=== PATIENT | female | born 1950 | race Caucasian/White ===

== ENCOUNTER 2020-07-08 07:09 | Day surgery (SDC) | payer MEDICARE, MEDICAID, SELFPAY ==
--- NOTE | ~2020-07-08 | IR_ITS ---
EXAMINATION: ATTEMPT OF GASTROSTOMY TUBE CHANGE. CLINICAL INFORMATION: Clogged G-tube. COMPARISON: CT scan of March 07, 2019 TECHNIQUE: Fluoroscopic guided gastrostomy tube evaluation FINDINGS: Informed consent was obtained from the patient's son prior to the procedure. During this process, the procedure and potential alternatives were explained, along with the intended outcome and benefits. The risks of the procedure, as well as the risk of not doing the procedure, were discussed. The patient's son was given the opportunity to ask questions regarding the procedure and appeared competent to make medical decisions. A signed consent form which documents this discussion was placed in the medical record. The gastrostomy tube was injected and is seen to be widely patent with no obstruction to flow upon injection of a 60 mL syringe. A guidewire was placed through the catheter and coiled within the stomach. Attempts at removing the gastrostomy tube with moderate tension were not successful with the appearance of the catheter having a mushroom retention device. Evaluation of the feeding tube did not demonstrate any markings of what kind of tube or size of tube. The tube appears to be larger than the largest gastrostomy tube that we carry which is a 20 Turkmen catheter. The indwelling catheter has the appearance of a 24 Turkmen catheter. Because of the above factors the gastrostomy tube was not replaced until further information about it is obtained.. The gastrostomy tube is widely patent at this time. IR/IR fluoroscopy <1hr IMPRESSION: Widely patent gastrostomy tube which was not replaced at this time due to the above findings. Fluoroscopy time: 0.5 minutes
[2020-07-08 07:10] VITALS: BMI 17.3
[2020-07-08 07:32] LABS: Glucose, Whole Blood 100 mg/dL (60-115)
[2020-07-08 07:39] LABS: MANUAL DIFF FLAG NO
[2020-07-08 07:43] LABS: Basophils Percent Auto 0.5 % (0-2); Eosinophils Absolute Auto 0.2 X10*3/uL (0.0-0.4); Eosinophils Percent Auto 2.9 % (0-4); Hematocrit 35.8 % (37-47); Imm Gran Abs Auto 0.01 X10*3/uL (0.00-0.03); Imm Gran Pct Auto 0.1 % (0.0-0.4); Lymphocytes Absolute Auto 3.3 X10*3/uL (1.2-4.9); Lymphocytes Percent Auto 43.8 % (20-40); Mean Corpuscular HGB Conc 30.7 g/dl (31.0-35.0); Mean Corpuscular Hemoglobin 27.3 pg (27.0-33.0); Mean Corpuscular Volume 88.8 fL (80-98); Mean Platelet Volume 10.6 fL (9.4-12.3); Monocytes Absolute Auto 0.4 X10*3/uL (0.1-1.2); Neutrophils Absolute Auto 3.6 X10*3/uL (2.0-8.3); Neutrophils Percent Auto 47.7 % (45-73); Platelet Count 256 X10*3/uL (160-400); Red Blood Count 4.03 X10*6/uL (4.20-5.50); Red Cell Distribution Width 14.9 % (11.0-16.0); White Blood Count 7.6 X10*3/uL (4.8-10.8)
--- NOTE | 2020-07-08 08:08 | PC.NURSE ---
Patient came to [facility] wearing one pair of silver earrings and one silver necklace.
[2020-07-08 08:36] LABS: Prothrombin Time 11.2 SEC (10.8-13.0)
[2020-07-08 08:39] LABS: INTERNATIONAL NORM RATIO 0.9 (0.9-1.1); Partial Thromboplastin Time 24.7 SEC (24.1-38.0)
[2020-07-08 11:05] VITALS: BP 155/76; PULSE 75; RESP 18; TEMP 36.6; O2SAT 98
[2020-07-08 11:23] VITALS: BP 151/71; PULSE 76; RESP 18; O2SAT 99
== END 2020-07-08 11:41 | disposition home or self-care (01) ==
PROVIDERS: Radiology Diagnostic Radiology; PCP Family Medicine; Visit Provider Radiology Diagnostic Radiology
PROC: (CPT 43762; principal; 2020-07-08 08:30)
DX: K94.23 Gastrostomy malfunction (principal); I69.920 Aphasia following unspecified cerebrovascular disease; I69.951 Hemiplegia and hemiparesis following unspecified cerebrovascular disease affecting right dominant side; I10 Essential (primary) hypertension; E11.9 Type 2 diabetes mellitus without complications; Z79.84 Long term (current) use of oral hypoglycemic drugs; Z79.899 Other long term (current) drug therapy; F22 Delusional disorders; F32.9 Major depressive disorder, single episode, unspecified
CPT/HCPCS: 36415; 49450; 76000; 82947; 85025; 85610; 85730; J2250; J3010; Q9967

== ENCOUNTER 2021-11-29 16:43 | Inpatient (IN) | payer MEDICARE, MEDICAID, SELFPAY ==
--- NOTE | ~2021-11-29 | XR_ITS ---
EXAMINATION: XR ABDOMEN KUB CLINICAL INDICATION: Constipation. COMPARISON: CT abdomen pelvis 11/29/2021 TECHNIQUE: AP view of the abdomen. FINDINGS: There is a distended entire colon with gas and stool likely severe constipation. Comparing to recent CT abdomen exam there is mild fullness in sigmoid and rectal area. Underlying lesion cannot be excluded. There is mild fullness in this region on the preceding CT 11/29/2021. An enteric tube is noted in distal stomach. XR/XR KUB IMPRESSION: Gaseous distention of colon likely severe constipation. Mild fullness is seen in the rectal and sigmoid region on preceding CT abdomen exam. Cannot exclude underlying lesion.
--- NOTE | ~2021-11-29 | XR_ITS ---
EXAMINATION: XR ABDOMEN KUB CLINICAL INDICATION: Follow-up intestinal obstruction. COMPARISON: Abdomen CT from 11/29/2021 and KUB from 11/30/2021. TECHNIQUE: AP view of the abdomen. FINDINGS: Interval removal of the nasogastric tube. The gaseous distention of the sigmoid colon has improved compared to 11/29/2021. The sigmoid colon has returned to normal size. Moderate amount of fecal material is present within the colon. There are no dilated loops of small bowel. No evidence of pneumoperitoneum on this radiograph obtained with the patient in supine position. Gastrostomy tube projects over the epigastric area. Cholecystectomy clips are present in the right upper quadrant. Bones are diffusely osteopenic. XR/XR KUB IMPRESSION: This follow-up radiograph shows no evidence of bowel obstruction.
--- NOTE | ~2021-11-29 | CT_ITS ---
EXAMINATION: CT ABDOMEN AND PELVIS WITHOUT CONTRAST CLINICAL INFORMATION: Abdominal distention questionably of small bowel obstruction COMPARISON: 03/07/2019 TECHNIQUE: Multidetector volumetric imaging was performed from the superior aspect of the liver through the pubic symphysis. Sagittal and coronal reformatted images were obtained on the technologist's workstation. This CT examination was performed using dose optimization techniques as appropriate, variously including the following: *Automated exposure control *Adjustment of mA and/or kV according to patient size (this includes techniques or standardized protocols for targeted exams where dose is matched to indication/reason for exam; i.e. extremities or head) *Use of iterative reconstruction technique DLP: 655 mGy-cm FINDINGS: LUNG BASES: The visualized lung bases are unremarkable. LIVER, GALLBLADDER, AND BILIARY TREE: The liver is normal in size, shape, and attenuation. No focal hepatic lesion or biliary ductal dilatation is present. Gallbladder is surgically absent. PANCREAS: Unremarkable. SPLEEN: Unremarkable. ADRENAL GLANDS: Unremarkable. KIDNEYS AND URETERS: The kidneys are normal in size, shape, and attenuation. No hydronephrosis, hydroureter, or calculi seen. No perinephric stranding. BLADDER: Unremarkable. GASTROINTESTINAL TRACT: There is severe constipation and dilated sigmoid colon consistent with the appearance of volvulus, demonstrating ahaustral wall, the lower end pointing to the pelvis and large bowel obstruction. There is G-tube seen. ABDOMINAL WALL: There is a G-tube placed through the anterior abdominal wall in the stomach LYMPH NODES: Normal. VASCULAR: Abdominal aorta is heavily calcified but not dilated PELVIC VISCERA: Unremarkable. OSSEOUS STRUCTURES: There is patchy osteopenia through the all visualized skeletal CT/CT abdomen pelvis wo IV con IMPRESSION: Small bowel obstruction due to constipation and sigmoid volvulus. Communication: Nurse practitioner Herbie Mann at 1850 7:00 PM Fleischner guidelines were followed.
--- NOTE | ~2021-11-29 | XR_ITS ---
EXAMINATION: XR CHEST CLINICAL INFORMATION: Evaluate NG tube placement COMPARISON: Chest x-ray 10/09/2013 TECHNIQUE: Frontal portable view of the chest was obtained. 7:46 PM FINDINGS: Nasogastric tube in stomach. Both the end hole and side hole within the distal stomach. No acute abnormality the chest. Lungs are normally aerated. No pulmonary vascular congestion. There is no pleural effusion or pneumothorax. The cardiac and mediastinal contours are normal. The heart size is normal. XR/XR chest 1V IMPRESSION: Nasogastric tube in stomach.
[2021-11-29 16:50] VITALS: BP 112/82; PULSE 76; O2SAT 98
--- NOTE | 2021-11-29 16:51 | ED_ITS ---
HPI - Abdominal Pain General Chief Complaint: General Medical Stated Complaint: abdominal pain Time Seen by Provider: 11/29/21 16:45 Source: patient Mode of arrival: ambulatory Limitations: other (dementia) History of Present Illness HPI narrative: 71 y/o female with a PMHx of dementia, presenting to the ED from a SNF with abdominal pain x3-4 days. The patient reportedly had a KUB done at the SNF which showed signs of an ileus. They then switched her diet to clear liquids through her G tube and gave her lactulose. Since then, she has had 4 bowel movements but has reported persistent abdominal pain. No reports of nausea/vomiting. Patient is non-communicative at baseline. History obtained via EMS and limited due to the patient being unable to participate. Related Data Allergies Allergy/AdvReac Type Severity Reaction Status Date / Time diphenhydramine Allergy Mild HIVES Verified 07/08/20 07:29 meperidine Allergy Mild UNKNOWN Verified 07/08/20 07:29 From Benadryl Allergy Unknown UNKNOWN Uncoded 11/13/19 16:16 From Demerol Allergy Unknown UNKNOWN Uncoded 11/13/19 16:16 Review of Systems Review of Systems Yes Unobtainable due to mental status (dementia) [facility] Past Medical History Attestation statement: The following information was validated with the patient. Source: old records reviewed and nursing notes reviewed Social History Social History Patient Tobacco Use Status: Never used Tobacco Use of substances other than those prescribed or required for medical reasons: No Advance Directives: No Advance Directives Information Provided: Yes Physical Exam ED Vital Signs: Vital Signs - 24 hr 11/29/21 17:01 11/29/21 17:19 11/29/21 18:00 Temperature 98.0 F 98.0 F 97.6 F Pulse Rate 90 88 85 Respiratory Rate 16 17 16 Blood Pressure 128/68 128/68 123/53 L Pulse Oximetry 94 94 96 Oxygen Delivery Method Room Air Room Air Room Air 11/29/21 19:41 Temperature Pulse Rate 84 Respiratory Rate 17 Blood Pressure 120/63 Pulse Oximetry 98 Oxygen Delivery Method Room Air BMI result Body Mass Index 20.5 VSS Appearance: Awake, alert. Moving all extremities..? No acute distress.? Head: Normocephalic, atraumatic, no step-offs or deformities Eyes: Pupils equal, round and reactive to light.? Neck: Normal inspection.? Neck supple.? CVS: Normal heart rate and rhythm.? Pulses normal.? Respiratory: No respiratory distress.? Breath sounds normal.? Abdomen: Soft. Mild distension. Mild diffuse tenderness. No gaurding. Hypoactive BS Skin: Skin warm and dry.? Normal skin color.? Normal skin turgor.? Extremities: No lower extremity edema.? No calf ttp. 5/5 strength to bilateral upper and lower extremities Neuro: Awake, alert, moving all extremities.? No motor deficit.? Course Reevaluation(s) Reevaluation #1: Wet read of CT of abd and pelvis- LBO/ volvulus . Time: 17:56 Reevaluation #2: Reached out to Dr. Mercado who recommends reaching out to GI first. TT to Dr. Boyer. Time: 19:05 Reevaluation #3: Spoke to , tells me patient will likely need colonic decompression however more information should be obtained from a correction facility, I did try to reach out to the correction facility x2 without answer. Will try again. Patient's family at the bedside, poor historians. Time: 19:43 Additional Reevaluation(s): 2047 Dr. Boeyr- recommends draining G tube to gravity, and fecal disimpaction. Reports monitoring vitals and abd exam. Recommend admission to hospitalist team. Depending on her stay overnight will determine if decompression is needed. is to be notified if vitals change, if abd exam changes or if lactic is +. 2123 Patient will be admitted to the hospitalist team for further intervention and treatment. MDM - Abdominal Pain MDM Narrative Medical decision making narrative: 14:45 71 y/o female with a PMHx of dementia presenting with abdominal pain. +KUB at SNF showing ileus. No nausea/vomiting. 4 x bowel movements over the past few days. PE remarkable for mild distension and tenderness. Suspect ileus vs. severe constipation vs [place]. Low suspicion for peritonitis, diverticulitis, gastroenteritis. Plan to obtain CT abd/pelvis, basic labs, ua Medical Records Attestation: I reviewed the patient's medical records. Lab Data Attestation: I reviewed the patient's lab results. Result diagrams: 11/29/21 18:06 11/29/21 18:06 Labs: Lab Results 11/29/21 11/29/2122 Range/Units 18:06 18:06 18:06 WBC 7.0 (4.8-10.8) X10*3/uL RBC 4.61 (4.20-5.50) X10*6/uL Hgb 12.6 (12.0-16.0) g/dl Hct 38.1 (37.0-47.0) % MCV 82.6 (80.0-98.0) fL MCH 27.3 (27.0-33.0) pg MCHC 33.1 (31.0-35.0) g/dl RDW 14.6 (11.0-16.0) % Plt Count 284 (160-400) X10*3/uL MPV 11.1 (9.4-12.3) fL Immature Gran % (Auto) 0.3 (0.0-0.4) % Neut % (Auto) 59.9 (45-73) % Lymph % (Auto) 34.3 (20-40) % [place] % (Auto) 4.3 (2-11) % Eos % (Auto) 0.6 (0-4) % Baso % (Auto) 0.6 (0-2) % Lymph # (Auto) 2.4 (1.2-4.9) X10*3/uL [place] # (Auto) 0.3 (0.1-1.2) X10*3/uL Eos # (Auto) 0.0 (0.0-0.4) X10*3/uL Baso # (Auto) 0.0 (0.0-0.2) X10*3/uL Abs Immat Gran (auto) 0.02 (0.00-0.03) X10*3/uL Absolute Neuts (auto) 4.2 (2.0-8.3) x10*3/uL Absolute Nucleated RBC 0.000 (0.0-0.012) X10*3/uL Nucleated RBC % (auto) 0.0 (0.0-0.2) /100WBC Sodium 140 (135-145) mmol/L Potassium 3.5 (3.3-5.1) mmol/L Chloride 104 (96-108) mmol/L Carbon Dioxide 18 L (22-29) mmol/L Anion Gap 22 H (12-20) BUN 30 H (9-16) mg/dL Creatinine 0.98 (0.5-1.4) mg/dL Estim Creat Clear Calc 43.6 Estimated GFR 56 Random Glucose 193 H (60-115) mg/dL Lactic Acid (0.5-2.0) mmol/L Calcium 9.0 (8.4-10.2) mg/dL Magnesium 1.3 L* (1.6-2.6) mg/dL Total Bilirubin 0.5 (0.0-1.0) mg/dL AST 17 (5-31) U/L ALT 9 (0-31) U/L Alkaline Phosphatase 113 (39-117) U/L Total Protein 7.6 (6.5-8.0) g/dL Albumin 4.1 (3.5-5.0) g/dL Lipase 6 L (8-78) U/L COVID-19 (ADITI) Negative (Negative) COVID-19 Clin Com See Note 11/29/21 Range/Units 21:07 WBC (4.8-10.8) X10*3/uL RBC (4.20-5.50) X10*6/uL Hgb (12.0-16.0) g/dl Hct (37.0-47.0) % MCV (80.0-98.0) fL MCH (27.0-33.0) pg MCHC (31.0-35.0) g/dl RDW (11.0-16.0) % Plt Count (160-400) X10*3/uL MPV (9.4-12.3) fL Immature Gran % (Auto) (0.0-0.4) % Neut % (Auto) (45-73) % Lymph % (Auto) (20-40) % [place] % (Auto) (2-11) % Eos % (Auto) (0-4) % Baso % (Auto) (0-2) % Lymph # (Auto) (1.2-4.9) X10*3/uL [place] # (Auto) (0.1-1.2) X10*3/uL Eos # (Auto) (0.0-0.4) X10*3/uL Baso # (Auto) (0.0-0.2) X10*3/uL Abs Immat Gran (auto) (0.00-0.03) X10*3/uL Absolute Neuts (auto) (2.0-8.3) x10*3/uL Absolute Nucleated RBC (0.0-0.012) X10*3/uL Nucleated RBC % (auto) (0.0-0.2) /100WBC Sodium (135-145) mmol/L Potassium (3.3-5.1) mmol/L Chloride (96-108) mmol/L Carbon Dioxide (22-29) mmol/L Anion Gap (12-20) BUN (9-16) mg/dL Creatinine (0.5-1.4) mg/dL Estim Creat Clear Calc Estimated GFR Random Glucose (60-115) mg/dL Lactic Acid 1.1 (0.5-2.0) mmol/L Calcium (8.4-10.2) mg/dL Magnesium (1.6-2.6) mg/dL Total Bilirubin (0.0-1.0) mg/dL AST (5-31) U/L ALT (0-31) U/L Alkaline Phosphatase (39-117) U/L Total Protein (6.5-8.0) g/dL Albumin (3.5-5.0) g/dL Lipase (8-78) U/L COVID-19 (ADITI) (Negative) COVID-19 Clin Com Critical Care Time Critical Care Time Critical Care Time: Yes Total Critical Care Time: 50 Attestation: I attest to this time spent taking care of the patient, obtaining history, physical, reviewing labs, imaging, speaking to my attending, speaking to specialist. Discharge Plan Discharge Clinical Impression: Hypomagnesemia, Small bowel obstruction, Sigmoid volvulus, Abdominal pain Patient Disposition: Admitted As Inpatient
[2021-11-29 17:01] VITALS: BP 112/76; BP 128/68; PULSE 82; PULSE 90; RESP 16; TEMP 36.7; O2SAT 94; O2SAT 98; BMI 20.5
[2021-11-29 17:19] VITALS: BP 128/68; PULSE 88; RESP 17; TEMP 36.7; O2SAT 94
[2021-11-29 18:00] VITALS: BP 123/53; PULSE 85; RESP 16; TEMP 36.4; O2SAT 96
[2021-11-29 18:11] LABS: MANUAL DIFF FLAG NO
[2021-11-29] MEDS: Ketorolac Tromethamine 15 MG/ML VIAL 30 MG IVPUSH (18:12)
--- NOTE | 2021-11-29 18:15 | PC.NURSE ---
pt awake, nonverbal, will shake head to y/n questions, cardiac rehabilitation program director intact, nsr 80s, vss, iv inserted, labs drawn, covid swab obtained, pt medicated per order, abd firm/distended-pt winced when abd touched, gtube intact, family at bedside, will continue to monitor
[2021-11-29 18:25] LABS: Basophils Percent Auto 0.6 % (0-2); Eosinophils Percent Auto 0.6 % (0-4); Hematocrit 38.1 % (37.0-47.0); Hemoglobin 12.6 g/dl (12.0-16.0); Imm Gran Abs Auto 0.02 X10*3/uL (0.00-0.03); Imm Gran Pct Auto 0.3 % (0.0-0.4); Lymphocytes Absolute Auto 2.4 X10*3/uL (1.2-4.9); Lymphocytes Percent Auto 34.3 % (20-40); Mean Corpuscular HGB Conc 33.1 g/dl (31.0-35.0); Mean Corpuscular Hemoglobin 27.3 pg (27.0-33.0); Mean Corpuscular Volume 82.6 fL (80.0-98.0); Mean Platelet Volume 11.1 fL (9.4-12.3); Monocytes Absolute Auto 0.3 X10*3/uL (0.1-1.2); Monocytes Percent Auto 4.3 % (2-11); Neutrophils Absolute Auto 4.2 x10*3/uL (2.0-8.3); Neutrophils Percent Auto 59.9 % (45-73); Platelet Count 284 X10*3/uL (160-400); Red Blood Count 4.61 X10*6/uL (4.20-5.50); Red Cell Distribution Width 14.6 % (11.0-16.0)
[2021-11-29 18:28] LABS: COVID-19 Test Negative (Negative)
[2021-11-29 18:38] LABS: Alanine Aminotransferase 9 U/L (0-31); Albumin Level 4.1 g/dL (3.5-5.0); Alkaline Phosphatase 113 U/L (39-117); Anion Gap 22 (12-20); Aspartate Amino Transferase 17 U/L (5-31); Bilirubin Total 0.5 mg/dL (0.0-1.0); Blood Urea Nitrogen 30 mg/dL (9-16); Carbon Dioxide 18 mmol/L (22-29); Chloride 104 mmol/L (96-108); Creatinine Clr Calc Pharmacy 43.6; Estimated Glomerular Filt Rate 56; Glucose Random 193 mg/dL (60-115); Lipase 6 U/L (8-78); Magnesium 1.3 mg/dL (1.6-2.6); Potassium 3.5 mmol/L (3.3-5.1); Sodium 140 mmol/L (135-145); Total Protein 7.6 g/dL (6.5-8.0)
--- NOTE | 2021-11-29 18:41 | PC.NURSE ---
Addendum entered by Rica Tena 11/29/21 19:03: Pt was assess and pt has distended abd, sound on the RLQ, but difficulties hearing LLQ. Pt did not have any pain or garding during the percussion or palpitation. Pt abd is rigid. Original Note: Pt V/S are stable, pt has no apparent distress. will continue to monitor.
[2021-11-29] MEDS: Magnesium Sulfate/H2O 2 GM/50 ML PIGGYBACK IV (18:56)
--- NOTE | 2021-11-29 18:59 | PC.NURSE ---
Pt v/s are stable, Pt was administered Mg IV. will continue to monitor. Pt is NPO. Pt is continuing to be monitor on the telemetry and it shows NSR.
--- NOTE | 2021-11-29 19:16 | PM.CNGS ---
History of Present Illness Consult details Consult date: 11/30/21 Reason for consult: other (ABdomonal distention; sigmoid volvulus) Requesting physician: Herbie Mann Narrative: The pt is an 71yo woman with h/o CVA & G tube who is a SNF resident presenting with abdominal bloating. The pt underwent CT concerning for sigmoid volvulus & I was contacted to help direct care. Due to the patient's mental status, history is obtained from the EMR. In reviewing notes, the patient had decreased p.o. intake and was sent from an SNF for evaluation for abdominal bloating. Concern was raised for a possible sigmoid volvulus, however in my interpretation, there is no bird beak pinched off appearance but rather a dilated colon at about 8 cm. Review of Systems Review of Systems: Yes Unobtainable due to mental status Constitutional: Constitutional: Reports as per [facility] Past Medical History Medical History (Updated 11/30/21 @ 14:32 by Jairo Mercado MD) Above knee amputation of right lower extremity CVA (cerebral vascular accident) Dementia Diabetes Gastrointestinal tube present Right hemiparesis Social History Social History Patient Tobacco Use Status: Never used Tobacco service: No Current occupational status: disabled Meds Allergies Allergy/AdvReac Type Severity Reaction Status Date / Time diphenhydramine Allergy Mild HIVES Verified 07/08/20 07:29 meperidine Allergy Mild UNKNOWN Verified 07/08/20 07:29 From Benadryl Allergy Unknown UNKNOWN Uncoded 11/13/19 16:16 From Demerol Allergy Unknown UNKNOWN Uncoded 11/13/19 16:16 Active Medications: Current Medications Magnesium Sulfate (Magnesium Sulfate/H2o) 2 gm in 50 mls @ 25 mls/hr IV ONCE ONE Stop: 11/29/21 20:38 Last Admin: 11/29/21 18:56 Dose: 25 mls/hr Home Medications Medication Instructions Recorded Confirmed Last Taken Type acetaminophen 325 mg tablet 650 mg PO Q4H PRN Pain 11/29/21 11/29/21 Unknown History atorvastatin 20 mg tablet 20 mg PO DAILY 11/29/21 11/29/21 Unknown History cholecalciferol (vitamin D3) 1,250 1,250 mcg PO QMONTH 11/29/21 11/29/21 11/02/21 History mcg (50,000 unit) capsule cholestyramine (with sugar) 4 gram 4 g PO DAILY 11/29/21 11/29/21 Unknown History powder for susp in a packet glycopyrrolate 1 mg tablet 1 mg PO BID 11/29/21 11/29/21 Unknown History menthol 0.44 %-zinc oxide 20.6 % 1 appl topical QID 11/29/21 11/29/21 Unknown History topical ointment metformin 500 mg tablet 500 mg PO BID 11/29/21 11/29/21 Unknown History mirtazapine 30 mg tablet 30 mg PO DAILY 11/29/21 11/29/21 Unknown History multivitamin 1 tab PO DAILY 11/29/21 11/29/21 Unknown History pantoprazole 40 mg granules 40 mg PO DAILY 11/29/21 11/29/21 Unknown History delayed-release for susp in packet (Protonix) sennosides 8.6 mg tablet (senna) 17.2 mg PO DAILY PRN Constipation 11/29/21 11/29/21 Unknown History sertraline 100 mg tablet 100 mg PO DAILY 11/29/21 11/29/21 Unknown History simethicone 80 mg chewable tablet 160 mg PO BID 11/29/21 11/29/21 Unknown History valproic acid (as sodium salt) 250 500 mg PO BEDTIME 11/29/21 11/29/21 Unknown History mg/5 mL (5 mL) oral solution valproic acid (as sodium salt) 250 375 mg PO DAILY 11/29/21 11/29/21 Unknown History mg/5 mL oral solution Physical Exam Vital Signs: Vital Signs: Last Vital Signs Temp 97.6 F 11/29/21 18:00 Pulse 85 11/29/21 18:00 Resp 16 11/29/21 18:00 BP 123/53 L 11/29/21 18:00 Pulse Ox 96 11/29/21 18:00 O2 Del Method 11/29/21 18:00 BMI result Body Mass Index 20.5 The patient is non-toxic NC/AT, PERRLA, EOMI The patient has minimal response to questions Sclera anicteric conjunctiva pink and moist Neck is supple with no masses, adenopathy or bruits Heart is regular, normal S1-S2 no rubs or murmurs Lungs are clear and equal anteriorly with no audible wheezing, rubs or dullness to percussion Abdomen is overweight with no demonstrable hernias, but the patient's abdomen is tympanitic with no peritoneal sign. No HSM, rebound, rigidity, guarding, masses or bruits are present. Rectal exam is deferred Skin has good turgor and is free of rashes Right lower extremity is surgically absent Results Labs Result diagrams: 11/30/21 06:10 11/30/21 06:10 Labs: Abnormal lab results 11/29/21 Range/Units 18:06 Carbon Dioxide 18 L (22-29) mmol/L Anion Gap 22 H (12-20) BUN 30 H (9-16) mg/dL Random Glucose 193 H (60-115) mg/dL Magnesium 1.3 L* (1.6-2.6) mg/dL Lipase 6 L (8-78) U/L Short CBC 11/29/21 Range/Units 18:06 WBC 7.0 (4.8-10.8) X10*3/uL Hgb 12.6 (12.0-16.0) g/dl Hct 38.1 (37.0-47.0) % Plt Count 284 (160-400) X10*3/uL BMP 11/29/21 18:06 Sodium 140 Potassium 3.5 Chloride 104 Carbon Dioxide 18 L BUN 30 H Creatinine 0.98 Calcium 9.0 Liver Function 11/29/21 Range/Units 18:06 Total Bilirubin 0.5 (0.0-1.0) mg/dL AST 17 (5-31) U/L ALT 9 (0-31) U/L Alkaline Phosphatase 113 (39-117) U/L Albumin 4.1 (3.5-5.0) g/dL All other labs normal. Imaging Abdomen CT scan report/results: report reviewed and image reviewed CT scan - pelvis: report reviewed and image reviewed Additional studies: Colon is dilated, measuring about 8cm. Sigmoid is concerning for volvulus per radiologist, but small bowel doesn't appear obstructed. there's no typical beak seen in a volvulus, so this may represent chronic colorectal distention. Assessment and Plan (1) Sigmoid volvulus: Status: Acute (2) Hypomagnesemia: Status: Acute (3) Nonverbal: Status: Acute (4) Dilatation of colon: Status: Acute (5) Dementia: Status: Acute (6) Above knee amputation of right lower extremity: Status: Acute Plan Per ER, there's no vomiting, so I would recommend G-tube be placed to gravity & hold on NG unless vomiting occurs. Consult hospitalist re: medical admission, IVF, electrolyte correction & GI re: decompressive sigmoidoscopy or colonoscopy, per their judgment +/- rectal tube. Will follow 11/30/2021 Patient remains surgically stable. Input from GI reviewed and any endoscopy is deferred to GI. Will continue to follow. Call me with any questions. Procedures Date of Service Date of Service: 11/30/21
[2021-11-29 19:41] VITALS: BP 120/63; PULSE 84; RESP 17; O2SAT 98
--- NOTE | 2021-11-29 19:47 | PC.NURSE ---
Pt NG tube was placed on R nare, Pt was not able to follow commands but RN Nina was able to insert the tube. This RN was able to hear the tube placement, but an X-ray is order to confirm, and once is confirmed it can be secure firmly. Pt son is at bedside. Pt Mg is running.
--- NOTE | 2021-11-29 20:58 | PC.NURSE ---
per provider request gtube was attached to mckee bag
--- NOTE | 2021-11-29 21:09 | PC.NURSE ---
gtube was flushed with 30cc water per request of provider, pt tolerated well, gtube drained into mckee bag
[2021-11-29 21:29] LABS: Lactic Acid 1.1 mmol/L (0.5-2.0)
[2021-11-29 21:38] LABS: Alanine Aminotransferase 8 U/L (0-31); Alkaline Phosphatase 109 U/L (39-117); Anion Gap 21 (12-20); Aspartate Amino Transferase 12 U/L (5-31); Bilirubin Total 0.5 mg/dL (0.0-1.0); Blood Urea Nitrogen 30 mg/dL (9-16); Calcium 8.8 mg/dL (8.4-10.2); Carbon Dioxide 18 mmol/L (22-29); Chloride 104 mmol/L (96-108); Creatinine Clr Calc Pharmacy 38.8; Estimated Glomerular Filt Rate 49; Glucose Random 220 mg/dL (60-115); Potassium 3.3 mmol/L (3.3-5.1); Sodium 140 mmol/L (135-145); Total Protein 7.2 g/dL (6.5-8.0)
--- NOTE | 2021-11-29 21:41 | P.HPHOSP_ITS ---
History of Present Illness Date of Service: 11/29/21 Chief Complaint: abd distension 81-year-old female with past medical history of CVA with right-sided hemiparesis, as well as above knee amputation,, dementia, mostly bed-bound, diabetes, history of chronic volvulus with recent worsening, sent to the hospital from longterm with complaints of abdominal distension. Patient is nonverbal at baseline, and unable to give much history. History is obtained from her son at bedside who is also unaware was happening when she was sent to the hospital but he does report that she has had trouble with her stomache for many years, with things getting stuck when she eats . He speaks Icelandic and an regional rehabilitation director was used. I am unable to conduct review of system as patient is nonverbal On arrival to the ED patient was found to be hemodynamically stable with no significant abnormal vitals Labs are significant for WBC count of 7.0, CBC otherwise unremarkable, CMP shows bicarb of 18, anion gap 22, BUN of 30, creatinine of 0.98, magnesium of 1.3 that was repleted, UA that is positive for nitrites, leukocyte Estrace and WBC, Abdominal pelvic CT showed small-bowel obstruction due to constipation and sigmoid volvulus. This case was discussed extensively with both services feeling the patient does not have small-bowel obstruction. surgery who felt the patient needed decompression, surgery felt that at this time patient did not need decompression and weak can attempt to fecal disimpact and monitor for resolution. A fecal disimpaction was attempted in the ED but patient did not have any stool in the rectal vault, but according to the ED PA had significant amount of gas with some improvement in her abdominal distension. Patient will be admitted to our service for further management by GI and surgery Review of Systems Review of Systems: Yes Unobtainable due to mental condition and Unobtainable due to mental status [facility] Medical History (Updated 11/30/21 @ 06:36 by Lou Card MD) Above knee amputation of right lower extremity CVA (cerebral vascular accident) Dementia Diabetes Right hemiparesis Social History Patient Tobacco Use Status: Never used Tobacco Use of substances other than those prescribed or required for medical reasons: No Advance Directives: No Advance Directives Information Provided: Yes Meds Allergies Allergy/AdvReac Type Severity Reaction Status Date / Time diphenhydramine Allergy Mild HIVES Verified 07/08/20 07:29 meperidine Allergy Mild UNKNOWN Verified 07/08/20 07:29 From Benadryl Allergy Unknown UNKNOWN Uncoded 11/13/19 16:16 From Demerol Allergy Unknown UNKNOWN Uncoded 11/13/19 16:16 Active Medications: Current Medications Acetaminophen (Acetaminophen 325 Mg Tablet) 650 mg PO Q6H PRN PRN Reason: Pain, Mild (Pain Scale 1-3) Heparin Sodium (Porcine) (Heparin Sodium,Porcine 5,000 Unit/Ml Vial) 5,000 unit SUBCUT Q12H INGE Lactated Ringer's (Lr) 1,000 mls @ 100 mls/hr IVCONT .Q10H INGE Ondansetron HCl (Ondansetron Hcl 4 Mg/2 Ml Vial) 4 mg IVPUSH Q8H PRN PRN Reason: Nausea and Vomiting Sodium Chloride (0.9 % Sodium Chloride Flush 3 Ml Syringe) 3 ml IVFLUSH QSHIFT [facility] Home Medications Medication Instructions Recorded Confirmed Last Taken Type acetaminophen 325 mg tablet 650 mg PO Q4H PRN Pain 11/29/21 11/29/21 Unknown History atorvastatin 20 mg tablet 20 mg PO DAILY 11/29/21 11/29/21 Unknown History cholecalciferol (vitamin D3) 1,250 1,250 mcg PO QMONTH 11/29/21 11/29/21 11/02/21 History mcg (50,000 unit) capsule cholestyramine (with sugar) 4 gram 4 g PO DAILY 11/29/21 11/29/21 Unknown History powder for susp in a packet glycopyrrolate 1 mg tablet 1 mg PO BID 11/29/21 11/29/21 Unknown History menthol 0.44 %-zinc oxide 20.6 % 1 appl topical QID 11/29/21 11/29/21 Unknown History topical ointment metformin 500 mg tablet 500 mg PO BID 11/29/21 11/29/21 Unknown History mirtazapine 30 mg tablet 30 mg PO DAILY 11/29/21 11/29/21 Unknown History multivitamin 1 tab PO DAILY 11/29/21 11/29/21 Unknown History pantoprazole 40 mg granules 40 mg PO DAILY 11/29/21 11/29/21 Unknown History delayed-release for susp in packet (Protonix) sennosides 8.6 mg tablet (senna) 17.2 mg PO DAILY PRN Constipation 11/29/21 11/29/21 Unknown History sertraline 100 mg tablet 100 mg PO DAILY 11/29/21 11/29/21 Unknown History simethicone 80 mg chewable tablet 160 mg PO BID 11/29/21 11/29/21 Unknown History valproic acid (as sodium salt) 250 500 mg PO BEDTIME 11/29/21 11/29/21 Unknown History mg/5 mL (5 mL) oral solution valproic acid (as sodium salt) 250 375 mg PO DAILY 11/29/21 11/29/21 Unknown History mg/5 mL oral solution Physical Exam Vital Signs and Narrative: Vital Signs: Last Vital Signs Temp 97.6 F 11/29/21 18:00 Pulse 84 11/29/21 19:41 Resp 17 11/29/21 19:41 BP 120/63 11/29/21 19:41 Pulse Ox 98 11/29/21 19:41 O2 Del Method 11/29/21 19:41 BMI result Body Mass Index 20.5 Const: General: cooperative and no acute distress Eyes: General: appearance normal, both eyes and all related structures Pupils: Equal, round and reactive pupils present Resp: Effort & Inspection: normal respiratory effort Auscultation: clear to auscultation bilaterally Cardio: Rate: regular rate Rhythm: regular rhythm GI: Other: Abdomen is distended, has grimacing on deep palpation, some guarding Hypoactive bowel sounds Palpation (GI): Soft to palpation Skin: General skin exam: no rashes or lesions noted Neuro: Cranial nerves: Yes Equal, round and reactive pupils present Extrem: General: Yes normal to inspection and Yes no pedal edema Results Labs CBC and Chem 7: 11/29/21 18:06 11/29/21 21:07 Labs: Laboratory Results - last 24 hr 11/29/21 11/29/21 11/29/21 18:06 18:06 18:06 MCV 82.6 MCH 27.3 MCHC 33.1 RDW 14.6 Plt Count 284 MPV 11.1 Immature Gran % (Auto) 0.3 Neut % (Auto) 59.9 Lymph % (Auto) 34.3 Alfalfa % (Auto) 4.3 Eos % (Auto) 0.6 Baso % (Auto) 0.6 Lymph # (Auto) 2.4 Alfalfa # (Auto) 0.3 Eos # (Auto) 0.0 Baso # (Auto) 0.0 Abs Immat Gran (auto) 0.02 Absolute Neuts (auto) 4.2 Absolute Nucleated RBC 0.000 Nucleated RBC % (auto) 0.0 Anion Gap 22 H Estim Creat Clear Calc 43.6 Estimated GFR 56 Random Glucose 193 H Lactic Acid Calcium 9.0 Magnesium 1.3 L* Total Bilirubin 0.5 AST 17 ALT 9 Alkaline Phosphatase 113 Total Protein 7.6 Albumin 4.1 Lipase 6 L COVID-19 (ADITI) Negative COVID-19 Clin Com See Note 11/29/21 11/29/21 21:07 21:07 MCV MCH MCHC RDW Plt Count MPV Immature Gran % (Auto) Neut % (Auto) Lymph % (Auto) Alfalfa % (Auto) Eos % (Auto) Baso % (Auto) Lymph # (Auto) Alfalfa # (Auto) Eos # (Auto) Baso # (Auto) Abs Immat Gran (auto) Absolute Neuts (auto) Absolute Nucleated RBC Nucleated RBC % (auto) Anion Gap 21 H Estim Creat Clear Calc 38.8 Estimated GFR 49 Random Glucose 220 H Lactic Acid 1.1 Calcium 8.8 Magnesium Total Bilirubin 0.5 AST 12 ALT 8 Alkaline Phosphatase 109 Total Protein 7.2 Albumin 4.0 Lipase COVID-19 (ADITI) COVID-19 Clin Com Imaging Radiologist's Impressions: Impressions Abdomen/Pelvis CT 11/29/21 17:41 IMPRESSION: Small bowel obstruction due to constipation and sigmoid volvulus. Communication: Nurse practitioner Herbie Mann at 1850 7:00 PM Fleischner guidelines were followed. Chest X-Ray 11/29/21 19:57 IMPRESSION: Nasogastric tube in stomach. Assessment and Plan (1) Abdominal pain: Status: Acute (2) Small bowel obstruction: Status: Acute (3) Sigmoid volvulus: Status: Acute (4) Hypomagnesemia: Status: Acute Plan This is a 71-year-old female presents to the hospital from longterm with abdominal distension and abdominal pain found to have small-bowel obstruction wi th sigmoid volvulus # small-bowel obstruction - GI and surgery do not feel that the patient has active or complete small bowel obstruction - at this time patient has a Jeep to in place from prior, they recommend placing this to gravity suction - NG tube was also placed - GI, as well as surgery consulted - patient NPO # sigmoid volvulus - likely the cause of the above and reported to be chronic - GI recommends G-tube to suction, and NG tube placement, awaiting spontaneous decompression - a fecal disimpaction was attempted in the ED which was unsuccessful as there was no stool in the rectal vault - consultants as above # hypomagnesemia - repleted - magnesium improved # diabetes - will add low-dose sliding scale insulin - diabetic diet - hold metformin All her other medications will be held given her small-bowel obstruction- can be resumed once that resolves DVT prophylaxis: Heparin subQ Pt will require a minimum 2 night hospital stay for management of small-bowel obstruction and sigmoid volvulus Quality Stroke Does the patient have a stroke diagnosis?: No VTE Prior VTE?: No VTE Risk Level:: Medical - moderate - high VTE Device Contraindication: Treatment Not Indicated VTE Drug Contraindication: N/A - Med Ordered
[2021-11-29] MEDS: Lactated Ringers 1,000 ML 100 ML IVCONT (21:58)
--- NOTE | 2021-11-29 22:02 | PC.NURSE ---
Pt LR running by provider order. PT V/S are stable and on telemetry it shows NSR. Pt does not have any apparent distress. Will continue to monmitor.
--- NOTE | 2021-11-29 22:04 | PC.NURSE ---
Addendum entered by Rica Tena 11/29/21 22:11: Pt has meds administered as order. Original Note: Pt LR running by provider order. Pt has not been connected to the nasalgastric tube, waiting on the provider order. PT V/S are stable and on telemetry it shows NSR. Pt does not have any apparent distress. Will continue to monitor.
[2021-11-29] MEDS: Heparin Sodium,Porcine 5,000 UNIT/ML VIAL 5000 UNIT SUBCUT (22:09)
--- NOTE | 2021-11-29 22:16 | PC.NURSE ---
dr long was tiger texted about results of cxr ng tube placement, placement was ok, dr. long was asked if she would like the ng connection to suction and she deferred to the ed provider who had spoken with gastro to have the insertion. ed provider stated pt does not need to be connected to wall suction at this time.
--- NOTE | 2021-11-29 22:22 | PHA.MEDREC ---
Pharmacy Consult ? Medication Reconciliation Pharmacy has completed the medication reconciliation.
[2021-11-30] VITALS (11 sets, daily range): BP systolic 98–147; BP diastolic 40–65; PULSE 68–84; RESP 13–19; TEMP 36.1–36.7; O2SAT 95–98
[2021-11-30 01:13] LABS: Magnesium 1.7 mg/dL (1.6-2.6)
[2021-11-30 02:35] LABS: Appearance Urine Clear; Color Urine Dark Yellow; Glucose Urine UA Negative (Negative); Leukocyte Esterase Urine Small (1+) (Negative); Nitrite Urine Positive (Negative); PH 5.5 (5.0-9.0); Specific Gravity - Urine 1.025 (1.005-1.025); UMIC TRIGGER UACC YES; Urine Blood Negative (Negative); Urine Ketones 15 mg/dL (Negative); Urine Protein 30 (1+) mg/dL (Neg-Trace)
--- NOTE | 2021-11-30 02:47 | PC.NURSE ---
Pt V/S are stable, Pt was straight cath and urine was sent to the lab. Pt was clean and changed. This RN did not observed any output from the G-tube, in which is connected to the cath to observed any fluids coming out with the help of gravity. Pt was grimacing and RN asked her if she was in pain and she nodded with her head yes . Pt was confabulated during the assessment. PT nasolgastric tube is still in placed and confirmed by the X-ray tech. The tube is not on since provider hold it. LR is still running as order by the provider. Will continue to monitor.
[2021-11-30 02:58] LABS: Granular Casts Urine Present; Squamous Epithelial Cell Urine 0-2 /HPF (0-2); UACC Culture Trigger YES; WBC Urine 0-5 /HPF (0-5)
[2021-11-30 02:59] LABS: Bacteria Urine 4+ (None Seen)
[2021-11-30 06:31] LABS: MANUAL DIFF FLAG NO
[2021-11-30 06:37] LABS: Basophils Percent Auto 0.4 % (0-2); Eosinophils Absolute Auto 0.1 X10*3/uL (0.0-0.4); Eosinophils Percent Auto 0.9 % (0-4); Hematocrit 32.5 % (37.0-47.0); Hemoglobin 10.8 g/dl (12.0-16.0); Imm Gran Abs Auto 0.02 X10*3/uL (0.00-0.03); Imm Gran Pct Auto 0.4 % (0.0-0.4); Lymphocytes Absolute Auto 2.1 X10*3/uL (1.2-4.9); Lymphocytes Percent Auto 37.8 % (20-40); Mean Corpuscular HGB Conc 33.2 g/dl (31.0-35.0); Mean Corpuscular Hemoglobin 27.8 pg (27.0-33.0); Mean Corpuscular Volume 83.5 fL (80.0-98.0); Mean Platelet Volume 11.1 fL (9.4-12.3); Monocytes Absolute Auto 0.3 X10*3/uL (0.1-1.2); Monocytes Percent Auto 4.6 % (2-11); Neutrophils Absolute Auto 3.2 x10*3/uL (2.0-8.3); Neutrophils Percent Auto 55.9 % (45-73); Platelet Count 252 X10*3/uL (160-400); Red Blood Count 3.89 X10*6/uL (4.20-5.50); Red Cell Distribution Width 14.6 % (11.0-16.0); White Blood Count 5.6 X10*3/uL (4.8-10.8)
[2021-11-30 06:53] LABS: Anion Gap 20 (12-20); Blood Urea Nitrogen 32 mg/dL (9-16); Calcium 8.7 mg/dL (8.4-10.2); Carbon Dioxide 19 mmol/L (22-29); Chloride 106 mmol/L (96-108); Creatinine Clr Calc Pharmacy 41.5; Estimated Glomerular Filt Rate 53; Glucose Random 136 mg/dL (60-115); Potassium 3.5 mmol/L (3.3-5.1); Sodium 141 mmol/L (135-145)
[2021-11-30] MEDS: cefTRIAXone sodium 1 GM in 0.9 % Sodium Chloride 50 ML IV (07:27)
[2021-11-30] MEDS: 0.9 % Sodium Chloride Flush 3 ML SYRINGE IVFLUSH (07:30)
[2021-11-30] MEDS: Lactated Ringers 1,000 ML 100 ML IVCONT ×2 (08:06→18:15)
--- NOTE | 2021-11-30 08:09 | PM.GICN ---
History of Present Illness Data of Consult Service Date: 11/30/21 Requesting physician: Herbei Mann Primary Care Provider: Dionicio Serna MD HPI Reason for consult: Dilated bowel loops This is a 71y.o F with PMH of CVA with resultant hemiplegia, aphasia and dysphagia s/p G tube placement, T2DM, HTN, depression who was brought to the hospital from her SNF yesterday for abnormal KUB. History was obtained from the chart and SNF as patient is not able to provide a history. Collateral hx was obtained from Jose Kumar. Reportedly, patient was noted to appear uncomfortable and refusing G tube flushes yesterday. No fevers reported. Part of work up included a KUB which showed dilated large bowel loops suspicious for obstrucion vs ileus for which she was sent to the ER. In the emergency room, her vitals were noted to be normal. Labs were significant for normal white count and lactate. Low Mg 1.3. CT abd was read as possible sigmoid volvulus. Gastroenterology has been consulted for ? decompression. At the time of evaluation, patient appears awake and comfortable. When asked about pain, she points to her NG tube. Review of Systems Review of Systems: Yes Unobtainable due to mental condition PMFSH Past Medical History Medical History (Updated 11/30/21 @ 09:14 by Salome Boyer MD) Above knee amputation of right lower extremity CVA (cerebral vascular accident) Dementia Diabetes Right hemiparesis Social History Social History Patient Tobacco Use Status: Never used Tobacco Use of substances other than those prescribed or required for medical reasons: No Advance Directives: No Advance Directives Information Provided: Yes Meds Allergies Allergy/AdvReac Type Severity Reaction Status Date / Time diphenhydramine Allergy Mild HIVES Verified 07/08/20 07:29 meperidine Allergy Mild UNKNOWN Verified 07/08/20 07:29 From Benadryl Allergy Unknown UNKNOWN Uncoded 11/13/19 16:16 From Demerol Allergy Unknown UNKNOWN Uncoded 11/13/19 16:16 Active Medications: Current Medications Acetaminophen (Acetaminophen 325 Mg Tablet) 650 mg PO Q6H PRN PRN Reason: Pain, Mild (Pain Scale 1-3) Heparin Sodium (Porcine) (Heparin Sodium,Porcine 5,000 Unit/Ml Vial) 5,000 unit SUBCUT Q12H [facility] Last Admin: 11/29/21 22:09 Dose: 5,000 unit Lactated Ringer's (Lr) 1,000 mls @ 100 mls/hr IVCONT .Q10H [facility] Last Admin: 11/30/21 08:06 Dose: 100 mls/hr Ceftriaxone Sodium 1 gm/ (Sodium Chloride) 50 mls @ 100 mls/hr IV Q24H [facility] Last Infusion: 11/30/21 08:05 Dose: Infused Ondansetron HCl (Ondansetron Hcl 4 Mg/2 Ml Vial) 4 mg IVPUSH Q8H PRN PRN Reason: Nausea and Vomiting Sodium Chloride (0.9 % Sodium Chloride Flush 3 Ml Syringe) 3 ml IVFLUSH QSHIFT [facility] Last Admin: 11/30/21 07:30 Dose: 3 ml Home Medications Medication Instructions Recorded Confirmed Last Taken Type acetaminophen 325 mg tablet 650 mg PO Q4H PRN Pain 11/29/21 11/29/21 Unknown History atorvastatin 20 mg tablet 20 mg PO DAILY 11/29/21 11/29/21 Unknown History cholecalciferol (vitamin D3) 1,250 1,250 mcg PO QMONTH 11/29/21 11/29/21 11/02/21 History mcg (50,000 unit) capsule cholestyramine (with sugar) 4 gram 4 g PO DAILY 11/29/21 11/29/21 Unknown History powder for susp in a packet glycopyrrolate 1 mg tablet 1 mg PO BID 11/29/21 11/29/21 Unknown History menthol 0.44 %-zinc oxide 20.6 % 1 appl topical QID 11/29/21 11/29/21 Unknown History topical ointment metformin 500 mg tablet 500 mg PO BID 11/29/21 11/29/21 Unknown History mirtazapine 30 mg tablet 30 mg PO DAILY 11/29/21 11/29/21 Unknown History multivitamin 1 tab PO DAILY 11/29/21 11/29/21 Unknown History pantoprazole 40 mg granules 40 mg PO DAILY 11/29/21 11/29/21 Unknown History delayed-release for susp in packet (Protonix) sennosides 8.6 mg tablet (senna) 17.2 mg PO DAILY PRN Constipation 11/29/21 11/29/21 Unknown History sertraline 100 mg tablet 100 mg PO DAILY 11/29/21 11/29/21 Unknown History simethicone 80 mg chewable tablet 160 mg PO BID 11/29/21 11/29/21 Unknown History valproic acid (as sodium salt) 250 500 mg PO BEDTIME 11/29/21 11/29/21 Unknown History mg/5 mL (5 mL) oral solution valproic acid (as sodium salt) 250 375 mg PO DAILY 11/29/21 11/29/21 Unknown History mg/5 mL oral solution Physical Exam Vital Signs: Vital Signs: Last Vital Signs Temp 96.9 F 11/30/21 07:16 Pulse 71 11/30/21 07:16 Resp 15 11/30/21 07:16 BP 98/40 L 11/30/21 07:16 Pulse Ox 95 11/30/21 07:16 O2 Del Method 11/30/21 07:16 BMI result Body Mass Index 20.5 Gen appear: NAD, frail appearing HEENT: nonicteric, no cervical lymphadenopathy Chest: CTA CVS: Regular S1/S2 Abd: soft, no grimacing to palpation, mildly distended, bowel sounds present Ext: R AKA, some nonpitting edema in LLE Neuro: Awake, tracks movements, noted to move R arm spontaneously Results Labs CBC & Chem 7: 11/30/21 06:10 11/30/21 06:10 Labs: Short CBC 11/29/21 11/30/21 Range/Units 18:06 06:10 WBC 7.0 5.6 (4.8-10.8) X10*3/uL Hgb 12.6 10.8 L (12.0-16.0) g/dl Hct 38.1 32.5 L (37.0-47.0) % Plt Count 284 252 (160-400) X10*3/uL BMP 11/29/21 11/29/21 11/30/21 18:06 21:07 06:10 Sodium 140 140 141 Potassium 3.5 3.3 3.5 Chloride 104 104 106 Carbon Dioxide 18 L 18 L 19 L BUN 30 H 30 H 32 H Creatinine 0.98 1.10 1.03 Calcium 9.0 8.8 8.7 Liver Function 11/29/21 11/29/21 Range/Units 18:06 21:07 Total Bilirubin 0.5 0.5 (0.0-1.0) mg/dL AST 17 12 (5-31) U/L ALT 9 8 (0-31) U/L Alkaline Phosphatase 113 109 (39-117) U/L Albumin 4.1 4.0 (3.5-5.0) g/dL Urine 11/30/21 Range/Units 02:18 Urine Color Dark Yellow Urine Appearance Clear Urine pH 5.5 (5.0-9.0) Ur Specific [place] 1.025 (1.005-1.025) Urine Protein 30 (1+) H (Neg-Trace) mg/dL Urine Glucose (UA) Negative (Negative) mg/dL Imaging CT scan - abdomen: My impression: The CT abdomen was personally reviewed. Appears more consistent with dilated sigmoid to 8.2 cm due to pseudo-obstruction vs ?rectal mass (rectum is quite thickened). I am unable to appreciate typical radiographic signs of a sigmoid volvulus. This was also reviewed with the good Dr Mercado on 11/29. Assessment and Plan (1) Dilatation of colon: Status: Acute Plan Differentials include psuedo-obstruction vs mechanical obstruction nicole given rectal thickening. Patient appears comfortable and nontoxic on bedside exam, with congruent blood work. Recommend: - Please keep her NPO - Repeat KUB - Serial abd exams - Agree with correction of electrolytes - An NGT does not appear to be indicated. Pt has a G tube to gravity. - Flexible sigmoidoscopy later today. This will be UNPREPPED and performed with minimal CO2 insufflation to minimize perforation risk given significant sigmoid dilation. Thank you for allowing me to participate in her care. Please do not hesitate to reach out for any questions or concerns. Procedures Date of Service Date of Service: 11/30/21
--- NOTE | 2021-11-30 08:38 | PC.NURSE ---
Spoke with with Dr Boyer. OK per to take out NG tube. NG tube removed, patient tolerated well. Plan for sigmoidoscopy.
[2021-11-30] MEDS: Valproic Acid (as Sodium Salt) 500 MG in Dextrose 5 % 50 ML 55 MG IV (09:34)
--- NOTE | 2021-11-30 10:17 | MHC.CM.PN ---
Patient is a LTC Resident at [facility](bed hold) and returning there is the goal. CM has initiated and will follow for dc planning. IMM addressed with Son/Felton @ [phone]; Patient has Dementia and is non verbal.
--- NOTE | 2021-11-30 12:20 | HO.PM.IMPN ---
Subjective Subjective Date of Service: 11/30/21 Interval History: the patient was seen and evaluated this morning Laying in bed, feels improvement but still having abdominal pain Had watery bowel movement in small amount of stool NG tube out No reported other overnight events. Systemic review: No fever, chills or weakness No chest pain, palpitation No shortness of breath or coughing reported abdominal pain, no nausea or vomiting No urinary symptoms No any rash or wounds Physical Exam Vital Signs: Vital Signs: Last Vital Signs Temp 96.9 F 11/30/21 07:16 Pulse 71 11/30/21 07:16 Resp 15 11/30/21 07:16 BP 98/40 L 11/30/21 07:16 Pulse Ox 95 11/30/21 07:16 O2 Del Method 11/30/21 07:16 BMI result Body Mass Index 20.5 Const: Other: Constitutional : Alert, interactive, not in distress Neck : Normal inspection, Supple Cardiovascular : RRR, no JVP, no lower extremity edema Respiratory : fair bilateral air entry, no crackles, wheezes or rhonchi Gastrointestinal: soft, lax, decreased bowel sounds, generalized tenderness with no surgical signs Skin : Warm, Dry Neurological : Alert & oriented to time and place, No focal deficit Objective Data Active Medications Acetaminophen (Acetaminophen 325 Mg Tablet) 650 mg PO Q6H PRN PRN Reason: Pain, Mild (Pain Scale 1-3) Heparin Sodium (Porcine) (Heparin Sodium,Porcine 5,000 Unit/Ml Vial) 5,000 unit SUBCUT Q12H [facility] Last Admin: 11/30/21 08:44 Dose: Not Given Documented By: FLORESITA Non-Admin Reason: See Note Comments: procedure today Lactated Ringer's (Lr) 1,000 mls @ 100 mls/hr IVCONT .Q10H [facility] Last Admin: 11/30/21 08:06 Dose: 100 mls/hr Documented By: KERRY Ceftriaxone Sodium 1 gm/ (Sodium Chloride) 50 mls @ 100 mls/hr IV Q24H [facility] Last Infusion: 11/30/21 08:05 Dose: 0 mls/hr Documented By: KERRY Valproic Acid 500 mg/ Dextrose 55 mls @ 55 mls/hr IV BID [facility] Last Infusion: 11/30/21 10:34 Dose: 0 mls/hr Documented By: FLORESITA Ondansetron HCl (Ondansetron Hcl 4 Mg/2 Ml Vial) 4 mg IVPUSH Q8H PRN PRN Reason: Nausea and Vomiting Sodium Chloride (0.9 % Sodium Chloride Flush 3 Ml Syringe) 3 ml IVFLUSH QSHIFT [facility] Last Admin: 11/30/21 07:30 Dose: 3 ml Documented By: KERRY Labs CBC & Chem 7: 11/30/21 06:10 11/30/21 06:10 Labs: Laboratory Results - last 24 hr 11/29/21 11/29/21 11/29/21 18:06 18:06 18:06 MCV 82.6 MCH 27.3 MCHC 33.1 RDW 14.6 Plt Count 284 MPV 11.1 Immature Gran % (Auto) 0.3 Neut % (Auto) 59.9 Lymph % (Auto) 34.3 [place] % (Auto) 4.3 Eos % (Auto) 0.6 Baso % (Auto) 0.6 Lymph # (Auto) 2.4 [place] # (Auto) 0.3 Eos # (Auto) 0.0 Baso # (Auto) 0.0 Abs Immat Gran (auto) 0.02 Absolute Neuts (auto) 4.2 Absolute Nucleated RBC 0.000 Nucleated RBC % (auto) 0.0 Anion Gap 22 H Estim Creat Clear Calc 43.6 Estimated GFR 56 Random Glucose 193 H Lactic Acid Calcium 9.0 Magnesium 1.3 L* Total Bilirubin 0.5 AST 17 ALT 9 Alkaline Phosphatase 113 Total Protein 7.6 Albumin 4.1 Lipase 6 L Urine Color Urine Appearance Urine pH Ur Specific [employer] Urine Protein Urine Glucose (UA) Urine Ketones Urine Blood Urine Nitrite Ur Leukocyte Esterase Urine RBC Urine WBC Ur Squamous Epith Cells Urine Bacteria Hyaline Casts Granular Casts COVID-19 (ADITI) Negative COVID-19 Clin Com See Note 11/29/21 11/29/21 11/30/21 21:07 21:07 02:18 MCV MCH MCHC RDW Plt Count MPV Immature Gran % (Auto) Neut % (Auto) Lymph % (Auto) [place] % (Auto) Eos % (Auto) Baso % (Auto) Lymph # (Auto) [place] # (Auto) Eos # (Auto) Baso # (Auto) Abs Immat Gran (auto) Absolute Neuts (auto) Absolute Nucleated RBC Nucleated RBC % (auto) Anion Gap 21 H Estim Creat Clear Calc 38.8 Estimated GFR 49 Random Glucose 220 H Lactic Acid 1.1 Calcium 8.8 Magnesium 1.7 Total Bilirubin 0.5 AST 12 ALT 8 Alkaline Phosphatase 109 Total Protein 7.2 Albumin 4.0 Lipase Urine Color Dark Yellow Urine Appearance Clear Urine pH 5.5 Ur Specific [employer] 1.025 Urine Protein 30 (1+) H Urine Glucose (UA) Negative Urine Ketones 15 Urine Blood Negative Urine Nitrite Positive H Ur Leukocyte Esterase Small (1+) H Urine RBC 6-10 H Urine WBC 0-5 Ur Squamous Epith Cells 0-2 Urine Bacteria 4+ Hyaline Casts 3-5 Granular Casts Present COVID-19 (AD[facility]I) COVID-19 Clin Com 11/30/21 11/30/21 06:10 06:10 MCV 83.5 MCH 27.8 MCHC 33.2 RDW 14.6 Plt Count 252 MPV 11.1 Immature Gran % (Auto) 0.4 Neut % (Auto) 55.9 Lymph % (Auto) 37.8 [place] % (Auto) 4.6 Eos % (Auto) 0.9 Baso % (Auto) 0.4 Lymph # (Auto) 2.1 [place] # (Auto) 0.3 Eos # (Auto) 0.1 Baso # (Auto) 0.0 Abs Immat Gran (auto) 0.02 Absolute Neuts (auto) 3.2 Absolute Nucleated RBC 0.000 Nucleated RBC % (auto) 0.0 Anion Gap 20 Estim Creat Clear Calc 41.5 Estimated GFR 53 Random Glucose 136 H Lactic Acid Calcium 8.7 Magnesium Total Bilirubin AST ALT Alkaline Phosphatase Total Protein Albumin Lipase Urine Color Urine Appearance Urine pH Ur Specific [employer] Urine Protein Urine Glucose (UA) Urine Ketones Urine Blood Urine Nitrite Ur Leukocyte Esterase Urine RBC Urine WBC Ur Squamous Epith Cells Urine Bacteria Hyaline Casts Granular Casts COVID-19 (ADITI) COVID-19 Clin Com Assessment and Plan (1) Hypomagnesemia: Status: Acute (2) Small bowel obstruction: Status: Acute (3) Sigmoid volvulus: Status: Acute Plan This is a 71-year-old female presents [facility] the hospital [facility] [place] [facility] with abdominal distension and abdominal pain found to have small-bowel obstruction with sigmoid volvulus # small-bowel obstruction pseudo VS mechanical obstruction improving NG tube removed Had a watery bowel movement Repeated KUB XR still showing significant constipation and possible mass Keep NPO Surgery input appreciated, Hold rest of her home medications # sigmoid volvulus Less likely bolus per GI awaiting spontaneous decompression GI following for sigmoidoscopy today # hypomagnesemia repleted # diabetes low-dose sliding scale insulin diabetic diet once she can eat hold metformin DVT prophylaxis: Heparin subQ Patient will require overnight hospital stay for management of small-bowel obstruction and sigmoid volvulus pending sigmoidoscopy, repeating images and abdominal exams. Quality Stroke Does the patient have a stroke diagnosis?: No VTE Prior VTE?: No VTE Risk Level:: Medical - moderate - high VTE Device Contraindication: Treatment Not Indicated VTE Drug Contraindication: N/A - Med Ordered
[2021-11-30] MEDS: Lactated Ringers 1,000 ML 50 ML IVCONT ×2 (12:44→17:15)
--- NOTE | 2021-11-30 12:59 | HO.ANESPROP2 ---
[facility] Active Problems Active Problems: All Active Problems (Updated 11/30/21 @ 12:33 by Dorota Cowan RN) Hypomagnesemia (Acute) Small bowel obstruction (Acute) Sigmoid volvulus (Acute) Abdominal pain (Acute) Nonverbal (Acute) Dilatation of colon (Acute) Dementia (Acute) Past Medical History Medical History (Updated 11/30/21 @ 12:33 by Dorota Cowan RN) Above knee amputation of right lower extremity CVA (cerebral vascular accident) Dementia Diabetes Gastrointestinal tube present Right hemiparesis Family History Family history of problems with anesthesia: No Surgical History History of Problems with Anesthesia: No Social History Social History Patient Tobacco Use Status: Never used Tobacco service: No Current occupational status: disabled Meds Allergies Allergy/AdvReac Type Severity Reaction Status Date / Time diphenhydramine Allergy Mild HIVES Verified 07/08/20 07:29 meperidine Allergy Mild UNKNOWN Verified 07/08/20 07:29 From Benadryl Allergy Unknown UNKNOWN Uncoded 11/13/19 16:16 From Demerol Allergy Unknown UNKNOWN Uncoded 11/13/19 16:16 Active Medications: Current Medications Acetaminophen (Acetaminophen 325 Mg Tablet) 650 mg PO Q6H PRN PRN Reason: Pain, Mild (Pain Scale 1-3) Heparin Sodium (Porcine) (Heparin Sodium,Porcine 5,000 Unit/Ml Vial) 5,000 unit SUBCUT Q12H [facility] Last Admin: 11/30/21 08:44 Dose: Not Given Lactated Ringer's (Lr) 1,000 mls @ 100 mls/hr IVCONT .Q10H [facility] Last Admin: 11/30/21 08:06 Dose: 100 mls/hr Ceftriaxone Sodium 1 gm/ (Sodium Chloride) 50 mls @ 100 mls/hr IV Q24H [facility] Last Infusion: 11/30/21 08:05 Dose: Infused Valproic Acid 500 mg/ Dextrose 55 mls @ 55 mls/hr IV BID [facility] Last Infusion: 11/30/21 10:34 Dose: Infused Ondansetron HCl (Ondansetron Hcl 4 Mg/2 Ml Vial) 4 mg IVPUSH Q8H PRN PRN Reason: Nausea and Vomiting Sodium Chloride (0.9 % Sodium Chloride Flush 3 Ml Syringe) 3 ml IVFLUSH QSHIFT [facility] Last Admin: 11/30/21 07:30 Dose: 3 ml Home Medications Medication Instructions Recorded Confirmed Last Taken Type acetaminophen 325 mg tablet 650 mg PO Q4H PRN Pain 11/29/21 11/29/21 Unknown History atorvastatin 20 mg tablet 20 mg PO DAILY 11/29/21 11/29/21 Unknown History cholecalciferol (vitamin D3) 1,250 1,250 mcg PO QMONTH 11/29/21 11/29/21 11/02/21 History mcg (50,000 unit) capsule cholestyramine (with sugar) 4 gram 4 g PO DAILY 11/29/21 11/29/21 Unknown History powder for susp in a packet glycopyrrolate 1 mg tablet 1 mg PO BID 11/29/21 11/29/21 Unknown History menthol 0.44 %-zinc oxide 20.6 % 1 appl topical QID 11/29/21 11/29/21 Unknown History topical ointment metformin 500 mg tablet 500 mg PO BID 11/29/21 11/29/21 Unknown History mirtazapine 30 mg tablet 30 mg PO DAILY 11/29/21 11/29/21 Unknown History multivitamin 1 tab PO DAILY 11/29/21 11/29/21 Unknown History pantoprazole 40 mg granules 40 mg PO DAILY 11/29/21 11/29/21 Unknown History delayed-release for susp in packet (Protonix) sennosides 8.6 mg tablet (senna) 17.2 mg PO DAILY PRN Constipation 11/29/21 11/29/21 Unknown History sertraline 100 mg tablet 100 mg PO DAILY 11/29/21 11/29/21 Unknown History simethicone 80 mg chewable tablet 160 mg PO BID 11/29/21 11/29/21 Unknown History valproic acid (as sodium salt) 250 500 mg PO BEDTIME 11/29/21 11/29/21 Unknown History mg/5 mL (5 mL) oral solution valproic acid (as sodium salt) 250 375 mg PO DAILY 11/29/21 11/29/21 Unknown History mg/5 mL oral solution Exam Exam Date and Time: November 30, 2021 1259 Height,Weight and Vital Signs: Height 5 ft 4 in Weight 54.1 kg Last Vital Signs Temp 97.5 F 11/30/21 12:40 Pulse 69 11/30/21 12:40 Resp 16 11/30/21 12:40 BP 147/58 H 11/30/21 12:40 Pulse Ox 98 11/30/21 12:40 O2 Del Method 11/30/21 12:40 Pertinent Lab Results Pertinent Lab Results: Laboratory Tests 11/29/21 11/29/21 11/29/21 18:06 18:06 18:06 WBC 7.0 RBC 4.61 Hgb 12.6 Hct 38.1 MCV 82.6 MCH 27.3 MCHC 33.1 RDW 14.6 Plt Count 284 MPV 11.1 Immature Gran % (Auto) 0.3 Neut % (Auto) 59.9 Lymph % (Auto) 34.3 [place] % (Auto) 4.3 Eos % (Auto) 0.6 Baso % (Auto) 0.6 Lymph # (Auto) 2.4 [place] # (Auto) 0.3 Eos # (Auto) 0.0 Baso # (Auto) 0.0 Abs Immat Gran (auto) 0.02 Absolute Neuts (auto) 4.2 Absolute Nucleated RBC 0.000 Nucleated RBC % (auto) 0.0 Sodium 140 Potassium 3.5 Chloride 104 Carbon Dioxide 18 L Anion Gap 22 H BUN 30 H Creatinine 0.98 Estim Creat Clear Calc 43.6 Estimated GFR 56 Random Glucose 193 H Lactic Acid Calcium 9.0 Magnesium 1.3 L* Total Bilirubin 0.5 AST 17 ALT 9 Alkaline Phosphatase 113 Total Protein 7.6 Albumin 4.1 Lipase 6 L Urine Color Urine Appearance Urine pH Ur Specific [place] Urine Protein Urine Glucose (UA) Urine Ketones Urine Blood Urine Nitrite Ur Leukocyte Esterase Urine RBC Urine WBC Ur Squamous Epith Cells Urine Bacteria Hyaline Casts Granular Casts COVID-19 (ADITI) Negative COVID-19 Clin Com See Note 11/29/21 11/29/21 11/30/21 21:07 21:07 02:18 WBC RBC Hgb Hct MCV MCH MCHC RDW Plt Count MPV Immature Gran % (Auto) Neut % (Auto) Lymph % (Auto) [place] % (Auto) Eos % (Auto) Baso % (Auto) Lymph # (Auto) [place] # (Auto) Eos # (Auto) Baso # (Auto) Abs Immat Gran (auto) Absolute Neuts (auto) Absolute Nucleated RBC Nucleated RBC % (auto) Sodium 140 Potassium 3.3 Chloride 104 Carbon Dioxide 18 L Anion Gap 21 H BUN 30 H Creatinine 1.10 Estim Creat Clear Calc 38.8 Estimated GFR 49 Random Glucose 220 H Lactic Acid 1.1 Calcium 8.8 Magnesium 1.7 Total Bilirubin 0.5 AST 12 ALT 8 Alkaline Phosphatase 109 Total Protein 7.2 Albumin 4.0 Lipase Urine Color Dark Yellow Urine Appearance Clear Urine pH 5.5 Ur Specific [place] 1.025 Urine Protein 30 (1+) H Urine Glucose (UA) Negative Urine Ketones 15 Urine Blood Negative Urine Nitrite Positive H Ur Leukocyte Esterase Small (1+) H Urine RBC 6-10 H Urine WBC 0-5 Ur Squamous Epith Cells 0-2 Urine Bacteria 4+ Hyaline Casts 3-5 Granular Casts Present COVID-19 (ADITI) COVID-19 [employer] Com 11/30/21 11/30/21 06:10 06:10 WBC 5.6 RBC 3.89 L Hgb 10.8 L Hct 32.5 L MCV 83.5 MCH 27.8 MCHC 33.2 RDW 14.6 Plt Count 252 MPV 11.1 Immature Gran % (Auto) 0.4 Neut % (Auto) 55.9 Lymph % (Auto) 37.8 [place] % (Auto) 4.6 Eos % (Auto) 0.9 Baso % (Auto) 0.4 Lymph # (Auto) 2.1 [place] # (Auto) 0.3 Eos # (Auto) 0.1 Baso # (Auto) 0.0 Abs Immat Gran (auto) 0.02 Absolute Neuts (auto) 3.2 Absolute Nucleated RBC 0.000 Nucleated RBC % (auto) 0.0 Sodium 141 Potassium 3.5 Chloride 106 Carbon Dioxide 19 L Anion Gap 20 BUN 32 H Creatinine 1.03 Estim Creat Clear Calc 41.5 Estimated GFR 53 Random Glucose 136 H Lactic Acid Calcium 8.7 Magnesium Total Bilirubin AST ALT Alkaline Phosphatase Total Protein Albumin Lipase Urine Color Urine Appearance Urine pH Ur Specific [place] Urine Protein Urine Glucose (UA) Urine Ketones Urine Blood Urine Nitrite Ur Leukocyte Esterase Urine RBC Urine WBC Ur Squamous Epith Cells Urine Bacteria Hyaline Casts Granular Casts COVID-19 (ADITI) COVID-19 Clin Com Airway Mallampati Class: II TM Dist: >3cm Neck ROM: Full Heart: rrr Lungs: cta Assessment and Plan Assessment Anesthesia Assessment: Anesthesia Plan Discussed and Chart Reviewed Final Anesthetic Review Family History of Problems with Anesthesia: No History of Problems with Anesthesia: No NPO: Yes ASA Class: III Final Preanesthetic Review: No Changes in Pt Med Stat, Meds/Allgs Chart Reviewed and Consent Obtained/Reviewed Patient Risk: Intermediate Procedure Risk: Intermediate Anesthetic Plan Anesthetic Plan: MAC: Disposition: Standard PACU
[2021-11-30 13:03] LABS: Glucose, Whole Blood 141 mg/dL (60-115)
--- NOTE | 2021-11-30 13:36 | P.OP_ITS ---
Operative Note Operative Note Date of Service: 11/30/21 Narrative: Procedure: Flexible sigmoidooscopy Indication: Dilated large bowel Endoscopist: Salome Boyer MD Anesthesia Provider: Dr Enedina Mariee Anesthesia type: MAC Instrument: Olympus [id number]-190 Consent: Indication, risks vs benefits, and alternatives were discussed with the patient's son (healthcare proxy) who gave written informed consent to proceed. EKG, pulse, pulse oximetry and blood pressure were monitored throughout the procedure. Please see anesthesia flowsheet. Procedure: The patient was brought to the procedure room and placed in the left lateral decubitus position. IV medications were administered by the anesthesia provider in attendance. A digital rectal exam was performed which was normal. The gastroscope was then inserted through the anus and advanced through the descending colon at 45cm until solid stool was encountered and scope could not be maneuvered around it. Care was taken to use minimal CO2 and water insufflation. Mucosa was carefully examined under high definition white light as the instrument was slowly withdrawn in a retrograde panoramic fashion. Retroflexion was performed in rectum. The procedure was not difficult. There were no immediate obvious complications. The quality of the prep was - poor. Limitations: Poor prep. Findings: Mucosa: Normal to descending colon. No torsion or obstruction identified. Endoscopic decompression of significantly dilated sigmoid colon was performed. Protruding lesions: * Medium internal hemorrhoids without stigmata of recent bleeding. Impression: 1. Normal colon mucosa to distal descending colon. 2. Appearance consistent with pseudoobstruction. Sigmoid colon was decompressed. 3. Solid stool in descending colon 3. Internal hemorrhoids Recommendations: - Start regular bowel regimen with senna and miralax - Can start feeds through G tube
--- NOTE | 2021-11-30 15:17 | MHC.CLN ---
RE: CONSULT HT 64 WT 54.1KG IBW 48.7KG +/-10% ADJUSTED FOR AKA REVIEWED LABS AND MEDS ESTIMATED NUTRITION NEEDS: 1352-1512KCALS, 54-64G PROTEIN (1-1.2G/KG), 1620ML FREE WATER DIET RX: NPO PT HAS GTUBE RECOMMEND TF GLUCERNA 1.0 AT MAX GOAL RATE 55ML/HR WITH 120ML FREE WATER FLUSHES Q 8 HRS TO PROVIDE 1320KCALS (24KCALS/KG), 55G PROTEIN (1.0G/KG), 1606ML TOTAL WATER FROM FORMULA AND FLUSHES (30ML/KG) START FORMULA AT 10ML/HR AND INCREASE BY 10ML Q 4 HRS UNTIL MAX GOAL IS ACHIEVED MONITOR TOLERANCE, RESIDUALS AND LYTES
[2021-11-30] MEDS: Heparin Sodium,Porcine 5,000 UNIT/ML VIAL 5000 UNIT SUBCUT (22:22)
[2021-11-30] MEDS: Valproic Acid (as Sodium Salt) 500 MG in Dextrose 5 % 50 ML 100 MG IV (22:23)
--- NOTE | 2021-11-30 22:51 | PC.NURSE ---
Pt alert, non-verbal. Understands fijian. Abdomen slightly distanded and firm. Gtube connected to mckee cath and putting out green bile. Pt denies pain, N/V. Pt repositioned Q2 hours. Hx right above the knee amp. Bed alarm on for safety. IV fluids as ordered. Will continue to monitor.
--- NOTE | 2021-12-01 01:19 | PC.NURSE ---
PT GIVEN VIET CARE, PADS AND GOWN CHANGED AND PT REPOSITIONED TO LEFT SIDE. PT GIVEN WARM BLANKET AND CALL ANTONIO.
[2021-12-01 04:31] VITALS: BP 100/42; PULSE 66; RESP 14; TEMP 36.7; O2SAT 98
--- NOTE | 2021-12-01 04:33 | PC.NURSE ---
PT REPOSITIONED TO HER LEFT SIDE CHECKED FOR INCONTINENCE PT WAS DRY. WARM BALANKET GIVEN
--- NOTE | 2021-12-01 06:27 | PC.NURSE ---
PT SOILED WITH URINE. HOMER DOVE APPROVED PT BEING ON PUREWICK. VIET CARE GIVEN TO PT THEN PUREWICK APPLIED. PT GIVEN WARM BLANKET AND REPOSITIONED TO HER BACK.
--- NOTE | 2021-12-01 07:23 | PC.NURSE ---
Dr Card notified around midnight regarding pt's orders for Gtube feedings while the Gtube was decompressing to a mckee catheter with green bile output. Dr Card wanted to hold feedings for now and continue with the gtube connected to the mckee. I passed this along in report.
[2021-12-01 08:13] VITALS: BP 100/78; PULSE 70; RESP 15; TEMP 36.7; O2SAT 97
[2021-12-01] MEDS: cefTRIAXone sodium 1 GM in 0.9 % Sodium Chloride 50 ML IV (08:17)
[2021-12-01] MEDS: Lactated Ringers 1,000 ML 100 ML IVCONT (08:18)
--- NOTE | 2021-12-01 08:37 | P.PNGS_ITS ---
Subjective Subjective Date of Service: 12/01/21 Physical Exam Vital Signs: Vital Signs: Last Vital Signs Temp 98.0 F 12/01/21 08:13 Pulse 70 12/01/21 08:13 Resp 15 12/01/21 08:13 BP 100/78 12/01/21 08:13 Pulse Ox 97 12/01/21 08:13 O2 Del Method 12/01/21 08:13 BMI result Body Mass Index 20.5 Objective Data Active Medications Acetaminophen (Acetaminophen 325 Mg Tablet) 650 mg PO Q6H PRN PRN Reason: Pain, Mild (Pain Scale 1-3) Heparin Sodium (Porcine) (Heparin Sodium,Porcine 5,000 Unit/Ml Vial) 5,000 unit SUBCUT Q12H [facility] Last Admin: 11/30/21 22:22 Dose: 5,000 unit Documented By: PAWAN Lactated Ringer's (Lr) 1,000 mls @ 100 mls/hr IVCONT .Q10H [facility] Last Admin: 12/01/21 08:18 Dose: 100 mls/hr Documented By: KELSEY Ceftriaxone Sodium 1 gm/ (Sodium Chloride) 50 mls @ 100 mls/hr IV Q24H [facility] Last Admin: 12/01/21 08:17 Dose: 100 mls/hr Documented By: KELSEY Valproic Acid 500 mg/ Dextrose 55 mls @ 55 mls/hr IV BID [facility] Last Infusion: 11/30/21 22:56 Dose: 0 mls/hr Documented By: PAWAN Lactated Ringer's (Lr) 1,000 mls @ 50 mls/hr IVCONT .Q20H [facility] Last Admin: 11/30/21 17:15 Dose: 50 mls/hr Documented By: FLORESITA Ondansetron HCl (Ondansetron Hcl 4 Mg/2 Ml Vial) 4 mg IVPUSH Q8H PRN PRN Reason: Nausea and Vomiting Sodium Chloride (0.9 % Sodium Chloride Flush 3 Ml Syringe) 3 ml IVFLUSH QSHIFT [facility] Last Admin: 12/01/21 08:17 Dose: Not Given Documented By: KELSEY Non-Admin Reason: IV Running Labs CBC & Chem 7: 11/30/21 06:10 11/30/21 06:10 Labs: Laboratory Results - last 24 hr 11/30/21 12:59 POC Glucose 141 H Microbiology Microbiology Results: Microbiology 11/29/21 21:07 Blood Culture - Preliminary Blood - Venous No growth after 24 hours. 11/29/21 21:07 Blood Culture - Preliminary Blood - Venous No growth after 24 hours. Procedures Date of Service Date of Service: 12/01/21 Progress Note: A&P Assessment and plan (1) Dilatation of colon: Status: Acute (2) Dementia: Status: Acute (3) Nonverbal: Status: Acute (4) Above knee amputation of right lower extremity: Status: Acute (5) Diabetes: Status: Acute Plan Case discussed with Dr. Boyer. Pseudo-obstruction of the colon, not uncommon in this patient population was noted on flex sig. No evidence of a volvulus. Will sign off. Please call again for surgical issues. Time Spent With Patient Time: Total time spent is greater than 50% in coordination of care (as documented) at patient's floor/unit and/or counseling patient: Quality Stroke Does the patient have a stroke diagnosis?: No VTE Prior VTE?: No VTE Risk Level:: Medical - moderate - high VTE Device Contraindication: Treatment Not Indicated VTE Drug Contraindication: N/A - Med Ordered
[2021-12-01] MEDS: Lactated Ringers 1,000 ML 50 ML IVCONT (08:53)
[2021-12-01] MEDS: Heparin Sodium,Porcine 5,000 UNIT/ML VIAL 5000 UNIT SUBCUT ×2 (09:14→22:20)
[2021-12-01] MEDS: Valproic Acid (as Sodium Salt) 500 MG in Dextrose 5 % 50 ML 100 MG IV (10:29)
--- NOTE | 2021-12-01 11:54 | HO.POSTANES ---
Post Anesthesia Evaluation Post Anesthesia Evaluation Vital Signs: Vital Signs Temp Pulse Resp BP Pulse Ox O2 Del Method 12/01/21 08:13 98.0 F 70 15 100/78 97 Room Air 12/01/21 04:31 98.1 F 66 14 100/42 L 98 Room Air Anesthesia: Monitored Mental Status: Awake Pain Control: Satisfactory Nausea/Vomiting: None Hydration: Adequate Anesthesia-Related Issues: No Anes. Related Issues
[2021-12-01 12:22] VITALS: BP 120/85; PULSE 75; RESP 17; TEMP 36.4; O2SAT 98
--- NOTE | 2021-12-01 12:46 | HO.PM.IMPN ---
Subjective Subjective Date of Service: 12/01/21 Interval History: ?the patient was seen and evaluated this morning Laying? in bed, feels much better , not reporting any pain no bowel movement overnight tolerating tube feed No reported other overnight events. Systemic review: No fever, chills or weakness No chest pain, palpitation No shortness of breath or coughing Improving abdominal pain, no nausea or vomiting No urinary symptoms No any rash or wounds Physical Exam Vital Signs: Vital Signs: Last Vital Signs Temp 97.5 F 12/01/21 12: Pulse 75 12/01/21 12:22 Resp 17 12/01/21 12:22 BP 120/85 12/01/21 12:22 Pulse Ox 98 12/01/21 12: O2 Del Method 12/01/21 12:22 BMI result Body Mass Index 20.5 Const: Other: Constitutional : Alert,? interactive, not in distress Neck : Normal inspection, Supple Cardiovascular : RRR, no JVP, no lower extremity edema Respiratory : fair bilateral air entry,? no crackles, wheezes or rhonchi Gastrointestinal:? soft, lax, decreased bowel sounds, minimal tenderness with no surgical signs, G-tube in place with no surrounding erythema Skin : Warm, Dry Neurological : Alert & oriented? to time and place, No focal deficit Objective Data Active Medications Acetaminophen (Acetaminophen 325 Mg Tablet) 650 mg PO Q6H PRN PRN Reason: Pain, Mild (Pain Scale 1-3) Heparin Sodium (Porcine) (Heparin Sodium,Porcine 5,000 Unit/Ml Vial) 5,000 unit SUBCUT Q12H [facility] Last Admin: 12/01/21 09:14 Dose: 5,000 unit Documented By: KELSEY Ceftriaxone Sodium 1 gm/ (Sodium Chloride) 50 mls @ 100 mls/hr IV Q24H [facility] Last Infusion: 12/01/21 08:52 Dose: 0 mls/hr Documented By: KELSEY Valproic Acid 500 mg/ Dextrose 55 mls @ 55 mls/hr IV BID [facility] Last Infusion: 12/01/21 11:06 Dose: 0 mls/hr Documented By: KELSEY Lactulose (Lactulose 20 Gm/30 Ml Solution) 20 gm G-TUBE BID [facility] Ondansetron HCl (Ondansetron Hcl 4 Mg/2 Ml Vial) 4 mg IVPUSH Q8H PRN PRN Reason: Nausea and Vomiting Sodium Chloride (0.9 % Sodium Chloride Flush 3 Ml Syringe) 3 ml IVFLUSH QSHIFT [facility] Last Admin: 12/01/21 08:17 Dose: Not Given Documented By: KELSEY Non-Admin Reason: IV Running Labs CBC & Chem 7: 11/30/21 06:10 11/30/21 06:10 Labs: Laboratory Results - last 24 hr 11/30/21 12:59 POC Glucose 141 H Microbiology Microbiology Results: Microbiology 11/30/21 03:58 Urine Culture - Preliminary Urine clean catch - Urine romeo top Gram negative kindra 11/29/21 21:07 Blood Culture - Preliminary Blood - Venous No growth after 24 hours. 11/29/21 21:07 Blood Culture - Preliminary Blood - Venous No growth after 24 hours. Assessment and Plan (1) Small bowel obstruction: Status: Acute (2) Hypomagnesemia: Status: Acute Plan This is a 71-year-old female presents to the hospital from [facility] with abdominal distension and abdominal pain found to have small-bowel obstruction with sigmoid volvulus # small-bowel obstruction ? seems to be a pseudobstruction resolving Repeated KUB XR showed resolution of the obstruction Keep NPO, pending speech therapy evaluation tolerating tube diet for now , advanced as tolerated Surgery input appreciated, ?Hold rest of her home medications # severe constipation Lactulose and senna through the G-tube # sigmoid volvulus Less likely per GI and surgery resolved ?GI had sigmoidoscopy done, normal colon mucosa consistent with pseudo-obstruction # hypomagnesemia repleted # diabetes low-dose sliding scale insulin diabetic diet once she can eat hold metformin DVT prophylaxis:? Heparin subQ Patient will require overnight hospital stay for? management of small-bowel obstruction and sigmoid volvulus? pending passing bowel movement and tolerating diet Quality Stroke Does the patient have a stroke diagnosis?: No VTE Prior VTE?: No VTE Risk Level:: Medical - moderate - high VTE Device Contraindication: Treatment Not Indicated VTE Drug Contraindication: N/A - Med Ordered
[2021-12-01] MEDS: Lactulose 20 GM/30 ML SOLUTION G-TUBE ×2 (13:51→22:20)
[2021-12-01 15:44] VITALS: BP 133/62; PULSE 69; RESP 17; TEMP 36.5; O2SAT 98
[2021-12-01 19:42] VITALS: BP 119/58; PULSE 66; RESP 17; TEMP 35.9; O2SAT 98
[2021-12-01] MEDS: Valproic Acid (as Sodium Salt) 500 MG in Dextrose 5 % 50 ML 55 MG IV (23:36)
[2021-12-01] MEDS: 0.9 % Sodium Chloride Flush 3 ML SYRINGE IVFLUSH (23:37)
[2021-12-01 23:46] VITALS: BP 139/63; PULSE 65; RESP 14; TEMP 36; O2SAT 95
--- NOTE | 2021-12-02 05:25 | PC.NURSE ---
0000; tube feeding diet; glucerna increased to 20 mls/hr. no residual. water flush with 120 mls. pt tolerating well. 0400; tube feeding diet; glucerna increased to 30 mls/hr . no residual . pt tolerating well.
[2021-12-02 06:45] LABS: Hematocrit 34.8 % (37.0-47.0); Hemoglobin 11.3 g/dl (12.0-16.0); Mean Corpuscular HGB Conc 32.5 g/dl (31.0-35.0); Mean Corpuscular Hemoglobin 28.3 pg (27.0-33.0); Mean Platelet Volume 11.6 fL (9.4-12.3); Platelet Count 210 X10*3/uL (160-400); Red Cell Distribution Width 14.6 % (11.0-16.0)
[2021-12-02 06:49] LABS: Anion Gap 19 (12-20); Blood Urea Nitrogen 15 mg/dL (9-16); Carbon Dioxide 16 mmol/L (22-29); Chloride 109 mmol/L (96-108); Creatinine Clr Calc Pharmacy 59.4; Estimated Glomerular Filt Rate > 60; Glucose Random 91 mg/dL (60-115); Potassium 3.3 mmol/L (3.3-5.1); Sodium 141 mmol/L (135-145)
[2021-12-02 06:51] VITALS: BP 112/54; PULSE 70; RESP 18; TEMP 35.5; O2SAT 97
[2021-12-02] MEDS: cefTRIAXone sodium 1 GM in 0.9 % Sodium Chloride 50 ML IV (06:56)
[2021-12-02] MEDS: 0.9 % Sodium Chloride Flush 3 ML SYRINGE IVFLUSH ×2 (07:16→15:51)
[2021-12-02] MEDS: Lactulose 20 GM/30 ML SOLUTION G-TUBE ×2 (07:16→20:44)
--- NOTE | 2021-12-02 07:57 | PC.NURSE ---
Pt bladder scanned at 0615 for 187mls. No need for straight catherization at this time. Purewick in place.
[2021-12-02] MEDS: Valproic Acid (as Sodium Salt) 500 MG in Dextrose 5 % 50 ML IV (10:17)
[2021-12-02] MEDS: Heparin Sodium,Porcine 5,000 UNIT/ML VIAL 5000 UNIT SUBCUT ×2 (10:17→20:44)
[2021-12-02 11:00] VITALS: BP 117/57; PULSE 75; RESP 19; TEMP 35.5; O2SAT 97
[2021-12-02 12:08] VITALS: BMI 20.5
--- NOTE | 2021-12-02 12:28 | PC.NURSE ---
Addendum entered by Joanna Kirk RN 12/02/21 13:56: Soup suds enema given with no relief/BM Original Note: Patients tube feeding increased to 40mls, no residual and 120mls water given.
--- NOTE | 2021-12-02 13:10 | MHC.SL.SWA ---
Addendum entered and electronically signed by Keiry Tanner MA, CCC-HOUSEKEEPING/LAUNDRY 12/02/21 19:13: D.S. Original Note: Speech Pathologist Impression: Dysphagia Risk of Aspiration Due to: Medically Fragile Neurological Condition Reduced Cognition Dysphasia Diet Status: Liquid Consistency and Strategies for Safe Swallow: Liquid Intake Recommendation: NPO Solid Food Consistency: Dietary Recommendations: NPO Oral Medication Intake: NPO Please contact the pharmacy regarding appropriate crushable or liquid drug formulations that are available whenever modified delivery is recommended. Compensatory Strategies and Precautions to be Taken for Safe Swallow: Supervision While Eating and Drinking for Safe Swallow: PO with HOUSEKEEPING/LAUNDRY Swallowing Recommended Treatments: Compens. Strategy Educat. Recommendation for Speech: Outpatient Speech Therapy Inpatient Speech Therapy Conf[facility] nectar thick liquids, meds via Gtube. Per [facility], pt eats 50% PO and 50% bolus feed. Pt seen for bedside swallow eval this morning. Pt appeared to state tengo hambre while gesturing to her stomach several times. Attempted trace amt of nectar thick liquid via teaspoon. Pt was able to sip it out of teaspoon. No swallow visualized or palpated. Appeared to hold in mouth for approx. 1 minute then presented w/ fit of coughing. NPO d/t inability to tolerate trace amount of nectar thick liquid. Drywall Worker Clinican/Clinical Fellow: Yes: Megan Nance M.A., CF-HOUSEKEEPING/LAUNDRY :
--- NOTE | 2021-12-02 13:36 | MHC.CLN ---
NUTRITION NOTED THAT TF RUNNING AT 40 ML PER HOUR AT 12:30 PM. CONTINUE TO MAX GOAL RATE OF GLUCERNA AT 55 ML PER HOUR.
--- NOTE | 2021-12-02 13:45 | P.PNIM_ITS ---
Subjective Subjective Date of Service: 12/02/21 Interval History: ?the patient was seen and evaluated this morning Laying? in bed, denies abdominal pain no bowel movement overnight Failed swallow evaluation tolerating tube feed No reported other overnight events. Systemic review: No fever, chills or weakness No chest pain, palpitation No shortness of breath or coughing Resolved abdominal pain, no nausea or vomiting No urinary symptoms No any rash or wounds Physical Exam Vital Signs: Vital Signs: Last Vital Signs Temp 96 F L 12/02/21 11:00 Pulse 75 12/02/21 11:00 Resp 19 12/02/21 11:00 BP 117/57 L 12/02/21 11:00 Pulse Ox 97 12/02/21 11:00 O2 Del Method 12/02/21 12:00 BMI result Body Mass Index 20.5 Const: Other: Constitutional : Alert,? interactive, not in distress Neck : Normal inspection, Supple Cardiovascular : RRR, no JVP, no lower extremity edema Respiratory : fair bilateral air entry,? no crackles, wheezes or rhonchi Gastrointestinal:? soft, lax, decreased bowel sounds, no significant tenderness with no surgical signs, G-tube in place with no surrounding erythema Skin : Warm, Dry Extremities: Above knee amputation right lower extremity Neurological : Alert & disoriented, No focal deficit Objective Data Active Medications Acetaminophen (Acetaminophen 325 Mg Tablet) 650 mg PO Q6H PRN PRN Reason: Pain, Mild (Pain Scale 1-3) Heparin Sodium (Porcine) (Heparin Sodium,Porcine 5,000 Unit/Ml Vial) 5,000 unit SUBCUT Q12H [facility] Last Admin: 12/02/21 10:17 Dose: 5,000 unit Documented By: FABI Ceftriaxone Sodium 1 gm/ (Sodium Chloride) 50 mls @ 100 mls/hr IV Q24H [facility] Last Infusion: 12/02/21 11:12 Dose: 0 mls/hr Documented By: FABI Valproic Acid 500 mg/ Dextrose 55 mls @ 55 mls/hr IV BID [facility] Last Infusion: 12/02/21 11:11 Dose: 0 mls/hr Documented By: FABI Lactulose (Lactulose 20 Gm/30 Ml Solution) 20 gm G-TUBE BID [facility] Last Admin: 12/02/21 07:16 Dose: 20 gm Documented By: FABI Ondansetron HCl (Ondansetron Hcl 4 Mg/2 Ml Vial) 4 mg IVPUSH Q8H PRN PRN Reason: Nausea and Vomiting Senna (Senna [place] Extract Oral Syrup 15 Ml Syrup) 15 ml G-TUBE BEDTIME [facility] Last Admin: 12/01/21 22:20 Dose: 15 ml Documented By: VIVIANA Sodium Chloride (0.9 % Sodium Chloride Flush 3 Ml Syringe) 3 ml IVFLUSH QSHIFT [facility] Last Admin: 12/02/21 07:16 Dose: 3 ml Documented By: FABI Labs CBC & Chem 7: 12/02/21 06:22 12/02/21 06:22 Labs: Laboratory Results - last 24 hr 12/02/21 12/02/21 06:22 06:22 MCV 87.0 MCH 28.3 MCHC 32.5 RDW 14.6 Plt Count 210 MPV 11.6 Absolute Nucleated RBC 0.000 Nucleated RBC % (auto) 0.0 Anion Gap 19 Estim Creat Clear Calc 59.4 Estimated GFR > 60 Random Glucose 91 Calcium 8.0 L D Microbiology Microbiology Results: Microbiology 11/30/21 03:58 Urine Culture - Final Urine clean catch - Urine rmoeo top 11/29/21 21:07 Blood Culture - Preliminary Blood - Venous No growth after 48 hours. 11/29/21 21:07 Blood Culture - Preliminary Blood - Venous No growth after 48 hours. Assessment and Plan (1) Small bowel obstruction: Status: Acute Plan This is a 71-year-old female presents to the hospital from [facility] care with abdominal distension and abdominal pain found to have small-bowel obstruction with sigmoid volvulus # small-bowel obstruction ? seems to be a pseudobstruction resolving Repeated KUB XR showed resolution of the obstruction Keep NPO, per speech therapy evaluation tolerating tube diet for now , advanced as tolerated Surgery and GI input appreciated, no intervention needed Hold rest of her home medications # severe constipation No bowel movement yet Lactulose and senna through the G-tube To do enema # sigmoid volvulus Less likely per GI and surgery resolved ?GI had sigmoidoscopy done, normal colon mucosa consistent with pseudo- obstruction # hypomagnesemia repleted # diabetes low-dose sliding scale insulin diabetic diet once she can eat hold metformin DVT prophylaxis:? Heparin subQ Patient will require overnight hospital stay for? management of small-bowel obstruction? pending passing bowel movement and tolerating diet Quality Stroke Does the patient have a stroke diagnosis?: No VTE Prior VTE?: No VTE Risk Level:: Medical - moderate - high VTE Device Contraindication: Treatment Not Indicated VTE Drug Contraindication: N/A - Med Ordered
[2021-12-02 15:44] VITALS: BP 112/54; PULSE 72; RESP 16; TEMP 36.3; O2SAT 96
[2021-12-02] MEDS: Sodium Bicarbonate 650 MG TABLET G-TUBE ×2 (15:52→20:44)
--- NOTE | 2021-12-02 16:12 | PC.NURSE ---
tube feed currently running at 50mls/hr, will increase to 55mls at 1700. Patient had ~20 ccs residual at 1pm. Other checks were 0ccs. Patient had to be straight cathed at 1615 d/t retaining 475ccs. Patient also had large liquid BM at that time. Repositioned for comfort.
--- NOTE | 2021-12-02 18:25 | MHC.SLORD ---
Speech Language Pathology Order Status: MD Kaleb Sorenson reports goal is for pt to d/c tomorrow and requests NITROCELLULOSE OPERATOR follow-up tomorrow. NITROCELLULOSE OPERATOR informed MD that someone will need to reach out to on-call NITROCELLULOSE OPERATOR tomorrow morning and that on-call hours are 9-11am. MD confirmed someone will reach out to on-call NITROCELLULOSE OPERATOR tomorrow morning.
[2021-12-02 19:25] VITALS: BP 118/56; PULSE 77; RESP 16; TEMP 36.9; O2SAT 92
[2021-12-02] MEDS: Valproic Acid (as Sodium Salt) 500 MG in Dextrose 5 % 50 ML 55 MG IV (21:02)
[2021-12-02 23:23] VITALS: BP 128/63; PULSE 69; RESP 16; TEMP 36.4; O2SAT 95
[2021-12-03 03:25] VITALS: BP 122/58; PULSE 87; RESP 16; TEMP 36.1; O2SAT 98
[2021-12-03] MEDS: cefTRIAXone sodium 1 GM in 0.9 % Sodium Chloride 50 ML IV (06:01)
[2021-12-03 07:18] LABS: Anion Gap 17 (12-20); Blood Urea Nitrogen 11 mg/dL (9-16); Calcium 8.3 mg/dL (8.4-10.2); Carbon Dioxide 23 mmol/L (22-29); Chloride 103 mmol/L (96-108); Creatinine Clr Calc Pharmacy 57.8; Estimated Glomerular Filt Rate > 60; Glucose Random 230 mg/dL (60-115); Sodium 140 mmol/L (135-145)
[2021-12-03 07:46] VITALS: BP 107/54; PULSE 74; RESP 16; TEMP 36.4; O2SAT 94
[2021-12-03] MEDS: Lactulose 20 GM/30 ML SOLUTION G-TUBE ×2 (09:24→22:23)
[2021-12-03] MEDS: Heparin Sodium,Porcine 5,000 UNIT/ML VIAL 5000 UNIT SUBCUT ×2 (09:24→22:23)
[2021-12-03] MEDS: Valproic Acid (as Sodium Salt) 500 MG in Dextrose 5 % 50 ML 55 MG IV ×2 (09:24→23:06)
[2021-12-03] MEDS: Potassium Chloride Packet 20 MEQ PACKET 40 MEQ G-TUBE (09:24)
[2021-12-03] MEDS: Sodium Bicarbonate 650 MG TABLET G-TUBE ×2 (09:25→22:23)
--- NOTE | 2021-12-03 10:44 | MHC.SL.SWA ---
Speech Pathologist Impression: Moderate to severe oral phase dysphagia Risk of Aspiration Due to: Medically Fragile Neurological Condition Reduced Cognition Dysphasia Diet Status: Recommend UPGRADE diet to PUREE (NDD1) with NECTAR THICK liquids by STRAW in small sips. Pt has PEG tube, at baseline received 50% of nutrition by PEG, 50% orally. Would recommend gradual resumption of these amounts, with audio visual arts director supervision. Recommend patient continue to received medication through PEG. MD Lux notified of recommendation by secure text, RN in [facility]. Liquid Consistency and Strategies for Safe Swallow: Liquid Intake Recommendation: [place] Thick Liquid Intake Strategies: Solid Food Consistency: Dietary Recommendations: Pureed (NDD1) Additional Modifications to Solid Foods: Patient is most successful with liquids if given by straw. Assist/monitor straw sip for taking liquid in small amounts. Patient requires 1-1 feed, has unilateral R hemiplegia, however should be encouraged to scoop and eat food with left hand (son reports patient does this at baseline). Oral Medication Intake: NPO (meds administered via PEG) Please contact the pharmacy regarding appropriate crushable or liquid drug formulations that are available whenever modified delivery is recommended. Compensatory Strategies and Precautions to be Taken for Safe Swallow: Sitting Upright (90 deg) Liquids from Straw Small Bites and Sips Rate of Ingestion Change Oral Check Supervision While Eating and Drinking for Safe Swallow: Total Assistance (1:1) Foods to Avoid: Sticky or congealed purees. Blend sauces/gravies into purees. Swallowing Recommended Treatments: Compens. Strategy Educat. Recommendation for Speech: Outpatient Speech Therapy Inpatient Speech Therapy Comment: Patient seen for repeat bedside swallow this a.m. At onset nursing was providing meds, assisted with boosting patient to be seated upright at 90 Degrees in bed. Noted that patient periodically drools, and had wet spot from drool on gown. Patient requested kleenex to wipe mouth and was also given wash cloth which she gladly accepted, to help manage secretions. Patient's son also was present about half way through the assessment. He reported that the Patient has had eleven strokes, all previous to 2017 when he took custody of his mom. Patient was initially given tsp amount of [place] Thick Apple Juice. With presentation of spoon, patient opened mouth wide and tilted head back. Attempted to direct patient to close lips to strip spoon, however patient shook head, vocalized and pointed to open mouth. 1/2 tsp amount was deposited into mouth. Patient continued with open mouth posture, after delay/orally holding liquid, patient began to produce a disorganized tongue pumping pattern to propel bolus, propelled bolus slowly, producing piecemeal swallow, mildly reduced laryngeal elevation. Patient additionally noted to grimace with presence of juice, when asked y/n questions indicated she did not like any fruit juices, preferring coffee or milk. Retrieved thickened milk for patient, on return her son who was present reported that she normally drinks with straw. Attempted [place] Thick Milk by straw: Patient able to patently seal lips on straw, produce suction, took small sip, produced tongue pumping action initiated in a timely manner, sustaining closed mouth, produced swallow with reduced laryngeal elevation, no clinical signs of aspiration on several straw sips of liquid. On presentations of puree consistency (pudding) patient stripped spoon with lips, produced a tongue pumping/smacking motion to propel bolus, evident that portion of bolus reached back of tongue/pharynx triggering swallow, with remainder of bolus still being moved in disorganized pattern. On second swallow patient cleared bolus from oral cavity, with mild residual noted, some being wiped from mouth from patient with saliva. Similar pattern was noted on five additional presentations of puree, no clinical signs of aspiration. Patient presents with a moderate to severe oral phase dysphagia, however tolerates puree by spoon and nectar thick liquid by straw with no clinical signs of aspiration on today's evaluation. Frequency/Duration: Date Range for Service Req: Timeline to reassess: [employer] Vice President Clinican/Clinical Fellow: No Supervisory Statement: I have reviewed and agree with the student/clinical fellow's documentation: N/A Speech Language Pathologist: Lucia Pollack M.A., CCC-PHP WEB DEVELOPER
--- NOTE | 2021-12-03 10:59 | PM.DS ---
DS: Providers Provider Date of Service: 12/03/21 Date of admission: 11/29/21 21:36 Primary care physician: Dionicio Serna MD Consults: 11/29/21 18:58 Consult to General Surgery Stat Consulting Provider: Jairo Mercado Reason for consultation: volvulus 11/29/21 21:39 Consult to Gastroenterology Routine Consulting Provider: Salome Boyer Reason for consultation: Volvulus Has provider been notified: Yes DS: Diagnosis Discharge Diagnosis (1) Small bowel obstruction: Status: Acute (2) Hypomagnesemia: Status: Acute (3) Constipation: Status: Acute DS: Summary Hospital Course Hospital Course: Admission note HPI 81-year-old female with past medical history of CVA with right-sided hemiparesis, as well as above knee amputation,, dementia, mostly bed-bound, diabetes, history of chronic volvulus with recent worsening, sent to the hospital from residential with complaints of abdominal distension.? Patient is nonverbal at baseline, and unable to give much history.? History is obtained from her son at bedside who is also unaware was happening when she was sent to the hospital but he does report that she has had trouble with her stomache for many years, with things getting stuck when she eats .? He speaks Occitan and an hospice clinical manager was used. I am unable to conduct review of system as patient is nonverbal On arrival to the ED patient was found to be hemodynamically stable with no significant abnormal vitals Labs are significant for WBC count of 7.0, CBC otherwise unremarkable, CMP shows bicarb of 18, anion gap 22, BUN of 30, creatinine of 0.98, magnesium of 1.3 that was repleted, UA that is positive for nitrites, leukocyte Estrace and WBC, Abdominal pelvic CT showed small-bowel obstruction due to constipation and sigmoid volvulus. This case was discussed extensively with both services feeling the patient does not have small-bowel obstruction.? surgery who felt the patient needed decompression, surgery felt that at this time patient did not need decompression and weak can attempt to fecal disimpact and monitor for resolution.? A fecal disimpaction was attempted in the ED but patient did not have any stool in the rectal vault, but according to the ED PA had significant amount of gas with some improvement in her abdominal distension. Patient will be admitted to our service for further management by GI and surgery Hospital course The patient was admitted for evaluation of intestinal obstruction, concern of volvulus and severe constipation. Evaluated by surgical and GI team who did not feel the patient has real volvulus. Sigmoidoscopy was done showing evidence of pseudo obstruction. Repeated x-rays showed resolution of the obstruction. The patient was treated with IV fluid, laxatives and enemas with good response over the course of hospital stay as she started passing bowel movement. Evaluated by speech therapy as she was kept NPO on admission and had tube feeds. Advanced to NDDI 1 with honey thick liquids. Hypomagnesemia was replaced. Start laxative therapy Follow with speech therapy for advancing diet Time Spent with Patient Time attestation: Total time spent providing and/or coordinating discharge services: Discharge coordination time: Greater than 30 minutes Quality: Safe Use of Opioids Does Pt have an Active Cancer Diagnosis on the Problem List?: No Quality: Stroke Does the patient have a stroke diagnosis?: No Physical Exam Vital Signs: Vital Signs: Last Vital Signs Temp 97.5 F 12/03/21 07:46 Pulse 74 12/03/21 07:46 Resp 16 12/03/21 07:46 BP 107/54 L 12/03/21 07:46 Pulse Ox 94 12/03/21 07:46 O2 Del Method 12/03/21 07:46 BMI result Body Mass Index 20.5 Const: Other: Constitutional : Alert,? interactive, not in distress Neck : Normal inspection, Supple Cardiovascular : RRR, no JVP, no lower extremity edema Respiratory : fair bilateral air entry,? no crackles, wheezes or rhonchi Gastrointestinal:? soft, lax, decreased bowel sounds, no significant tenderness with no surgical signs, G-tube in place with no surrounding erythema Skin : Warm, Dry Extremities: Above knee amputation right lower extremity Neurological : Alert & disoriented, No focal deficit DS: Data Data Completed and Pending Labs on day of discharge: Laboratory Results - last 24 hr 12/03/21 05:47 Sodium 140 Potassium 3.0 L Chloride 103 Carbon Dioxide 23 Anion Gap 17 BUN 11 Creatinine 0.74 Estim Creat Clear Calc 57.8 Estimated GFR > 60 Random Glucose 230 H Calcium 8.3 L Preliminary micro results at discharge 11/29/21 21:07 Blood Culture - Preliminary Blood - Venous No growth after 48 hours. 11/29/21 21:07 Blood Culture - Preliminary Blood - Venous No growth after [address] scan - abdomen: Radiologist's impression: ITS Impressions Abdomen/Pelvis CT 11/29/21 17:41 IMPRESSION: Small bowel obstruction due to constipation and sigmoid volvulus. Communication: Nurse practitioner Herbie Mann at 1850 7:00 PM Fleischner guidelines were followed. Chest X-Ray 11/29/21 19:57 IMPRESSION: Nasogastric tube in stomach. KUB X-Ray 11/30/21 08:25 IMPRESSION: Gaseous distention of colon likely severe constipation. Mild fullness is seen in the rectal and sigmoid region on preceding CT abdomen exam. Cannot exclude underlying lesion. KUB X-Ray 12/01/21 10:45 IMPRESSION: This follow-up radiograph shows no evidence of bowel obstruction. Discharge Plan Discharge Anticipated Discharge Date/Time: 12/03/21 10:46 Patient Disposition: [facility] Discharge Diagnosis: Small-bowel obstruction Constipation Referrals: [facility] [Outside] - 1 Week Dionicio Serna MD [Primary Care Provider] - 1 Week Discharge Medications: New lactulose 20 gram/30 mL Solution 20 g G-tube DAILY 30 Days Qty: 900 0RF Metamucil 3.4 gram/5.4 gram powder 1 tbsp PO DAILY Qty: 660 0RF Rx Instructions: mix into at least 8 oz of water or juice before administering Continued multivitamin Tablet 1 tab PO DAILY glycopyrrolate 1 mg Tablet 1 mg PO BID metformin 500 mg Tablet 500 mg PO BID acetaminophen 325 mg Tablet 650 mg PO Q4H PRN (Reason: Pain) atorvastatin 20 mg Tablet 20 mg PO DAILY sertraline 100 mg Tablet 100 mg PO DAILY valproic acid (as sodium salt) 250 mg/5 mL Solution 375 mg PO DAILY mirtazapine 30 mg Tablet 30 mg PO DAILY simethicone 80 mg Tablet,Chewable 160 mg PO BID cholestyramine (with sugar) 4 gram Powder In Packet 4 g PO DAILY Rx Instructions: administer w/meal; avoid other meds within 1hr before or 4-6hr after dose cholecalciferol (vitamin D3) 1,250 mcg (50,000 unit) Capsule 1,250 mcg PO QMONTH pantoprazole [Protonix] [address] For Susp In Packet 40 mg PO DAILY menthol-zinc oxide 0.44-20.6 % Ointment 1 appl TOPICAL QID Rx Instructions: COCCYX AND BUTTOCK valproic acid (as sodium salt) 250 mg/5 mL (5 mL) Solution 500 mg PO BEDTIME Changed sennosides [senna] 8.6 mg Tablet 17.2 mg PO BEDTIME Qty: 60 0RF Discharge Orders: Discharge Order (Routine); Ordered 12/03/21 Ordered By: Kaleb Sorenson Diet: NDD1, Honey thick liquids Activity on Discharge: As tolerated Stand Alone Forms: Patient Portal Discharge page Care Plan Goals: Read below Health Concerns: Read below Plan of Treatment: Read below Assessment: You were admitted to the hospital for evaluation of abdominal pain. Found to have intestinal obstruction. Had sigmoidoscopy done by GI team with no evidence of obstruction as repeated images showed resolution. Responded well to treatment with IV fluid and laxatives. Started to move your bowels. Start laxative therapy Follow with speech therapy for advancing diet
[2021-12-03 11:40] LABS: COVID-19 Test Negative (Negative); IDNOW Serial# 16C4AD1C
--- NOTE | 2021-12-03 11:53 | MHC.CM.PN ---
IMM 12/03/21 Female 71 Discharged today. She will return to [facility] for LTC. All DC info has been sent. The negative covid test result has been sent as well. transport booked for 2pm.
[2021-12-03 12:00] VITALS: BP 97/48; PULSE 64; RESP 16; TEMP 36.4; O2SAT 96
[2021-12-03 15:35] VITALS: BP 122/58; PULSE 77; RESP 16; TEMP 36.4; O2SAT 97
[2021-12-03 19:59] VITALS: BP 123/60; PULSE 65; RESP 17; TEMP 36.1; O2SAT 98
[2021-12-03] MEDS: 0.9 % Sodium Chloride Flush 3 ML SYRINGE IVFLUSH (22:23)
[2021-12-03 23:59] VITALS: BP 128/59; PULSE 69; RESP 16; TEMP 36.6; O2SAT 95
[2021-12-04 03:50] VITALS: BP 130/58; PULSE 78; RESP 18; TEMP 36.7; O2SAT 97
[2021-12-04] MEDS: cefTRIAXone sodium 1 GM in 0.9 % Sodium Chloride 50 ML IV (06:32)
[2021-12-04] MEDS: Lactulose 20 GM/30 ML SOLUTION G-TUBE (07:23)
[2021-12-04] MEDS: Sodium Bicarbonate 650 MG TABLET G-TUBE (07:23)
[2021-12-04 07:41] VITALS: BP 124/70; PULSE 67; RESP 18; TEMP 36.6; O2SAT 97
[2021-12-04] MEDS: Valproic Acid (as Sodium Salt) 500 MG in Dextrose 5 % 50 ML 55 MG IV (08:44)
[2021-12-04] MEDS: Heparin Sodium,Porcine 5,000 UNIT/ML VIAL 5000 UNIT SUBCUT (09:54)
--- NOTE | 2021-12-04 10:10 | MHC.CM.PN ---
MD indicates patient supposed to D/C yesterday; ambulance did not pick her up. Rescheduled patient for today at 11:00, reported to [facility] [facility] and unable to find nurse. UC indicates to report to nurse.
--- NOTE | 2021-12-04 10:44 | PC.NURSE ---
report given to Mariel CORONEL at [facility]
== END 2021-12-04 10:43 | disposition skilled nursing facility (03) | DRG 345 ==
LOC: HO.ED 20:58 → HO.EDOVER 21:44 → HO.S3 12-01 13:49
PROVIDERS: Internal Medicine; Physician Assistant; Admitting Provider Internal Medicine; Emergency Provider Emergency Medicine Emergency Medical Services; PCP Family Medicine; Visit Provider Student in an Organized Health Care Education/Training Program
PROC: 0DJD8ZZ Inspection of Lower Intestinal Tract, Via Natural or Artificial Opening Endoscopic (ICD-10-PCS; CPT 45330; principal; 2021-11-30 14:00)
DX: K59.89 Other specified functional intestinal disorders (principal); I69.351 Hemiplegia and hemiparesis following cerebral infarction affecting right dominant side; F03.90 Unspecified dementia, unspecified severity, without behavioral disturbance, psychotic disturbance, mood disturbance, and anxiety; E83.42 Hypomagnesemia; I69.320 Aphasia following cerebral infarction; K64.8 Other hemorrhoids; I69.391 Dysphagia following cerebral infarction; E11.9 Type 2 diabetes mellitus without complications; R13.10 Dysphagia, unspecified; K59.00 Constipation, unspecified; Z93.1 Gastrostomy status; Z20.822 Contact with and (suspected) exposure to COVID-19; Z89.611 Acquired absence of right leg above knee; Z74.01 Bed confinement status; Z88.8 Allergy status to other drugs, medicaments and biological substances; Z79.84 Long term (current) use of oral hypoglycemic drugs; Z79.899 Other long term (current) drug therapy
CPT/HCPCS: 36415; 71045; 74018; 74176; 80048; 80053; 81001; 82947; 83605; 83690; 83735; 85025; 85027; 87040; 87086; 87635; 92526; 92610; 96365; 96366; 96375; 99285; J0696; J1885; J3475

== ENCOUNTER 2022-02-11 11:25 | Emergency (ER) | payer MEDICARE, MEDICAID, SELFPAY ==
--- NOTE | ~2022-02-11 | XR_ITS ---
EXAMINATION: XR FEMUR, LEFT CLINICAL INFORMATION: Left leg pain COMPARISON: None TECHNIQUE: AP and lateral views of the left femur were obtained. FINDINGS: Slightly Limited assessment on the crosstable lateral views due to overlying sheets. No acute fracture or dislocation. No osseous lesion identified. Joint spaces are well-maintained. Mild marginal osteophyte formation consistent mild degenerative change. Extensive vascular calcifications. XR/XR femur LT 2V IMPRESSION: 1. No acute osseous injury. 2. Mild left hip joint osteoarthropathy.
--- NOTE | ~2022-02-11 | XR_ITS ---
Examination: XR elbow RT min 3V, XR shoulder RT min 2V Indication: s/p fall c right shoulder/elbow pain Comparison: No pertinent prior studies are currently available for comparison. Technique: 4 views of the right shoulder and 2 views of the right elbow. Examination is limited due to patient's condition and limited images were able to be obtained setting Findings: Right shoulder: Humeral head appears be well-seated in the glenoid fossa. There is a chronic bony deformity to the humeral neck with mild residual distraction. There is periosteal change and well-corticated bony irregularity at the fracture line consistent with a chronic fracture deformity. This has been present since the 09/01/2013 study. There are associated degenerative changes in the glenohumeral joint and acromioclavicular joint but I do not appreciate any acute superimposed fracture or dislocation on these images. Right elbow: No significant joint effusion. There are degenerative changes and osteopenia but I do not appreciate any definitive acute fracture on these obliquities. Prominent vascular calcification noted. XR/XR shoulder RT min 2V Impression: Chronic appearing bony deformity to the right humeral neck. Appearing changes to the right elbow. I do not appreciate any definitive acute superimposed fracture or dislocation on these obliquities.
--- NOTE | ~2022-02-11 | XR_ITS ---
EXAMINATION: PORTABLE CHEST 1 VIEW CLINICAL INFORMATION: s/p fall . COMPARISON: 11/29/2021. TECHNIQUE: Portable frontal view of the chest was obtained. FINDINGS: There is asymmetric elevation of the right hemidiaphragm. I do not appreciate any superimposed focal infiltrate, effusion, edema, or pneumothorax on mild chronic changes. Cardiac silhouette within normal limits for size with mildly tortuous aorta. Chronic bony deformities to the shoulders. No displaced rib fractures appreciated. XR/XR chest 1V IMPRESSION: Asymmetric elevation of the right hemidiaphragm. Chronic appearing changes otherwise.
--- NOTE | ~2022-02-11 | XR_ITS ---
EXAMINATION: XR HIP, RIGHT CLINICAL INFORMATION: Status post fall COMPARISON: Images of the left hip and pelvis from earlier today TECHNIQUE: Frontal view of the pelvis with coned frontal and crosstable lateral of the right hip. FINDINGS: Femoral head is well-seated in the acetabulum. I do not appreciate any cortical disruption or trabecular irregularity to suggest acute fracture or dislocation. Degenerative changes in the hip and pelvis. Extensive vascular calcification with vascular stents seen overlying the mid thigh XR/XR hip RT w [id number] IMPRESSION: Degenerative changes but no acute fracture or dislocation. Extensive vascular calcification
--- NOTE | ~2022-02-11 | CT_ITS ---
EXAMINATION: CT HEAD WITHOUT CONTRAST CT CERVICAL SPINE WITHOUT CONTRAST CLINICAL INFORMATION: Pain status post fall. COMPARISON: CT head 10/08/2013. TECHNIQUE: Concrete Saw Operator images were obtained. CT imaging of the head and cervical spine was performed without contrast. Data was reformatted into multiplanar images at the acquisition workstation. This CT examination was performed using dose optimization techniques as appropriate, including one or more of the following: Automated exposure control, iterative reconstruction, and adjustment of technique factors (mA and/or kVp) according to patient size (this includes techniques or standardized protocols for targeted exams where dose is matched to indication/reason for exam). Fleischner Society criteria for the followup of incidental pulmonary nodules was implemented if appropriate. DLP: 963 mGy-cm. 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 A few chronic lacunar infarcts are also visualized within the left basal ganglia. There are also a few chronic lacunar infarcts within the left shannan and left thalamus. Grossly no evidence of acute territorial infarct. No acute hemorrhage or abnormal extra-axial collection. No hydrocephalus. The calvarium and skull base are intact. Mastoid air cells and middle ear cavities are well aerated. No active paranasal sinus disease. Cervical spine: Alignment is normal. Vertebral heights are preserved. No acute fracture. No abnormal prevertebral soft tissue swelling. There is no canal compromise. No bony neuroforaminal encroachment. Heavily calcified atheromatous plaque involves both carotid bifurcations. Soft tissues of the neck are otherwise unremarkable. There is pleural-parenchymal scarring at the apices of both lungs. CT/CT cervical spine wo IV con IMPRESSION: Brain: Extensive chronic ischemic changes as described above. Possible slight progression of chronic disease when compared to prior CT imaging of the head from 10/08/2013. Grossly no evidence of acute territorial infarct or hemorrhage. Cervical spine: No evidence of acute fracture and no posttraumatic spinal subluxation. No canal or neuroforaminal compromise.
--- NOTE | ~2022-02-11 | XR_ITS ---
Examination: XR elbow RT min 3V, XR shoulder RT min 2V Indication: s/p fall c right shoulder/elbow pain Comparison: No pertinent prior studies are currently available for comparison. Technique: 4 views of the right shoulder and 2 views of the right elbow. Examination is limited due to patient's condition and limited images were able to be obtained setting Findings: Right shoulder: Humeral head appears be well-seated in the glenoid fossa. There is a chronic bony deformity to the humeral neck with mild residual distraction. There is periosteal change and well-corticated bony irregularity at the fracture line consistent with a chronic fracture deformity. This has been present since the 09/01/2013 study. There are associated degenerative changes in the glenohumeral joint and acromioclavicular joint but I do not appreciate any acute superimposed fracture or dislocation on these images. Right elbow: No significant joint effusion. There are degenerative changes and osteopenia but I do not appreciate any definitive acute fracture on these obliquities. Prominent vascular calcification noted. XR/XR elbow RT min 3V Impression: Chronic appearing bony deformity to the right humeral neck. Appearing changes to the right elbow. I do not appreciate any definitive acute superimposed fracture or dislocation on these obliquities.
--- NOTE | ~2022-02-11 | CT_ITS ---
EXAMINATION: CT HEAD WITHOUT CONTRAST CT CERVICAL SPINE WITHOUT CONTRAST CLINICAL INFORMATION: Pain status post fall. COMPARISON: CT head 10/08/2013. TECHNIQUE: Yardmaster images were obtained. CT imaging of the head and cervical spine was performed without contrast. Data was reformatted into multiplanar images at the acquisition workstation. This CT examination was performed using dose optimization techniques as appropriate, including one or more of the following: Automated exposure control, iterative reconstruction, and adjustment of technique factors (mA and/or kVp) according to patient size (this includes techniques or standardized protocols for targeted exams where dose is matched to indication/reason for exam). Fleischner Society criteria for the followup of incidental pulmonary nodules was implemented if appropriate. DLP: 963 mGy-cm. 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 A few chronic lacunar infarcts are also visualized within the left basal ganglia. There are also a few chronic lacunar infarcts within the left shannan and left thalamus. Grossly no evidence of acute territorial infarct. No acute hemorrhage or abnormal extra-axial collection. No hydrocephalus. The calvarium and skull base are intact. Mastoid air cells and middle ear cavities are well aerated. No active paranasal sinus disease. Cervical spine: Alignment is normal. Vertebral heights are preserved. No acute fracture. No abnormal prevertebral soft tissue swelling. There is no canal compromise. No bony neuroforaminal encroachment. Heavily calcified atheromatous plaque involves both carotid bifurcations. Soft tissues of the neck are otherwise unremarkable. There is pleural-parenchymal scarring at the apices of both lungs. CT/CT head/brain wo IV con IMPRESSION: Brain: Extensive chronic ischemic changes as described above. Possible slight progression of chronic disease when compared to prior CT imaging of the head from 10/08/2013. Grossly no evidence of acute territorial infarct or hemorrhage. Cervical spine: No evidence of acute fracture and no posttraumatic spinal subluxation. No canal or neuroforaminal compromise.
[2022-02-11 11:31] VITALS: BP 142/80; PULSE 80; O2SAT 96
[2022-02-11 11:32] VITALS: BP 103/35; PULSE 85; RESP 19; TEMP 36.6; O2SAT 98; BMI 20.8
--- NOTE | 2022-02-11 11:53 | ECG_ITS ---
Test Reason : FALL Blood Pressure : / mmHG Vent. Rate : 077 BPM Atrial Rate : 077 BPM P-R Int : 150 ms QRS Dur : 072 ms QT Int : 414 ms P-R-T Axes : 051 -17 037 degrees QTc Int : 468 ms Artifact in tracing Normal sinus rhythm Likely Normal ECG When compared with ECG of 08-OCT-2013 20:29, No significant change was found Referred By: Supriya Pacheco Electronically Signed By:LORE GREENWOOD
[2022-02-11 11:58] VITALS: PULSE 77
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
[2022-02-11 13:31] LABS: Prothrombin Time 11.1 SEC (10.0-13.1)
[2022-02-11 13:35] LABS: MANUAL DIFF FLAG NO
[2022-02-11 13:36] LABS: Basophils Percent Auto 0.1 % (0-2); Eosinophils Percent Auto 0.1 % (0-4); Hematocrit 35.4 % (37.0-47.0); Hemoglobin 11.5 g/dl (12.0-16.0); Imm Gran Abs Auto 0.05 X10*3/uL (0.00-0.03); Imm Gran Pct Auto 0.4 % (0.0-0.4); Lymphocytes Absolute Auto 1.1 X10*3/uL (1.2-4.9); Lymphocytes Percent Auto 8.3 % (20-40); Mean Corpuscular HGB Conc 32.5 g/dl (31.0-35.0); Mean Corpuscular Hemoglobin 27.3 pg (27.0-33.0); Mean Corpuscular Volume 83.9 fL (80.0-98.0); Mean Platelet Volume 10.6 fL (9.4-12.3); Monocytes Absolute Auto 0.5 X10*3/uL (0.1-1.2); Monocytes Percent Auto 3.5 % (2-11); Neutrophils Absolute Auto 11.7 x10*3/uL (2.0-8.3); Neutrophils Percent Auto 87.6 % (45-73); Platelet Count 290 X10*3/uL (160-400); Red Blood Count 4.22 X10*6/uL (4.20-5.50); Red Cell Distribution Width 14.9 % (11.0-16.0); White Blood Count 13.4 X10*3/uL (4.8-10.8)
[2022-02-11 14:13] LABS: Alanine Aminotransferase 13 U/L (0-31); Albumin Level 3.9 g/dL (3.5-5.0); Alkaline Phosphatase 90 U/L (39-117); Anion Gap 20 (12-20); Aspartate Amino Transferase 15 U/L (5-31); Bilirubin Total 0.2 mg/dL (0.0-1.0); Blood Urea Nitrogen 16 mg/dL (9-16); Calcium 9.2 mg/dL (8.4-10.2); Carbon Dioxide 22 mmol/L (22-29); Chloride 103 mmol/L (96-108); Creatinine Clr Calc Pharmacy 52.1; Estimated Glomerular Filt Rate > 60; Glucose Random 290 mg/dL (60-115); Magnesium 1.4 mg/dL (1.6-2.6); Potassium 4.5 mmol/L (3.3-5.1); Sodium 140 mmol/L (135-145)
[2022-02-11 14:20] VITALS: BP 126/47; PULSE 78; RESP 18; TEMP 36.5; O2SAT 95
[2022-02-11] MEDS: Acetaminop/Codeine 120/12/5 mL 5 ML SOLUTION PO (14:30)
[2022-02-11 14:34] LABS: COVID-19 Test Negative (Negative); IDNOW Serial# BCCEAD1C
[2022-02-11] MEDS: Magnesium Sulfate/H2O 2 GM/50 ML PIGGYBACK IV (14:49)
--- NOTE | 2022-02-11 15:05 | PC.NURSE ---
Received report from HOMER Cason. Pt is currently resting on stretcher. Pt has magnesium running through 22 in left hand.
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
--- NOTE | 2022-02-11 17:09 | PHA.MEDREC ---
Pharmacy Consult ? Medication Reconciliation Pharmacy has completed the medication reconciliation. Pt came with list from [facility]
[2022-02-11 17:20] VITALS: BP 117/51; PULSE 80; RESP 14; TEMP 36.6; O2SAT 95
--- NOTE | 2022-02-11 17:54 | PC.NURSE ---
Pt incontientn of urine. This RN and Mar, PCT changed pt linen and gown. Purewick in place and draining appropriately
[2022-02-11 18:08] VITALS: PULSE 75; RESP 17; O2SAT 98
--- NOTE | 2022-02-11 20:15 | PC.NURSE ---
Pt able to drink nectar thick water with assistance from this RN
[2022-02-11 20:30] LABS: Appearance Urine Clear; Color Urine Yellow; Glucose Urine UA 500 mg/dL (Negative); Leukocyte Esterase Urine Negative (Negative); Nitrite Urine Negative (Negative); Urine Blood Negative (Negative); Urine Ketones 15 mg/dL (Negative); Urine Protein Negative (Neg-Trace)
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
[2022-02-12 00:49] VITALS: BP 155/61; PULSE 85; RESP 18; TEMP 37.1; O2SAT 97
--- NOTE | 2022-02-12 00:52 | MHC.EDTECH ---
pt was cleaned up and a purewick was place. she ok no issues
--- NOTE | 2022-02-12 01:04 | PC.NURSE ---
Still awaiting medications from supervisor tree trimming
[2022-02-12] MEDS: Simethicone 80 MG TAB.CHEW 160 MG PO ×3 (02:53→20:32)
[2022-02-12] MEDS: Lactulose 20 GM/30 ML SOLUTION G-TUBE ×3 (02:53→20:33)
[2022-02-12] MEDS: Glycopyrrolate 1 MG TABLET PO ×3 (02:53→20:33)
--- NOTE | 2022-02-12 03:10 | PC.NURSE ---
Pt has been resting on stretcher, sleeping, respirations are even and unlabored. Medications late due to not having them in this department
--- NOTE | 2022-02-12 04:04 | PC.NURSE ---
This RN encountered difficulty in giving medications via g-tube. G-tube may need to be replaced, Lisette, RN taking over aware and at bedside for medication administration
[2022-02-12 06:21] VITALS: BP 132/57; PULSE 71; RESP 18; TEMP 36.8; O2SAT 95
[2022-02-12] MEDS: metFORMIN HCl 500 MG TABLET PO ×2 (07:39→20:32)
[2022-02-12] MEDS: Sertraline HCL 100 MG TABLET G-TUBE (10:17)
[2022-02-12] MEDS: Atorvastatin Calcium 20 MG TABLET G-TUBE (10:17)
[2022-02-12 10:32] VITALS: BP 125/60; PULSE 83; O2SAT 95
[2022-02-12] MEDS: Mirtazapine 30 MG TABLET PO (10:44)
[2022-02-12 12:40] LABS: Glucose, Whole Blood 122 mg/dL (60-115)
[2022-02-12] MEDS: oxyCODONE HCl Immed Release 5 MG TABLET PO (13:54)
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
[2022-02-12 16:03] VITALS: BP 105/48; PULSE 70; RESP 14; TEMP 36.7; O2SAT 97
--- NOTE | 2022-02-12 21:05 | PC.NURSE ---
pt medicated via g-tube, denies any pain at this time. pt repositioned for bed and given warm blankets.
[2022-02-12 21:52] VITALS: BP 122/49; PULSE 69; RESP 14; O2SAT 98
[2022-02-13] VITALS: BP 125/61; PULSE 70; TEMP 36.4; O2SAT 97
--- NOTE | 2022-02-13 00:36 | PC.NURSE ---
Assumed care for pt. Pt currently sleeping at the bedside in no apparent distress. Breaths are even and unlabored with equal chest rises. Will continue to monitor.
[2022-02-13 03:42] VITALS: BP 119/51; PULSE 72; RESP 12; O2SAT 97
--- NOTE | 2022-02-13 03:43 | PC.NURSE ---
Pt sleeping at the bedside in no apparent distress. Breaths are even and unlabored with equal chest rises. Will continue to monitor.
--- NOTE | 2022-02-13 05:51 | PC.NURSE ---
Pt medicated with Omeprazole as ordered via G-tube with no difficulty or concerns. G-tube is in place with no redness or swelling around the area. Pt tolerated well.
[2022-02-13 06:18] VITALS: BP 122/54; PULSE 67; TEMP 36.4; O2SAT 98
[2022-02-13] MEDS: Sertraline HCL 100 MG TABLET G-TUBE (07:36)
[2022-02-13] MEDS: metFORMIN HCl 500 MG TABLET PO (07:36)
[2022-02-13] MEDS: Simethicone 80 MG TAB.CHEW 160 MG PO (07:36)
[2022-02-13] MEDS: Mirtazapine 30 MG TABLET PO (07:36)
[2022-02-13] MEDS: Multivitamin TABLET 1 TAB PO (07:37)
[2022-02-13] MEDS: Atorvastatin Calcium 20 MG TABLET G-TUBE (07:37)
[2022-02-13] MEDS: Lactulose 20 GM/30 ML SOLUTION G-TUBE (07:37)
[2022-02-13] MEDS: Glycopyrrolate 1 MG TABLET PO (09:01)
[2022-02-13 11:18] VITALS: BP 140/59; PULSE 88; RESP 12; O2SAT 97
--- NOTE | 2022-02-13 11:18 | PC.NURSE ---
patient wash and clean, complete bed change ,reposition patient watching tv.
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
[2022-02-13 16:06] VITALS: BP 140/64; PULSE 83; RESP 20; TEMP 36.6; O2SAT 98
== END 2022-02-13 16:14 | disposition skilled nursing facility (03) ==
PROVIDERS: Physician Assistant Medical; Emergency Provider Emergency Medicine; PCP Family Medicine
DX: G89.29 Other chronic pain (principal); M79.601 Pain in right arm; E83.42 Hypomagnesemia; Z91.81 History of falling; Z20.822 Contact with and (suspected) exposure to COVID-19; E11.9 Type 2 diabetes mellitus without complications; I10 Essential (primary) hypertension; F03.90 Unspecified dementia, unspecified severity, without behavioral disturbance, psychotic disturbance, mood disturbance, and anxiety; I69.351 Hemiplegia and hemiparesis following cerebral infarction affecting right dominant side; Z89.611 Acquired absence of right leg above knee; Z74.01 Bed confinement status; Z79.84 Long term (current) use of oral hypoglycemic drugs; Z79.899 Other long term (current) drug therapy
CPT/HCPCS: 36415; 70450; 71045; 72125; 73030; 73080; 73502; 73552; 80053; 81003; 82550; 82947; 83735; 85025; 85610; 87635; 93005; 96365; 96366; 99285; J3475

== ENCOUNTER 2022-02-26 18:38 | Emergency (ER) | payer MEDICARE, MEDICAID, SELFPAY ==
--- NOTE | ~2022-02-26 | CT_ITS ---
EXAMINATION: CT ABDOMEN AND PELVIS WITHOUT CONTRAST CLINICAL INFORMATION: Question of small bowel obstruction COMPARISON: 11/29/2021 TECHNIQUE: Multidetector volumetric imaging was performed from the superior aspect of the liver through the pubic symphysis. Sagittal and coronal reformatted images were obtained on the technologist's workstation. This CT examination was performed using dose optimization techniques as appropriate, variously including the following: *Automated exposure control *Adjustment of mA and/or kV according to patient size (this includes techniques or standardized protocols for targeted exams where dose is matched to indication/reason for exam; i.e. extremities or head) *Use of iterative reconstruction technique DLP: 713 mGy-cm FINDINGS: LUNG BASES: Subsegmental atelectasis and/or pleural parenchymal scarring redemonstrated in right lower lobe. Coronary calcifications and microcalcifications. LIVER, GALLBLADDER, AND BILIARY TREE: The liver is normal in size, shape, and attenuation. No focal hepatic lesion or biliary ductal dilatation is present. Cholecystectomy. PANCREAS: Unremarkable. SPLEEN: Unremarkable. ADRENAL GLANDS: Unremarkable. KIDNEYS AND URETERS: The kidneys are normal in size, shape, and attenuation. No hydronephrosis, hydroureter, or calculi seen. No perinephric stranding. BLADDER: Unremarkable. GASTROINTESTINAL TRACT: Again, there is generalized gaseous distention of the colon, particularly sigmoid colon which measures up to 8.6 cm in diameter, similar to the prior exam. There is no sigmoid volvulus on the current exam, nor was there is sigmoid volvulus on the prior exam. Moderate stool present within the rectum, also similar in amount prior. There is mild presacral fat stranding unchanged and nonspecific. Consider mild proctitis. Gastrostomy tube within the stomach. Stomach otherwise unremarkable. Normal small bowel. ABDOMINAL WALL: No significant hernia is appreciated. LYMPH NODES: Normal. VASCULAR: Aorta is atherosclerotic but normal caliber. PELVIC VISCERA: Unremarkable. OSSEOUS STRUCTURES: No acute or suspicious osseous abnormalities. CT/CT abdomen pelvis wo IV con IMPRESSION: * Findings compatible with generalized colonic ileus, similar in appearance to prior. * No sigmoid volvulus or evidence of obstruction. * Moderate stool in the rectum, with mild stable presacral fat stranding. Consider mild proctitis.
--- NOTE | ~2022-02-26 | XR_ITS ---
EXAMINATION: XR ABDOMEN KUB CLINICAL INDICATION: Small bowel obstruction question G-tube malfunctioning. COMPARISON: Prior study 12/01/2021 TECHNIQUE: AP view of the abdomen. FINDINGS: Gastric tube with its balloon projecting over the stomach unchanged. There is mildly dilated air-filled large bowel, possibly constipation or mild colonic ileus. No evidence of free air. Lung bases not included. Bone demineralization pelvis and hips unchanged. XR/XR KUB IMPRESSION: * Gastric tube remains in place projecting over the stomach unchanged. May consider contrast injection through the tube to confirm proper position. * Mildly dilated air-filled large bowel, possibly constipation or mild colonic ileus. * Bone demineralization.
--- NOTE | 2022-02-26 18:50 | ED.GENADULT ---
HPI - General Adult General Chief complaint: General Medical <SARAH Redd - Last Filed: 02/26/22 18:50> Stated complaint: heart palpitations, coming from senior living <SARAH Redd - Last Filed: 02/26/22 18:50> Time Seen by Provider: 02/26/22 18:50 <SARAH Redd - Last Filed: 02/26/22 18:50> Source: patient <SARAH Redd - Last Filed: 02/26/22 18:50> Mode of arrival: ambulatory <SARAH Redd - Last Filed: 02/26/22 18:50> Limitations: no limitations <SARAH Redd - Last Filed: 02/26/22 18:50> History of Present Illness HPI narrative: 71y.o F with PMH of CVA with resultant hemiplegia, aphasia and dysphagia s/p G tube placement, T2DM, HTN, depression came from senior living for difficulty in feeding from the G-tube patient was admitted here on 12/17 with similar situation sigmoidoscopy was done and pseudo obstruction was relieved no vomiting no fever or chills <Jordan Taylor MD - Last Filed: 02/27/22 01:40> Related Data Home medications: Home Medications Medication Instructions Recorded Confirmed acetaminophen 325 mg tablet 650 mg PO Q4H PRN Pain 11/29/21 02/11/22 atorvastatin 20 mg tablet 20 mg feeding tube DAILY 11/29/21 02/11/22 glycopyrrolate 1 mg tablet 1 mg PO BID 11/29/21 02/11/22 menthol 0.44 %-zinc oxide 20.6 % 1 appl topical TID 11/29/21 02/11/22 topical ointment metformin 500 mg tablet 500 mg PO BID 11/29/21 02/11/22 mirtazapine 30 mg tablet 30 mg PO DAILY 11/29/21 02/11/22 multivitamin 1 tab PO DAILY 11/29/21 02/11/22 pantoprazole 40 mg granules 40 mg PO DAILY@0630 11/29/21 02/11/22 delayed-release for susp in packet (Protonix) sertraline 100 mg tablet 100 mg feeding tube DAILY 11/29/21 02/11/22 simethicone 80 mg chewable tablet 160 mg PO BID 11/29/21 02/11/22 valproic acid (as sodium salt) 250 500 mg feeding tube BEDTIME 11/29/21 02/11/22 mg/5 mL (5 mL) oral solution valproic acid (as sodium salt) 250 375 mg feeding tube DAILY 11/29/21 02/11/22 mg/5 mL oral solution benzocaine 10 % mucosal gel 1 appl mucous membrane QID PRN 02/11/22 02/11/22 Toothache bisacodyl 10 mg rectal suppository 10 mg [place] DAILY PRN Constipation 02/11/22 02/11/22 fluoride (sodium) 1.1 % dental gel 1 appl dental BID 02/11/22 02/11/22 (PreviDent) lactose-reduced food with fiber See Rx Instructions .Route 02/11/22 02/11/22 0.06 gram-1.2 kcal/mL oral liquid .COMPLEX failure to thrive (Jevity 1.2 Inocente) lactulose 20 gram/30 mL oral 20 g G-tube BID 02/11/22 02/11/22 solution lidocaine HCl 2 % mucosal solution 30 ml PO QID PRN Pain 02/11/22 02/11/22 (Lidocaine Viscous) sennosides 8.6 mg tablet (senna) 17.2 mg PO BEDTIME PRN Constipation 02/11/22 02/11/22 triamcinolone acetonide 0.1 % 1 appl topical BID 02/11/22 02/11/22 topical cream Previous Rx's Medication Instructions Recorded magnesium oxide 400 mg PO DAILY #30 tabs 02/27/22 <SARAH Redd - Last Filed: 02/26/22 18:50> Allergies/adverse reactions: Allergies Allergy/AdvReac Type Severity Reaction Status Date / Time diphenhydramine Allergy Mild HIVES Verified 07/08/20 07:29 meperidine Allergy Mild UNKNOWN Verified 07/08/20 07:29 From Benadryl Allergy Unknown UNKNOWN Uncoded 11/13/19 16:16 From Demerol Allergy Unknown UNKNOWN Uncoded 11/13/19 16:16 <SARAH Redd - Last Filed: 02/26/22 18:50> Review of Systems Review of Systems: Yes all other systems are reviewed and are negative <Jordan Taylor MD - Last Filed: 02/27/22 01:40> PMFSH Past Medical History Medical History: Medical History Above knee amputation of right lower extremity CVA (cerebral vascular accident) Dementia Diabetes Gastrointestinal tube present Nonverbal Right hemiparesis <SARAH Redd - Last Filed: 02/26/22 18:50> Social History Social History: Social History Household Members: Other Household Members Other:: comes from [facility] Housing: Group Home Alcohol intake: never Patient Tobacco Use Status: Never used Tobacco Smoked in Last 30 Days: No Use of substances other than those prescribed or required for medical reasons: No Advance Directives: Yes Advance Directives on File: Yes Advance Directives Date on File: 02/13/22 service: No Current occupational status: disabled <SARAH Redd - Last Filed: 02/26/22 18:50> Physical Exam ED Vital Signs: Vital Signs - 24 hr 02/26/22 18:51 02/26/22 18:54 02/26/22 21:04 Temperature 97.6 F 97.6 F 97.5 F Pulse Rate 80 79 72 Respiratory Rate 15 16 Blood Pressure 125/59 L 125/59 L 116/48 L Pulse Oximetry 98 99 97 Oxygen Delivery Method Room Air Room Air Room Air 02/26/22 22:22 02/26/22 23:44 02/26/22 23:50 Temperature 97.5 F 97.7 F Pulse Rate 72 71 108 H Respiratory Rate 16 18 Blood Pressure 126/48 L 132/57 L 182/121 H Pulse Oximetry 97 97 95 Oxygen Delivery Method Room Air Room Air Room Air BMI result Body Mass Index 20.6 <SARAH Redd - Last Filed: 02/26/22 18:50> Vital Signs - 24 hr 02/26/22 18:51 02/26/22 18:54 02/26/22 21:04 Temperature 97.6 F 97.6 F 97.5 F Pulse Rate 80 79 72 Respiratory Rate 15 16 Blood Pressure 125/59 L 125/59 L 116/48 L Pulse Oximetry 98 99 97 Oxygen Delivery Method Room Air Room Air Room Air 02/26/22 22:22 02/26/22 23:44 02/26/22 23:50 Temperature 97.5 F 97.7 F Pulse Rate 72 71 108 H Respiratory Rate 16 18 Blood Pressure 126/48 L 132/57 L 182/121 H Pulse Oximetry 97 97 95 Oxygen Delivery Method Room Air Room Air Room Air BMI result Body Mass Index 20.6 <Jordan Taylor MD - Last Filed: 02/27/22 01:40> Appearance: Alert. And awake. No acute distress. Eyes: PERRLA, No Nystagmus ENT: Pharynx normal. Oral Mucosa moist Neck: Normal inspection. Neck supple. CVS: Normal heart rate and rhythm. Pulses normal. Respiratory: No respiratory distress. Equal air entry bilateral, no wheezing/rales/rhonchi Abdomen: Soft and nontender. G-tube in place gaseous distended Bowel sounds are present, no mass palpable, no CVA tenderness Skin: Skin warm and dry. Normal skin color. Normal skin turgor. Extremities: No lower extremity edema. No calf tenderness right AKA Neuro: Alert with right-sided residual weakness. Nonverbal <Jordan Taylor MD - Last Filed: 02/27/22 01:40> Medications Administered Generic Name Dose Route Start Last Admin Trade Name Freq PRN Reason Stop Dose Admin Magnesium Sulfate 2 gm in 50 mls @ 100 mls/hr 02/27/22 01:25 02/27/22 01:36 Magnesium Sulfate/H2o IV 02/27/22 01:54 100 mls/hr ONCE ONE Administration Discontinued Medications Generic Name Dose Route Start Last Admin Trade Name Freq PRN Reason Stop Dose Admin Diatrizoate Meglum/Diatrizoate Sod 30 ml 02/26/22 23:38 02/26/22 23:39 Diatrizoate Meglumine, Sodium 30 Ml Solution PO 02/26/22 23:39 30 ml ONCE ONE Administration Sodium Chloride 1,000 mls @ 999 mls/hr 02/26/22 23:36 02/27/22 01:39 Ns IV 02/27/22 00:36 Infused .Q1H1M ONE Infusion <SARAH Redd - Last Filed: 02/26/22 18:50> Medications Administered Generic Name Dose Route Start Last Admin Trade Name Freq PRN Reason Stop Dose Admin Magnesium Sulfate 2 gm in 50 mls @ 100 mls/hr 02/27/22 01:25 02/27/22 01:36 Magnesium Sulfate/H2o IV 02/27/22 01:54 100 mls/hr ONCE ONE Administration Discontinued Medications Generic Name Dose Route Start Last Admin Trade Name Yessi PRN Reason Stop Dose Admin Diatrizoate Meglum/Diatrizoate Sod 30 ml 02/26/22 23:38 02/26/22 23:39 Diatrizoate Meglumine, Sodium 30 Ml Solution PO 02/26/22 23:39 30 ml ONCE ONE Administration Sodium Chloride 1,000 mls @ 999 mls/hr 02/26/22 23:36 02/27/22 01:39 Ns IV 02/27/22 00:36 Infused .Q1H1M ONE Infusion <Jordan Taylor MD - Last Filed: 02/27/22 01:40> Medical Decision Making Medical Decision Making [facility] Narrative: Patient's CT scan negative for volvulus, Patient with fecal impaction with dilated bowels rectal examination was done and lot of air with liquid stool came out patient abdomen felt decompressed feels for comfortable will discharge patient back to senior living <Jordan Taylor MD - Last Filed: 02/27/22 01:40> Lab Data [facility] Lab Attestation statement: I reviewed the patient's lab results. <Jordan Taylor MD - Last Filed: 02/27/22 01:40> Result Diagrams: : 02/27/22 00:09 02/27/22 00:09 <SARAH Redd - Last Filed: 02/26/22 18:50> Labs: Lab Results 02/27/22 02/27/22 02/27/22 Range/Units 00:09 00:09 00:09 WBC 6.9 (4.8-10.8) X10*3/uL RBC 3.60 L (4.20-5.50) X10*6/uL Hgb 10.0 L (12.0-16.0) g/dl Hct 31.1 L (37.0-47.0) % MCV 86.4 (80.0-98.0) fL MCH 27.8 (27.0-33.0) pg MCHC 32.2 (31.0-35.0) g/dl RDW 15.4 (11.0-16.0) % Plt Count 260 (160-400) X10*3/uL MPV 10.9 (9.4-12.3) fL Immature Gran % (Auto) 0.1 (0.0-0.4) % Neut % (Auto) 56.7 (45-73) % Lymph % (Auto) 36.3 (20-40) % [place] % (Auto) 5.5 (2-11) % Eos % (Auto) 1.0 (0-4) % Baso % (Auto) 0.4 (0-2) % Lymph # (Auto) 2.5 (1.2-4.9) X10*3/uL [place] # (Auto) 0.4 (0.1-1.2) X10*3/uL Eos # (Auto) 0.1 (0.0-0.4) X10*3/uL Baso # (Auto) 0.0 (0.0-0.2) X10*3/uL Abs Immat Gran (auto) 0.01 (0.00-0.03) X10*3/uL Absolute Neuts (auto) 3.9 (2.0-8.3) x10*3/uL Absolute Nucleated RBC 0.000 (0.0-0.012) X10*3/uL Nucleated RBC % (auto) 0.0 (0.0-0.2) /100WBC PT 11.3 (10.0-13.1) SEC INR 1.0 (0.9-1.1) Sodium 141 (135-145) mmol/L Potassium 3.3 D (3.3-5.1) mmol/L Chloride 106 (96-108) mmol/L Carbon Dioxide 26 (22-29) mmol/L Anion Gap 12 (12-20) BUN 21 H (9-16) mg/dL Creatinine 0.73 (0.5-1.4) mg/dL Estim Creat Clear Calc 59.2 Estimated GFR > 60 Random Glucose 152 H (60-115) mg/dL Lactic Acid (0.5-2.0) mmol/L Calcium 8.5 D (8.4-10.2) mg/dL Magnesium 1.4 L* (1.6-2.6) mg/dL Total Bilirubin 0.3 (0.0-1.0) mg/dL AST 13 (5-31) U/L ALT 9 (0-31) U/L Alkaline Phosphatase 97 (39-117) U/L Total Protein 6.2 L (6.5-8.0) g/dL Albumin 3.4 L (3.5-5.0) g/dL COVID-19 (ADITI) (Negative) COVID-19 Clin Com 02/27/22 02/27/22 Range/Units 00:09 00:10 WBC (4.8-10.8) X10*3/uL RBC (4.20-5.50) X10*6/uL Hgb (12.0-16.0) g/dl Hct (37.0-47.0) % MCV (80.0-98.0) fL MCH (27.0-33.0) pg MCHC (31.0-35.0) g/dl RDW (11.0-16.0) % Plt Count (160-400) X10*3/uL MPV (9.4-12.3) fL Immature Gran % (Auto) (0.0-0.4) % Neut % (Auto) (45-73) % Lymph % (Auto) (20-40) % [place] % (Auto) (2-11) % Eos % (Auto) (0-4) % Baso % (Auto) (0-2) % Lymph # (Auto) (1.2-4.9) X10*3/uL [place] # (Auto) (0.1-1.2) X10*3/uL Eos # (Auto) (0.0-0.4) X10*3/uL Baso # (Auto) (0.0-0.2) X10*3/uL Abs Immat Gran (auto) (0.00-0.03) X10*3/uL Absolute Neuts (auto) (2.0-8.3) x10*3/uL Absolute Nucleated RBC (0.0-0.012) X10*3/uL Nucleated RBC % (auto) (0.0-0.2) /100WBC PT (10.0-13.1) SEC INR (0.9-1.1) Sodium (135-145) mmol/L Potassium (3.3-5.1) mmol/L Chloride (96-108) mmol/L Carbon Dioxide (22-29) mmol/L Anion Gap (12-20) BUN (9-16) mg/dL Creatinine (0.5-1.4) mg/dL Estim Creat Clear Calc Estimated GFR Random Glucose (60-115) mg/dL Lactic Acid 1.5 (0.5-2.0) mmol/L Calcium (8.4-10.2) mg/dL Magnesium (1.6-2.6) mg/dL Total Bilirubin (0.0-1.0) mg/dL AST (5-31) U/L ALT (0-31) U/L Alkaline Phosphatase (39-117) U/L Total Protein (6.5-8.0) g/dL Albumin (3.5-5.0) g/dL COVID-19 (ADITI) Negative (Negative) COVID-19 Clin Com See Note <SARAH Redd - Last Filed: 02/26/22 18:50> Lab Results 02/27/22 02/27/22 02/27/22 Range/Units 00:09 00:09 00:09 WBC 6.9 (4.8-10.8) X10*3/uL RBC 3.60 L (4.20-5.50) X10*6/uL Hgb 10.0 L (12.0-16.0) g/dl Hct 31.1 L (37.0-47.0) % MCV 86.4 (80.0-98.0) fL MCH 27.8 (27.0-33.0) pg MCHC 32.2 (31.0-35.0) g/dl RDW 15.4 (11.0-16.0) % Plt Count 260 (160-400) X10*3/uL MPV 10.9 (9.4-12.3) fL Immature Gran % (Auto) 0.1 (0.0-0.4) % Neut % (Auto) 56.7 (45-73) % Lymph % (Auto) 36.3 (20-40) % [place] % (Auto) 5.5 (2-11) % Eos % (Auto) 1.0 (0-4) % Baso % (Auto) 0.4 (0-2) % Lymph # (Auto) 2.5 (1.2-4.9) X10*3/uL [place] # (Auto) 0.4 (0.1-1.2) X10*3/uL Eos # (Auto) 0.1 (0.0-0.4) X10*3/uL Baso # (Auto) 0.0 (0.0-0.2) X10*3/uL Abs Immat Gran (auto) 0.01 (0.00-0.03) X10*3/uL Absolute Neuts (auto) 3.9 (2.0-8.3) x10*3/uL Absolute Nucleated RBC 0.000 (0.0-0.012) X10*3/uL Nucleated RBC % (auto) 0.0 (0.0-0.2) /100WBC PT 11.3 (10.0-13.1) SEC INR 1.0 (0.9-1.1) Sodium 141 (135-145) mmol/L Potassium 3.3 D (3.3-5.1) mmol/L Chloride 106 (96-108) mmol/L Carbon Dioxide 26 (22-29) mmol/L Anion Gap 12 (12-20) BUN 21 H (9-16) mg/dL Creatinine 0.73 (0.5-1.4) mg/dL Estim Creat Clear Calc 59.2 Estimated GFR > 60 Random Glucose 152 H (60-115) mg/dL Lactic Acid (0.5-2.0) mmol/L Calcium 8.5 D (8.4-10.2) mg/dL Magnesium 1.4 L* (1.6-2.6) mg/dL Total Bilirubin 0.3 (0.0-1.0) mg/dL AST 13 (5-31) U/L ALT 9 (0-31) U/L Alkaline Phosphatase 97 (39-117) U/L Total Protein 6.2 L (6.5-8.0) g/dL Albumin 3.4 L (3.5-5.0) g/dL COVID-19 (ADITI) (Negative) COVID-19 Clin Com 02/27/22 02/27/22 Range/Units 00:09 00:10 WBC (4.8-10.8) X10*3/uL RBC (4.20-5.50) X10*6/uL Hgb (12.0-16.0) g/dl Hct (37.0-47.0) % MCV (80.0-98.0) fL MCH (27.0-33.0) pg MCHC (31.0-35.0) g/dl RDW (11.0-16.0) % Plt Count (160-400) X10*3/uL MPV (9.4-12.3) fL Immature Gran % (Auto) (0.0-0.4) % Neut % (Auto) (45-73) % Lymph % (Auto) (20-40) % [place] % (Auto) (2-11) % Eos % (Auto) (0-4) % Baso % (Auto) (0-2) % Lymph # (Auto) (1.2-4.9) X10*3/uL [place] # (Auto) (0.1-1.2) X10*3/uL Eos # (Auto) (0.0-0.4) X10*3/uL Baso # (Auto) (0.0-0.2) X10*3/uL Abs Immat Gran (auto) (0.00-0.03) X10*3/uL Absolute Neuts (auto) (2.0-8.3) x10*3/uL Absolute Nucleated RBC (0.0-0.012) X10*3/uL Nucleated RBC % (auto) (0.0-0.2) /100WBC PT (10.0-13.1) SEC INR (0.9-1.1) Sodium (135-145) mmol/L Potassium (3.3-5.1) mmol/L Chloride (96-108) mmol/L Carbon Dioxide (22-29) mmol/L Anion Gap (12-20) BUN (9-16) mg/dL Creatinine (0.5-1.4) mg/dL Estim Creat Clear Calc Estimated GFR Random Glucose (60-115) mg/dL Lactic Acid 1.5 (0.5-2.0) mmol/L Calcium (8.4-10.2) mg/dL Magnesium (1.6-2.6) mg/dL Total Bilirubin (0.0-1.0) mg/dL AST (5-31) U/L ALT (0-31) U/L Alkaline Phosphatase (39-117) U/L Total Protein (6.5-8.0) g/dL Albumin (3.5-5.0) g/dL COVID-19 (ADITI) Negative (Negative) COVID-19 Clin Com See Note <Jordan Taylor MD - Last Filed: 02/27/22 01:40> Discharge Plan Discharge Clinical Impression: Constipation <SARAH Redd - Last Filed: 02/26/22 18:50> Patient Disposition: Xfer SNF <SARAH Redd - Last Filed: 02/26/22 18:50> Transfer Details: Patient bowel was decompressed G-tube is working continue to use lactulose for constipation <SARAH Redd - Last Filed: 02/26/22 18:50> Patient bowel was decompressed G-tube is working continue to use lactulose for constipation <Jordan Taylor MD - Last Filed: 02/27/22 01:40> Instructions: Constipation (ED), Hypomagnesemia (ED) <SARAH Redd - Last Filed: 02/26/22 18:50> Additional Instructions: Continue to use lactulose Magnesium tablets daily as advised <SARAH Redd - Last Filed: 02/26/22 18:50> Prescriptions: New magnesium oxide 400 mg magnesium tablet 400 mg PO DAILY Qty: 30 0RF No Action multivitamin Tablet 1 tab PO DAILY glycopyrrolate 1 mg Tablet 1 mg PO BID metformin 500 mg Tablet 500 mg PO BID acetaminophen 325 mg Tablet 650 mg PO Q4H PRN (Reason: Pain) atorvastatin 20 mg Tablet 20 mg feeding tube DAILY sertraline 100 mg Tablet 100 mg feeding tube DAILY valproic acid (as sodium salt) 250 mg/5 mL Solution 375 mg feeding tube DAILY mirtazapine 30 mg Tablet 30 mg PO DAILY simethicone 80 mg Tablet,Chewable 160 mg PO BID pantoprazole [Protonix] [address] For Susp In Packet 40 mg PO DAILY@0630 menthol-zinc oxide 0.44-20.6 % Ointment 1 appl TOPICAL TID Rx Instructions: APPLY TO COCCYX AND BUTTOCK valproic acid (as sodium salt) 250 mg/5 mL (5 mL) Solution 500 mg feeding tube BEDTIME lactulose 20 gram/30 mL solution 20 g G-tube BID Jevity 1.2 Inocente 0.06 gram-1.2 kcal/mL Liquid See Rx Instructions .ROUTE .COMPLEX Rx Instructions: Give 150 ml via g-tube two times a day. Give with 60 ml water benzocaine 10 % Gel 1 appl mucous membrane QID PRN (Reason: Toothache) Rx Instructions: apply to dental affected area bisacodyl 10 mg Suppository 10 mg [place] DAILY PRN (Reason: Constipation) lidocaine HCl [Lidocaine Viscous] 2 % Solution 30 ml PO QID PRN (Reason: Pain) triamcinolone acetonide 0.1 % Cream 1 appl TOPICAL BID Rx Instructions: APPLY TO RIGHT UPPER ARM FOR ITCH. USE SPARINGLY, RUB IN WELL fluoride (sodium) [PreviDent] 1.1 % Gel 1 appl DENTAL BID Rx Instructions: FOR DENTAL CARIES sennosides [senna] 8.6 mg tablet 17.2 mg PO BEDTIME PRN (Reason: Constipation) <SARAH Redd - Last Filed: 02/26/22 18:50>
[2022-02-26 18:51] VITALS: BP 125/59; PULSE 80; RESP 15; TEMP 36.4; O2SAT 98
[2022-02-26 18:54] VITALS: BP 125/59; PULSE 54; PULSE 79; RESP 16; TEMP 36.4; O2SAT 95; O2SAT 99; BMI 20.6
[2022-02-26 21:04] VITALS: BP 116/48; PULSE 72; TEMP 36.4; O2SAT 97
[2022-02-26 22:22] VITALS: BP 126/48; PULSE 72; TEMP 36.4; O2SAT 97
[2022-02-26] MEDS: Diatrizoate Meglumine, Sodium 30 ML SOLUTION PO (23:39)
[2022-02-26 23:44] VITALS: BP 132/57; PULSE 71; RESP 16; TEMP 36.5; O2SAT 97
[2022-02-26 23:50] VITALS: BP 182/121; PULSE 108; RESP 18; O2SAT 95
[2022-02-27] MEDS: 0.9 % Sodium Chloride 1,000 ML 999 ML IV (00:11)
[2022-02-27 00:16] LABS: Basophils Percent Auto 0.4 % (0-2); MANUAL DIFF FLAG NO; Neutrophils Percent Auto 56.7 % (45-73); Red Cell Distribution Width 15.4 % (11.0-16.0)
[2022-02-27 00:18] LABS: Eosinophils Absolute Auto 0.1 X10*3/uL (0.0-0.4); Hematocrit 31.1 % (37.0-47.0); Imm Gran Abs Auto 0.01 X10*3/uL (0.00-0.03); Imm Gran Pct Auto 0.1 % (0.0-0.4); Lymphocytes Absolute Auto 2.5 X10*3/uL (1.2-4.9); Lymphocytes Percent Auto 36.3 % (20-40); Mean Corpuscular HGB Conc 32.2 g/dl (31.0-35.0); Mean Corpuscular Hemoglobin 27.8 pg (27.0-33.0); Mean Corpuscular Volume 86.4 fL (80.0-98.0); Mean Platelet Volume 10.9 fL (9.4-12.3); Monocytes Absolute Auto 0.4 X10*3/uL (0.1-1.2); Monocytes Percent Auto 5.5 % (2-11); Neutrophils Absolute Auto 3.9 x10*3/uL (2.0-8.3)
[2022-02-27 00:21] LABS: Platelet Count 260 X10*3/uL (160-400); White Blood Count 6.9 X10*3/uL (4.8-10.8)
[2022-02-27 00:23] LABS: Prothrombin Time 11.3 SEC (10.0-13.1)
[2022-02-27 00:30] LABS: COVID-19 Test Negative (Negative); IDNOW Serial# 6674DD1D
[2022-02-27 00:39] LABS: Lactic Acid 1.5 mmol/L (0.5-2.0)
[2022-02-27 00:43] LABS: Alanine Aminotransferase 9 U/L (0-31); Albumin Level 3.4 g/dL (3.5-5.0); Alkaline Phosphatase 97 U/L (39-117); Anion Gap 12 (12-20); Aspartate Amino Transferase 13 U/L (5-31); Bilirubin Total 0.3 mg/dL (0.0-1.0); Blood Urea Nitrogen 21 mg/dL (9-16); Calcium 8.5 mg/dL (8.4-10.2); Carbon Dioxide 26 mmol/L (22-29); Chloride 106 mmol/L (96-108); Creatinine Clr Calc Pharmacy 59.2; Estimated Glomerular Filt Rate > 60; Glucose Random 152 mg/dL (60-115); Potassium 3.3 mmol/L (3.3-5.1); Sodium 141 mmol/L (135-145); Total Protein 6.2 g/dL (6.5-8.0)
[2022-02-27 01:25] LABS: Magnesium 1.4 mg/dL (1.6-2.6)
--- NOTE | 2022-02-27 01:32 | MHC.EDTECH ---
[facility] called at 0128 for a bls transfer back to [facility] [place]. Spoke with Ivonne, booked for 2AM,Rn aware
[2022-02-27] MEDS: Magnesium Sulfate/H2O 2 GM/50 ML PIGGYBACK IV (01:36)
--- NOTE | 2022-02-27 01:37 | PC.NURSE ---
pt reposition, pt incontinent of stool, per care complete. pt cleaned up and changed into hospital attire. Will continue to monitor.
== END 2022-02-27 02:32 | disposition skilled nursing facility (03) ==
PROVIDERS: Emergency Provider Internal Medicine; PCP Family Medicine
DX: K59.00 Constipation, unspecified (principal); R00.2 Palpitations; R10.9 Unspecified abdominal pain; Z20.822 Contact with and (suspected) exposure to COVID-19; Z79.899 Other long term (current) drug therapy
CPT/HCPCS: 36415; 74018; 74176; 80053; 83605; 83735; 85025; 85610; 87040; 87635; 96374; 99284; J3475

== ENCOUNTER 2022-03-02 20:41 | Emergency (ER) | payer MEDICARE, MEDICAID, SELFPAY ==
--- NOTE | ~2022-03-02 | XR_ITS ---
EXAMINATION: XR ABDOMEN KUB CLINICAL INDICATION: G-tube placement COMPARISON: CT dated 03/02/2022 TECHNIQUE: AP view of the abdomen. FINDINGS: Gastrostomy tube within the gastric antrum. Contrast present within the stomach, duodenum and proximal jejunum. The bowel gas pattern is normal with no evidence of ileus or obstruction. No unusual soft tissue calcifications are noted. Residual contrast present within the bladder. The bones are unremarkable. XR/XR KUB IMPRESSION: Gastrostomy tube within the gastric antrum. No extraluminal contrast.
--- NOTE | ~2022-03-02 | CT_ITS ---
EXAMINATION: CT ABDOMEN AND PELVIS WITH CONTRAST CLINICAL INFORMATION: Bowel Ischemia. COMPARISON: 02/26/22 TECHNIQUE: Multidetector volumetric images were obtained from the superior aspect of the liver through the pubic symphysis following administration 85 mL of Omnipaque 350 intravenous contrast. Sagittal and coronal reformatted images were obtained on the technologist's workstation. Oral contrast: No This CT examination was performed using dose optimization techniques as appropriate, variously including the following: *Automated exposure control *Adjustment of mA and/or kV according to patient size (this includes techniques or standardized protocols for targeted exams where dose is matched to indication/reason for exam; i.e. extremities or head) *Use of iterative reconstruction technique DLP: 635 mGy-cm FINDINGS: LUNG BASES: The visualized lung bases are unremarkable. LIVER, GALLBLADDER, AND BILIARY TREE: The liver is normal in size, shape, and attenuation. No focal hepatic lesion or biliary ductal dilatation is present. Status post cholecystectomy. PANCREAS: Unremarkable. SPLEEN: Unremarkable. ADRENAL GLANDS: Unremarkable. KIDNEYS AND URETERS: The kidneys are normal in size, shape, and attenuation. No hydronephrosis, hydroureter, or calculi seen. No perinephric stranding. BLADDER: Unremarkable. GASTROINTESTINAL TRACT: Large volume stool is seen in the rectal wall with mild surrounding thickening and fluid. Appendix is not visualized, no inflammatory changes are seen in the right lower quadrant. ABDOMINAL WALL: No significant hernia is appreciated. LYMPH NODES: Normal. VASCULAR: Aortic atherosclerotic calcifications, no aneurysmal dilation. PELVIC VISCERA: Unremarkable. OSSEOUS STRUCTURES: Unremarkable. CT/CT abdomen pelvis w IV con IMPRESSION: Large volume stool is seen in the rectal wall with mild surrounding thickening and fluid. This may reflect stercoral colitis.
--- NOTE | ~2022-03-02 | XR_ITS ---
EXAMINATION: XR ABDOMEN KUB CLINICAL INDICATION: Evaluate for SBO COMPARISON: CT dated 02/26/2022 TECHNIQUE: AP view of the abdomen. FINDINGS: Overlying hand obscures the right hemiabdomen. There gas-filled loops of small and large bowel which do not appear distended. Stool is seen in the left hemicolon. Stool is seen in the rectal vault. Right upper quadrant cholecystectomy clips. XR/XR KUB IMPRESSION: Gas-filled loops of small and large bowel which do not appear distended. Stool is seen in the left hemicolon and rectal vault.
[2022-03-02 20:51] VITALS: BP 143/61; PULSE 75; RESP 16; TEMP 36.9; O2SAT 96; BMI 21.8
--- NOTE | 2022-03-02 21:25 | ED.GENADULT ---
HPI - General Adult General Chief complaint: General Medical Stated complaint: blocked feeding tube Time Seen by Provider: 03/02/22 21:24 Source: patient Mode of arrival: ambulatory Limitations: no limitations History of Present Illness HPI narrative: Patient is 71 years old with history of CVA left hemiparesis, aphasia, dysphagia status post PEG tube placement, type 2 diabetes mellitus, hypertension, depression, right AKA was seen here on 02/26 22 for dilated bowel loops a nonfunctioning PEG tube at that time bowel were deflated and affective was working patient was sent back comes back here again as it stopped working again patient does have chronic constipation Related Data Home Medications Medication Instructions Recorded Confirmed acetaminophen 325 mg tablet 650 mg PO Q4H PRN Pain 11/29/21 02/11/22 atorvastatin 20 mg tablet 20 mg feeding tube DAILY 11/29/21 02/11/22 glycopyrrolate 1 mg tablet 1 mg PO BID 11/29/21 02/11/22 menthol 0.44 %-zinc oxide 20.6 % 1 appl topical TID 11/29/21 02/11/22 topical ointment metformin 500 mg tablet 500 mg PO BID 11/29/21 02/11/22 mirtazapine 30 mg tablet 30 mg PO DAILY 11/29/21 02/11/22 multivitamin 1 tab PO DAILY 11/29/21 02/11/22 pantoprazole 40 mg granules 40 mg PO DAILY@0630 11/29/21 02/11/22 delayed-release for susp in packet (Protonix) sertraline 100 mg tablet 100 mg feeding tube DAILY 11/29/21 02/11/22 simethicone 80 mg chewable tablet 160 mg PO BID 11/29/21 02/11/22 valproic acid (as sodium salt) 250 500 mg feeding tube BEDTIME 11/29/21 02/11/22 mg/5 mL (5 mL) oral solution valproic acid (as sodium salt) 250 375 mg feeding tube DAILY 11/29/21 02/11/22 mg/5 mL oral solution benzocaine 10 % mucosal gel 1 appl mucous membrane QID PRN 02/11/22 02/11/22 Toothache bisacodyl 10 mg rectal suppository 10 mg AK DAILY PRN Constipation 02/11/22 02/11/22 fluoride (sodium) 1.1 % dental gel 1 appl dental BID 02/11/22 02/11/22 (PreviDent) lactose-reduced food with fiber See Rx Instructions .Route 02/11/22 02/11/22 0.06 gram-1.2 kcal/mL oral liquid .COMPLEX failure to thrive (Jevity 1.2 Inocente) lactulose 20 gram/30 mL oral 20 g G-tube BID 02/11/22 02/11/22 solution lidocaine HCl 2 % mucosal solution 30 ml PO QID PRN Pain 02/11/22 02/11/22 (Lidocaine Viscous) sennosides 8.6 mg tablet (senna) 17.2 mg PO BEDTIME PRN Constipation 02/11/22 02/11/22 triamcinolone acetonide 0.1 % 1 appl topical BID 02/11/22 02/11/22 topical cream Previous Rx's Medication Instructions Recorded magnesium oxide 400 mg PO DAILY #30 tabs 02/27/22 Allergies Allergy/AdvReac Type Severity Reaction Status Date / Time diphenhydramine Allergy Mild HIVES Verified 07/08/20 07:29 meperidine Allergy Mild UNKNOWN Verified 07/08/20 07:29 From Benadryl Allergy Unknown UNKNOWN Uncoded 11/13/19 16:16 From Demerol Allergy Unknown UNKNOWN Uncoded 11/13/19 16:16 Review of Systems Review of Systems: Yes all other systems are reviewed and are negative [facility] Past Medical History Medical History Above knee amputation of right lower extremity CVA (cerebral vascular accident) Dementia Diabetes Gastrointestinal tube present Nonverbal Right hemiparesis Social History Social History Household Members: Other Household Members Other:: comes from [facility] Housing: Detention Alcohol intake: never Patient Tobacco Use Status: Never used Tobacco Smoked in Last 30 Days: No Use of substances other than those prescribed or required for medical reasons: No Advance Directives: Yes Advance Directives on File: Yes Advance Directives Date on File: 02/13/22 service: No Current occupational status: disabled Physical Exam ED Vital Signs: Vital Signs - 24 hr 03/02/22 20:51 03/02/22 21:58 03/02/22 23:50 Temperature 98.5 F 98.5 F 98.0 F Pulse Rate 75 70 68 Respiratory Rate 16 16 14 Blood Pressure 143/61 H 171/57 H 131/56 L Pulse Oximetry 96 97 99 Oxygen Delivery Method Room Air Room Air Room Air 03/03/22 01:41 03/03/22 04:00 Temperature 98.2 F 98.0 F Pulse Rate 76 78 Respiratory Rate 16 16 Blood Pressure 140/55 H 106/55 L Pulse Oximetry 98 97 Oxygen Delivery Method Room Air Room Air BMI result Body Mass Index 21.8 Appearance: Alert. Nonverbal No acute distress. Eyes: PERRLA, No Nystagmus ENT: Pharynx normal. Oral Mucosa moist Neck: Normal inspection. Neck supple. CVS: Normal heart rate and rhythm. Pulses normal. Respiratory: No respiratory distress. Equal air entry bilateral, no wheezing/rales/rhonchi Abdomen: Soft , Bowel sounds are present, no mass palpable, no CVA tenderness gaseous distended rectum: Soft stool nontender Skin: Skin warm and dry. Normal skin color. Normal skin turgor. Extremities: No lower extremity edema. No calf tenderness right AKA right arm status post humerus fracture Neuro: Alert and awake residual left-sided weakness Medications Administered Discontinued Medications Generic Name Dose Route Start Last Admin Trade Name Freq PRN Reason Stop Dose Admin Diatrizoate Meglum/Diatrizoate Sod 30 ml 03/03/22 00:53 03/03/22 00:54 Diatrizoate Meglumine, Sodium 30 Ml Solution PO 03/03/22 00:54 30 ml ONCE ONE Administration Sodium Chloride 1,000 mls @ 999 mls/hr 03/02/22 22:19 03/03/22 00:43 Ns IV 03/02/22 23:19 Infused .Q1H1M ONE Infusion Piperacillin Sod/Tazobactam 50 mls @ 100 mls/hr 03/02/22 22:19 03/03/22 00:07 Sod 2.25 gm/ Sodium Chloride IV 03/02/22 22:48 Infused ONCE ONE Infusion Sodium Chloride 1,000 mls @ 999 mls/hr 03/03/22 01:04 03/03/22 01:15 Ns IV 03/03/22 02:04 999 mls/hr .Q1H1M ONE Administration Iohexol 85 ml 03/02/22 23:17 03/02/22 23:17 Iohexol 350 Mg/Ml 100 Ml Infus..Btl IV 03/02/22 23:18 85 ml ONCE ONE Administration Lidocaine HCl 10 ml 03/03/22 00:25 03/03/22 00:47 Lidocaine Hcl 2 % Urojet 10 Ml Jel.Pf.Chanelle TOPICAL 03/03/22 00:26 10 ml ONCE ONE Administration Procedures Feeding Tube Replacement Type of Tube: gastrostomy Insertion Site Prior to Procedure: clean Tube Used for Reinsertion: other (G-tube) Swedish Tube Size (F): 22 Verification of Placement: auscultation and gastrografin injection Tube Secured by: tape/dressing Patient Tolerated Procedure: well Medical Decision Making Medical Decision Making [facility] Narrative: Tried to remove PEG tube mushroom part broke inside the stomach the tube was removed case discussed with Dr. Trujillo with OK as that will pass most likely. New GT was placed 22 Swedish confirmed with x-ray patient had lactic acidosis initially likely from dehydration improved after IV hydration patient does not have any source of infection not septic patient had good bowel movement after soapsuds enema Lab Data [facility] Lab Attestation statement: I reviewed the patient's lab results. 03/02/22 21:54 03/02/22 21:54 Labs: Lab Results 03/02/22 03/02/22 03/02/22 Range/Units 21:54 21:54 21:54 WBC 7.0 (4.8-10.8) X10*3/uL RBC 3.63 L (4.20-5.50) X10*6/uL Hgb 10.1 L (12.0-16.0) g/dl Hct 31.2 L (37.0-47.0) % MCV 86.0 (80.0-98.0) fL MCH 27.8 (27.0-33.0) pg MCHC 32.4 (31.0-35.0) g/dl RDW 15.3 (11.0-16.0) % Plt Count 326 D (160-400) X10*3/uL MPV 10.4 (9.4-12.3) fL Immature Gran % (Auto) 0.1 (0.0-0.4) % Neut % (Auto) 58.9 (45-73) % Lymph % (Auto) 34.9 (20-40) % Pender % (Auto) 4.7 (2-11) % Eos % (Auto) 1.0 (0-4) % Baso % (Auto) 0.4 (0-2) % Lymph # (Auto) 2.4 (1.2-4.9) X10*3/uL Pender # (Auto) 0.3 (0.1-1.2) X10*3/uL Eos # (Auto) 0.1 (0.0-0.4) X10*3/uL Baso # (Auto) 0.0 (0.0-0.2) X10*3/uL Abs Immat Gran (auto) 0.01 (0.00-0.03) X10*3/uL Absolute Neuts (auto) 4.1 (2.0-8.3) x10*3/uL Absolute Nucleated RBC 0.000 (0.0-0.012) X10*3/uL Nucleated RBC % (auto) 0.0 (0.0-0.2) /100WBC Sodium 141 (135-145) mmol/L Potassium 4.9 D (3.3-5.1) mmol/L Chloride 104 (96-108) mmol/L Carbon Dioxide 26 (22-29) mmol/L Anion Gap 16 (12-20) BUN 12 (9-16) mg/dL Creatinine 0.68 (0.5-1.4) mg/dL Estim Creat Clear Calc 66.3 Estimated GFR > 60 Random Glucose 187 H (60-115) mg/dL Lactic Acid 3.4 H* (0.5-2.0) mmol/L Lactic Acid F/U @ 2Hr (0.5-2.0) mmol/L Calcium 9.1 D (8.4-10.2) mg/dL Total Bilirubin 0.2 (0.0-1.0) mg/dL AST 24 D (5-31) U/L ALT < 6 (0-31) U/L Alkaline Phosphatase 110 (39-117) U/L Total Protein 7.0 (6.5-8.0) g/dL Albumin 3.5 (3.5-5.0) g/dL Procalcitonin ng/mL COVID-19 (ADITI) (Negative) COVID-19 Clin Com 03/02/22 03/02/2203/03/23 Range/Units 21:54 23:00 00:24 WBC (4.8-10.8) X10*3/uL RBC (4.20-5.50) X10*6/uL Hgb (12.0-16.0) g/dl Hct (37.0-47.0) % MCV (80.0-98.0) fL MCH (27.0-33.0) pg MCHC (31.0-35.0) g/dl RDW (11.0-16.0) % Plt Count (160-400) X10*3/uL MPV (9.4-12.3) fL Immature Gran % (Auto) (0.0-0.4) % Neut % (Auto) (45-73) % Lymph % (Auto) (20-40) % Pender % (Auto) (2-11) % Eos % (Auto) (0-4) % Baso % (Auto) (0-2) % Lymph # (Auto) (1.2-4.9) X10*3/uL Pender # (Auto) (0.1-1.2) X10*3/uL Eos # (Auto) (0.0-0.4) X10*3/uL Baso # (Auto) (0.0-0.2) X10*3/uL Abs Immat Gran (auto) (0.00-0.03) X10*3/uL Absolute Neuts (auto) (2.0-8.3) x10*3/uL Absolute Nucleated RBC (0.0-0.012) X10*3/uL Nucleated RBC % (auto) (0.0-0.2) /100WBC Sodium (135-145) mmol/L Potassium (3.3-5.1) mmol/L Chloride (96-108) mmol/L Carbon Dioxide (22-29) mmol/L Anion Gap (12-20) BUN (9-16) mg/dL Creatinine (0.5-1.4) mg/dL Estim Creat Clear Calc Estimated GFR Random Glucose (60-115) mg/dL Lactic Acid (0.5-2.0) mmol/L Lactic Acid F/U @ 2Hr 2.7 H* (0.5-2.0) mmol/L Calcium (8.4-10.2) mg/dL Total Bilirubin (0.0-1.0) mg/dL AST (5-31) U/L ALT (0-31) U/L Alkaline Phosphatase (39-117) U/L Total Protein (6.5-8.0) g/dL Albumin (3.5-5.0) g/dL Procalcitonin < 0.02 ng/mL COVID-19 (ADITI) Negative (Negative) COVID-19 Clin Com See Note Discharge Plan Discharge Clinical Impression: Gastrostomy tube dysfunction, Constipation Patient Disposition: Xfer [facility] Additional Instructions: PEG tube was replaced Okay to use G tube Patient had an enema in the ER and had good bowel movement Prescriptions: No Action magnesium oxide 400 mg magnesium tablet 400 mg PO DAILY Qty: 30 0RF multivitamin Tablet 1 tab PO DAILY glycopyrrolate 1 mg Tablet 1 mg PO BID metformin 500 mg Tablet 500 mg PO BID acetaminophen 325 mg Tablet 650 mg PO Q4H PRN (Reason: Pain) atorvastatin 20 mg Tablet 20 mg feeding tube DAILY sertraline 100 mg Tablet 100 mg feeding tube DAILY valproic acid (as sodium salt) 250 mg/5 mL Solution 375 mg feeding tube DAILY mirtazapine 30 mg Tablet 30 mg PO DAILY simethicone 80 mg Tablet,Chewable 160 mg PO BID pantoprazole [Protonix] [address] For Susp In Packet 40 mg PO DAILY@0630 menthol-zinc oxide 0.44-20.6 % Ointment 1 appl TOPICAL TID Rx Instructions: APPLY TO COCCYX AND BUTTOCK valproic acid (as sodium salt) 250 mg/5 mL (5 mL) Solution 500 mg feeding tube BEDTIME lactulose 20 gram/30 mL solution 20 g G-tube BID Jevity 1.2 Inocente 0.06 gram-1.2 kcal/mL Liquid See Rx Instructions .ROUTE .COMPLEX Rx Instructions: Give 150 ml via g-tube two times a day. Give with 60 ml water benzocaine 10 % Gel 1 appl mucous membrane QID PRN (Reason: Toothache) Rx Instructions: apply to dental affected area bisacodyl 10 mg Suppository 10 mg AK DAILY PRN (Reason: Constipation) lidocaine HCl [Lidocaine Viscous] 2 % Solution 30 ml PO QID PRN (Reason: Pain) triamcinolone acetonide 0.1 % Cream 1 appl TOPICAL BID Rx Instructions: APPLY TO RIGHT UPPER ARM FOR ITCH. USE SPARINGLY, RUB IN WELL fluoride (sodium) [PreviDent] 1.1 % Gel 1 appl DENTAL BID Rx Instructions: FOR DENTAL CARIES sennosides [senna] 8.6 mg tablet 17.2 mg PO BEDTIME PRN (Reason: Constipation) Interventions: ED Discharge Assessment Last Done: 03/03/22 04:41 Discharge Date/Time: 03/03/22 04:41
--- NOTE | 2022-03-02 21:47 | MHC.EDTECH ---
pt was change into hospital attire by this pct and regina degroot ,pt was also incontinent of urine patience care given .
[2022-03-02 21:58] VITALS: BP 171/57; PULSE 70; RESP 16; TEMP 36.9; O2SAT 97
[2022-03-02 21:59] LABS: MANUAL DIFF FLAG NO
[2022-03-02 22:00] LABS: Basophils Percent Auto 0.4 % (0-2); Eosinophils Absolute Auto 0.1 X10*3/uL (0.0-0.4); Hematocrit 31.2 % (37.0-47.0); Hemoglobin 10.1 g/dl (12.0-16.0); Imm Gran Abs Auto 0.01 X10*3/uL (0.00-0.03); Imm Gran Pct Auto 0.1 % (0.0-0.4); Lymphocytes Absolute Auto 2.4 X10*3/uL (1.2-4.9); Lymphocytes Percent Auto 34.9 % (20-40); Mean Corpuscular HGB Conc 32.4 g/dl (31.0-35.0); Mean Corpuscular Hemoglobin 27.8 pg (27.0-33.0); Mean Platelet Volume 10.4 fL (9.4-12.3); Monocytes Absolute Auto 0.3 X10*3/uL (0.1-1.2); Monocytes Percent Auto 4.7 % (2-11); Neutrophils Absolute Auto 4.1 x10*3/uL (2.0-8.3); Neutrophils Percent Auto 58.9 % (45-73); Platelet Count 326 X10*3/uL (160-400); Red Blood Count 3.63 X10*6/uL (4.20-5.50); Red Cell Distribution Width 15.3 % (11.0-16.0)
[2022-03-02 22:16] LABS: Lactic Acid 3.4 mmol/L (0.5-2.0)
[2022-03-02 22:18] LABS: Alanine Aminotransferase < 6 U/L (0-31); Albumin Level 3.5 g/dL (3.5-5.0); Alkaline Phosphatase 110 U/L (39-117); Anion Gap 16 (12-20); Aspartate Amino Transferase 24 U/L (5-31); Bilirubin Total 0.2 mg/dL (0.0-1.0); Blood Urea Nitrogen 12 mg/dL (9-16); Calcium 9.1 mg/dL (8.4-10.2); Carbon Dioxide 26 mmol/L (22-29); Chloride 104 mmol/L (96-108); Creatinine Clr Calc Pharmacy 66.3; Estimated Glomerular Filt Rate > 60; Glucose Random 187 mg/dL (60-115); Potassium 4.9 mmol/L (3.3-5.1); Sodium 141 mmol/L (135-145)
[2022-03-02] MEDS: 0.9 % Sodium Chloride 1,000 ML 999 ML IV (22:28)
[2022-03-02] MEDS: Piperacillin Sodium/Tazobactam 2.25 GM in 0.9 % Sodium Chloride 50 ML IV (22:29)
[2022-03-02] MEDS: iohexoL 350 MG/ML 100 ML INFUS..BTL 85 ML IV (23:17)
[2022-03-02 23:27] LABS: COVID-19 Test Negative (Negative); IDNOW Serial# 6674DD1D
[2022-03-02 23:50] VITALS: BP 131/56; PULSE 68; RESP 14; TEMP 36.7; O2SAT 99
[2022-03-02 23:57] LABS: Reflex Lactate? Lactic Acid Added
--- NOTE | 2022-03-03 00:05 | PC.NURSE ---
Assumed care for pt. Pt alert not oriented. Breaths are even and unlabored. No apparent distress noted. G-tube in place appears dark in color and ?clogged with unknown substance. Pending CT scan results. MD at bedside.
[2022-03-03] MEDS: Lidocaine HCl 2 % Urojet 10 ML JEL.PF.APP TOPICAL (00:47)
[2022-03-03] MEDS: Diatrizoate Meglumine, Sodium 30 ML SOLUTION PO (00:54)
[2022-03-03 01:05] LABS: ~Lactic Acid-LAB USE ONLY 2.7 mmol/L (0.5-2.0)
--- NOTE | 2022-03-03 01:12 | PC.NURSE ---
SSE administered. Pt tolerated well.
[2022-03-03] MEDS: 0.9 % Sodium Chloride 1,000 ML 999 ML IV (01:15)
[2022-03-03 01:41] VITALS: BP 140/55; PULSE 76; RESP 16; TEMP 36.8; O2SAT 98
--- NOTE | 2022-03-03 01:42 | MHC.EDTECH ---
pt had a large loose bowel movement ,care given bedding change ,warm blanket given ,call montes within reach .
[2022-03-03 02:16] LABS: Procalcitonin < 0.02 ng/mL
[2022-03-03 02:27] LABS: Reflex Lactate? 2 Y
--- NOTE | 2022-03-03 02:39 | MHC.EDTECH ---
PROVIDER SAID NOT TO DRAW REPEATED LACTIC ACID .
--- NOTE | 2022-03-03 02:58 | MHC.EDTECH ---
pt was soiled with large amount of loose stool ,care given ,bed pads change .
[2022-03-03 04:00] VITALS: BP 106/55; PULSE 78; RESP 16; TEMP 36.7; O2SAT 97
--- NOTE | 2022-03-03 04:40 | PC.NURSE ---
Report provided to HOMER Ventura at [facility]. Pt returning via ambulance.
== END 2022-03-03 04:41 | disposition skilled nursing facility (03) ==
PROVIDERS: Emergency Provider Internal Medicine; PCP Family Medicine
DX: K59.00 Constipation, unspecified (principal); R10.13 Epigastric pain; Z20.822 Contact with and (suspected) exposure to COVID-19; Z79.899 Other long term (current) drug therapy
CPT/HCPCS: 36415; 74018; 74177; 80053; 83605; 84145; 85025; 87040; 87635; 96361; 96365; 99284; J2543; Q9967

== ENCOUNTER 2022-05-12 18:16 | Emergency (ER) | payer MEDICARE, MEDICAID, SELFPAY ==
--- NOTE | ~2022-05-12 | XR_ITS ---
EXAMINATION: XR ABDOMEN KUB CLINICAL INDICATION: G tube placement COMPARISON: None available. TECHNIQUE: AP view of the abdomen. Gastrografin contrast injected through the catheter FINDINGS: Contrast opacifies the stomach with no extravasation. The G-tube well positioned within the mid gastric body. No dilatation of the stomach. Large volume of stool in the colon. Gaseous distention of the sigmoid colon. No significant change in bowel pattern since 03/03/2022 radiograph. XR/XR KUB IMPRESSION: G-tube well positioned within the stomach. No extravasation of contrast. Large volume of stool in colon.
[2022-05-12 18:25] VITALS: BP 131/59; PULSE 77; RESP 16; TEMP 37.5; O2SAT 98
--- NOTE | 2022-05-12 18:27 | MHC.EDTECH ---
PATIENT ARRIVED VIA [facility] ,PT GOT MOVED TO [facility] ,VITALS SIGN TAKEN .
[2022-05-12 18:28] VITALS: BP 136/68; PULSE 79; O2SAT 100
--- NOTE | 2022-05-12 18:50 | PC.NURSE ---
PT ARRIVED VIA EMS FROM SNF FOR EVALUATION OF CLOGGED G-TUBE. HX OF DEMENTIA AND IS UNABLE TO PROVIDE MEDICAL INFORMATION.
--- NOTE | 2022-05-12 19:02 | PC.NURSE ---
assumed care of pt resting quietly, no apparent distress
--- NOTE | 2022-05-12 19:42 | PC.NURSE ---
pt repositioned, clean and dry
[2022-05-12 19:58] VITALS: BP 130/56; PULSE 71; RESP 16; TEMP 36.6; O2SAT 98
--- NOTE | 2022-05-12 19:58 | MHC.EDTECH ---
pt 2001 rounding done ,vitals sign taken ,pt resting quietly in bed .
--- NOTE | 2022-05-12 20:48 | ED_ITS ---
HPI - General Adult General Chief complaint: General Medical Stated complaint: Clogged G-Tube Time Seen by Provider: 05/12/22 20:28 Source: EMS Mode of arrival: EMS Limitations: other (Nonverbal) History of Present Illness HPI narrative: Patient comes to the emergency room via EMS from a shelter facility. Chief complain is that the patient's G-tube is clock. Patient is unable to give any history secondary to a previous CVA. Also, patient has history of dementia. Related Data Home Medications Medication Instructions Recorded Confirmed acetaminophen 325 mg tablet 650 mg PO Q4H PRN Pain 11/29/21 02/11/22 atorvastatin 20 mg tablet 20 mg feeding tube DAILY 11/29/21 02/11/22 glycopyrrolate 1 mg tablet 1 mg PO BID 11/29/21 02/11/22 menthol 0.44 %-zinc oxide 20.6 % 1 appl topical TID 11/29/21 02/11/22 topical ointment metformin 500 mg tablet 500 mg PO BID 11/29/21 02/11/22 mirtazapine 30 mg tablet 30 mg PO DAILY 11/29/21 02/11/22 multivitamin 1 tab PO DAILY 11/29/21 02/11/22 pantoprazole 40 mg granules 40 mg PO DAILY@0630 11/29/21 02/11/22 delayed-release for susp in packet (Protonix) sertraline 100 mg tablet 100 mg feeding tube DAILY 11/29/21 02/11/22 simethicone 80 mg chewable tablet 160 mg PO BID 11/29/21 02/11/22 valproic acid (as sodium salt) 250 500 mg feeding tube BEDTIME 11/29/21 02/11/22 mg/5 mL (5 mL) oral solution valproic acid (as sodium salt) 250 375 mg feeding tube DAILY 11/29/21 02/11/22 mg/5 mL oral solution benzocaine 10 % mucosal gel 1 appl mucous membrane QID PRN 02/11/22 02/11/22 Toothache bisacodyl 10 mg rectal suppository 10 mg MA DAILY PRN Constipation 02/11/22 02/11/22 fluoride (sodium) 1.1 % dental gel 1 appl dental BID 02/11/22 02/11/22 (PreviDent) lactose-reduced food with fiber See Rx Instructions .Route 02/11/22 02/11/22 0.06 gram-1.2 kcal/mL oral liquid .COMPLEX failure to thrive (Jevity 1.2 Inocente) lactulose 20 gram/30 mL oral 20 g G-tube BID 02/11/22 02/11/22 solution lidocaine HCl 2 % mucosal solution 30 ml PO QID PRN Pain 02/11/22 02/11/22 (Lidocaine Viscous) sennosides 8.6 mg tablet (senna) 17.2 mg PO BEDTIME PRN Constipation 02/11/22 02/11/22 triamcinolone acetonide 0.1 % 1 appl topical BID 02/11/22 02/11/22 topical cream Previous Rx's Medication Instructions Recorded magnesium oxide 400 mg PO DAILY #30 tabs 02/27/22 Allergies Allergy/AdvReac Type Severity Reaction Status Date / Time diphenhydramine Allergy Mild HIVES Verified 07/08/20 07:29 meperidine Allergy Mild UNKNOWN Verified 05/12/22 18:34 From Benadryl Allergy Unknown UNKNOWN Uncoded 11/13/19 16:16 From Demerol Allergy Unknown UNKNOWN Uncoded 11/13/19 16:16 Review of Systems Review of Systems: Yes Unobtainable due to mental condition [facility] Past Medical History Medical History Above knee amputation of right lower extremity CVA (cerebral vascular accident) Dementia Diabetes Gastrointestinal tube present Nonverbal Right hemiparesis Social History Social History Household Members: Other Household Members Other:: comes from [facility] facility Housing: Assisted Alcohol intake: unknown Patient Tobacco Use Status: Never used Tobacco Use of substances other than those prescribed or required for medical reasons: Unknown Advance Directives: Yes Advance Directives on File: Yes Advance Directives Date on File: 02/13/22 service: No Current occupational status: disabled Physical Exam ED Vital Signs: Vital Signs - 24 hr 05/12/22 18:25 05/12/22 19:58 05/12/22 22:00 Temperature 99.5 F 97.9 F 98.1 F Pulse Rate 77 71 79 Respiratory Rate 16 16 16 Blood Pressure 131/59 L 130/56 L 126/72 Pulse Oximetry 98 98 98 Oxygen Delivery Method Room Air Room Air Room Air 05/13/22 00:00 Temperature 98.1 F Pulse Rate 71 Respiratory Rate 16 Blood Pressure 149/66 H Pulse Oximetry 98 Oxygen Delivery Method Room Air BMI result Body Mass Index 20.0 Const Other: Appearance: Alert. No acute distress. Eyes: Pupils equal, round and reactive to light. ENT: Pharynx normal. Neck: Normal inspection. Neck supple. No lymph nodes noted. No crepitus CVS: Normal heart rate and rhythm. Pulses normal. Normal S1 and S2 Respiratory: No respiratory distress. Breath sounds normal. No Wheezing. No rales Abdomen: Soft and nontender. G-tube in place, we will test permeability Skin: Skin warm and dry. Normal skin color. Normal skin turgor. Extremities: No lower extremity edema. No Lacerations. No Rash Neuro: Chronic right sided hemiparesis Psych: calm, cooperative Course Course Course Narrative: -we will try to flush the G-tube 1st. If unsuccessful, we will switch the G- tube. Medications Administered Discontinued Medications Generic Name Dose Route Start Last Admin Trade Name Freq PRN Reason Stop Dose Admin Diatrizoate Meglum/Diatrizoate Sod 30 ml 05/13/22 00:41 05/13/22 00:41 Diatrizoate Meglumine, Sodium 30 Ml Solution PO 05/13/22 00:42 30 ml ONCE ONE Administration Medical Decision Making Medical Decision Making [facility] Narrative: -patient's old G-tube did not flush. -a new G-tube was inserted of the same size, 22 [place]. -KUB with Gastrografin interpreted by me, G-tube is in place. Discharge Plan Discharge Clinical Impression: Gastrostomy tube dysfunction Patient Disposition: Home, Self-Care Instructions: How to Use and Care for Your PEG Tube (ED) Additional Instructions: Please follow-up with your primary care physician tomorrow. If you have any worsening or new symptoms, please return to the emergency room or call 911 Prescriptions: No Action magnesium oxide 400 mg magnesium tablet 400 mg PO DAILY Qty: 30 0RF multivitamin Tablet 1 tab PO DAILY glycopyrrolate 1 mg Tablet 1 mg PO BID metformin 500 mg Tablet 500 mg PO BID acetaminophen 325 mg Tablet 650 mg PO Q4H PRN (Reason: Pain) atorvastatin 20 mg Tablet 20 mg feeding tube DAILY sertraline 100 mg Tablet 100 mg feeding tube DAILY valproic acid (as sodium salt) 250 mg/5 mL Solution 375 mg feeding tube DAILY mirtazapine 30 mg Tablet 30 mg PO DAILY simethicone 80 mg Tablet,Chewable 160 mg PO BID pantoprazole [Protonix] [address] For Susp In Packet 40 mg PO DAILY@0630 menthol-zinc oxide 0.44-20.6 % Ointment 1 appl TOPICAL TID Rx Instructions: APPLY TO COCCYX AND BUTTOCK valproic acid (as sodium salt) 250 mg/5 mL (5 mL) Solution 500 mg feeding tube BEDTIME lactulose 20 gram/30 mL solution 20 g G-tube BID Jevity 1.2 Inocente 0.06 gram-1.2 kcal/mL Liquid See Rx Instructions .ROUTE .COMPLEX Rx Instructions: Give 150 ml via g-tube two times a day. Give with 60 ml water benzocaine 10 % Gel 1 appl mucous membrane QID PRN (Reason: Toothache) Rx Instructions: apply to dental affected area bisacodyl 10 mg Suppository 10 mg MA DAILY PRN (Reason: Constipation) lidocaine HCl [Lidocaine Viscous] 2 % Solution 30 ml PO QID PRN (Reason: Pain) triamcinolone acetonide 0.1 % Cream 1 appl TOPICAL BID Rx Instructions: APPLY TO RIGHT UPPER ARM FOR ITCH. USE SPARINGLY, RUB IN WELL fluoride (sodium) [PreviDent] 1.1 % Gel 1 appl DENTAL BID Rx Instructions: FOR DENTAL CARIES sennosides [senna] 8.6 mg tablet 17.2 mg PO BEDTIME PRN (Reason: Constipation)
[2022-05-12 22:00] VITALS: BP 126/72; PULSE 79; RESP 16; TEMP 36.7; O2SAT 98
--- NOTE | 2022-05-12 22:04 | MHC.EDTECH ---
PT 2200 ROUNDING DONE ,VITALS SIGN TAKEN .
[2022-05-13] VITALS: BP 149/66; PULSE 71; RESP 16; TEMP 36.7; O2SAT 98
--- NOTE | 2022-05-13 00:12 | MHC.EDTECH ---
THIS PCT AND PCT EDWARD ASSIST PROVIDER DEON WITH HOLDING PATIENT HANDS WHILE PROVIDER IS INSERTING NEW G TUBE .
[2022-05-13] MEDS: Diatrizoate Meglumine, Sodium 30 ML SOLUTION PO (00:41)
[2022-05-13 01:25] VITALS: BP 144/60; PULSE 76; RESP 16; TEMP 36.7; O2SAT 96
--- NOTE | 2022-05-13 02:21 | PC.NURSE ---
Discharge instructions given/explained to EMS Franchesca pt being transported back to SNF via stretcher No apparent distress, no respiratory distress, no sob
--- NOTE | 2022-05-13 02:48 | PC.NURSE ---
Report given to HOMER Ly at [facility]
== END 2022-05-13 02:47 | disposition home or self-care (01) ==
PROVIDERS: Emergency Provider Emergency Medicine; PCP Family Medicine
DX: K94.23 Gastrostomy malfunction (principal); R10.13 Epigastric pain
CPT/HCPCS: 74018; 99284

== ENCOUNTER 2022-08-05 06:59 | Emergency (ER) | payer MEDICARE, MEDICAID, SELFPAY ==
[2022-08-05] VITALS (7 sets, daily range): BP systolic 100–128; BP diastolic 37–66; PULSE 59–75; RESP 16–18; TEMP 36.8; O2SAT 94–99; BMI 21.2
--- NOTE | ~2022-08-05 | XR_ITS ---
EXAMINATION: XR ABDOMEN KUB CLINICAL INDICATION: G-tube placement. COMPARISON: 05/13/[address] scan of the abdomen and pelvis dated 03/02/2022. TECHNIQUE: AP view of the abdomen. 30 mL of Gastrografin with 30 mL of saline were injected into the gastrostomy tube to assess location. FINDINGS: Support devices: Gastrostomy tube in place. Injected contrast is seen within the gastric lumen and proximal small bowel extending to the jejunum without abnormality. There is a nonobstructive bowel gas pattern. Mild to moderate gas and stool are seen within the colon with more prominent gaseous distention of the sigmoid colon. The osseous structures are unchanged. XR/XR KUB IMPRESSION: 1. Chest tube appears in good position without abnormality. 2. Prominent gaseous distention of the colon with similar appearance to the previous study.
--- NOTE | 2022-08-05 07:00 | PC.NURSE ---
pt comes from SNF[facility] per EMS GTube cracked last few days and she has not been getting proper dose for meds and needs GTube replaced MD aware p is nonverbal d/t stroke no apparent distress
--- NOTE | 2022-08-05 07:15 | ED.GENADULT ---
HPI - General Adult General Chief complaint: General Medical Stated complaint: Abd pain, g tube issue per EMS Time Seen by Provider: 08/05/22 07:05 Source: RN notes reviewed Mode of arrival: EMS Limitations: other (non verbal after CVA) History of Present Illness HPI narrative: Patient with a crack in her Gtube. Presents for replacement Onset (ago): day(s) Related Data Home Medications Medication Instructions Recorded Confirmed acetaminophen 325 mg tablet 650 mg PO Q4H PRN Pain 11/29/21 02/11/22 atorvastatin 20 mg tablet 20 mg feeding tube DAILY 11/29/21 02/11/22 glycopyrrolate 1 mg tablet 1 mg PO BID 11/29/21 02/11/22 menthol 0.44 %-zinc oxide 20.6 % 1 appl topical TID 11/29/21 02/11/22 topical ointment metformin 500 mg tablet 500 mg PO BID 11/29/21 02/11/22 mirtazapine 30 mg tablet 30 mg PO DAILY 11/29/21 02/11/22 multivitamin 1 tab PO DAILY 11/29/21 02/11/22 pantoprazole 40 mg granules 40 mg PO DAILY@0630 11/29/21 02/11/22 delayed-release for susp in packet (Protonix) sertraline 100 mg tablet 100 mg feeding tube DAILY 11/29/21 02/11/22 simethicone 80 mg chewable tablet 160 mg PO BID 11/29/21 02/11/22 valproic acid (as sodium salt) 250 500 mg feeding tube BEDTIME 11/29/21 02/11/22 mg/5 mL (5 mL) oral solution valproic acid (as sodium salt) 250 375 mg feeding tube DAILY 11/29/21 02/11/22 mg/5 mL oral solution benzocaine 10 % mucosal gel 1 appl mucous membrane QID PRN 02/11/22 02/11/22 Toothache bisacodyl 10 mg rectal suppository 10 mg IN DAILY PRN Constipation 02/11/22 02/11/22 fluoride (sodium) 1.1 % dental gel 1 appl dental BID 02/11/22 02/11/22 (PreviDent) lactose-reduced food with fiber See Rx Instructions .Route 02/11/22 02/11/22 0.06 gram-1.2 kcal/mL oral liquid .COMPLEX failure to thrive (Jevity 1.2 Inocente) lactulose 20 gram/30 mL oral 20 g G-tube BID 02/11/22 02/11/22 solution lidocaine HCl 2 % mucosal solution 30 ml PO QID PRN Pain 02/11/22 02/11/22 (Lidocaine Viscous) sennosides 8.6 mg tablet (senna) 17.2 mg PO BEDTIME PRN Constipation 02/11/22 02/11/22 triamcinolone acetonide 0.1 % 1 appl topical BID 02/11/22 02/11/22 topical cream Previous Rx's Medication Instructions Recorded magnesium oxide 400 mg PO DAILY #30 tabs 02/27/22 Allergies Allergy/AdvReac Type Severity Reaction Status Date / Time diphenhydramine Allergy Mild HIVES Verified 07/08/20 07:29 meperidine Allergy Mild UNKNOWN Verified 05/12/22 18:34 From Benadryl Allergy Unknown UNKNOWN Uncoded 11/13/19 16:16 From Demerol Allergy Unknown UNKNOWN Uncoded 11/13/19 16:16 Review of Systems Review of Systems: Yes Unobtainable due to mental status [facility] Past Medical History Medical History Above knee amputation of right lower extremity CVA (cerebral vascular accident) Dementia Diabetes Gastrointestinal tube present Nonverbal Right hemiparesis Social History Social History Household Members: Other Household Members Other:: comes from [facility] facility Housing: [facility] Alcohol intake: unknown Patient Tobacco Use Status: Never used Tobacco Advance Directives: Yes Advance Directives on File: Yes Advance Directives Date on File: 02/13/22 service: No Current occupational status: disabled Physical Exam ED Vital Signs: Vital Signs - 24 hr 08/05/22 07:09 Temperature 98.2 F Pulse Rate 74 Respiratory Rate 17 Blood Pressure 128/62 Pulse Oximetry 96 Oxygen Delivery Method Room Air BMI result Body Mass Index 21.2 Const Other: Chronically ill right hemiparesis Nutritional Appearance: thin Limitations: altered mental status and other limitations (right hemiparesis) HENMT Head: Yes normal to inspection Ears: external ears normal General nose exam: Normal external nose present Mouth: Normal oral and palatal mucosa present and oropharynx normal Throat: Yes posterior oropharynx normal Eyes General: appearance normal, both eyes and all related structures Neck Neck: Yes normal visual inspection Chest Chest palpation & inspection: normal inspection of the chest Resp Auscultation: clear to auscultation bilaterally Cardio Jugular venous distension: no JVD Rate: regular rate Rhythm: regular rhythm Heart sounds: S1 normal heart sound present and S2 normal heart sound present GI Other: Gtube in place Palpation (GI): Soft to palpation, nontender and No hepatosplenomegaly present Auscultation: normal bowel sounds General: Yes no CVA tenderness Back/Spine/Pelvis Back: no CVA tenderness Skin General skin exam: no rashes or lesions noted Neuro Other: right hemiparesis Cranial nerves: Yes CN's II-XII intact bilaterally Extrem General: Yes normal to inspection Psych Other: non verbal Course Reevaluation(s) Reevaluation #1: Porcedure: Gtube replaced, Kub with contrast shows in good position, will dc home Time: 08:03 Medical Decision Making Differential Diagnosis Differential Diagnoses: The differential diagnosis associated with the presentation includes (Gtube not functioning/ replacement) Independent Interpretation I performed an independent interpretation of an: Plain X-Ray (Contrast in the GI tract) Chronic Conditions Patient?s care impacted by: Diabetes, Hypertension and Other (CVA) Discharge Plan Discharge Clinical Impression: CVA, old, facial weakness Patient Disposition: Home, Self-Care Prescriptions: No Action magnesium oxide 400 mg magnesium tablet 400 mg PO DAILY Qty: 30 0RF multivitamin Tablet 1 tab PO DAILY glycopyrrolate 1 mg Tablet 1 mg PO BID metformin 500 mg Tablet 500 mg PO BID acetaminophen 325 mg Tablet 650 mg PO Q4H PRN (Reason: Pain) atorvastatin 20 mg Tablet 20 mg feeding tube DAILY sertraline 100 mg Tablet 100 mg feeding tube DAILY valproic acid (as sodium salt) 250 mg/5 mL Solution 375 mg feeding tube DAILY mirtazapine 30 mg Tablet 30 mg PO DAILY simethicone 80 mg Tablet,Chewable 160 mg PO BID pantoprazole [Protonix] [address] For Susp In Packet 40 mg PO DAILY@0630 menthol-zinc oxide 0.44-20.6 % Ointment 1 appl TOPICAL TID Rx Instructions: APPLY TO COCCYX AND BUTTOCK valproic acid (as sodium salt) 250 mg/5 mL (5 mL) Solution 500 mg feeding tube BEDTIME lactulose 20 gram/30 mL solution 20 g G-tube BID Jevity 1.2 Inocente 0.06 gram-1.2 kcal/mL Liquid See Rx Instructions .ROUTE .COMPLEX Rx Instructions: Give 150 ml via g-tube two times a day. Give with 60 ml water benzocaine 10 % Gel 1 appl mucous membrane QID PRN (Reason: Toothache) Rx Instructions: apply to dental affected area bisacodyl 10 mg Suppository 10 mg IN DAILY PRN (Reason: Constipation) lidocaine HCl [Lidocaine Viscous] 2 % Solution 30 ml PO QID PRN (Reason: Pain) triamcinolone acetonide 0.1 % Cream 1 appl TOPICAL BID Rx Instructions: APPLY TO RIGHT UPPER ARM FOR ITCH. USE SPARINGLY, RUB IN WELL fluoride (sodium) [PreviDent] 1.1 % Gel 1 appl DENTAL BID Rx Instructions: FOR DENTAL CARIES sennosides [senna] 8.6 mg tablet 17.2 mg PO BEDTIME PRN (Reason: Constipation) Referrals: Physician,Unknown J [Primary Care Provider] - 2 weeks
--- NOTE | 2022-08-05 07:24 | PC.NURSE ---
per MD Marcos replaced US informed so that transport can be arranged back to SNF, [facility]
[2022-08-05] MEDS: Acetaminophen 325 MG TABLET 975 MG G-TUBE (08:11)
--- NOTE | 2022-08-05 08:30 | PC.NURSE ---
N2N report given to HOMER Chamberlain
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
--- NOTE | 2022-08-05 09:24 | MHC.CM.PN ---
HCP ON FILE IS NOT FOR THIS PATIENT. RN AWARE
--- NOTE | 2022-08-05 09:34 | MHC.CM.PN ---
Addendum entered by Gabriela Eid RN 08/05/22 09:39: LIAISON, HALIMA, AWARE THAT PATIENT IS NOT RETURNING AT THIS POINT. Original Note: CALL TO SONPAMELLA @ [phone] HE TELLS T/W THAT HE IS ON HIS WAY IN AND WILL ASK FOR CASE MANAGEMENT. CALL TO HALIMA MCELROY LIAISON FOR [facility] ([phone]). MESSAGE LEFT FOR CALL BACK TO THIS [employer] WALL MINING MACHINE HELPER AND URGENCY STATED. REFERRAL THEN PLACED TO [facility] WITH A REQUEST FOR CALL BACK. THIS LONG WALL MINING MACHINE HELPER TO ADDEND THIS NOTE WITH PROGRESS
--- NOTE | 2022-08-05 10:21 | MHC.CM.PN ---
THIS SOLDERING MACHINE SETTER MET WITH HOMER ENCARNACION, AND PATIENT. PER DISCUSSION, SON, PAMELLA, IS REQUESTING A MEETING WITH KATE AT [facility] ALSO REQUESTED. AT THIS TIME, [facility] DOES NOT WANT PATIENT MOVED UNTIL MEETING, SO NEW NEW REFERRALS PLACED CALL TO LIAISON, HALIMA @ [phone] HALIMA STATES THAT A MEETING WILL BE ARRANGED AND FACILITY WILL REACH OUT TO PAMELLA FOR BEST TIME. RN MADE AWARE
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
--- NOTE | 2022-08-05 16:32 | PHA.MEDREC ---
Pharmacy Consult ? Medication Reconciliation Pharmacy has completed the medication reconciliation. used list from [facility].
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
--- NOTE | 2022-08-06 05:25 | MHC.EDTECH ---
Patient refused vital signs
[2022-08-06 10:00] VITALS: BP 132/68; PULSE 75; RESP 18; TEMP 36.9; O2SAT 98
[2022-08-06 14:00] VITALS: BP 123/60; PULSE 81; RESP 18; TEMP 36; O2SAT 98
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
[2022-08-06] MEDS: Magnesium Oxide 400 MG TABLET PO ×2 (17:44→20:36)
--- NOTE | 2022-08-06 18:04 | PC.NURSE ---
Assumed care at 1500. Patient nonverbal. Incontinent urine and stool, agitated with movement, but quickly resolves. G tube in place, new gauze applied to site. 120 ml water flushed, patient tolerated well.Patient offered PO water and apple sauce, but declined. All needs met at this time.
[2022-08-06 19:37] VITALS: BP 131/65; PULSE 74; RESP 14; TEMP 36.5; O2SAT 98
[2022-08-06] MEDS: Lactulose 20 GM/30 ML SOLUTION G-TUBE (20:36)
[2022-08-06] MEDS: Benzocaine 20 % Oral Gel 9 GM TUBE 1 APPL MUCOUS MEM (20:38)
[2022-08-06] MEDS: Triamcinolone Acet 0.1 % Cream 15 GM TUBE 1 APPL TOPICAL (20:38)
[2022-08-06 20:57] LABS: Glucose, Whole Blood 143 mg/dL (60-115)
--- NOTE | 2022-08-06 21:38 | PC.NURSE ---
Pt awake in bed, she is confused. VSS, on ra. lungs are dim. Pt is incont of both B&B. She has PEG tube, No residual. Tube feed hung at 2000 and going at 50ml/hr. HS BG 143. Meds given through PEG. Safety prec maintained.
[2022-08-06] MEDS: Glycopyrrolate 1 MG TABLET PO (22:28)
[2022-08-06] MEDS: metFORMIN HCl 500 MG TABLET PO (22:28)
[2022-08-06] MEDS: Simethicone 80 MG TAB.CHEW 160 MG PO (22:28)
[2022-08-07 06:39] VITALS: BP 103/55; PULSE 73; RESP 17; TEMP 36.2; O2SAT 97
--- NOTE | 2022-08-07 09:05 | MHC.CM.ED ---
Patient remains in ER overflow. Patient is a LTC resident of [facility]. Patient's son, Felton, would like to meet with the facility prior to patient returning due to care issues. Waiting to hear from [facility] and Felton about d/c plan. Continue to monitor for d/c needs.
[2022-08-07] MEDS: Simethicone 80 MG TAB.CHEW 160 MG PO ×2 (09:35→19:58)
[2022-08-07] MEDS: metFORMIN HCl 500 MG TABLET PO ×2 (09:35→19:58)
[2022-08-07] MEDS: Mirtazapine 30 MG TABLET PO (09:35)
[2022-08-07] MEDS: Famotidine 20 MG TABLET PO (09:35)
[2022-08-07] MEDS: Glycopyrrolate 1 MG TABLET PO ×2 (09:35→19:58)
[2022-08-07] MEDS: Sertraline HCL 100 MG TABLET PO (09:35)
[2022-08-07] MEDS: Magnesium Oxide 400 MG TABLET PO ×4 (09:35→19:58)
[2022-08-07] MEDS: Potassium Chloride Packet 20 MEQ PACKET G-TUBE (09:36)
[2022-08-07] MEDS: Triamcinolone Acet 0.1 % Cream 15 GM TUBE 1 APPL TOPICAL ×2 (09:36→20:04)
[2022-08-07] MEDS: Lactulose 20 GM/30 ML SOLUTION G-TUBE ×2 (09:36→19:58)
--- NOTE | 2022-08-07 09:57 | MHC.EDTECH ---
pt incontinent of stool. given bed bath.
[2022-08-07 13:44] VITALS: BP 115/72; PULSE 77; RESP 16; TEMP 36.6; O2SAT 97
--- NOTE | 2022-08-07 17:16 | PC.NURSE ---
Pt mainly nonverbal. Right sided hemiparesis. Poor PO intake. All meds given via Gtube, patent and flushing well. CM involved working on dispo plan. Appears comfortable. Incontinent of bowel and bladder, patience care provided. Currently resting, will cont to monitor.
[2022-08-07 20:55] LABS: Glucose, Whole Blood 129 mg/dL (60-115)
[2022-08-07 22:00] VITALS: BP 113/47; PULSE 78; RESP 16; TEMP 36.3; O2SAT 97
[2022-08-08 06:00] VITALS: BP 101/51; PULSE 70; RESP 20; TEMP 36.1; O2SAT 99
[2022-08-08 07:16] VITALS: BP 98/50; PULSE 77; RESP 18; TEMP 36; O2SAT 96
[2022-08-08 07:35] LABS: Glucose, Whole Blood 135 mg/dL (60-115)
[2022-08-08 08:28] LABS: Estimated Glomerular Filt Rate 59
[2022-08-08] MEDS: metFORMIN HCl 500 MG TABLET PO (08:28)
[2022-08-08] MEDS: Lactulose 20 GM/30 ML SOLUTION G-TUBE (08:28)
[2022-08-08] MEDS: Glycopyrrolate 1 MG TABLET PO (08:28)
[2022-08-08] MEDS: Simethicone 80 MG TAB.CHEW 160 MG PO (08:28)
[2022-08-08] MEDS: Mirtazapine 30 MG TABLET PO (08:28)
[2022-08-08] MEDS: Famotidine 20 MG TABLET PO (08:28)
[2022-08-08] MEDS: Potassium Chloride Packet 20 MEQ PACKET G-TUBE (08:28)
[2022-08-08] MEDS: Sertraline HCL 100 MG TABLET PO (08:28)
[2022-08-08] MEDS: Magnesium Oxide 400 MG TABLET PO ×3 (08:28→16:44)
[2022-08-08] MEDS: Triamcinolone Acet 0.1 % Cream 15 GM TUBE 1 APPL TOPICAL (08:34)
[2022-08-08 11:32] LABS: Glucose, Whole Blood 114 mg/dL (60-115)
--- NOTE | 2022-08-08 14:55 | MHC.CM.ED ---
Addendum entered by Elizabeth Villatoro 08/08/22 15:57: Spoke with patient's son, Felton, via telephone with alternative energy technician. Felton has not be able to contact facility. T/W informed Felton that [facility] has been having issues with their phones today. Felton is willing to have patient return to [facility] but requests patient be transferred to a different floor. T/W explained would pass that info to the facility but could not guarentee unit change. Felton verbalized understanding. Franchesca SANDS booked for 6pm. Mar at [facility] made aware of son's request for unit change. Mar will speak to the building to see if this is possible. Kiera CORONEL and Mago SMITH aware. Original Note: Patient remains in ER overflow. Per Mar of [facility] [place], has not been informed about meeting with administration and son. T/W will try to call son, Felton to discuss d/c plan with alternative energy technician. Continue to monitor for d/c needs.
--- NOTE | 2022-08-08 16:05 | PC.NURSE ---
Pt mainly nonverbal. Right sided hemiparesis. Poor PO intake. All meds given via Gtube, patent and flushing well, site without any s/s infection. Pt retaining urine, bladder scanned for 643mL, SARAH Dockery made aware and order obtained to insert mckee catheter. 16 Fr mckee placed using sterile technique. Immediately drained 750mL of cloudy, yellow urine with sediment. Pt tolerated insertion well appears comfortable. Plan to d/c back to [facility] at 1800 via ambulance. Will cont to monitor.
[2022-08-08 16:06] VITALS: BP 106/52; PULSE 68; RESP 18; TEMP 36.6; O2SAT 98
== END 2022-08-08 18:15 | disposition home or self-care (01) ==
PROVIDERS: Physician Assistant; Emergency Provider Emergency Medicine
DX: K94.23 Gastrostomy malfunction (principal); I69.392 Facial weakness following cerebral infarction; I69.351 Hemiplegia and hemiparesis following cerebral infarction affecting right dominant side; E11.9 Type 2 diabetes mellitus without complications; Z79.02 Long term (current) use of antithrombotics/antiplatelets; Z79.84 Long term (current) use of oral hypoglycemic drugs; Z79.899 Other long term (current) drug therapy
CPT/HCPCS: 36415; 43762; 74018; 82565; 82947; 99285

== ENCOUNTER 2022-09-02 19:17 | Inpatient (IN) | payer MEDICARE, MEDICAID, SELFPAY ==
[2022-09-02 19:26] VITALS: BP 90/70; BP 98/63; PULSE 119; PULSE 124; RESP 74; TEMP 39.7; O2SAT 94; BMI 20.3
--- NOTE | 2022-09-02 19:34 | ED.AMS ---
HPI - Altered Mental Status General Chief Complaint: Altered Mental Status Stated Complaint: AMS Time Seen by Provider: 09/02/22 19:21 Source: RN notes reviewed History of Present Illness HPI narrative: Patient with history of CVA left hemiparesis with aphasia, diabetes came from long-term for getting with more lethargic and weak for last 3 days got worse prior to arrival POC was read high patient not responsive to noxious stimuli Related Data Home Medications Medication Instructions Recorded Confirmed acetaminophen 325 mg tablet 650 mg PO Q4H PRN Pain 11/29/21 08/05/22 atorvastatin 20 mg tablet 20 mg feeding tube DAILY 11/29/21 08/05/22 glycopyrrolate 1 mg tablet 1 mg PO BID 11/29/21 08/05/22 metformin 500 mg tablet 500 mg PO BID 11/29/21 08/05/22 mirtazapine 30 mg tablet 30 mg PO DAILY 11/29/21 08/05/22 sertraline 100 mg tablet 100 mg feeding tube DAILY 11/29/21 08/05/22 simethicone 80 mg chewable tablet 160 mg PO BID 11/29/21 08/05/22 benzocaine 10 % mucosal gel 1 appl mucous membrane Q6H PRN 02/11/22 08/05/22 Toothache bisacodyl 10 mg rectal suppository 10 mg MO DAILY PRN Constipation 02/11/22 08/05/22 fluoride (sodium) 1.1 % dental gel 1 appl dental BID 02/11/22 08/05/22 (PreviDent) lactulose 20 gram/30 mL oral 20 g G-tube BID 02/11/22 08/05/22 solution lidocaine HCl 2 % mucosal solution 30 ml PO Q6H PRN Pain 02/11/22 08/05/22 (Lidocaine Viscous) sennosides 8.6 mg tablet (senna) 17.2 mg PO BEDTIME PRN Constipation 02/11/22 08/05/22 triamcinolone acetonide 0.1 % 1 appl topical BID 02/11/22 08/05/22 topical cream divalproex 125 mg capsule,delayed 375 mg DAILY 08/05/22 08/05/22 release sprinkle (Depakote Sprinkles) divalproex 125 mg capsule,delayed 500 mg BEDTIME 08/05/22 08/05/22 release sprinkle (Depakote Sprinkles) famotidine 20 mg tablet 20 mg PO DAILY 08/05/22 08/05/22 magnesium oxide 400 mg feeding tube QID 08/05/22 08/05/22 potassium chloride 20 mEq/15 mL 20 meq feeding tube DAILY 08/05/22 08/05/22 oral liquid Allergies Allergy/AdvReac Type Severity Reaction Status Date / Time diphenhydramine Allergy Mild HIVES Verified 07/08/20 07:29 meperidine Allergy Mild UNKNOWN Verified 05/12/22 18:34 From Benadryl Allergy Unknown UNKNOWN Uncoded 11/13/19 16:16 From Demerol Allergy Unknown UNKNOWN Uncoded 11/13/19 16:16 Review of Systems Review of Systems: Yes all other systems are reviewed and are negative [facility] Past Medical History Medical History Above knee amputation of right lower extremity CVA (cerebral vascular accident) Dementia Diabetes Gastrointestinal tube present Nonverbal Right hemiparesis Social History Social History Household Members: Other Household Members Other:: comes from [facility] facility Housing: Senior Living Alcohol intake: unknown Patient Tobacco Use Status: Never used Tobacco Smoked in Last 30 Days: No Use of substances other than those prescribed or required for medical reasons: No Advance Directives: Yes Advance Directives on File: Yes Advance Directives Date on File: 02/13/22 service: No Current occupational status: disabled Physical Exam ED Vital Signs: Vital Signs - 24 hr 09/02/22 19:26 09/02/22 21:00 09/02/22 22:32 Temperature 103.5 F H 102.2 F H 99.7 F Pulse Rate 119 H 90 75 Respiratory Rate 74 H 32 H 30 H Blood Pressure 98/63 116/63 121/50 L Pulse Oximetry 94 93 93 Oxygen Delivery Method Nasal Cannula Nasal Cannula Nasal Cannula Oxygen Flow Rate 5 5 BMI result Body Mass Index 20.3 Appearance: Lethargic comatosed Eyes: Pupils NS NR ENT: Pharynx normal. Oral Mucosa dry Neck: Normal inspection. Neck supple. CVS: Normal heart rate and rhythm. Pulses normal. Respiratory: No respiratory distress. Equal air entry bilateral, no wheezing/rales/rhonchi Abdomen: Soft and nontender. Bowel sounds are present, Skin: Skin warm and dry. Normal skin color. Normal skin turgor. Extremities: No lower extremity edema. R AKA Neuro: Contrast and no response to painful stimuli nonverbal Medications Administered Generic Name Dose Route Start Last Admin Trade Name Frekerri PRN Reason Stop Dose Admin Enoxaparin Sodium 30 mg 09/03/22 01:00 09/03/22 01:22 Enoxaparin Sodium 30 Mg/0.3 Ml Syringe SUBCUT 30 mg Q24H INGE Administration Potassium Chloride 10 meq in 100 mls @ 100 mls/hr 09/03/22 00:30 09/03/22 01:29 Potassium Chloride/H20 IV 09/03/22 04:29 100 mls/hr Q1H INGE Administration Insulin Glargine 10 unit 09/03/22 00:35 09/03/22 01:22 Insulin Glargine,Hum.Rec.Anlog 100 Unit/Ml 10 Ml Vial SUBCUT 10 unit BEDTIME INGE Administration Insulin Human Lispro 0 unit 09/03/22 00:45 09/03/22 01:48 Insulin Lispro 100 Unit/Ml 3 Ml Vial SUBCUT Not Given Q4H INGE Protocol Discontinued Medications Generic Name Dose Route Start Last Admin Trade Name Yessi PRN Reason Stop Dose Admin Acetaminophen 650 mg 09/02/22 20:01 09/02/22 20:09 Acetaminophen Supp 650 Mg Supp.Rect MO 09/02/22 20:02 650 mg ONCE ONE Administration Sodium Chloride 1,000 mls @ 999 mls/hr 09/02/22 19:21 09/02/22 21:07 Ns IV 09/02/22 20:21 Infused .Q1H1M ONE Infusion Sodium Chloride 1,000 mls @ 999 mls/hr 09/02/22 20:01 09/02/22 21:08 Ns IV 09/02/22 21:01 Infused .Q1H1M ONE Infusion Ceftriaxone Sodium 1 gm/ 50 mls @ 100 mls/hr 09/02/22 20:01 09/02/22 21:08 Sodium Chloride IV 09/02/22 20:30 Infused ONCE ONE Infusion Insulin Human Regular 100 unit in 100 mls @ 0 mls/hr 09/02/22 20:15 09/03/22 00:46 Myxredlin IVCONT 0 unit/hr .Q0M INGE 0 mls/hr Titration Protocol Per Protocol Sodium Chloride 1,000 mls @ 999 mls/hr 09/02/22 21:02 09/02/22 23:22 Sodium Chloride 0.45 % IVCONT 09/02/22 22:02 Infused .Q1H1M ONE Infusion Sodium Chloride 1,000 mls @ 999 mls/hr 09/02/22 21:30 09/02/22 21:45 Sodium Chloride 0.45 % IVCONT 09/02/22 22:30 Not Given .Q1H1M ONE Potassium Chloride 10 meq in 100 mls @ 100 mls/hr 09/02/22 23:45 09/03/22 01:29 Potassium Chloride/H20 IV 09/03/22 01:44 Infused Q1H INGE Infusion Lactated Ringer's 1,000 mls @ 999 mls/hr 09/02/22 23:54 09/03/22 00:28 Lr IVCONT 09/03/22 00:54 999 mls/hr .Q1H1M STA Administration Insulin Human Regular 10 unit 09/02/22 19:23 09/02/22 19:36 Insulin Regular, Human 100 Unit/Ml 3 Ml Vial IVPUSH 09/02/22 19:24 10 unit ONCE ONE Administration Insulin Human Regular 10 unit 09/02/22 23:55 09/03/22 00:58 Insulin Regular, Human 100 Unit/Ml 3 Ml Vial IVPUSH 09/02/22 23:56 10 unit ONCE ONE Administration Medical Decision Making Medical Decision Making [facility] Narrative: Patient with altered mental status with hyperglycemia nonketotic with severe dehydration with hyponatremia 2nd to volume contraction patient received 2 L of of normal saline along with insulin drip which was stopped beta hydroxybutyrate negative with elevated creatinine venous pH was 7.51 repeat lab shows improvement in BUN creatinine and blood glucose last blood sugar was 287 patient received IV Rocephin as UTI was suspected will admit patient to medical floor. Case discussed with Dr. kinney our supervisor heading Lab Data [facility] Lab Attestation statement: I reviewed the patient's lab results. 09/02/22 19:49 09/02/22 20:03 Labs: Lab Results 09/02/22 09/02/22 09/02/22 Range/Units 19:24 19:49 19:49 WBC 11.8 H (4.8-10.8) X10*3/uL RBC 5.25 D (4.20-5.50) X10*6/uL Hgb 14.0 D (12.0-16.0) g/dl Hct 47.3 H D (37.0-47.0) % MCV 90.1 (80.0-98.0) fL MCH 26.7 L (27.0-33.0) pg MCHC 29.6 L (31.0-35.0) g/dl RDW 17.2 H (11.0-16.0) % Plt Count 376 (160-400) X10*3/uL MPV 12.3 (9.4-12.3) fL Immature Gran % (Auto) 0.4 (0.0-0.4) % Neut % (Auto) 91.7 H (45-73) % Lymph % (Auto) 5.0 L (20-40) % Daniels % (Auto) 2.6 (2-11) % Eos % (Auto) 0.0 (0-4) % Baso % (Auto) 0.3 (0-2) % Lymph # (Auto) 0.6 L (1.2-4.9) X10*3/uL Daniels # (Auto) 0.3 (0.1-1.2) X10*3/uL Eos # (Auto) 0.0 (0.0-0.4) X10*3/uL Baso # (Auto) 0.0 (0.0-0.2) X10*3/uL Abs Immat Gran (auto) 0.05 H (0.00-0.03) X10*3/uL Absolute Neuts (auto) 10.9 H (2.0-8.3) x10*3/uL Absolute Nucleated RBC 0.000 (0.0-0.012) X10*3/uL Nucleated RBC % (auto) 0.0 (0.0-0.2) /100WBC Smear Tech's Comments VERIFIED VBG pH (7.32-7.43) VBG pCO2 mmHg VBG pO2 mmHg VBG HCO3 (22-26) mmol/L VBG O2 Saturation VBG Base Excess mmol/L Sodium (135-145) mmol/L Potassium (3.3-5.1) mmol/L Chloride (96-108) mmol/L Carbon Dioxide (22-29) mmol/L Anion Gap (12-20) BUN (9-16) mg/dL Creatinine (0.5-1.4) mg/dL Estim Creat Clear Calc Estimated GFR POC Glucose > 600 H* (60-115) mg/dL Random Glucose (60-115) mg/dL Lactic Acid 6.2 H* (0.5-2.0) mmol/L Calcium (8.4-10.2) mg/dL Phosphorus (2.7-4.5) mg/dL Magnesium (1.6-2.6) mg/dL Total Bilirubin (0.0-1.0) mg/dL AST (5-31) U/L ALT (0-31) U/L Alkaline Phosphatase (39-117) U/L Troponin I High Sens (<3.5-17.0) ng/L Total Protein (6.5-8.0) g/dL Albumin (3.5-5.0) g/dL Beta-Hydroxybutyrate (0.02-0.27) mmol/L Urine Color Urine Appearance Urine pH (5.0-9.0) Ur Specific [place] (1.005-1.025) Urine Protein (Neg-Trace) mg/dL Urine Glucose (UA) (Negative) mg/dL Urine Ketones (Negative) mg/dL Urine Blood (Negative) Urine Nitrite (Negative) Ur Leukocyte Esterase (Negative) Urine RBC (0-2) /HPF Urine WBC (0-5) /HPF Ur Squamous Epith Cells (0-2) /HPF Urine Bacteria (None Seen) Hyaline Casts (0-2) /LPF Urine Opiates Screen (Not Detect) Urine Fentanyl Screen (Not Detect) Ur Barbiturates Screen (Not Detect) Ur Phencyclidine Scrn (Not Detect) Ur Amphetamines Screen (Not Detect) U Benzodiazepines Scrn (Not Detect) Urine Cocaine Screen (Not Detect) U Marijuana (THC) Screen (Not Detect) COVID-19 (ADITI) (Negative) COVID-19 Clin Com 09/02/22 09/02/22 09/02/22 Range/Units 20:03 20:03 20:07 WBC (4.8-10.8) X10*3/uL RBC (4.20-5.50) X10*6/uL Hgb (12.0-16.0) g/dl Hct (37.0-47.0) % MCV (80.0-98.0) fL MCH (27.0-33.0) pg MCHC (31.0-35.0) g/dl RDW (11.0-16.0) % Plt Count (160-400) X10*3/uL MPV (9.4-12.3) fL Immature Gran % (Auto) (0.0-0.4) % Neut % (Auto) (45-73) % Lymph % (Auto) (20-40) % Daniels % (Auto) (2-11) % Eos % (Auto) (0-4) % Baso % (Auto) (0-2) % Lymph # (Auto) (1.2-4.9) X10*3/uL Daniels # (Auto) (0.1-1.2) X10*3/uL Eos # (Auto) (0.0-0.4) X10*3/uL Baso # (Auto) (0.0-0.2) X10*3/uL Abs Immat Gran (auto) (0.00-0.03) X10*3/uL Absolute Neuts (auto) (2.0-8.3) x10*3/uL Absolute Nucleated RBC (0.0-0.012) X10*3/uL Nucleated RBC % (auto) (0.0-0.2) /100WBC Smear Tech's Comments VBG pH (7.32-7.43) VBG pCO2 mmHg VBG pO2 mmHg VBG HCO3 (22-26) mmol/L VBG O2 Saturation VBG Base Excess mmol/L Sodium 161 H* (135-145) mmol/L Potassium 3.1 L D (3.3-5.1) mmol/L Chloride 118 H (96-108) mmol/L Carbon Dioxide 21 L (22-29) mmol/L Anion Gap 25 H (12-20) BUN 76 H (9-16) mg/dL Creatinine 2.51 H (0.5-1.4) mg/dL Estim Creat Clear Calc 14.1 Estimated GFR 19 POC Glucose (60-115) mg/dL Random Glucose 1020 H* (60-115) mg/dL Lactic Acid (0.5-2.0) mmol/L Calcium 10.9 H D (8.4-10.2) mg/dL Phosphorus 1.9 L (2.7-4.5) mg/dL Magnesium 2.7 H (1.6-2.6) mg/dL Total Bilirubin 0.2 (0.0-1.0) mg/dL AST 18 (5-31) U/L ALT 18 (0-31) U/L Alkaline Phosphatase 113 (39-117) U/L Troponin I High Sens 144.5 H* (<3.5-17.0) ng/L Total Protein 8.5 H (6.5-8.0) g/dL Albumin 4.3 (3.5-5.0) g/dL Beta-Hydroxybutyrate 0.23 (0.02-0.27) mmol/L Urine Color Urine Appearance Urine pH (5.0-9.0) Ur Specific [place] (1.005-1.025) Urine Protein (Neg-Trace) mg/dL Urine Glucose (UA) (Negative) mg/dL Urine Ketones (Negative) mg/dL Urine Blood (Negative) Urine Nitrite (Negative) Ur Leukocyte Esterase (Negative) Urine RBC (0-2) /HPF Urine WBC (0-5) /HPF Ur Squamous Epith Cells (0-2) /HPF Urine Bacteria (None Seen) Hyaline Casts (0-2) /LPF Urine Opiates Screen (Not Detect) Urine Fentanyl Screen (Not Detect) Ur Barbiturates Screen (Not Detect) Ur Phencyclidine Scrn (Not Detect) Ur Amphetamines Screen (Not Detect) U Benzodiazepines Scrn (Not Detect) Urine Cocaine Screen (Not Detect) U Marijuana (THC) Screen (Not Detect) COVID-19 (ADITI) Negative (Negative) COVID-19 Clin Com See Note 09/02/22 09/02/22 09/02/22 Range/Units 20:21 20:41 21:25 WBC (4.8-10.8) X10*3/uL RBC (4.20-5.50) X10*6/uL Hgb (12.0-16.0) g/dl Hct (37.0-47.0) % MCV (80.0-98.0) fL MCH (27.0-33.0) pg MCHC (31.0-35.0) g/dl RDW (11.0-16.0) % Plt Count (160-400) X10*3/uL MPV (9.4-12.3) fL Immature Gran % (Auto) (0.0-0.4) % Neut % (Auto) (45-73) % Lymph % (Auto) (20-40) % Daniels % (Auto) (2-11) % Eos % (Auto) (0-4) % Baso % (Auto) (0-2) % Lymph # (Auto) (1.2-4.9) X10*3/uL Daniels # (Auto) (0.1-1.2) X10*3/uL Eos # (Auto) (0.0-0.4) X10*3/uL Baso # (Auto) (0.0-0.2) X10*3/uL Abs Immat Gran (auto) (0.00-0.03) X10*3/uL Absolute Neuts (auto) (2.0-8.3) x10*3/uL Absolute Nucleated RBC (0.0-0.012) X10*3/uL Nucleated RBC % (auto) (0.0-0.2) /100WBC Smear Tech's Comments VBG pH 7.51 H (7.32-7.43) VBG pCO2 24 mmHg VBG pO2 227 mmHg VBG HCO3 19 L (22-26) mmol/L VBG O2 Saturation TNP VBG Base Excess -1.5 mmol/L Sodium (135-145) mmol/L Potassium (3.3-5.1) mmol/L Chloride (96-108) mmol/L Carbon Dioxide (22-29) mmol/L Anion Gap (12-20) BUN (9-16) mg/dL Creatinine (0.5-1.4) mg/dL Estim Creat Clear Calc Estimated GFR POC Glucose > 600 H* (60-115) mg/dL Random Glucose (60-115) mg/dL Lactic Acid (0.5-2.0) mmol/L Calcium (8.4-10.2) mg/dL Phosphorus (2.7-4.5) mg/dL Magnesium (1.6-2.6) mg/dL Total Bilirubin (0.0-1.0) mg/dL AST (5-31) U/L ALT (0-31) U/L Alkaline Phosphatase (39-117) U/L Troponin I High Sens (<3.5-17.0) ng/L Total Protein (6.5-8.0) g/dL Albumin (3.5-5.0) g/dL Beta-Hydroxybutyrate (0.02-0.27) mmol/L Urine Color Yellow Urine Appearance Cloudy Urine pH 5.5 (5.0-9.0) Ur Specific [place] >= 1.030 H (1.005-1.025) Urine Protein 30 (1+) H (Neg-Trace) mg/dL Urine Glucose (UA) >=1000 H (Negative) mg/dL Urine Ketones Negative (Negative) mg/dL Urine Blood Negative (Negative) Urine Nitrite Negative (Negative) Ur Leukocyte Esterase Moderate (2+) H (Negative) Urine RBC 0-2 (0-2) /HPF Urine WBC 21-50 H (0-5) /HPF Ur Squamous Epith Cells 6-10 (0-2) /HPF Urine Bacteria 4+ (None Seen) Hyaline Casts 3-5 (0-2) /LPF Urine Opiates Screen (Not Detect) Urine Fentanyl Screen (Not Detect) Ur Barbiturates Screen (Not Detect) Ur Phencyclidine Scrn (Not Detect) Ur Amphetamines Screen (Not Detect) U Benzodiazepines Scrn (Not Detect) Urine Cocaine Screen (Not Detect) U Marijuana (THC) Screen (Not Detect) COVID-19 (ADITI) (Negative) COVID-19 Clin Com 09/02/22 09/02/22 09/02/22 Range/Units 21:32 22:39 23:18 WBC (4.8-10.8) X10*3/uL RBC (4.20-5.50) X10*6/uL Hgb (12.0-16.0) g/dl Hct (37.0-47.0) % MCV (80.0-98.0) fL MCH (27.0-33.0) pg MCHC (31.0-35.0) g/dl RDW (11.0-16.0) % Plt Count (160-400) X10*3/uL MPV (9.4-12.3) fL Immature Gran % (Auto) (0.0-0.4) % Neut % (Auto) (45-73) % Lymph % (Auto) (20-40) % Daniels % (Auto) (2-11) % Eos % (Auto) (0-4) % Baso % (Auto) (0-2) % Lymph # (Auto) (1.2-4.9) X10*3/uL Daniels # (Auto) (0.1-1.2) X10*3/uL Eos # (Auto) (0.0-0.4) X10*3/uL Baso # (Auto) (0.0-0.2) X10*3/uL Abs Immat Gran (auto) (0.00-0.03) X10*3/uL Absolute Neuts (auto) (2.0-8.3) x10*3/uL Absolute Nucleated RBC (0.0-0.012) X10*3/uL Nucleated RBC % (auto) (0.0-0.2) /100WBC Smear Tech's Comments VBG pH (7.32-7.43) VBG pCO2 mmHg VBG pO2 mmHg VBG HCO3 (22-26) mmol/L VBG O2 Saturation VBG Base Excess mmol/L Sodium 156 H (135-145) mmol/L Potassium 2.5 L* (3.3-5.1) mmol/L Chloride 121 H (96-108) mmol/L Carbon Dioxide 21 L (22-29) mmol/L Anion Gap 17 (12-20) BUN 70 H (9-16) mg/dL Creatinine 2.07 H (0.5-1.4) mg/dL Estim Creat Clear Calc 17.1 Estimated GFR 23 POC Glucose > 600 H* (60-115) mg/dL Random Glucose 666 H* (60-115) mg/dL Lactic Acid (0.5-2.0) mmol/L Calcium 9.5 D (8.4-10.2) mg/dL Phosphorus (2.7-4.5) mg/dL Magnesium (1.6-2.6) mg/dL Total Bilirubin 0.5 (0.0-1.0) mg/dL AST 24 (5-31) U/L ALT 16 (0-31) U/L Alkaline Phosphatase 95 (39-117) U/L Troponin I High Sens (<3.5-17.0) ng/L Total Protein 7.2 (6.5-8.0) g/dL Albumin 3.4 L (3.5-5.0) g/dL Beta-Hydroxybutyrate (0.02-0.27) mmol/L Urine Color Urine Appearance Urine pH (5.0-9.0) Ur Specific [place] (1.005-1.025) Urine Protein (Neg-Trace) mg/dL Urine Glucose (UA) (Negative) mg/dL Urine Ketones (Negative) mg/dL Urine Blood (Negative) Urine Nitrite (Negative) Ur Leukocyte Esterase (Negative) Urine RBC (0-2) /HPF Urine WBC (0-5) /HPF Ur Squamous Epith Cells (0-2) /HPF Urine Bacteria (None Seen) Hyaline Casts (0-2) /LPF Urine Opiates Screen Not Detected (Not Detect) Urine Fentanyl Screen Not Detected (Not Detect) Ur Barbiturates Screen Not Detected (Not Detect) Ur Phencyclidine Scrn Not Detected (Not Detect) Ur Amphetamines Screen Not Detected (Not Detect) U Benzodiazepines Scrn Not Detected (Not Detect) Urine Cocaine Screen Not Detected (Not Detect) U Marijuana (THC) Screen Not Detected (Not Detect) COVID-19 (ADITI) (Negative) COVID-19 Clin Com 09/02/22 Range/Units 23:18 WBC (4.8-10.8) X10*3/uL RBC (4.20-5.50) X10*6/uL Hgb (12.0-16.0) g/dl Hct (37.0-47.0) % MCV (80.0-98.0) fL MCH (27.0-33.0) pg MCHC (31.0-35.0) g/dl RDW (11.0-16.0) % Plt Count (160-400) X10*3/uL MPV (9.4-12.3) fL Immature Gran % (Auto) (0.0-0.4) % Neut % (Auto) (45-73) % Lymph % (Auto) (20-40) % Daniels % (Auto) (2-11) % Eos % (Auto) (0-4) % Baso % (Auto) (0-2) % Lymph # (Auto) (1.2-4.9) X10*3/uL Daniels # (Auto) (0.1-1.2) X10*3/uL Eos # (Auto) (0.0-0.4) X10*3/uL Baso # (Auto) (0.0-0.2) X10*3/uL Abs Immat Gran (auto) (0.00-0.03) X10*3/uL Absolute Neuts (auto) (2.0-8.3) x10*3/uL Absolute Nucleated RBC (0.0-0.012) X10*3/uL Nucleated RBC % (auto) (0.0-0.2) /100WBC Smear Tech's Comments VBG pH (7.32-7.43) VBG pCO2 mmHg VBG pO2 mmHg VBG HCO3 (22-26) mmol/L VBG O2 Saturation VBG Base Excess mmol/L Sodium (135-145) mmol/L Potassium (3.3-5.1) mmol/L Chloride (96-108) mmol/L Carbon Dioxide (22-29) mmol/L Anion Gap (12-20) BUN (9-16) mg/dL Creatinine (0.5-1.4) mg/dL Estim Creat Clear Calc Estimated GFR POC Glucose (60-115) mg/dL Random Glucose (60-115) mg/dL Lactic Acid 4.9 H* (0.5-2.0) mmol/L Calcium (8.4-10.2) mg/dL Phosphorus (2.7-4.5) mg/dL Magnesium (1.6-2.6) mg/dL Total Bilirubin (0.0-1.0) mg/dL AST (5-31) U/L ALT (0-31) U/L Alkaline Phosphatase (39-117) U/L Troponin I High Sens (<3.5-17.0) ng/L Total Protein (6.5-8.0) g/dL Albumin (3.5-5.0) g/dL Beta-Hydroxybutyrate (0.02-0.27) mmol/L Urine Color Urine Appearance Urine pH (5.0-9.0) Ur Specific [place] (1.005-1.025) Urine Protein (Neg-Trace) mg/dL Urine Glucose (UA) (Negative) mg/dL Urine Ketones (Negative) mg/dL Urine Blood (Negative) Urine Nitrite (Negative) Ur Leukocyte Esterase (Negative) Urine RBC (0-2) /HPF Urine WBC (0-5) /HPF Ur Squamous Epith Cells (0-2) /HPF Urine Bacteria (None Seen) Hyaline Casts (0-2) /LPF Urine Opiates Screen (Not Detect) Urine Fentanyl Screen (Not Detect) Ur Barbiturates Screen (Not Detect) Ur Phencyclidine Scrn (Not Detect) Ur Amphetamines Screen (Not Detect) U Benzodiazepines Scrn (Not Detect) Urine Cocaine Screen (Not Detect) U Marijuana (THC) Screen (Not Detect) COVID-19 (ADITI) (Negative) COVID-19 Clin Com Critical Care Time Critical Care Time Critical Care Time: Yes Total Critical Care Time: 120 Attestation: The patient was critically ill with a high probability of imminent or life threatening deterioration. I spent greater than 130 minutes of discontinuous time evaluating the patient,delivering critical care at the bedside, discussing and evaluating pertinent data with consultants. Critical care time does not include time spent performing separately billable procedures or teaching. Total time spent performing critical care was 120 minutes. Discharge Plan Discharge Clinical Impression: Hyperglycemic hyperosmolar nonketotic coma, Acute metabolic encephalopathy, Sepsis, Urinary tract infection Patient Disposition: Admitted As Inpatient
[2022-09-02] MEDS: Insulin Regular, Human 100 UNIT/ML 3 ML VIAL 10 UNIT IVPUSH (19:36)
--- NOTE | 2022-09-02 19:36 | PC.NURSE ---
administered 10 units humulin IV push per MAR
[2022-09-02 21:00] VITALS: BP 116/63; PULSE 90; RESP 32; TEMP 39; O2SAT 93
[2022-09-02 21:04] LABS: Alanine Aminotransferase 18 U/L (0-31); Albumin Level 4.3 g/dL (3.5-5.0); Alkaline Phosphatase 113 U/L (39-117); Anion Gap 25 (12-20); Aspartate Amino Transferase 18 U/L (5-31); Beta-Hydroxybutyrate 0.23 mmol/L (0.02-0.27); Bilirubin Total 0.2 mg/dL (0.0-1.0); Blood Urea Nitrogen 76 mg/dL (9-16); Calcium 10.9 mg/dL (8.4-10.2); Carbon Dioxide 21 mmol/L (22-29); Chloride 118 mmol/L (96-108); Creatinine Clr Calc Pharmacy 14.1; Estimated Glomerular Filt Rate 19; Glucose Random 1020 mg/dL (60-115); Potassium 3.1 mmol/L (3.3-5.1); Sodium 161 mmol/L (135-145); Total Protein 8.5 g/dL (6.5-8.0)
--- NOTE | 2022-09-02 22:11 | PM.CCHP ---
History of Present Illness Date of Service: 09/02/22 Attending physician on admission: Toñito Mccord [facility] Past Medical History Medical History Above knee amputation of right lower extremity CVA (cerebral vascular accident) Dementia Diabetes Gastrointestinal tube present Nonverbal Right hemiparesis Social History Social History Household Members: Other Household Members Other:: comes from [facility] Housing: [facility] Alcohol intake: unknown Patient Tobacco Use Status: Never used Tobacco Smoked in Last 30 Days: No Use of substances other than those prescribed or required for medical reasons: No Advance Directives: Yes Advance Directives on File: Yes Advance Directives Date on File: 02/13/22 service: No Current occupational status: disabled Meds Allergies Allergy/AdvReac Type Severity Reaction Status Date / Time diphenhydramine Allergy Mild HIVES Verified 07/08/20 07:29 meperidine Allergy Mild UNKNOWN Verified 05/12/22 18:34 From Benadryl Allergy Unknown UNKNOWN Uncoded 11/13/19 16:16 From Demerol Allergy Unknown UNKNOWN Uncoded 11/13/19 16:16 Active Medications: Current Medications Insulin Human Regular (Myxredlin) 100 unit in 100 mls @ 0 mls/hr IVCONT .Q0M INGE; Protocol Last Admin: 09/02/22 20:29 Dose: 5 unit/hr, 5 mls/hr Sodium Chloride (Sodium Chloride 0.45 %) 1,000 mls @ 999 mls/hr IVCONT .Q1H1M ONE Stop: 09/02/22 22:30 Last Admin: 09/02/22 21:45 Dose: Not Given Sodium Bicarbonate 50 meq/ (Dextrose) 1,000 mls @ 50 mls/hr IV .Q20H INGE Potassium Chloride (Potassium Chloride/H20) 40 meq in 100 mls @ 100 mls/hr IV ONCE ONE Stop: 09/02/22 22:46 Home Medications Medication Instructions Recorded Confirmed Last Taken Type acetaminophen 325 mg tablet 650 mg PO Q4H PRN Pain 11/29/21 08/05/22 Unknown History atorvastatin 20 mg tablet 20 mg feeding tube DAILY 11/29/21 08/05/22 Unknown History glycopyrrolate 1 mg tablet 1 mg PO BID 11/29/21 08/05/22 Unknown History metformin 500 mg tablet 500 mg PO BID 11/29/21 08/05/22 Unknown History mirtazapine 30 mg tablet 30 mg PO DAILY 11/29/21 08/05/22 Unknown History sertraline 100 mg tablet 100 mg feeding tube DAILY 11/29/21 08/05/22 Unknown History simethicone 80 mg chewable tablet 160 mg PO BID 11/29/21 08/05/22 Unknown History benzocaine 10 % mucosal gel 1 appl mucous membrane Q6H PRN 02/11/22 08/05/22 Unknown History Toothache bisacodyl 10 mg rectal suppository 10 mg [place] DAILY PRN Constipation 02/11/22 08/05/22 Unknown History fluoride (sodium) 1.1 % dental gel 1 appl dental BID 02/11/22 08/05/22 Unknown History (PreviDent) lactulose 20 gram/30 mL oral 20 g G-tube BID 02/11/22 08/05/22 Unknown History solution lidocaine HCl 2 % mucosal solution 30 ml PO Q6H PRN Pain 02/11/22 08/05/22 Unknown History (Lidocaine Viscous) sennosides 8.6 mg tablet (senna) 17.2 mg PO BEDTIME PRN Constipation 02/11/22 08/05/22 Unknown History triamcinolone acetonide 0.1 % 1 appl topical BID 02/11/22 08/05/22 Unknown History topical cream divalproex 125 mg capsule,delayed 375 mg DAILY 08/05/22 08/05/22 Unknown History release sprinkle (Depakote Sprinkles) divalproex 125 mg capsule,delayed 500 mg BEDTIME 08/05/22 08/05/22 Unknown History release sprinkle (Depakote Sprinkles) famotidine 20 mg tablet 20 mg PO DAILY 08/05/22 08/05/22 Unknown History magnesium oxide 400 mg feeding tube QID 08/05/22 08/05/22 Unknown History potassium chloride 20 mEq/15 mL 20 meq feeding tube DAILY 08/05/22 08/05/22 Unknown History oral liquid Physical Exam Vital Signs: Vital Signs: Last Vital Signs Temp 102.2 F H 09/02/22 21:00 Pulse 90 09/02/22 21:00 Resp 32 H 09/02/22 21:00 BP 116/63 07/08/23 21:00 Pulse Ox 93 09/02/22 21:00 O2 Del Method Nasal Cannula 09/02/22 21:00 O2 Flow Rate 5 09/02/22 21:00 Oxygen Flow Rate 2 09/02/22 19:26 BMI result Body Mass Index 20.3 Results Labs 09/02/22 19:49 09/02/22 20:03 Labs: Laboratory Results - last 24 hr 09/02/22 09/02/22 09/02/22 19:24 19:49 19:49 MCV 90.1 MCH 26.7 L MCHC 29.6 L RDW 17.2 H Plt Count 376 MPV 12.3 Immature Gran % (Auto) 0.4 Neut % (Auto) 91.7 H Lymph % (Auto) 5.[address] % (Auto) 2.6 Eos % (Auto) 0.0 Baso % (Auto) 0.3 Lymph # (Auto) 0.[address] [place] # (Auto) 0.3 Eos # (Auto) 0.0 Baso # (Auto) 0.0 Abs Immat Gran (auto) 0.05 H Absolute Neuts (auto) 10.9 H Absolute Nucleated RBC 0.000 Nucleated RBC % (auto) 0.0 Smear Tech's Comments VERIFIED VBG pH VBG pCO2 VBG pO2 VBG HCO3 VBG O2 Saturation VBG Base Excess Anion Gap Estim Creat Clear Calc Estimated GFR POC Glucose > 600 H* Random Glucose Lactic Acid 6.2 H* Calcium Total Bilirubin AST ALT Alkaline Phosphatase Troponin I High Sens Total Protein Albumin Beta-Hydroxybutyrate Urine Color Urine Appearance Urine pH Ur Specific [place] Urine Protein Urine Glucose (UA) Urine Ketones Urine Blood Urine Nitrite Ur Leukocyte Esterase Urine RBC Urine WBC Ur Squamous Epith Cells Urine Bacteria Hyaline Casts COVID-19 (ADITI) COVID-19 Clin Com 09/02/22 09/02/22 09/02/22 20:03 20:03 20:07 MCV MCH MCHC RDW Plt Count MPV Immature Gran % (Auto) Neut % (Auto) Lymph % (Auto) [place] % (Auto) Eos % (Auto) Baso % (Auto) Lymph # (Auto) [place] # (Auto) Eos # (Auto) Baso # (Auto) Abs Immat Gran (auto) Absolute Neuts (auto) Absolute Nucleated RBC Nucleated RBC % (auto) Smear Tech's Comments VBG pH VBG pCO2 VBG pO2 VBG HCO3 VBG O2 Saturation VBG Base Excess Anion Gap 25 H Estim Creat Clear Calc 14.1 Estimated GFR 19 POC Glucose Random Glucose 1020 H* Lactic Acid Calcium 10.9 H D Total Bilirubin 0.2 AST 18 ALT 18 Alkaline Phosphatase 113 Troponin I High Sens 144.5 H* Total Protein 8.5 H Albumin 4.3 Beta-Hydroxybutyrate 0.23 Urine Color Urine Appearance Urine pH Ur Specific [place] Urine Protein Urine Glucose (UA) Urine Ketones Urine Blood Urine Nitrite Ur Leukocyte Esterase Urine RBC Urine WBC Ur Squamous Epith Cells Urine Bacteria Hyaline Casts COVID-19 (ADITI) Negative COVID-19 Clin Com See Note 09/02/22 09/02/22 09/02/22 20:21 20:41 21:25 MCV MCH MCHC RDW Plt Count MPV Immature Gran % (Auto) Neut % (Auto) Lymph % (Auto) [place] % (Auto) Eos % (Auto) Baso % (Auto) Lymph # (Auto) [place] # (Auto) Eos # (Auto) Baso # (Auto) Abs Immat Gran (auto) Absolute Neuts (auto) Absolute Nucleated RBC Nucleated RBC % (auto) Smear Tech's Comments VBG pH 7.51 H VBG pCO2 24 VBG pO2 227 VBG HCO3 19 L VBG O2 Saturation TNP VBG Base Excess -1.5 Anion Gap Estim Creat Clear Calc Estimated GFR POC Glucose > 600 H* Random Glucose Lactic Acid Calcium Total Bilirubin AST ALT Alkaline Phosphatase Troponin I High Sens Total Protein Albumin Beta-Hydroxybutyrate Urine Color Yellow Urine Appearance Cloudy Urine pH 5.5 Ur Specific [place] >= 1.030 H Urine Protein 30 (1+) H Urine Glucose (UA) >=1000 H Urine Ketones Negative Urine Blood Negative Urine Nitrite Negative Ur Leukocyte Esterase Moderate (2+) H Urine RBC 0-2 Urine WBC 21-50 H Ur Squamous Epith Cells 6-10 Urine Bacteria 4+ Hyaline Casts 3-5 COVID-19 (ADITI) COVID-19 Clin Com 09/02/22 21:32 MCV MCH MCHC RDW Plt Count MPV Immature Gran % (Auto) Neut % (Auto) Lymph % (Auto) [place] % (Auto) Eos % (Auto) Baso % (Auto) Lymph # (Auto) [place] # (Auto) Eos # (Auto) Baso # (Auto) Abs Immat Gran (auto) Absolute Neuts (auto) Absolute Nucleated RBC Nucleated RBC % (auto) Smear Tech's Comments VBG pH VBG pCO2 VBG pO2 VBG HCO3 VBG O2 Saturation VBG Base Excess Anion Gap Estim Creat Clear Calc Estimated GFR POC Glucose > 600 H* Random Glucose Lactic Acid Calcium Total Bilirubin AST ALT Alkaline Phosphatase Troponin I High Sens Total Protein Albumin Beta-Hydroxybutyrate Urine Color Urine Appearance Urine pH Ur Specific [place] Urine Protein Urine Glucose (UA) Urine Ketones Urine Blood Urine Nitrite Ur Leukocyte Esterase Urine RBC Urine WBC Ur Squamous Epith Cells Urine Bacteria Hyaline Casts COVID-19 (ADITI) COVID-19 Clin Com Imaging Radiologist's Impressions: Impressions Chest X-Ray 09/02/22 20:05 IMPRESSION: No acute pulmonary disease. Head CT 09/02/22 20:37 IMPRESSION: 1. No acute intracranial abnormality. 2. Multiple chronic appearing infarcts again seen, one new from prior in the left occipitoparietal lobe with redemonstration of chronic right watershed territory supratentorial encephalomalacia. Stable remote left basal ganglia lacunar infarcts and left pontine lacunar infarct and the background of advanced white matter hypoattenuation most commonly reflective of chronic small vessel ischemic change. Assessment and Plan Time Spent With Patient Time: Total time managing care of this patient today ____ minutes.
[2022-09-02 22:32] VITALS: BP 121/50; PULSE 75; RESP 30; TEMP 37.6; O2SAT 93
--- NOTE | 2022-09-02 22:42 | PC.NURSE ---
Pt not alert and not oriented. Unarousable and unresponsive to verbal stimuli. Tachypneic with RR 32. O2 sat 92% on 5L NC. NSR on monitor with HR 80. 22F G-tube in place from home with small brown discharge noted. Pt noted to have an increased rectal temp of 103F. Medicated as ordered. Labs drawn and sent. 22G IV line started on the left wrist as well as the right FA with multiple attempts. 16F cath mckee with temp sensing placed with no difficulty or complication. Pt tolerated well. 10u insulin bolus given as ordered and insulin drip started at 5u/hr per protocol. POC re-checked within the hour per protocol and blood sugar continue to be above 600. Per SARAH Kingston verbal order pt to remain receiving 5u/hr and re-check blood glucose at 2300. Order placed in EMR. Pt is to be transferred to the ICU at 2300. Family aware.
[2022-09-02 22:57] LABS: Magnesium 2.7 mg/dL (1.6-2.6); Phosphorus 1.9 mg/dL (2.7-4.5)
[2022-09-02 23:49] LABS: Alanine Aminotransferase 16 U/L (0-31); Albumin Level 3.4 g/dL (3.5-5.0); Alkaline Phosphatase 95 U/L (39-117); Anion Gap 17 (12-20); Aspartate Amino Transferase 24 U/L (5-31); Bilirubin Total 0.5 mg/dL (0.0-1.0); Blood Urea Nitrogen 70 mg/dL (9-16); Calcium 9.5 mg/dL (8.4-10.2); Carbon Dioxide 21 mmol/L (22-29); Chloride 121 mmol/L (96-108); Creatinine Clr Calc Pharmacy 17.1; Estimated Glomerular Filt Rate 23; Glucose Random 666 mg/dL (60-115); Potassium 2.5 mmol/L (3.3-5.1); Sodium 156 mmol/L (135-145); Total Protein 7.2 g/dL (6.5-8.0)
[2022-09-03] VITALS (10 sets, daily range): BP systolic 100–118; BP diastolic 44–68; PULSE 84–108; RESP 16–36; TEMP 35.7–36.8; O2SAT 86–100; BMI 20.4
--- NOTE | 2022-09-03 00:35 | PM.IMHP ---
History of Present Illness Date of Service: 09/03/22 Chief Complaint: AMS This is 72-year-old female with pertinent history of CVA with hemiparesis, PAD status post AKA, dementia, [id number] diabetes mellitus, mood disorder who was sent to the emergency department from skilled nursing for evaluation of lethargy. Unable to obtain history from the patient. History obtained from ER provider and chart review. Patient was found altered in the ER and barely responding to painful stimulus. She was found to be septic and urine was concerning for acute UTI. Multiple lab abnormalities in the ER including hypernatremia, hypokalemia and hyperglycemia. Lactic acidosis was present on admission. Patient was initially offered to ICU for admission. Patient's labs improved after IV crystalloid resuscitation and insulin drip and it was felt that patient no longer needed ICU as per ICU provider. Unable to obtain review of systems Review of Systems Review of Systems: Yes Unobtainable due to mental condition and Unobtainable due to mental status PMFSH Medical History Above knee amputation of right lower extremity CVA (cerebral vascular accident) Dementia Diabetes Gastrointestinal tube present Nonverbal Right hemiparesis Pertinent family history: Unable to obtain Social History Household Members: Unknown / Unable to assess Household Members Other:: comes from [facility] Housing: Residential Unable to assess alcohol history related to: Unable to respond Alcohol intake: unknown Patient Tobacco Use Status: Never used Tobacco Smoked in Last 30 Days: No Use of substances other than those prescribed or required for medical reasons: Unable to respond Advance Directives: Yes Advance Directives on File: Yes Advance Directives Date on File: 02/13/22 Recently lost weight without trying: Unsure Nutrition Risks: Difficulty chewing, Difficulty swallowing and On aspiration precautions Patient : No service: No Current occupational status: disabled Meds Allergies Allergy/AdvReac Type Severity Reaction Status Date / Time diphenhydramine Allergy Mild HIVES Verified 07/08/20 07:29 meperidine Allergy Mild UNKNOWN Verified 05/12/22 18:34 From Benadryl Allergy Unknown UNKNOWN Uncoded 11/13/19 16:16 From Demerol Allergy Unknown UNKNOWN Uncoded 11/13/19 16:16 Active Medications: Current Medications Acetaminophen (Acetaminophen Supp 650 Mg Supp.Rect) 650 mg [place] Q6H PRN PRN Reason: Pain, Mild (Pain Scale 1-3) Enoxaparin Sodium (Enoxaparin Sodium 30 Mg/0.3 Ml Syringe) 30 mg SUBCUT Q24H [facility] Potassium Chloride (Potassium Chloride/H20) 10 meq in 100 mls @ 100 mls/hr IV Q1H INGE Stop: 09/03/22 01:44 Last Admin: 09/03/22 00:29 Dose: 100 mls/hr Lactated Ringer's (Lr) 1,000 mls @ 999 mls/hr IVCONT .Q1H1M STA Stop: 09/03/22 00:54 Last Admin: 09/03/22 00:28 Dose: 999 mls/hr Potassium Chloride (Potassium Chloride/H20) 10 meq in 100 mls @ 100 mls/hr IV Q1H [facility] Stop: 09/03/22 04:29 Ceftriaxone Sodium 2 gm/ (Sodium Chloride) 50 mls @ 100 mls/hr IV Q24H [facility] Insulin Glargine (Insulin Glargine,Hum.Rec.Anlog 100 Unit/Ml 10 Ml Vial) 10 unit SUBCUT BEDTIME [facility] Melatonin (Melatonin 3 Mg Tablet) 6 mg PO BEDTIME PRN PRN Reason: Insomnia Ondansetron HCl (Ondansetron Hcl 4 Mg/2 Ml Vial) 4 mg IVPUSH Q8H PRN PRN Reason: Nausea and Vomiting Sodium Chloride (0.9 % Sodium Chloride Flush 3 Ml Syringe) 3 ml IVFLUSH QSHIFT [facility] Home Medications Medication Instructions Recorded Confirmed Last Taken Type acetaminophen 325 mg tablet 650 mg PO Q4H PRN Pain 11/29/21 08/05/22 Unknown History atorvastatin 20 mg tablet 20 mg feeding tube DAILY 11/29/21 08/05/22 Unknown History glycopyrrolate 1 mg tablet 1 mg PO BID 11/29/21 08/05/22 Unknown History metformin 500 mg tablet 500 mg PO BID 11/29/21 08/05/22 Unknown History mirtazapine 30 mg tablet 30 mg PO DAILY 11/29/21 08/05/22 Unknown History sertraline 100 mg tablet 100 mg feeding tube DAILY 11/29/21 08/05/22 Unknown History simethicone 80 mg chewable tablet 160 mg PO BID 11/29/21 08/05/22 Unknown History benzocaine 10 % mucosal gel 1 appl mucous membrane Q6H PRN 02/11/22 08/05/22 Unknown History Toothache bisacodyl 10 mg rectal suppository 10 mg [place] DAILY PRN Constipation 02/11/22 08/05/22 Unknown History fluoride (sodium) 1.1 % dental gel 1 appl dental BID 02/11/22 08/05/22 Unknown History (PreviDent) lactulose 20 gram/30 mL oral 20 g G-tube BID 02/11/22 08/05/22 Unknown History solution lidocaine HCl 2 % mucosal solution 30 ml PO Q6H PRN Pain 02/11/22 08/05/22 Unknown History (Lidocaine Viscous) sennosides 8.6 mg tablet (senna) 17.2 mg PO BEDTIME PRN Constipation 02/11/22 08/05/22 Unknown History triamcinolone acetonide 0.1 % 1 appl topical BID 02/11/22 08/05/22 Unknown History topical cream divalproex 125 mg capsule,delayed 375 mg DAILY 08/05/22 08/05/22 Unknown History release sprinkle (Depakote Sprinkles) divalproex 125 mg capsule,delayed 500 mg BEDTIME 08/05/22 08/05/22 Unknown History release sprinkle (Depakote Sprinkles) famotidine 20 mg tablet 20 mg PO DAILY 08/05/22 08/05/22 Unknown History magnesium oxide 400 mg feeding tube QID 08/05/22 08/05/22 Unknown History potassium chloride 20 mEq/15 mL 20 meq feeding tube DAILY 08/05/22 08/05/22 Unknown History oral liquid Physical Exam Vital Signs and Narrative: Vital Signs: Last Vital Signs Temp 99.7 F 09/02/22 22:32 Pulse 75 09/02/22 22:32 Resp 30 H 09/02/22 22:32 BP 121/50 L 09/02/22 22:32 Pulse Ox 93 09/02/22 22:32 O2 Del Method Nasal Cannula 09/02/22 22:32 O2 Flow Rate 5 09/02/22 22:32 Oxygen Flow Rate 2 09/02/22 19:26 BMI result Body Mass Index 20.3 Elderly female lying in bed on supplemental oxygen Neck supple Regular rate and rhythm, S1-S2 heard Decreased breath sounds at bases Abdomen soft nontender, no guarding, no rigidity Patient is drowsy and barely eye opens to painful stimulus No pedal edema Results Labs 09/02/22 19:49 09/02/22 23:18 Labs: Laboratory Results - last 24 hr 09/02/22 09/02/22 09/02/22 19:24 19:49 19:49 MCV 90.1 MCH 26.7 L MCHC 29.6 L RDW 17.2 H Plt Count 376 MPV 12.3 Immature Gran % (Auto) 0.4 Neut % (Auto) 91.7 H Lymph % (Auto) 5.0 L [place] % (Auto) 2.6 Eos % (Auto) 0.0 Baso % (Auto) 0.3 Lymph # (Auto) 0.6 L [place] # (Auto) 0.3 Eos # (Auto) 0.0 Baso # (Auto) 0.0 Abs Immat Gran (auto) 0.05 H Absolute Neuts (auto) 10.9 H Absolute Nucleated RBC 0.000 Nucleated RBC % (auto) 0.0 Smear Tech's Comments VERIFIED VBG pH VBG pCO2 VBG pO2 VBG HCO3 VBG O2 Saturation VBG Base Excess Anion Gap Estim Creat Clear Calc Estimated GFR POC Glucose > 600 H* Random Glucose Lactic Acid 6.2 H* Calcium Phosphorus Magnesium Total Bilirubin AST ALT Alkaline Phosphatase Troponin I High Sens Total Protein Albumin Beta-Hydroxybutyrate Urine Color Urine Appearance Urine pH Ur Specific [place] Urine Protein Urine Glucose (UA) Urine Ketones Urine Blood Urine Nitrite Ur Leukocyte Esterase Urine RBC Urine WBC Ur Squamous Epith Cells Urine Bacteria Hyaline Casts Urine Opiates Screen Urine Fentanyl Screen Ur Barbiturates Screen Ur Phencyclidine Scrn Ur Amphetamines Screen U Benzodiazepines Scrn Urine Cocaine Screen U Marijuana (THC) Screen COVID-19 (ADITI) COVID-19 Clin Com 09/02/22 09/02/22 09/02/22 20:03 20:03 20:07 MCV MCH MCHC RDW Plt Count MPV Immature Gran % (Auto) Neut % (Auto) Lymph % (Auto) [place] % (Auto) Eos % (Auto) Baso % (Auto) Lymph # (Auto) [place] # (Auto) Eos # (Auto) Baso # (Auto) Abs Immat Gran (auto) Absolute Neuts (auto) Absolute Nucleated RBC Nucleated RBC % (auto) Smear Tech's Comments VBG pH VBG pCO2 VBG pO2 VBG HCO3 VBG O2 Saturation VBG Base Excess Anion Gap 25 H Estim Creat Clear Calc 14.1 Estimated GFR 19 POC Glucose Random Glucose 1020 H* Lactic Acid Calcium 10.9 H D Phosphorus 1.9 L Magnesium 2.7 H Total Bilirubin 0.2 AST 18 ALT 18 Alkaline Phosphatase 113 Troponin I High Sens 144.5 H* Total Protein 8.5 H Albumin 4.3 Beta-Hydroxybutyrate 0.23 Urine Color Urine Appearance Urine pH Ur Specific [place] Urine Protein Urine Glucose (UA) Urine Ketones Urine Blood Urine Nitrite Ur Leukocyte Esterase Urine RBC Urine WBC Ur Squamous Epith Cells Urine Bacteria Hyaline Casts Urine Opiates Screen Urine Fentanyl Screen Ur Barbiturates Screen Ur Phencyclidine Scrn Ur Amphetamines Screen U Benzodiazepines Scrn Urine Cocaine Screen U Marijuana (THC) Screen COVID-19 (ADITI) Negative COVID-19 Clin Com See Note 09/02/22 09/02/22 09/02/22 20:21 20:41 21:25 MCV MCH MCHC RDW Plt Count MPV Immature Gran % (Auto) Neut % (Auto) Lymph % (Auto) [place] % (Auto) Eos % (Auto) Baso % (Auto) Lymph # (Auto) [place] # (Auto) Eos # (Auto) Baso # (Auto) Abs Immat Gran (auto) Absolute Neuts (auto) Absolute Nucleated RBC Nucleated RBC % (auto) Smear Tech's Comments VBG pH 7.51 H VBG pCO2 24 VBG pO2 227 VBG HCO3 19 L VBG O2 Saturation TNP VBG Base Excess -1.5 Anion Gap Estim Creat Clear Calc Estimated GFR POC Glucose > 600 H* Random Glucose Lactic Acid Calcium Phosphorus Magnesium Total Bilirubin AST ALT Alkaline Phosphatase Troponin I High Sens Total Protein Albumin Beta-Hydroxybutyrate Urine Color Yellow Urine Appearance Cloudy Urine pH 5.5 Ur Specific [place] >= 1.030 H Urine Protein 30 (1+) H Urine Glucose (UA) >=1000 H Urine Ketones Negative Urine Blood Negative Urine Nitrite Negative Ur Leukocyte Esterase Moderate (2+) H Urine RBC 0-2 Urine WBC 21-50 H Ur Squamous Epith Cells 6-10 Urine Bacteria 4+ Hyaline Casts 3-5 Urine Opiates Screen Urine Fentanyl Screen Ur Barbiturates Screen Ur Phencyclidine Scrn Ur Amphetamines Screen U Benzodiazepines Scrn Urine Cocaine Screen U Marijuana (THC) Screen COVID-19 (ADITI) COVID-19 Clin Com 09/02/22 09/02/22 09/02/22 21:32 22:39 23:18 MCV MCH MCHC RDW Plt Count MPV Immature Gran % (Auto) Neut % (Auto) Lymph % (Auto) [place] % (Auto) Eos % (Auto) Baso % (Auto) Lymph # (Auto) [place] # (Auto) Eos # (Auto) Baso # (Auto) Abs Immat Gran (auto) Absolute Neuts (auto) Absolute Nucleated RBC Nucleated RBC % (auto) Smear Tech's Comments VBG pH VBG pCO2 VBG pO2 VBG HCO3 VBG O2 Saturation VBG Base Excess Anion Gap 17 Estim Creat Clear Calc 17.1 Estimated GFR 23 POC Glucose > 600 H* Random Glucose 666 H* Lactic Acid Calcium 9.5 D Phosphorus Magnesium Total Bilirubin 0.5 AST 24 ALT 16 Alkaline Phosphatase 95 Troponin I High Sens Total Protein 7.2 Albumin 3.4 L Beta-Hydroxybutyrate Urine Color Urine Appearance Urine pH Ur Specific [place] Urine Protein Urine Glucose (UA) Urine Ketones Urine Blood Urine Nitrite Ur Leukocyte Esterase Urine RBC Urine WBC Ur Squamous Epith Cells Urine Bacteria Hyaline Casts Urine Opiates Screen Not Detected Urine Fentanyl Screen Not Detected Ur Barbiturates Screen Not Detected Ur Phencyclidine Scrn Not Detected Ur Amphetamines Screen Not Detected U Benzodiazepines Scrn Not Detected Urine Cocaine Screen Not Detected U Marijuana (THC) Screen Not Detected COVID-19 (ADITI) COVID-19 Clin Com 09/02/22 23:18 MCV MCH MCHC RDW Plt Count MPV Immature Gran % (Auto) Neut % (Auto) Lymph % (Auto) [place] % (Auto) Eos % (Auto) Baso % (Auto) Lymph # (Auto) [place] # (Auto) Eos # (Auto) Baso # (Auto) Abs Immat Gran (auto) Absolute Neuts (auto) Absolute Nucleated RBC Nucleated RBC % (auto) Smear Tech's Comments VBG pH VBG pCO2 VBG pO2 VBG HCO3 VBG O2 Saturation VBG Base Excess Anion Gap Estim Creat Clear Calc Estimated GFR POC Glucose Random Glucose Lactic Acid 4.9 H* Calcium Phosphorus Magnesium Total Bilirubin AST ALT Alkaline Phosphatase Troponin I High Sens Total Protein Albumin Beta-Hydroxybutyrate Urine Color Urine Appearance Urine pH Ur Specific [place] Urine Protein Urine Glucose (UA) Urine Ketones Urine Blood Urine Nitrite Ur Leukocyte Esterase Urine RBC Urine WBC Ur Squamous Epith Cells Urine Bacteria Hyaline Casts Urine Opiates Screen Urine Fentanyl Screen Ur Barbiturates Screen Ur Phencyclidine Scrn Ur Amphetamines Screen U Benzodiazepines Scrn Urine Cocaine Screen U Marijuana (THC) Screen COVID-19 (ADITI) COVID-19 Clin Com Imaging Radiologist's Impressions: Impressions Chest X-Ray 09/02/22 20:05 IMPRESSION: No acute pulmonary disease. Head CT 09/02/22 20:37 IMPRESSION: 1. No acute intracranial abnormality. 2. Multiple chronic appearing infarcts again seen, one new from prior in the left occipitoparietal lobe with redemonstration of chronic right watershed territory supratentorial encephalomalacia. Stable remote left basal ganglia lacunar infarcts and left pontine lacunar infarct and the background of advanced white matter hypoattenuation most commonly reflective of chronic small vessel ischemic change. Assessment and Plan (1) Acute metabolic encephalopathy: Status: Acute Plan This is 72-year-old female with pertinent history of CVA with hemiparesis, PAD status post AKA, dementia, [id number] diabetes mellitus, mood disorder who was sent to the emergency department from skilled nursing for evaluation of lethargy. #. Acute metabolic encephalopathy. Multifactorial due to urosepsis and hypernatremia #. Sepsis due to acute UTI. Resuscitated with IV crystalloids. Lactic acidosis present. Initiating empiric IV antibiotics. Follow urine culture and blood culture #. Acute hypoxemic respiratory failure in the setting of hyperventilation and sepsis. Continue supplemental oxygen #. Hypernatremia due to free water deficit. Initiating hypotonic fluids. Monitor sodium and mentation with sodium correction #. Hypokalemia. Repleting #. Acute kidney injury stage II. Monitor creatinine and urine output with fluid resuscitation. Avoid nephrotoxins #. Acute lactic acidosis. Due to sepsis and metformin use #. Non insulin-dependent diabetes mellitus with severe hyperglycemia. Initially placed on insulin drip in the ER. Initiating basal plus regimen. Hold metformin #. Elevated troponin, likely type 2 in the setting of increased demand #. CVA with hemiparesis. Not on antiplatelet agent or high-intensity statin #. Mood disorder. Resume mood stabilizers once mentation improves Med rec pending DVT prophylaxis: Lovenox DNR/DNI Admit as inpatient and will require two night minimum hospital stay for IV antibiotics Time Spent With Patient Time: Total time managing care of this patient today ____ minutes. Quality Stroke Does the patient have a stroke diagnosis?: No VTE Prior VTE?: No VTE Risk Level:: Medical - moderate - high VTE Device Contraindication: Treatment Not Indicated VTE Drug Contraindication: N/A - Med Ordered
--- NOTE | 2022-09-03 00:36 | PC.NURSE ---
Per MD pt to remain on insulin drip 5u/hr and is to receive 10u of regular insulin IV.
--- NOTE | 2022-09-03 00:45 | PC.NURSE ---
Insulin drip stopped at this time per Dr. Mercado.
[2022-09-03] MEDS: Enoxaparin Sodium 30 MG/0.3 ML SYRINGE SUBCUT (01:22)
[2022-09-03] MEDS: Insulin Glargine,Hum.rec.anlog 100 UNIT/ML 10 ML VIAL 10 UNIT SUBCUT ×2 (01:22→21:17)
--- NOTE | 2022-09-03 01:47 | PC.NURSE ---
Humalog sliding scale held at this time per Dr Mercado as pt received 10u of regular insulin as well as 10u of Lantus.
[2022-09-03 02:04] LABS: ~Lactic Acid-LAB USE ONLY 4.1 mmol/L (0.5-2.0)
--- NOTE | 2022-09-03 02:43 | PC.NURSE ---
Pt placed on oxy mask as o2 sat decreased to 85% on 5L nc. Pt currently on 12L via oxymask sat at 92%. MD jaquez.
--- NOTE | 2022-09-03 03:05 | PC.NURSE ---
Nursing report given to nurse Ulrich as pt is being transferred to room 475.
[2022-09-03 03:49] LABS: Reflex Lactate? 2 Y
[2022-09-03 04:50] LABS: Glucose, Whole Blood 386 mg/dL (60-115)
[2022-09-03] MEDS: Insulin Lispro 100 UNIT/ML 3 ML VIAL SUBCUT ×5 (04:51→21:17)
[2022-09-03 06:56] LABS: Hemoglobin 11.6 g/dl (12.0-16.0); Mean Corpuscular HGB Conc 31.4 g/dl (31.0-35.0); Mean Corpuscular Hemoglobin 26.9 pg (27.0-33.0); Mean Corpuscular Volume 85.8 fL (80.0-98.0); Mean Platelet Volume 11.8 fL (9.4-12.3); Platelet Count 242 X10*3/uL (160-400); Red Blood Count 4.31 X10*6/uL (4.20-5.50); Red Cell Distribution Width 16.2 % (11.0-16.0)
[2022-09-03 06:57] LABS: WBC ABN SCTR FOR CBC 1
[2022-09-03 07:12] LABS: ~Lactic Acid-LAB USE ONLY 2.9 mmol/L (0.5-2.0)
[2022-09-03 07:15] LABS: Anion Gap 12 (12-20); Blood Urea Nitrogen 63 mg/dL (9-16); Calcium 8.8 mg/dL (8.4-10.2); Carbon Dioxide 22 mmol/L (22-29); Chloride 121 mmol/L (96-108); Creatinine Clr Calc Pharmacy 26.4; Estimated Glomerular Filt Rate 39; Glucose Random 393 mg/dL (60-115); Potassium 2.4 mmol/L (3.3-5.1); Sodium 153 mmol/L (135-145)
[2022-09-03 07:25] LABS: Troponin-I High Sensitivity 93.5 ng/L (<3.5-17.0)
[2022-09-03 07:26] LABS: Band Neutrophils Percent 16 % (3-5); Basophils Percent Manual 1 % (0-2); Lymphocytes Percent Manual 19 % (20-40); Monocytes Percent Manual 3 % (2-11); Neutrophils Percent Manual 61 % (45-73)
[2022-09-03 07:27] LABS: Platelet Estimate NORMAL (NORMAL); RBC Morphology NOTED
[2022-09-03 07:28] LABS: Burr Cells 2+ (3-5) /OIF; Hypochromasia 1+ (5-14) /OIF; Microcytosis 1+ (5-14) /OIF; Ovalocytes 1+ (5-14) /OIF; Platelet Morphology Comment NORM
[2022-09-03 07:29] LABS: Basophils Abs Manual 0.1 X10*3/uL (0.0-0.2); Lymphocytes Absolute Manual 1.1 X10*3/uL (1.2-4.9); Monocytes Absolute Manual 0.2 X10*3/uL (0.1-1.2); Neutrophils Absolute Manual 4.6 X10*3/uL (2.0-8.3)
--- NOTE | 2022-09-03 08:47 | PHA.MEDREC ---
Addendum entered by Aundrea Em RPh 09/03/22 09:04: Confirmed with regpaul in [place] ([phone]) that pt takes some meds by mouth and some meds via g-tube depending on whether the pt is currently eating or not. Original Note: Pharmacy Consult ? Medication Reconciliation Pharmacy has completed the medication reconciliation. used list from Jose at [facility].
--- NOTE | 2022-09-03 12:41 | HO.PM.IMPN ---
Subjective Subjective Date of Service: 09/03/22 Review of Systems Follow up Acute respiratory failure hx of dementia, SNF resident patient unable to give any accurate information Physical Exam Vital Signs: Vital Signs: Last Vital Signs Temp 98.1 F 09/03/22 12:01 Pulse 92 09/03/22 12:01 Resp 16 09/03/22 12:01 BP 110/54 L 09/03/22 12:01 Pulse Ox 99 09/03/22 12:01 O2 Del Method High Flow Nasal C annula 09/03/22 12:01 O2 Flow Rate 15 09/03/22 08:00 FiO2 79 09/03/22 12:01 Oxygen Flow Rate 2 09/02/22 19:26 BMI result Body Mass Index 20.4 somnolent lung sounds diminished heart regular rate rhythm, clear S1, S2 positive bowel sounds, abdomen is soft neuro patient nonverbal Objective Data Active Medications Acetaminophen (Acetaminophen Supp 650 Mg Supp.Rect) 650 mg DE Q6H PRN PRN Reason: Pain, Mild (Pain Scale 1-3) Dextrose (Dextrose 50 % 25 Gm/50 Ml Syringe) 25 gm IVPUSH Q15M PRN; Protocol PRN Reason: per Hypoglycemia Standing Ord. Enoxaparin Sodium (Enoxaparin Sodium 30 Mg/0.3 Ml Syringe) 30 mg SUBCUT Q24H [facility] Last Admin: 09/03/22 01:22 Dose: 30 mg Documented By: PARK Glucose (Glucose Gel 15 Gm Gel..Gram.) 15 gm PO Q15M PRN; Protocol PRN Reason: per Hypoglycemia Standing Ord. Ceftriaxone Sodium 2 gm/ (Sodium Chloride) 50 mls @ 100 mls/hr IV Q24H [facility] Last Infusion: 09/03/22 06:02 Dose: 0 mls/hr Documented By: FLORIDALMA Sodium Chloride (Sodium Chloride 0.45 %) 1,000 mls @ 100 mls/hr IVCONT .Q10H [facility] Last Admin: 09/03/22 11:43 Dose: 100 mls/hr Documented By: FLACA Insulin Glargine (Insulin Glargine,Hum.Rec.Anlog 100 Unit/Ml 10 Ml Vial) 10 unit SUBCUT BEDTIME [facility] Last Admin: 09/03/22 01:22 Dose: 10 unit Documented By: PARK Insulin Human Lispro (Insulin Lispro 100 Unit/Ml 3 Ml Vial) 0 unit SUBCUT Q4H [facility]; Protocol Last Admin: 09/03/22 08:59 Dose: 8 unit Documented By: SILVESTRE Insulin Human Lispro (Insulin Lispro 100 Unit/Ml 3 Ml Vial) 5 unit SUBCUT QIDACHS [facility] Last Admin: 09/03/22 11:42 Dose: 5 unit Documented By: FLACA Melatonin (Melatonin 3 Mg Tablet) 6 mg PO BEDTIME PRN PRN Reason: Insomnia Ondansetron HCl (Ondansetron Hcl 4 Mg/2 Ml Vial) 4 mg IVPUSH Q8H PRN PRN Reason: Nausea and Vomiting Pharmacy Consult (Consult Rx Perform Med Rec) 1 each MISCELLANE ONCE PRN PRN Reason: Consult order Sodium Chloride (0.9 % Sodium Chloride Flush 3 Ml Syringe) 3 ml IVFLUSH QSHIFT [facility] Last Admin: 09/03/22 08:59 Dose: 3 ml Documented By: SILVESTRE Labs 09/03/22 06:36 09/03/22 06:36 Labs: Laboratory Results - last 24 hr 09/02/22 09/02/22 09/02/22 19:24 19:49 19:49 MCV 90.1 MCH 26.7 L MCHC 29.6 L RDW 17.2 H Plt Count 376 MPV 12.3 Immature Gran % (Auto) 0.4 Neut % (Auto) 91.7 H Lymph % (Auto) 5.0 L Larue % (Auto) 2.6 Eos % (Auto) 0.0 Baso % (Auto) 0.3 Lymph # (Auto) 0.6 L Lar[place] # (Auto) 0.3 Eos # (Auto) 0.0 Baso # (Auto) 0.0 Abs Immat Gran (auto) 0.05 H Absolute Neuts (auto) 10.9 H Absolute Nucleated RBC 0.000 Nucleated RBC % (auto) 0.0 Neutrophils % (Manual) Band Neutrophils % Lymphocytes % (Manual) Monocytes % (Manual) Basophils % (Manual) Abs Neuts (Manual) Lymphocytes # (Manual) Monocytes # (Manual) Basophils # (Manual) Platelet Estimate Plt Morphology Comment RBC Morphology Hypochromasia Microcytosis Ovalocytes [place] Cells Smear Tech's Comments VERIFIED VBG pH VBG pCO2 VBG pO2 VBG HCO3 VBG O2 Saturation VBG Base Excess Anion Gap Estim Creat Clear Calc Estimated GFR POC Glucose > 600 H* Random Glucose Lactic Acid 6.2 H* Lactic Acid F/U @ 2Hr Lactic Acid F/U @ 4Hr Calcium Phosphorus Magnesium Total Bilirubin AST ALT Alkaline Phosphatase Troponin I High Sens B-Natriuretic Peptide Total Protein Albumin Beta-Hydroxybutyrate Urine Color Urine Appearance Urine pH Ur Specific [place] Urine Protein Urine Glucose (UA) Urine Ketones Urine Blood Urine Nitrite Ur Leukocyte Esterase Urine RBC Urine WBC Ur Squamous Epith Cells Urine Bacteria Hyaline Casts Urine Opiates Screen Urine Fentanyl Screen Ur Barbiturates Screen Ur Phencyclidine Scrn Ur Amphetamines Screen U Benzodiazepines Scrn Urine Cocaine Screen U Marijuana (THC) Screen COVID-19 (ADITI) COVID-19 Clin Com 09/02/22 09/02/22 09/02/22 20:03 20:03 20:07 MCV MCH MCHC RDW Plt Count MPV Immature Gran % (Auto) Neut % (Auto) Lymph % (Auto) [place] % (Auto) Eos % (Auto) Baso % (Auto) Lymph # (Auto) [place] # (Auto) Eos # (Auto) Baso # (Auto) Abs Immat Gran (auto) Absolute Neuts (auto) Absolute Nucleated RBC Nucleated RBC % (auto) Neutrophils % (Manual) Band Neutrophils % Lymphocytes % (Manual) Monocytes % (Manual) Basophils % (Manual) Abs Neuts (Manual) Lymphocytes # (Manual) Monocytes # (Manual) Basophils # (Manual) Platelet Estimate Plt Morphology Comment RBC Morphology Hypochromasia Microcytosis Ovalocytes [place] Cells Smear Tech's Comments VBG pH VBG pCO2 VBG pO2 VBG HCO3 VBG O2 Saturation VBG Base Excess Anion Gap 25 H Estim Creat Clear Calc 14.1 Estimated GFR 19 POC Glucose Random Glucose 1020 H* Lactic Acid Lactic Acid F/U @ 2Hr Lactic Acid F/U @ 4Hr Calcium 10.9 H D Phosphorus 1.9 L Magnesium 2.7 H Total Bilirubin 0.2 AST 18 ALT 18 Alkaline Phosphatase 113 Troponin I High Sens 144.5 H* B-Natriuretic Peptide Total Protein 8.5 H Albumin 4.3 Beta-Hydroxybutyrate 0.23 Urine Color Urine Appearance Urine pH Ur Specific [place] Urine Protein Urine Glucose (UA) Urine Ketones Urine Blood Urine Nitrite Ur Leukocyte Esterase Urine RBC Urine WBC Ur Squamous Epith Cells Urine Bacteria Hyaline Casts Urine Opiates Screen Urine Fentanyl Screen Ur Barbiturates Screen Ur Phencyclidine Scrn Ur Amphetamines Screen U Benzodiazepines Scrn Urine Cocaine Screen U Marijuana (THC) Screen COVID-19 (ADITI) Negative COVID-19 [facility] Com See Note 09/02/22 09/02/22 09/02/22 20:21 20:41 21:25 MCV MCH MCHC RDW Plt Count MPV Immature Gran % (Auto) Neut % (Auto) Lymph % (Auto) [place] % (Auto) Eos % (Auto) Baso % (Auto) Lymph # (Auto) [place] # (Auto) Eos # (Auto) Baso # (Auto) Abs Immat Gran (auto) Absolute Neuts (auto) Absolute Nucleated RBC Nucleated RBC % (auto) Neutrophils % (Manual) Band Neutrophils % Lymphocytes % (Manual) Monocytes % (Manual) Basophils % (Manual) Abs Neuts (Manual) Lymphocytes # (Manual) Monocytes # (Manual) Basophils # (Manual) Platelet Estimate Plt Morphology Comment RBC Morphology Hypochromasia Microcytosis Ovalocytes [place] Cells Smear Tech's Comments VBG pH 7.51 H VBG pCO2 24 VBG pO2 227 VBG HCO3 19 L VBG O2 Saturation TNP VBG Base Excess -1.5 Anion Gap Estim Creat Clear Calc Estimated GFR POC Glucose > 600 H* Random Glucose Lactic Acid Lactic Acid F/U @ 2Hr Lactic Acid F/U @ 4Hr Calcium Phosphorus Magnesium Total Bilirubin AST ALT Alkaline Phosphatase Troponin I High Sens B-Natriuretic Peptide Total Protein Albumin Beta-Hydroxybutyrate Urine Color Yellow Urine Appearance Cloudy Urine pH 5.5 Ur Specific [place] >= 1.030 H Urine Protein 30 (1+) H Urine Glucose (UA) >=1000 H Urine Ketones Negative Urine Blood Negative Urine Nitrite Negative Ur Leukocyte Esterase Moderate (2+) H Urine RBC 0-2 Urine WBC 21-50 H Ur Squamous Epith Cells 6-10 Urine Bacteria 4+ Hyaline Casts 3-5 Urine Opiates Screen Urine Fentanyl Screen Ur Barbiturates Screen Ur Phencyclidine Scrn Ur Amphetamines Screen U Benzodiazepines Scrn Urine Cocaine Screen U Marijuana (THC) Screen COVID-19 (ADITI) COVID-19 [employer] 09/02/22 09/02/22 09/02/22 21:32 22:39 23:18 MCV MCH MCHC RDW Plt Count MPV Immature Gran % (Auto) Neut % (Auto) Lymph % (Auto) [place] % (Auto) Eos % (Auto) Baso % (Auto) Lymph # (Auto) [place] # (Auto) Eos # (Auto) Baso # (Auto) Abs Immat Gran (auto) Absolute Neuts (auto) Absolute Nucleated RBC Nucleated RBC % (auto) Neutrophils % (Manual) Band Neutrophils % Lymphocytes % (Manual) Monocytes % (Manual) Basophils % (Manual) Abs Neuts (Manual) Lymphocytes # (Manual) Monocytes # (Manual) Basophils # (Manual) Platelet Estimate Plt Morphology Comment RBC Morphology Hypochromasia Microcytosis Ovalocytes [place] Cells Smear Tech's Comments VBG pH VBG pCO2 VBG pO2 VBG HCO3 VBG O2 Saturation VBG Base Excess Anion Gap 17 Estim Creat Clear Calc 17.1 Estimated GFR 23 POC Glucose > 600 H* Random Glucose 666 H* Lactic Acid Lactic Acid F/U @ 2Hr Lactic Acid F/U @ 4Hr Calcium 9.5 D Phosphorus Magnesium Total Bilirubin 0.5 AST 24 ALT 16 Alkaline Phosphatase 95 Troponin I High Sens B-Natriuretic Peptide Total Protein 7.2 Albumin 3.4 L Beta-Hydroxybutyrate Urine Color Urine Appearance Urine pH Ur Specific [place] Urine Protein Urine Glucose (UA) Urine Ketones Urine Blood Urine Nitrite Ur Leukocyte Esterase Urine RBC Urine WBC Ur Squamous Epith Cells Urine Bacteria Hyaline Casts Urine Opiates Screen Not Detected Urine Fentanyl Screen Not Detected Ur Barbiturates Screen Not Detected Ur Phencyclidine Scrn Not Detected Ur Amphetamines Screen Not Detected U Benzodiazepines Scrn Not Detected Urine Cocaine Screen Not Detected U Marijuana (THC) Screen Not Detected COVID-19 (ADITI) COVID-19 Clin [facility] 09/02/22 09/03/22 09/03/22 23:18 01:26 01:44 MCV MCH MCHC RDW Plt Count MPV Immature Gran % (Auto) Neut % (Auto) Lymph % (Auto) [place] % (Auto) Eos % (Auto) Baso % (Auto) Lymph # (Auto) [place] # (Auto) Eos # (Auto) Baso # (Auto) Abs Immat Gran (auto) Absolute Neuts (auto) Absolute Nucleated RBC Nucleated RBC % (auto) Neutrophils % (Manual) Band Neutrophils % Lymphocytes % (Manual) Monocytes % (Manual) Basophils % (Manual) Abs Neuts (Manual) Lymphocytes # (Manual) Monocytes # (Manual) Basophils # (Manual) Platelet Estimate Plt Morphology Comment RBC Morphology Hypochromasia Microcytosis Ovalocytes [place] Cells Smear Tech's Comments VBG pH VBG pCO2 VBG pO2 VBG HCO3 VBG O2 Saturation VBG Base Excess Anion Gap Estim Creat Clear Calc Estimated GFR POC Glucose 387 H* Random Glucose Lactic Acid 4.9 H* Lactic Acid F/U @ 2Hr 4.1 H* Lactic Acid F/U @ 4Hr Calcium Phosphorus Magnesium Total Bilirubin AST ALT Alkaline Phosphatase Troponin I High Sens B-Natriuretic Peptide Total Protein Albumin Beta-Hydroxybutyrate Urine Color Urine Appearance Urine pH Ur Specific [place] Urine Protein Urine Glucose (UA) Urine Ketones Urine Blood Urine Nitrite Ur Leukocyte Esterase Urine RBC Urine WBC Ur Squamous Epith Cells Urine Bacteria Hyaline Casts Urine Opiates Screen Urine Fentanyl Screen Ur Barbiturates Screen Ur Phencyclidine Scrn Ur Amphetamines Screen U Benzodiazepines Scrn Urine Cocaine Screen U Marijuana (THC) Screen COVID-19 (ADITI) COVID-19 Clin Com 09/03/22 09/03/22 09/03/22 04:45 06:36 06:36 MCV 85.8 MCH 26.9 L MCHC 31.4 RDW 16.2 H Plt Count 242 D MPV 11.8 Immature Gran % (Auto) Cancelled Neut % (Auto) Cancelled Lymph % (Auto) Cancelled Lar[place] % (Auto) Cancelled Eos % (Auto) Cancelled Baso % (Auto) Cancelled Lymph # (Auto) Cancelled [place] # (Auto) Cancelled Eos # (Auto) Cancelled Baso # (Auto) Cancelled Abs Immat Gran (auto) Cancelled Absolute Neuts (auto) Cancelled Absolute Nucleated RBC 0.000 Nucleated RBC % (auto) 0.0 Neutrophils % (Manual) 61 Band Neutrophils % 16 H Lymphocytes % (Manual) 19 L Monocytes % (Manual) 3 Basophils % (Manual) 1 Abs Neuts (Manual) 4.6 Lymphocytes # (Manual) 1.1 L Monocytes # (Manual) 0.2 Basophils # (Manual) 0.1 Platelet Estimate NORMAL Plt Morphology Comment NORM RBC Morphology NOTED Hypochromasia 1+ (5-14) Microcytosis 1+ (5-14) Ovalocytes 1+ (5-14) Kurtis Cells 2+ (3-5) Smear Tech's Comments VBG pH VBG pCO2 VBG pO2 VBG HCO3 VBG O2 Saturation VBG Base Excess Anion Gap 12 Estim Creat Clear Calc 26.4 Estimated GFR 39 POC Glucose 386 H* Random Glucose 393 H* Lactic Acid Lactic Acid F/U @ 2Hr Lactic Acid F/U @ 4Hr Calcium 8.8 D Phosphorus Magnesium Total Bilirubin AST ALT Alkaline Phosphatase Troponin I High Sens B-Natriuretic Peptide Total Protein Albumin Beta-Hydroxybutyrate Urine Color Urine Appearance Urine pH Ur Specific [place] Urine Protein Urine Glucose (UA) Urine Ketones Urine Blood Urine Nitrite Ur Leukocyte Esterase Urine RBC Urine WBC Ur Squamous Epith Cells Urine Bacteria Hyaline Casts Urine Opiates Screen Urine Fentanyl Screen Ur Barbiturates Screen Ur Phencyclidine Scrn Ur Amphetamines Screen U Benzodiazepines Scrn Urine Cocaine Screen U Marijuana (THC) Screen COVID-19 (ADITI) COVID-19 Clin Com 09/03/22 09/03/22 09/03/22 06:36 06:36 07:19 MCV MCH MCHC RDW Plt Count MPV Immature Gran % (Auto) Neut % (Auto) Lymph % (Auto) [place] % (Auto) Eos % (Auto) Baso % (Auto) Lymph # (Auto) [place] # (Auto) Eos # (Auto) Baso # (Auto) Abs Immat Gran (auto) Absolute Neuts (auto) Absolute Nucleated RBC Nucleated RBC % (auto) Neutrophils % (Manual) Band Neutrophils % Lymphocytes % (Manual) Monocytes % (Manual) Basophils % (Manual) Abs Neuts (Manual) Lymphocytes # (Manual) Monocytes # (Manual) Basophils # (Manual) Platelet Estimate Plt Morphology Comment RBC Morphology Hypochromasia Microcytosis Ovalocytes [place] Cells Smear Tech's Comments VBG pH VBG pCO2 VBG pO2 VBG HCO3 VBG O2 Saturation VBG Base Excess Anion Gap Estim Creat Clear Calc Estimated GFR POC Glucose 310 H Random Glucose Lactic Acid Lactic Acid F/U @ 2Hr Lactic Acid F/U @ 4Hr 2.9 H* Calcium Phosphorus Magnesium Total Bilirubin AST ALT Alkaline Phosphatase Troponin I High Sens 93.5 H* B-Natriuretic Peptide Total Protein Albumin Beta-Hydroxybutyrate Urine Color Urine Appearance Urine pH Ur Specific [place] Urine Protein Urine Glucose (UA) Urine Ketones Urine Blood Urine Nitrite Ur Leukocyte Esterase Urine RBC Urine WBC Ur Squamous Epith Cells Urine Bacteria Hyaline Casts Urine Opiates Screen Urine Fentanyl Screen Ur Barbiturates Screen Ur Phencyclidine Scrn Ur Amphetamines Screen U Benzodiazepines Scrn Urine Cocaine Screen U Marijuana (THC) Screen COVID-19 (ADITI) COVID-19 Clin Com 07/11/1809/03/22 09/03/22 08:08 08:15 09:28 MCV MCH MCHC RDW Plt Count MPV Immature Gran % (Auto) Neut % (Auto) Lymph % (Auto) [place] % (Auto) Eos % (Auto) Baso % (Auto) Lymph # (Auto) [place] # (Auto) Eos # (Auto) Baso # (Auto) Abs Immat Gran (auto) Absolute Neuts (auto) Absolute Nucleated RBC Nucleated RBC % (auto) Neutrophils % (Manual) Band Neutrophils % Lymphocytes % (Manual) Monocytes % (Manual) Basophils % (Manual) Abs Neuts (Manual) Lymphocytes # (Manual) Monocytes # (Manual) Basophils # (Manual) Platelet Estimate Plt Morphology Comment RBC Morphology Hypochromasia Microcytosis Ovalocytes [place] Cells Smear Tech's Comments VBG pH 7.46 H VBG pCO2 31 VBG pO2 75 VBG HCO3 22 VBG O2 Saturation 97.0 VBG Base Excess -0.3 Anion Gap Estim Creat Clear Calc Estimated GFR POC Glucose 264 H Random Glucose Lactic Acid Lactic Acid F/U @ 2Hr Lactic Acid F/U @ 4Hr Calcium Phosphorus Magnesium Total Bilirubin AST ALT Alkaline Phosphatase Troponin I High Sens B-Natriuretic Peptide 354 H Total Protein Albumin Beta-Hydroxybutyrate Urine Color Urine Appearance Urine pH Ur Specific [place] Urine Protein Urine Glucose (UA) Urine Ketones Urine Blood Urine Nitrite Ur Leukocyte Esterase Urine RBC Urine WBC Ur Squamous Epith Cells Urine Bacteria Hyaline Casts Urine Opiates Screen Urine Fentanyl Screen Ur Barbiturates Screen Ur Phencyclidine Scrn Ur Amphetamines Screen U Benzodiazepines Scrn Urine Cocaine Screen U Marijuana (THC) Screen COVID-19 (ADITI) COVID-19 Clin Com 09/03/22 11:33 MCV MCH MCHC RDW Plt Count MPV Immature Gran % (Auto) Neut % (Auto) Lymph % (Auto) [place] % (Auto) Eos % (Auto) Baso % (Auto) Lymph # (Auto) [place] # (Auto) Eos # (Auto) Baso # (Auto) Abs Immat Gran (auto) Absolute Neuts (auto) Absolute Nucleated RBC Nucleated RBC % (auto) Neutrophils % (Manual) Band Neutrophils % Lymphocytes % (Manual) Monocytes % (Manual) Basophils % (Manual) Abs Neuts (Manual) Lymphocytes # (Manual) Monocytes # (Manual) Basophils # (Manual) Platelet Estimate Plt Morphology Comment RBC Morphology Hypochromasia Microcytosis Ovalocytes [place] Cells Smear Tech's Comments VBG pH VBG pCO2 VBG pO2 VBG HCO3 VBG O2 Saturation VBG Base Excess Anion Gap Estim Creat Clear Calc Estimated GFR POC Glucose 170 H Random Glucose Lactic Acid Lactic Acid F/U @ 2Hr Lactic Acid F/U @ 4Hr Calcium Phosphorus Magnesium Total Bilirubin AST ALT Alkaline Phosphatase Troponin I High Sens B-Natriuretic Peptide Total Protein Albumin Beta-Hydroxybutyrate Urine Color Urine Appearance Urine pH Ur Specific [place] Urine Protein Urine Glucose (UA) Urine Ketones Urine Blood Urine Nitrite Ur Leukocyte Esterase Urine RBC Urine WBC Ur Squamous Epith Cells Urine Bacteria Hyaline Casts Urine Opiates Screen Urine Fentanyl Screen Ur Barbiturates Screen Ur Phencyclidine Scrn Ur Amphetamines Screen U Benzodiazepines Scrn Urine Cocaine Screen U Marijuana (THC) Screen COVID-19 (ADITI) COVID-19 Clin Com Microbiology Microbiology Results: Microbiology 09/02/22 Unknown Urine Culture - Preliminary Urine clean catch - Urine romeo top Culture in progress. Assessment and Plan (1) Sepsis: Status: Acute Plan This is 72-year-old female with pertinent history of CVA with hemiparesis, PAD status post AKA, dementia, [id number] diabetes mellitus, mood disorder who [facility] of [facility]argy. Acute metabolic encephalopathy.? Multifactorial due to UTI, likely aspiration pna and hypernatremia keep NPO for now while lethargic Sepsis due to acute UTI and aspiration pna .? Resuscitated with IV crystalloids.? continue empiric IV antibiotics follow blood and urine cx.? aspiration pna CXR showing RLL infiltrate started zosyn Acute hypoxemic respiratory failure in the setting of hyperventilation and sepsis.? worsening hypoxia with sats in the 80's of NRB mask at 15L now on High flow oxygen with sats of 95% Continue supplemental oxygen Hypernatremia due to free water deficit.? hypotonic fluids.? Monitor sodium and mentation with sodium correction Hypokalemia.? Repleting Acute kidney injury stage II.? Monitor creatinine and urine output with fluid resuscitation.? Avoid nephrotoxins Acute lactic acidosis.? Due to sepsis and metformin use Non insulin-dependent diabetes mellitus with severe hyperglycemia.? HHS Initially placed on insulin drip in the ER.? now on ss and mealtime insulin ? Elevated troponin likely type 2 in the setting of increased demand CVA with hemiparesis.? Not on antiplatelet agent or high-intensity statin Mood disorder.? Resume mood stabilizers once mentation improves DVT prophylaxis:? Apolinar Attending Dr. Betancourt DNR/DNI Admit as inpatient and will require two night minimum hospital stay for IV antibiotics Time Spent With Patient Time: Total time managing care of this patient today ____ minutes. Quality Stroke Does the patient have a stroke diagnosis?: No VTE Prior VTE?: No VTE Risk Level:: Medical - moderate - high VTE Device Contraindication: Treatment Not Indicated VTE Drug Contraindication: N/A - Med Ordered
[2022-09-03] MEDS: Piperacillin Sodium/Tazobactam 2.25 GM in 0.9 % Sodium Chloride 50 ML IV ×2 (14:45→21:16)
[2022-09-04] VITALS (9 sets, daily range): BP systolic 109–122; BP diastolic 45–64; PULSE 80–100; RESP 16–20; TEMP 36.2–36.6; O2SAT 94–100; BMI 20.4
[2022-09-04] MEDS: Enoxaparin Sodium 30 MG/0.3 ML SYRINGE SUBCUT (00:25)
[2022-09-04] MEDS: Piperacillin Sodium/Tazobactam 2.25 GM in 0.9 % Sodium Chloride 50 ML IV ×4 (02:18→22:02)
--- NOTE | 2022-09-04 05:42 | PC.NURSE ---
CARE ASSUMED 23:15...REMAINS LETHARGIC TO OBTUNDED PER SHIFT REPORT...MD PREVIOUSLY AWARE PER REPORT....WEAKLY MOANS AND SLIGHT MOVEMENT OF ARMS TO NOXIOUS STIMULI...D5W CONINUES AT 100 CC/HR...AM CHEMISTRY PENDING..PREVIOUS SODIUM LEVEL HAD DECREASED TO 154...MSR RARE PAC'S..CONTINUES HIGH AGGIE O2 CANNULA FIO2 50% AND 45 L/M...NO DISTRESS...SAO2 97-98%...BRISCOE DRAINING YELLOW URINE...INCONTINANT LOOSE BROWN STOOL...FOAM DRESSING TO COCCYX IN PLACE..WOUND TO LEFT LATERAL HEEL/FOOT W/O DRAINAGE..LEG/FOOT ELEVATED ON PILLOWS..REMAINS NPO
[2022-09-04 07:27] LABS: Anion Gap 11 (12-20); Blood Urea Nitrogen 59 mg/dL (9-16); Calcium 8.6 mg/dL (8.4-10.2); Carbon Dioxide 24 mmol/L (22-29); Chloride 119 mmol/L (96-108); Creatinine Clr Calc Pharmacy 34.1; Estimated Glomerular Filt Rate 52; Glucose Random 166 mg/dL (60-115); Potassium 2.2 mmol/L (3.3-5.1); Sodium 152 mmol/L (135-145)
--- NOTE | 2022-09-04 10:20 | HO.PM.IMPN ---
Subjective Subjective Date of Service: 09/04/22 Review of Systems Follow up Acute respiratory failure hx of dementia, SNF resident patient unable to give any accurate information Physical Exam Vital Signs: Vital Signs: Last Vital Signs Temp 97.2 F 09/04/22 07:51 Pulse 94 09/04/22 07:51 Resp 16 09/04/22 08:53 BP 122/60 09/04/22 07:51 Pulse Ox 100 09/04/22 07:51 O2 Del Method High Flow Nasal C annula 09/04/22 07:51 O2 Flow Rate 45 09/04/22 07:51 FiO2 50 09/04/22 07:51 Oxygen Flow Rate 2 09/02/22 19:26 BMI result Body Mass Index 20.4 somnolent but able to nod her head to specific questions lung sounds are clear to auscultation heart regular rate rhythm, clear S1, S2 positive bowel sounds, abdomen is soft neuro patient is alert, nonverbal Objective Data Active Medications Acetaminophen (Acetaminophen Supp 650 Mg Supp.Rect) 650 mg [place] Q6H PRN PRN Reason: Pain, Mild (Pain Scale 1-3) Dextrose (Dextrose 50 % 25 Gm/50 Ml Syringe) 25 gm IVPUSH Q15M PRN; Protocol PRN Reason: per Hypoglycemia Standing Ord. Enoxaparin Sodium (Enoxaparin Sodium 30 Mg/0.3 Ml Syringe) 30 mg SUBCUT Q24H [facility] Last Admin: 09/04/22 00:25 Dose: 30 mg Documented By: ADOLFO Glucose (Glucose Gel 15 Gm Gel..Gram.) 15 gm PO Q15M PRN; Protocol PRN Reason: per Hypoglycemia Standing Ord. Piperacillin Sod/Tazobactam (Sod 2.25 gm/ Sodium Chloride) 50 mls @ 100 mls/hr IV Q6H [facility] Last Infusion: 09/04/22 08:59 Dose: 0 mls/hr Documented By: KENRICK Dextrose (D5w) 1,000 mls @ 100 mls/hr IVCONT .Q10H [facility] Last Admin: 09/04/22 02:16 Dose: 100 mls/hr Documented By: ADOLFO Insulin Glargine (Insulin Glargine,Hum.Rec.Anlog 100 Unit/Ml 10 Ml Vial) 10 unit SUBCUT BEDTIME [facility] Last Admin: 09/03/22 21:17 Dose: 10 unit Documented By: RICARDO Insulin Human Lispro (Insulin Lispro 100 Unit/Ml 3 Ml Vial) 0 unit SUBCUT Q4H [facility]; Protocol Last Admin: 09/04/22 08:21 Dose: Not Given Documented By: KENRICK Non-Admin Reason: No Insulin Coverage Insulin Human Lispro (Insulin Lispro 100 Unit/Ml 3 Ml Vial) 5 unit SUBCUT QIDACHS [facility] Last Admin: 09/04/22 08:10 Dose: Not Given Documented By: KENRICK Non-Admin Reason: No Insulin Coverage Melatonin (Melatonin 3 Mg Tablet) 6 mg PO BEDTIME PRN PRN Reason: Insomnia Morphine Sulfate (Morphine Sulfate 2 Mg/Ml Cartridge) 1 mg IVPUSH Q6H PRN; Protocol PRN Reason: tachypnea Ondansetron HCl (Ondansetron Hcl 4 Mg/2 Ml Vial) 4 mg IVPUSH Q8H PRN PRN Reason: Nausea and Vomiting Pharmacy Consult (Consult Rx Perform Med Rec) 1 each MISCELLANE ONCE PRN PRN Reason: Consult order Sodium Chloride (0.9 % Sodium Chloride Flush 3 Ml Syringe) 3 ml IVFLUSH QSHIFT [facility] Last Admin: 09/04/22 08:25 Dose: Not Given Documented By: KENRICK Non-Admin Reason: IV Running Labs 09/03/22 06:36 09/04/22 06:20 Labs: Laboratory Results - last 24 hr 09/03/22 09/03/22 09/03/22 11:33 13:01 14:52 Anion Gap Estim Creat Clear Calc Estimated GFR POC Glucose 170 H 135 H Random Glucose Calcium Stool Occult Blood NEGATIVE 09/03/22 09/03/22 09/03/22 15:09 15:29 16:57 Anion Gap 17 Estim Creat Clear Calc 35.0 Estimated GFR 54 POC Glucose 85 103 Random Glucose 83 Calcium 8.7 Stool Occult Blood 09/03/22 09/04/22 09/04/22 20:07 00:33 05:03 Anion Gap Estim Creat Clear Calc Estimated GFR POC Glucose 168 H 151 H 153 H Random Glucose Calcium Stool Occult Blood 09/04/22 09/04/22 06:20 07:00 Anion Gap 11 L Estim Creat Clear Calc 34.1 Estimated GFR 52 POC Glucose 153 H Random Glucose 166 H Calcium 8.6 Stool Occult Blood Microbiology Microbiology Results: Microbiology 09/02/22 20:01 Blood Culture - Preliminary Blood - Venous No growth after 24 hours. 09/02/22 20:41 Blood Culture - Preliminary Blood - Venous Prelim: GPC Gram Stain only 09/02/22 Unknown Urine Culture - Preliminary Urine clean catch - Urine romeo top Culture in progress. Assessment and Plan (1) Sepsis: Status: Acute Plan This is 72-year-old female with pertinent history of CVA with hemiparesis, PAD status post AKA, dementia, gua-syolfqk-hxkhurpxc diabetes mellitus, mood disorder who was sent to the emergency department from intermediate for evaluation of lethargy. GPC bacteremia 1/2 positive added doxycycline 100 mg Q12h follow final cx Acute metabolic encephalopathy.? Multifactorial due to UTI, likely aspiration pna and hypernatremia keep NPO for now while lethargic Sepsis due to acute UTI and aspiration pna .? Resuscitated with IV crystalloids.? continue empiric IV antibiotics GPC 1/2 pos blood cx Acute hypoxemic resp failure secondary to aspiration pna CXR showing RLL infiltrate started zosyn High flow with sat 99%, will wean down to oxymask Hypernatremia due to free water deficit.? hypotonic fluids.? Monitor sodium and mentation with sodium correction Hypokalemia.? still low IV potassium added recheck this afternoon Acute kidney injury stage II.? Monitor creatinine and urine output with fluid resuscitation.? Avoid nephrotoxins Acute lactic acidosis.? Due to sepsis and metformin use Non insulin-dependent diabetes mellitus with severe hyperglycemia.? HHS Initially placed on insulin drip in the ER.? now on ss and mealtime insulin ? Elevated troponin likely type 2 in the setting of increased demand CVA with hemiparesis.? Not on antiplatelet agent or high-intensity statin Mood disorder.? Resume mood stabilizers once mentation improves DVT prophylaxis:? Lovenox Attending Dr. Alicea DNR/DNI continued hospital stay for IV antibiotics Time Spent With Patient Time: Total time managing care of this patient today ____ minutes. Quality Stroke Does the patient have a stroke diagnosis?: No VTE Prior VTE?: No VTE Risk Level:: Medical - moderate - high VTE Device Contraindication: Treatment Not Indicated VTE Drug Contraindication: N/A - Med Ordered
--- NOTE | 2022-09-04 11:00 | PC.RT ---
pt taken off the HFNC and placed on a 5L oxymask, sating 96%. no increased wob or resp distress noticed at this time. continue to monitor.
[2022-09-04 12:39] LABS: Blood Urea Nitrogen 55 mg/dL (9-16); Calcium 8.3 mg/dL (8.4-10.2); Creatinine Clr Calc Pharmacy 33.7; Estimated Glomerular Filt Rate 51; Glucose Random 197 mg/dL (60-115)
[2022-09-04 12:44] LABS: Anion Gap 16 (12-20); Carbon Dioxide 20 mmol/L (22-29); Chloride 115 mmol/L (96-108); Potassium 2.4 mmol/L (3.3-5.1); Sodium 149 mmol/L (135-145)
--- NOTE | 2022-09-04 15:13 | MHC.CM.PN ---
CM MET WITH PTS PENYYULK[facility] AND GRANDDAUGHTER AT BEDSIDE THEY CONFIRM PT IS A LTC RESIDENT OF [facility] [place] THEY STATE PT IS BED BOUND AND NON-VERBAL AT BASELINE PT HAS A HCP ON FILE NAMING SONS CEDRIC AND PAMELLA. CEDRIC REPORTEDLY LIVES IN [place] SO NOW THAT PT IS HERE, PAMELLA IS THE PRIMARY CONTACT PCP: [facility] DELIVERED DCP: RETURN TO [facility] VIA BLS
[2022-09-04] MEDS: Insulin Lispro 100 UNIT/ML 3 ML VIAL SUBCUT ×3 (17:28→22:03)
[2022-09-04 20:39] LABS: Glucose, Whole Blood 189 mg/dL (60-115)
[2022-09-04] MEDS: Insulin Glargine,Hum.rec.anlog 100 UNIT/ML 10 ML VIAL 10 UNIT SUBCUT (22:03)
[2022-09-05 00:40] LABS: Glucose, Whole Blood 103 mg/dL (60-115)
[2022-09-05] MEDS: Enoxaparin Sodium 30 MG/0.3 ML SYRINGE SUBCUT (00:41)
[2022-09-05] MEDS: Piperacillin Sodium/Tazobactam 2.25 GM in 0.9 % Sodium Chloride 50 ML IV ×4 (02:25→21:07)
[2022-09-05 04:00] VITALS: BP 107/39; PULSE 95; RESP 33; TEMP 35.8; O2SAT 95
[2022-09-05 05:22] LABS: Glucose, Whole Blood 92 mg/dL (60-115)
[2022-09-05 06:17] VITALS: RESP 23
[2022-09-05 06:35] LABS: Anion Gap 16 (12-20); Blood Urea Nitrogen 34 mg/dL (9-16); Calcium 8.2 mg/dL (8.4-10.2); Carbon Dioxide 17 mmol/L (22-29); Chloride 114 mmol/L (96-108); Creatinine Clr Calc Pharmacy 43.2; Estimated Glomerular Filt Rate > 60; Glucose Random 84 mg/dL (60-115); Potassium 2.7 mmol/L (3.3-5.1); Sodium 144 mmol/L (135-145)
[2022-09-05 07:24] VITALS: BP 125/48; PULSE 86; RESP 22; TEMP 36.6; O2SAT 97
[2022-09-05 07:24] LABS: Glucose, Whole Blood 98 mg/dL (60-115)
[2022-09-05] MEDS: Potassium Chloride/H20 10 MEQ/100 ML PIGGYBACK 100 MEQ IV ×4 (07:43→17:40)
--- NOTE | 2022-09-05 08:35 | HO.PM.IMPN ---
Subjective Subjective Date of Service: 09/05/22 Review of Systems Follow up Acute respiratory failure hx of dementia, SNF resident patient unable to give any accurate information Physical Exam Vital Signs: Vital Signs: Last Vital Signs Temp 98 F 09/05/22 07:24 Pulse 86 09/05/22 07:24 Resp 22 H 09/05/22 07:24 BP 125/48 L 09/05/22 07:24 Pulse Ox 97 09/05/22 07:24 O2 Del Method Oxymask 09/05/22 07:24 O2 Flow Rate 5 09/05/22 07:24 FiO2 50 09/04/22 07:51 Oxygen Flow Rate 2 09/02/22 19:26 BMI result Body Mass Index 20.4 Appearing in no acute distress lung sounds are clear to auscultation heart regular rate rhythm, clear S1, S2 positive bowel sounds, abdomen is soft, nontender neuro patient is alert x3, no focal deficits Objective Data Active Medications Acetaminophen (Acetaminophen Supp 650 Mg Supp.Rect) 650 mg [place] Q6H PRN PRN Reason: Pain, Mild (Pain Scale 1-3) Dextrose (Dextrose 50 % 25 Gm/50 Ml Syringe) 25 gm IVPUSH Q15M PRN; Protocol PRN Reason: per Hypoglycemia Standing Ord. Enoxaparin Sodium (Enoxaparin Sodium 30 Mg/0.3 Ml Syringe) 30 mg SUBCUT Q24H [facility] Last Admin: 09/05/22 00:41 Dose: 30 mg Documented By: MAYRA Glucose (Glucose Gel 15 Gm Gel..Gram.) 15 gm PO Q15M PRN; Protocol PRN Reason: per Hypoglycemia Standing Ord. Piperacillin Sod/Tazobactam (Sod 2.25 gm/ Sodium Chloride) 50 mls @ 100 mls/hr IV Q6H [facility] Last Infusion: 09/05/22 08:19 Dose: 0 mls/hr Documented By: KENRICK Dextrose (D5w) 1,000 mls @ 100 mls/hr IVCONT .Q10H [facility] Last Admin: 09/05/22 07:42 Dose: 100 mls/hr Documented By: KENRICK Doxycycline Hyclate 100 mg/ (Sodium Chloride) 250 mls @ 166.67 mls/hr IV Q12H [facility] Last Infusion: 09/05/22 00:15 Dose: 0 mls/hr Documented By: MAYRA Potassium Chloride (Potassium Chloride/H20) 10 meq in 100 mls @ 100 mls/hr IV Q1H [facility] Stop: 09/05/22 09:14 Last Infusion: 09/05/22 08:19 Dose: 100 mls/hr Documented By: KENRICK Insulin Glargine (Insulin Glargine,Hum.Rec.Anlog 100 Unit/Ml 10 Ml Vial) 10 unit SUBCUT BEDTIME [facility] Last Admin: 09/04/22 22:03 Dose: 10 unit Documented By: MAYRA Insulin Human Lispro (Insulin Lispro 100 Unit/Ml 3 Ml Vial) 0 unit SUBCUT Q4H [facility]; Protocol Last Admin: 09/05/22 07:30 Dose: Not Given Documented By: KENRICK Non-Admin Reason: No Insulin Coverage Insulin Human Lispro (Insulin Lispro 100 Unit/Ml 3 Ml Vial) 5 unit SUBCUT QIDACHS [facility] Last Admin: 09/05/22 07:30 Dose: Not Given Documented By: KENRICK Non-Admin Reason: No Insulin Coverage Melatonin (Melatonin 3 Mg Tablet) 6 mg PO BEDTIME PRN PRN Reason: Insomnia Morphine Sulfate (Morphine Sulfate 2 Mg/Ml Cartridge) 1 mg IVPUSH Q6H PRN; Protocol PRN Reason: tachypnea Ondansetron HCl (Ondansetron Hcl 4 Mg/2 Ml Vial) 4 mg IVPUSH Q8H PRN PRN Reason: Nausea and Vomiting Pharmacy Consult (Consult Rx Perform Med Rec) 1 each MISCELLANE ONCE PRN PRN Reason: Consult order Sodium Chloride (0.9 % Sodium Chloride Flush 3 Ml Syringe) 3 ml IVFLUSH QSHIFT [facility] Last Admin: 09/05/22 07:30 Dose: Not Given Documented By: KENRICK Non-Admin Reason: IV Running Labs 09/03/22 06:36 09/05/22 05:33 Labs: Laboratory Results - last 24 hr 09/04/22 09/04/22 09/04/22 11:07 12:12 16:54 Anion Gap 16 Estim Creat Clear Calc 33.7 Estimated GFR 51 POC Glucose 157 H 226 H Random Glucose 197 H Calcium 8.3 L 09/04/22 09/05/22 09/05/22 20:34 00:37 04:55 Anion Gap Estim Creat Clear Calc Estimated GFR POC Glucose 189 H 103 92 Random Glucose Calcium 09/05/22 09/05/22 05:33 07:20 Anion Gap 16 Estim Creat Clear Calc 43.2 Estimated GFR > 60 POC Glucose 98 Random Glucose 84 Calcium 8.2 L Microbiology Microbiology Results: Microbiology 09/02/22 Unknown Urine Culture - Preliminary Urine clean catch - Urine romeo top Escherichia coli 09/02/22 20:01 Blood Culture - Preliminary Blood - Venous No growth after 48 hours. 09/02/22 20:41 Blood Culture - Final Blood - Venous Coag negative Staphylococcus Assessment and Plan (1) Sepsis: Status: Acute Plan This is 72-year-old female with pertinent history of CVA with hemiparesis, PAD status post AKA, dementia, hlb-tdliyfl-zuvvchaur diabetes mellitus, mood disorder who was sent to the emergency department from [facility] for evaluation of lethargy. GPC bacteremia coag neg staph Acute metabolic encephalopathy.? hx of dementia and nonverbal Multifactorial due to UTI, likely aspiration pna and hypernatremia speech therapy to evaluate for diet Sepsis due to ecoli UTI and aspiration pna .? Resuscitated with IV crystalloids.? continue empiric IV antibiotics Acute hypoxemic resp failure secondary to aspiration pna CXR showing RLL infiltrate started zosyn High flow with sat 99%, will wean down to oxymask Hypernatremia due to free water deficit.? hypotonic fluids.? Monitor sodium and mentation with sodium correction Hypokalemia.? still low IV potassium added recheck this afternoon Acute kidney injury stage II. Resolved ? Monitor creatinine and urine output with fluid resuscitation.? Avoid nephrotoxins Acute lactic acidosis.? Due to sepsis and metformin use Non insulin-dependent diabetes mellitus with severe hyperglycemia.? HHS Initially placed on insulin drip in the ER.? now on ss and mealtime insulin ? Elevated troponin likely type 2 in the setting of increased demand CVA with hemiparesis.? Not on antiplatelet agent or high-intensity statin Mood disorder.? Resume mood stabilizers once mentation improves DVT prophylaxis:? Apolinar Attending Dr. Alicea DNR/DNI continued hospital stay for IV antibiotics Time Spent With Patient Time: Total time managing care of this patient today ____ minutes. Quality Stroke Does the patient have a stroke diagnosis?: No VTE Prior VTE?: No VTE Risk Level:: Medical - moderate - high VTE Device Contraindication: Treatment Not Indicated VTE Drug Contraindication: N/A - Med Ordered
--- NOTE | 2022-09-05 10:50 | P.CDIM_ITS ---
PROVIDER RESPONSE TEXT: To clarify, the appropriate diagnosis supported by the clinical indicators: Elevated troponins due to (please be specific) QUERY TEXT: PHYSICIAN'S DOCUMENTATION REQUEST Date of Query: 09/05/2022 10:41 AM EDT Patient Name: FROILAN FERNANDEZ Admit Date: 09/03/2022 Dear Jaja Sarmiento, A review of the medical record indicates additional documentation may be needed. Please review below and update the documentation accordingly. Clinical Indicators: LABS: Troponin 144.5 H 93.5 H elevated troponin likely Type 2 in the setting of increased demand Based on the above, could you clarify the appropriate diagnosis, if significant, that supports the ab ove abnormalities and additional evaluation, monitoring, and/or treatment rendered: Myocardial infarction Type 2 Elevated troponins due to (please be specific) Other Other (explain)Clinically unable to determine (explain)Thank you, Mona Ulloa, CCS, CDIS Use of terms such as suspected, likely, concern for, or probable (associated with a specific diagnosi s that is being evaluated, monitored, or treated as if it exists) are acceptable and can be coded in the inpatient se tting, when documented at the time of discharge. Please use your independent medical judgment in providing your response. THIS QUERY IS PART OF THE PERMANENT MEDICAL RECORD
--- NOTE | 2022-09-05 11:21 | MHC.SLORD ---
Speech Language Pathology Order Status: Per RN, Pt with eyes open this morning - still not interacting much. ELECTRIC CUTTER OPERATOR attempted to prepare Pt for PO with moistened swab presented to lips with no reaction from the Pt. Pt remains unsafe for PO given limited sensory response. ELECTRIC CUTTER OPERATOR will re-attempt tomorrow, as appropriate.
[2022-09-05 13:47] LABS: Anion Gap 15 (12-20); Blood Urea Nitrogen 28 mg/dL (9-16); Calcium 7.8 mg/dL (8.4-10.2); Carbon Dioxide 18 mmol/L (22-29); Chloride 114 mmol/L (96-108); Creatinine Clr Calc Pharmacy 47.9; Estimated Glomerular Filt Rate > 60; Glucose Random 109 mg/dL (60-115); Potassium 2.6 mmol/L (3.3-5.1); Sodium 144 mmol/L (135-145)
[2022-09-05 14:11] LABS: Glucose, Whole Blood 131 mg/dL (60-115)
[2022-09-05 15:26] VITALS: BP 120/52; PULSE 89; RESP 18; TEMP 36.6; O2SAT 94
[2022-09-05 17:01] LABS: Glucose, Whole Blood 148 mg/dL (60-115)
[2022-09-05 19:35] VITALS: BP 126/47; PULSE 92; TEMP 36.1; O2SAT 94
[2022-09-05 20:45] LABS: Glucose, Whole Blood 190 mg/dL (60-115)
[2022-09-05] MEDS: Insulin Lispro 100 UNIT/ML 3 ML VIAL SUBCUT (21:08)
[2022-09-05] MEDS: Insulin Glargine,Hum.rec.anlog 100 UNIT/ML 10 ML VIAL 10 UNIT SUBCUT (21:09)
[2022-09-06] MEDS: Enoxaparin Sodium 30 MG/0.3 ML SYRINGE SUBCUT (01:24)
[2022-09-06] MEDS: Piperacillin Sodium/Tazobactam 2.25 GM in 0.9 % Sodium Chloride 50 ML IV ×4 (01:24→20:11)
[2022-09-06 04:00] VITALS: BP 117/58; PULSE 90; RESP 20; TEMP 36.3; O2SAT 95
[2022-09-06 07:04] LABS: Glucose, Whole Blood 144 mg/dL (60-115)
[2022-09-06 07:04] LABS: Glucose, Whole Blood 133 mg/dL (60-115)
[2022-09-06 07:14] LABS: Glucose, Whole Blood 155 mg/dL (60-115)
[2022-09-06 07:31] VITALS: BP 116/47; PULSE 87; RESP 20; TEMP 36.4; O2SAT 100
[2022-09-06 07:40] LABS: Anion Gap 15 (12-20); Blood Urea Nitrogen 17 mg/dL (9-16); Calcium 8.4 mg/dL (8.4-10.2); Carbon Dioxide 19 mmol/L (22-29); Chloride 111 mmol/L (96-108); Creatinine Clr Calc Pharmacy 47.9; Estimated Glomerular Filt Rate > 60; Glucose Random 158 mg/dL (60-115); Magnesium 1.3 mg/dL (1.6-2.6); Potassium 2.2 mmol/L (3.3-5.1); Sodium 143 mmol/L (135-145)
--- NOTE | 2022-09-06 07:50 | HO.PM.IMPN ---
Subjective Subjective Date of Service: 09/06/22 Review of Systems Follow up Acute respiratory failure hx of dementia, SNF resident patient unable to give any accurate information doing much better garbling words now more awake Physical Exam Vital Signs: Vital Signs: Last Vital Signs Temp 97.6 F 09/06/22 07:31 Pulse 87 09/06/22 07:31 Resp 20 09/06/22 07:31 BP 116/47 L 09/06/22 07:31 Pulse Ox 100 09/06/22 07:31 O2 Del Method Oxymask 09/06/22 07:31 O2 Flow Rate 5 09/06/22 07:31 FiO2 50 09/04/22 07:51 Oxygen Flow Rate 2 09/02/22 19:26 BMI result Body Mass Index 20.4 Appearing in no acute distress, nonverbal lung sounds are clear to auscultation heart regular rate rhythm, clear S1, S2 positive bowel sounds, abdomen is soft, nontender neuro patient is alert x3, no focal deficits contractures to upper extremities Objective Data Active Medications Acetaminophen (Acetaminophen Supp 650 Mg Supp.Rect) 650 mg [place] Q6H PRN PRN Reason: Pain, Mild (Pain Scale 1-3) Dextrose (Dextrose 50 % 25 Gm/50 Ml Syringe) 25 gm IVPUSH Q15M PRN; Protocol PRN Reason: per Hypoglycemia Standing Ord. Enoxaparin Sodium (Enoxaparin Sodium 30 Mg/0.3 Ml Syringe) 30 mg SUBCUT Q24H [facility] Last Admin: 09/06/22 01:24 Dose: 30 mg Documented By: DARRELL Glucose (Glucose Gel 15 Gm Gel..Gram.) 15 gm PO Q15M PRN; Protocol PRN Reason: per Hypoglycemia Standing Ord. Piperacillin Sod/Tazobactam (Sod 2.25 gm/ Sodium Chloride) 50 mls @ 100 mls/hr IV Q6H [facility] Last Infusion: 09/06/22 03:12 Dose: 0 mls/hr Documented By: DARRELL Dextrose (D5w) 1,000 mls @ 100 mls/hr IVCONT .Q10H [facility] Last Admin: 09/06/22 04:23 Dose: 100 mls/hr Documented By: DARRELL Doxycycline Hyclate 100 mg/ (Sodium Chloride) 250 mls @ 166.67 mls/hr IV Q12H [facility] Last Infusion: 09/06/22 00:08 Dose: 0 mls/hr Documented By: DARRELL Potassium Chloride (Potassium Chloride/H20) 10 meq in 100 mls @ 100 mls/hr IV Q1H [facility] Stop: 09/06/22 09:44 Magnesium Sulfate (Magnesium Sulfate/H2o) 2 gm in 50 mls @ 25 mls/hr IV ONCE ONE Stop: 09/06/22 09:45 Magnesium Sulfate/Dextrose (Magnesium Sulfate/D5w) 1 gm in 100 mls @ 100 mls/hr IV ONCE ONE Stop: 09/06/22 08:45 Insulin Glargine (Insulin Glargine,Hum.Rec.Anlog 100 Unit/Ml 10 Ml Vial) 10 unit SUBCUT BEDTIME [facility] Last Admin: 09/05/22 21:09 Dose: 10 unit Documented By: DARRELL Insulin Human Lispro (Insulin Lispro 100 Unit/Ml 3 Ml Vial) 0 unit SUBCUT Q4H [facility]; Protocol Last Admin: 09/06/22 03:31 Dose: Not Given Documented By: DARRELL Non-Admin Reason: NPO & no tube feeds going Insulin Human Lispro (Insulin Lispro 100 Unit/Ml 3 Ml Vial) 5 unit SUBCUT QIDACHS [facility] Last Admin: 09/05/22 20:54 Dose: Not Given Documented By: DARRELL Non-Admin Reason: No tube feeds started yet Melatonin (Melatonin 3 Mg Tablet) 6 mg PO BEDTIME PRN PRN Reason: Insomnia Morphine Sulfate (Morphine Sulfate 2 Mg/Ml Cartridge) 1 mg IVPUSH Q6H PRN; Protocol PRN Reason: tachypnea Ondansetron HCl (Ondansetron Hcl 4 Mg/2 Ml Vial) 4 mg IVPUSH Q8H PRN PRN Reason: Nausea and Vomiting Pharmacy Consult (Consult Rx Perform Med Rec) 1 each MISCELLANE ONCE PRN PRN Reason: Consult order Sodium Chloride (0.9 % Sodium Chloride Flush 3 Ml Syringe) 3 ml IVFLUSH QSHIFT [facility] Last Admin: 09/06/22 00:16 Dose: Not Given Documented By: DARRELL Non-Admin Reason: IV Running Labs 09/03/22 06:36 09/06/22 06:42 Labs: Laboratory Results - last 24 hr 09/05/22 09/05/22 09/05/22 13:07 14:07 16:53 Anion Gap 15 Estim Creat Clear Calc 47.9 Estimated GFR > 60 POC Glucose 131 H 148 H Random Glucose 109 Calcium 7.8 L Magnesium 09/05/22 09/06/22 09/06/22 20:28 00:45 05:41 Anion Gap Estim Creat Clear Calc Estimated GFR POC Glucose 190 H 133 H 144 H Random Glucose Calcium Magnesium 09/06/22 09/06/22 09/06/22 06:42 06:42 07:10 Anion Gap 15 Estim Creat Clear Calc 47.9 Estimated GFR > 60 POC Glucose 155 H Random Glucose 158 H Calcium 8.4 D Magnesium 1.3 L* Cancelled Microbiology Microbiology Results: Microbiology 09/02/22 Unknown Urine Culture - Preliminary Urine clean catch - Urine romeo top Escherichia coli Assessment and Plan (1) Sepsis: Status: Acute Plan This is 72-year-old female with pertinent history of CVA with hemiparesis, PAD status post AKA, dementia, cpc-jgxmqll-dmwfsjbtv diabetes mellitus, mood disorder who was sent to the emergency department from long term for evaluation of lethargy. GPC bacteremia coag neg staph Acute metabolic encephalopathy. resolved seems to be at baseline ? hx of dementia and nonverbal Multifactorial due to UTI, likely aspiration pna and hypernatremia nutrition consult for tube feeds Tube feed diet Glucerna Sepsis due to ecoli UTI and aspiration pna .? sepsis resolved Resuscitated with IV crystalloids.? continue empiric IV antibiotics Acute hypoxemic resp failure secondary to aspiration pna. Resolved CXR showing RLL infiltrate started zosyn 09/03/22 s/p High flow oxygen, on RA now Hypernatremia due to free water deficit.?Resolved s/p hypotonic fluids.? Monitor sodium and mentation with sodium correction Hypokalemia.? still low IV potassium added recheck this afternoon Acute kidney injury stage II. Resolved ? Monitor creatinine and urine output with fluid resuscitation.? Avoid nephrotoxins Acute lactic acidosis.? Due to sepsis and metformin use Non insulin-dependent diabetes mellitus with severe hyperglycemia.? HHS Initially placed on insulin drip in the ER.? now on ss and mealtime insulin ? Elevated troponin likely type 2 in the setting of increased demand CVA with hemiparesis.? Not on antiplatelet agent or high-intensity statin Mood disorder.? Resume mood stabilizers once mentation improves DVT prophylaxis:? Lovenox Attending Dr. Alicea DNR/DNI DISPO plan to return back to LTC when medically cleared continued hospital stay for IV antibiotics Time Spent With Patient Time: Total time managing care of this patient today ____ minutes. Quality Stroke Does the patient have a stroke diagnosis?: No VTE Prior VTE?: No VTE Risk Level:: Medical - moderate - high VTE Device Contraindication: Treatment Not Indicated VTE Drug Contraindication: N/A - Med Ordered
[2022-09-06] MEDS: Potassium Chloride/H20 10 MEQ/100 ML PIGGYBACK 100 MEQ IV ×2 (10:40→11:48)
[2022-09-06 11:07] LABS: Glucose, Whole Blood 198 mg/dL (60-115)
[2022-09-06] MEDS: Magnesium Sulfate/D5W 1 GM/100 ML PIGGYBACK IV (11:19)
[2022-09-06] MEDS: Insulin Lispro 100 UNIT/ML 3 ML VIAL SUBCUT ×5 (11:53→22:22)
[2022-09-06] MEDS: Magnesium Sulfate/H2O 2 GM/50 ML PIGGYBACK IV (12:34)
--- NOTE | 2022-09-06 13:12 | MHC.CLN ---
RE: CONSULT PT WITH INCREASED NUTRITION RISK R/T PRESSURE INJURY PT IS CURRENTLY NPO AND DOES HAVE PEG IN PLACE PT MAY REQUIRE INVESTIGATIONS CHIEF EVAL FOR DIET CONSISTENCY; NOTED PT OCCASIONALLY TAKES PO AT SNF OF UNKNOWN CONSISTENCY IF TF NEEDED; RECOMMEND GLUCERNA AT MAX GOAL RATE 60ML/HR WITH 30ML PROSOURCE Q DAY AND 120ML FREE WATER FLUSHES Q 8 HRS TO PROVIDE 1500 TOTAL KCALS (30KCALS/KG), 75G PROTEIN (1.5G/KG), 1588ML TOTAL WATER FROM FORMULA AND FLUSHES (34ML/KG) MONITOR TOLERANCE, RESIDUALS AND LYTES START TF AT 20ML/HR AND INCREASE BY 10ML Q 4 HRS UNTIL MAX GOAL IS ACHIEVED SEE ALSO FULL CLINICAL NUTRITION ASSESSMENT
--- NOTE | 2022-09-06 13:31 | P.DS_ITS ---
DS: Providers Provider Date of admission: 09/03/22 00:32 Primary care physician: Dionicio Serna MD DS: Diagnosis Discharge Diagnosis (1) Sepsis: Status: Acute DS: Summary Hospital Course Hospital Course: HP as per admitting provider. This is 72-year-old female with pertinent history of CVA with hemiparesis, PAD status post AKA, dementia, [id number] diabetes mellitus, mood disorder who was sent to the emergency department from custodial for evaluation of lethargy.? Unable to obtain history from the patient.? History obtained from ER provider and chart review.? Patient was found altered in the ER and barely responding to painful stimulus.? She was found to be septic and urine was concerning for acute UTI.? Multiple lab abnormalities in the ER including hypernatremia, hypokalemia and hyperglycemia.? Lactic acidosis was present on admission.? Patient was initially offered to ICU for admission.? Patient's labs improved after IV crystalloid resuscitation and insulin drip and it was felt that patient no longer needed ICU as per ICU provider.? Unable to obtain review of systems 72-year-old woman treated for acute metabolic encephalopathy secondary to UTI, aspiration pneumonia, hyper glycemia and hypernatremia. Initially was thought that the patient was in DKA with blood sugars greater than 600 however ICU provider thought more HHS and this did resolve while the patient was in the ED after initiation of insulin. Patient was also noted to have an elevated troponi n likely secondary to demand ischemia from infection. No ischemic changes noted on EKG. Patient was treated with IV Zosyn for E coli UTI and aspiration pneumonia. Patient initially was on non-rebreather breather mask but remain hypoxic, switched to high-flow oxygen which she did respond quite well to after 24 hours. She was weaned back down to the high-flow mask and subsequently to room air with oxygen saturations greater than 94%. in terms of the encephalopathy, the patient has a history of CVA with hemiparesis and she is nonverbal but according to the family she is awake and can mumble things. When she initially presented she was somnolent and none responsive mostly. At this time patient has her eyes open, mumbles and moves her head. She seems to be more at baseline. Blood cultures were coag-negative staph. She was also pretty hypovolemic and dehydrated. Sodium was up to 158, treated with D5W with complete normalization of sodium. Her potassium and magnesium also remained b elow during most of her hospitalization requiring IV potassium and magnesium replacement. DEANGELO Likely secondary to hypovolemia and UTI, resolved with IV fluids and treatment of infection. Tube feed diet. Continue as per [facility] CVA with hemiparesis.?. Not on antiplatelet agent or high-intensity statin Mood disorder.?Resume mood stabilizers Time Spent with Patient Time attestation: Total time managing care of this patient today ____ minutes. Physical Exam Vital Signs: Vital Signs: Last Vital Signs Temp 97.6 F 09/06/22 07:31 Pulse 87 09/06/22 07:31 Resp 20 09/06/22 07:31 BP 116/47 L 09/06/22 07:31 Pulse Ox 100 09/06/22 07:31 O2 Del Method Oxymask 09/06/22 07:31 O2 Flow Rate 5 09/06/22 07:31 FiO2 50 09/04/22 07:51 Oxygen Flow Rate 2 09/02/22 19:26 BMI result Body Mass Index 20.4 DS: Data Data Completed and Pending Completed studies during hospitalization [Text1]: Procedures Drainage of Sigmoid Colon, Via Natural or Artificial Opening Endoscopic (11/29/21) Labs on day of discharge: Laboratory Results - last 24 hr 09/05/22 09/05/22 09/05/22 13:07 14:07 16:53 Sodium 144 Potassium 2.6 L Chloride 114 H Carbon Dioxide 18 L Anion Gap 15 BUN 28 H Creatinine 0.74 Estim Creat Clear Calc 47.9 Estimated GFR > 60 POC Glucose 131 H 148 H Random Glucose 109 Calcium 7.8 L Magnesium 09/05/22 09/06/22 09/06/22 20:28 00:45 05:41 Sodium Potassium Chloride Carbon Dioxide Anion Gap BUN Creatinine Estim Creat Clear Calc Estimated GFR POC Glucose 190 H 133 H 144 H Random Glucose Calcium Magnesium 09/06/22 09/06/22 09/06/22 06:42 06:42 07:10 Sodium 143 Potassium 2.2 L* Chloride 111 H Carbon Dioxide 19 L Anion Gap 15 BUN 17 H Creatinine 0.74 Estim Creat Clear Calc 47.9 Estimated GFR > 60 POC Glucose 155 H Random Glucose 158 H Calcium 8.4 D Magnesium 1.3 L* Cancelled 09/06/22 11:00 Sodium Potassium Chloride Carbon Dioxide Anion Gap BUN Creatinine Estim Creat Clear Calc Estimated GFR POC Glucose 198 H Random Glucose Calcium Magnesium Preliminary micro results at discharge 09/02/22 20:01 Blood Culture - Preliminary Blood - Venous No growth after 48 hours. Discharge Plan Discharge Referrals: Dionicio Serna MD [Primary Care Provider] - 1 Week Discharge Medications: No Action glycopyrrolate 1 mg Tablet 1 mg PO BID acetaminophen 325 mg Tablet 650 mg PO Q4H PRN (Reason: Pain) sertraline 100 mg Tablet 100 mg feeding tube DAILY mirtazapine 30 mg Tablet 30 mg PO DAILY simethicone 80 mg Tablet,Chewable 160 mg PO BID lactulose 20 gram/30 mL solution 30 ml G-tube BID benzocaine 10 % Gel 1 appl mucous membrane Q6H PRN (Reason: Toothache) Rx Instructions: apply to dental affected area bisacodyl 10 mg Suppository 10 mg [place] DAILY PRN (Reason: Constipation) lidocaine HCl [Lidocaine Viscous] 2 % Solution 30 ml PO Q6H PRN (Reason: Pain) triamcinolone acetonide 0.1 % Cream 1 appl TOPICAL BID Rx Instructions: APPLY TO RIGHT UPPER ARM FOR ITCH. USE SPARINGLY, RUB IN WELL fluoride (sodium) [PreviDent] 1.1 % Gel 1 appl DENTAL BID Rx Instructions: FOR DENTAL CARIES sennosides [senna] 8.6 mg tablet 17.2 mg PO DAILY PRN (Reason: Constipation) divalproex [Depakote Sprinkles] 125 mg Capsule, Delayed Rel Sprinkle 375 mg DAILY@1200 Rx Instructions: g-tube divalproex [Depakote Sprinkles] 125 mg Capsule, Delayed Rel Sprinkle 500 mg BEDTIME Rx Instructions: g-tube potassium chloride 20 mEq/15 mL Liquid 20 meq feeding tube DAILY famotidine 20 mg Tablet 20 mg DAILY Rx Instructions: g-tube magnesium oxide 400 mg magnesium tablet 400 mg feeding tube QID insulin lispro 100 unit/mL Solution 1 sliding scale dose SUBCUT TID Protocol: Insulin Correction Scale Less than or equal to 110 ---- Give (units): 0 111 to 150 Give (units): 0 151 to 200 Give (units): 0 201 to 250 Give (units): 2 251 to 300 Give (units): 4 301 to 350 Give (units): 6 Greater than 350 Give (units): 8 Call MD if Blood Glucose > : 350
--- NOTE | 2022-09-06 14:18 | MHC.SLORD ---
Speech Language Pathology Order Status: Per check-in w/ RN, pt not appropriate for PO trials on this date. Pt re-starting tube feeds today. Per [facility], pt has a baseline mechanical soft diet w/ some additional modifications (see paper chart notes), nectar thick liquids, and meds via G-tube. SNF RN reports pt requires supervision during meals, assistance w/ tray setup, and cueing for small bites. Per RN, pt has been declining PO and tube feeds for past couple of weeks. Per [facility] notes in 2021, pt was receiving 50% PO and 50% tube feeds. SNF RN unable to confirm/deny this detail during conversation.
--- NOTE | 2022-09-06 14:19 | MHC.CM.PN ---
EMR REVIEWED, PER HOSPITALIST PT IMPROVING, TUBE FEEDS RESTARTED, POTASSIUM 2.2 AND PT RECEIVED IV REPLACEMENT W/PLAN FOR RECHECK, CM WILL CONT TO FOLLOW D/C NEEDS.
[2022-09-06 15:36] LABS: Magnesium 2.1 mg/dL (1.6-2.6); Potassium 2.2 mmol/L (3.3-5.1)
[2022-09-06 15:37] VITALS: BP 164/59; PULSE 94; RESP 18; TEMP 36.2
[2022-09-06 16:30] LABS: Glucose, Whole Blood 228 mg/dL (60-115)
[2022-09-06] MEDS: Potassium Chloride Packet 20 MEQ PACKET 40 MEQ G-TUBE (17:09)
[2022-09-06 19:56] VITALS: BP 116/46; PULSE 97; RESP 17; TEMP 37.1; O2SAT 95
[2022-09-06 21:12] LABS: Glucose, Whole Blood 271 mg/dL (60-115)
[2022-09-06] MEDS: Insulin Glargine,Hum.rec.anlog 100 UNIT/ML 10 ML VIAL 10 UNIT SUBCUT (22:21)
[2022-09-06] MEDS: Magnesium Oxide 400 MG TABLET G-TUBE (22:22)
[2022-09-06] MEDS: Divalproex Sodium Sprinkles 125 MG CAP.DR.SPR 500 MG G-TUBE (22:22)
[2022-09-06] MEDS: Lactulose 20 GM/30 ML SOLUTION G-TUBE (22:23)
[2022-09-07 00:59] LABS: Glucose, Whole Blood 215 mg/dL (60-115)
[2022-09-07] MEDS: Enoxaparin Sodium 30 MG/0.3 ML SYRINGE SUBCUT (01:08)
[2022-09-07] MEDS: Insulin Lispro 100 UNIT/ML 3 ML VIAL SUBCUT ×8 (01:08→21:43)
[2022-09-07] MEDS: Piperacillin Sodium/Tazobactam 2.25 GM in 0.9 % Sodium Chloride 50 ML IV ×4 (01:08→20:08)
[2022-09-07 03:33] VITALS: BP 123/58; PULSE 106; RESP 17; TEMP 38.2; O2SAT 96
[2022-09-07] MEDS: Acetaminophen 325 MG TABLET 650 MG PO (04:07)
[2022-09-07 04:51] LABS: Glucose, Whole Blood 199 mg/dL (60-115)
[2022-09-07 04:59] LABS: Magnesium 1.8 mg/dL (1.6-2.6)
[2022-09-07 05:07] LABS: Anion Gap 13 (12-20); Blood Urea Nitrogen 10 mg/dL (9-16); Calcium 8.6 mg/dL (8.4-10.2); Carbon Dioxide 19 mmol/L (22-29); Chloride 110 mmol/L (96-108); Creatinine Clr Calc Pharmacy 47.3; Estimated Glomerular Filt Rate > 60; Glucose Random 213 mg/dL (60-115); Sodium 139 mmol/L (135-145)
[2022-09-07 05:11] LABS: Lactic Acid 3.2 mmol/L (0.5-2.0)
--- NOTE | 2022-09-07 05:21 | PM.EVENT ---
Event Note Date of Service: 09/07/22 Event Note: Patient noted to be febrile. Lactic acid of 2 and 2. Will start patient on a who was. Patient already On antibiotics Time Spent With Patient Time: Total time managing care of this patient today ____ minutes.
--- NOTE | 2022-09-07 05:23 | PC.NURSE ---
pt had fever of 100.7, lazaro SINGH to notify and gave tylenol via PEG. Lazaro SINGH to notify of critical lactate of 3.2, MD aware.
[2022-09-07 06:43] LABS: Reflex Lactate? Lactic Acid Added
[2022-09-07 07:18] LABS: Glucose, Whole Blood 216 mg/dL (60-115)
[2022-09-07 07:37] VITALS: BP 104/59; PULSE 91; RESP 20; TEMP 36.1; O2SAT 99
[2022-09-07] MEDS: Sertraline HCL 100 MG TABLET G-TUBE (08:03)
[2022-09-07] MEDS: Potassium Chloride Packet 20 MEQ PACKET G-TUBE ×3 (08:03→08:20)
[2022-09-07] MEDS: Lactulose 20 GM/30 ML SOLUTION G-TUBE ×2 (08:03→21:41)
[2022-09-07] MEDS: Magnesium Oxide 400 MG TABLET G-TUBE ×4 (08:03→21:43)
[2022-09-07] MEDS: Famotidine 20 MG TABLET G-TUBE (08:04)
[2022-09-07 09:58] LABS: MANUAL DIFF FLAG NO
[2022-09-07 10:07] LABS: Basophils Percent Auto 0.4 % (0-2); Eosinophils Absolute Auto 0.2 X10*3/uL (0.0-0.4); Eosinophils Percent Auto 3.4 % (0-4); Hematocrit 27.4 % (37.0-47.0); Hemoglobin 9.1 g/dl (12.0-16.0); Imm Gran Abs Auto 0.04 X10*3/uL (0.00-0.03); Imm Gran Pct Auto 0.7 % (0.0-0.4); Lymphocytes Absolute Auto 1.1 X10*3/uL (1.2-4.9); Lymphocytes Percent Auto 19.6 % (20-40); Mean Corpuscular HGB Conc 33.2 g/dl (31.0-35.0); Mean Corpuscular Hemoglobin 26.6 pg (27.0-33.0); Mean Corpuscular Volume 80.1 fL (80.0-98.0); Mean Platelet Volume 11.7 fL (9.4-12.3); Monocytes Absolute Auto 0.3 X10*3/uL (0.1-1.2); Monocytes Percent Auto 6.2 % (2-11); Neutrophils Absolute Auto 3.7 x10*3/uL (2.0-8.3); Neutrophils Percent Auto 69.7 % (45-73); Platelet Count 140 X10*3/uL (160-400); Red Blood Count 3.42 X10*6/uL (4.20-5.50); Red Cell Distribution Width 15.7 % (11.0-16.0); White Blood Count 5.4 X10*3/uL (4.8-10.8)
[2022-09-07 10:17] LABS: Reflex Lactate? 2 Y
--- NOTE | 2022-09-07 10:36 | MHC.SLORD ---
Speech Language Pathology Order Status: Attempted to see patient for clinical swallow this a.m. Patient minimally accepted oral care, then actively refused all attempts at po. Unable to assess at this time for oral diet. OIL DRILLER will continue to follow.
[2022-09-07] MEDS: Magnesium Sulfate/H2O 2 GM/50 ML PIGGYBACK IV (10:47)
[2022-09-07 11:03] LABS: Glucose, Whole Blood 223 mg/dL (60-115)
[2022-09-07 11:28] LABS: ~Lactic Acid-LAB USE ONLY 3.1 mmol/L (0.5-2.0)
[2022-09-07] MEDS: Divalproex Sodium Sprinkles 125 MG CAP.DR.SPR 375 MG G-TUBE (11:36)
[2022-09-07 11:43] LABS: Cancel Lactic Acid Canceled
--- NOTE | 2022-09-07 14:02 | P.PNIM_ITS ---
Subjective Subjective Date of Service: 09/07/22 Interval History: seen and examined this morning Follow-up for electrolyte abnormalities, UTI, aspiration pneumonia Had fever 100.7 overnight No fever recurrence at this time minimally verbal at baseline and garbled speech at baseline. some family is able to understand/communicate. unable to obtain full review of systems Physical Exam Vital Signs: Vital Signs: Last Vital Signs Temp 97.0 F 09/07/22 07:37 Pulse 91 09/07/22 07:37 Resp 20 09/07/22 07:37 BP 104/59 L 09/07/22 07:37 Pulse Ox 99 09/07/22 07:37 O2 Del Method Room Air 09/07/22 07:37 O2 Flow Rate 5 09/06/22 07:31 FiO2 50 09/04/22 07:51 Oxygen Flow Rate 2 09/02/22 19:26 BMI result Body Mass Index 20.4 Const: Other: lying in bed, appears comfortable unable to assess orientation General: alert and awake Nutritional Appearance: thin Resp: Effort & Inspection: normal respiratory effort, able to speak in complete sentences, no respiratory distress and no use of accessory muscles Auscultation: clear to auscultation bilaterally Cardio: Rate: regular rate Heart sounds: S1 normal heart sound present and S2 normal heart sound present GI: Other: feeding tube present - no surrounding erythema Inspection: No distended Palpation (GI): Soft to palpation and nontender Objective Data Active Medications Acetaminophen (Acetaminophen Supp 650 Mg Supp.Rect) 650 mg MD Q6H PRN PRN Reason: Pain, Mild (Pain Scale 1-3) Acetaminophen (Acetaminophen 325 Mg Tablet) 650 mg PO Q6H PRN PRN Reason: fever Last Admin: 09/07/22 04:07 Dose: 650 mg Documented By: DARRELL Bisacodyl (Bisacodyl 10 Mg Supp.Rect) 10 mg MD DAILY PRN PRN Reason: Constipation Dextrose (Dextrose 50 % 25 Gm/50 Ml Syringe) 25 gm IVPUSH Q15M PRN; Protocol PRN Reason: per Hypoglycemia Standing Ord. Divalproex Sodium (Divalproex Sodium Sprinkles 125 Mg ) 375 mg G-TUBE DAILY@1200 INGE Last Admin: 09/07/22 11:36 Dose: 375 mg Documented By: MARA Divalproex Sodium (Divalproex Sodium Sprinkles 125 Mg ) 500 mg G-TUBE BEDTIME [facility] Last Admin: 09/06/22 22:22 Dose: 500 mg Documented By: DARRELL Enoxaparin Sodium (Enoxaparin Sodium 30 Mg/0.3 Ml Syringe) 30 mg SUBCUT Q24H [facility] Last Admin: 09/07/22 01:08 Dose: 30 mg Documented By: DARRELL Famotidine (Famotidine 20 Mg Tablet) 20 mg G-TUBE DAILY [facility] Last Admin: 09/07/22 08:04 Dose: 20 mg Documented By: MARA Glucose (Glucose Gel 15 Gm Gel..Gram.) 15 gm PO Q15M PRN; Protocol PRN Reason: per Hypoglycemia Standing Ord. Piperacillin Sod/Tazobactam (Sod 2.25 gm/ Sodium Chloride) 50 mls @ 100 mls/hr IV Q6H [facility] Last Infusion: 09/07/22 09:07 Dose: 0 mls/hr Documented By: MARA Insulin Glargine (Insulin Glargine,Hum.Rec.Anlog 100 Unit/Ml 10 Ml Vial) 10 unit SUBCUT BEDTIME [facility] Last Admin: 09/06/22 22:21 Dose: 10 unit Documented By: DARRELL Insulin Human Lispro (Insulin Lispro 100 Unit/Ml 3 Ml Vial) 0 unit SUBCUT Q4H [facility]; Protocol Last Admin: 09/07/22 11:36 Dose: 4 unit Documented By: MARA Insulin Human Lispro (Insulin Lispro 100 Unit/Ml 3 Ml Vial) 5 unit SUBCUT QIDACHS [facility] Last Admin: 09/07/22 11:36 Dose: 5 unit Documented By: MARA Lactulose (Lactulose 20 Gm/30 Ml Solution) 20 gm G-TUBE BID [facility] Last Admin: 09/07/22 08:03 Dose: 20 gm Documented By: MARA Magnesium Oxide (Magnesium Oxide 400 Mg Tablet) 400 mg G-TUBE QID [facility] Last Admin: 09/07/22 11:36 Dose: 400 mg Documented By: MARA Melatonin (Melatonin 3 Mg Tablet) 6 mg PO BEDTIME PRN PRN Reason: Insomnia Mirtazapine (Mirtazapine 30 Mg Tablet) 30 mg PO BEDTIME [facility] Morphine Sulfate (Morphine Sulfate 2 Mg/Ml Cartridge) 1 mg IVPUSH Q6H PRN; Protocol PRN Reason: tachypnea Ondansetron HCl (Ondansetron Hcl 4 Mg/2 Ml Vial) 4 mg IVPUSH Q8H PRN PRN Reason: Nausea and Vomiting Pharmacy Consult (Consult Rx Perform Med Rec) 1 each MISCELLANE ONCE PRN PRN Reason: Consult order Potassium Chloride (Potassium Chloride Packet 20 Meq Packet) 20 meq G-TUBE DAILY [facility] Last Admin: 09/07/22 08:19 Dose: 20 meq Documented By: MARA Potassium Chloride (Potassium Chloride Packet 20 Meq Packet) 40 meq G-TUBE ONCE [facility] Senna (Sennosides 8.6 Mg Tablet) 17.2 mg PO DAILY PRN PRN Reason: Constipation Sertraline HCl (Sertraline Hcl 100 Mg Tablet) 100 mg G-TUBE DAILY [facility] Last Admin: 09/07/22 08:03 Dose: 100 mg Documented By: MARA Sodium Chloride (0.9 % Sodium Chloride Flush 3 Ml Syringe) 3 ml IVFLUSH QSHIFT [facility] Last Admin: 09/07/22 08:04 Dose: 3 ml Documented By: MARA Labs 09/07/22 08:50 09/07/22 04:39 Labs: Laboratory Results - last 24 hr 09/06/22 09/06/22 09/06/22 13:53 16:24 21:08 MCV MCH MCHC RDW Plt Count MPV Immature Gran % (Auto) Neut % (Auto) Lymph % (Auto) [place] % (Auto) Eos % (Auto) Baso % (Auto) Lymph # (Auto) [place] # (Auto) Eos # (Auto) Baso # (Auto) Abs Immat Gran (auto) Absolute Neuts (auto) Absolute Nucleated RBC Nucleated RBC % (auto) Anion Gap Estim Creat Clear Calc Estimated GFR POC Glucose 228 H 271 H Random Glucose Lactic Acid Lactic Acid F/U @ 2Hr Lactic Acid F/U @ 4Hr Calcium Magnesium 2.1 09/07/22 09/07/22 09/07/22 00:54 04:37 04:39 MCV MCH MCHC RDW Plt Count MPV Immature Gran % (Auto) Neut % (Auto) Lymph % (Auto) [place] % (Auto) Eos % (Auto) Baso % (Auto) Lymph # (Auto) [place] # (Auto) Eos # (Auto) Baso # (Auto) Abs Immat Gran (auto) Absolute Neuts (auto) Absolute Nucleated RBC Nucleated RBC % (auto) Anion Gap 13 Estim Creat Clear Calc 47.3 Estimated GFR > 60 POC Glucose 215 H Random Glucose 213 H Lactic Acid 3.2 H* Lactic Acid F/U @ 2Hr Lactic Acid F/U @ 4Hr Calcium 8.6 Magnesium 09/07/22 09/07/22 09/07/22 04:39 04:47 07:14 MCV MCH MCHC RDW Plt Count MPV Immature Gran % (Auto) Neut % (Auto) Lymph % (Auto) [place] % (Auto) Eos % (Auto) Baso % (Auto) Lymph # (Auto) [place] # (Auto) Eos # (Auto) Baso # (Auto) Abs Immat Gran (auto) Absolute Neuts (auto) Absolute Nucleated RBC Nucleated RBC % (auto) Anion Gap Estim Creat Clear Calc Estimated GFR POC Glucose 199 H 216 H Random Glucose Lactic Acid Lactic Acid F/U @ 2Hr Lactic Acid F/U @ 4Hr Calcium Magnesium 1.8 09/07/22 09/07/22 09/07/22 07:37 08:50 10:38 MCV 80.1 D MCH 26.6 L MCHC 33.2 RDW 15.7 Plt Count 140 L D MPV 11.7 Immature Gran % (Auto) 0.7 H Neut % (Auto) 69.7 Lymph % (Auto) 19.6 L [place] % (Auto) 6.2 Eos % (Auto) 3.4 Baso % (Auto) 0.4 Lymph # (Auto) 1.1 L [place] # (Auto) 0.3 Eos # (Auto) 0.2 Baso # (Auto) 0.0 Abs Immat Gran (auto) 0.04 H Absolute Neuts (auto) 3.7 Absolute Nucleated RBC 0.000 Nucleated RBC % (auto) 0.0 Anion Gap Estim Creat Clear Calc Estimated GFR POC Glucose Random Glucose Lactic Acid Lactic Acid F/U @ 2Hr 3.0 H* Lactic Acid F/U @ 4Hr 3.1 H* Calcium Magnesium 09/07/22 10:59 MCV MCH MCHC RDW Plt Count MPV Immature Gran % (Auto) Neut % (Auto) Lymph % (Auto) [place] % (Auto) Eos % (Auto) Baso % (Auto) Lymph # (Auto) [place] # (Auto) Eos # (Auto) Baso # (Auto) Abs Immat Gran (auto) Absolute Neuts (auto) Absolute Nucleated RBC Nucleated RBC % (auto) Anion Gap Estim Creat Clear Calc Estimated GFR POC Glucose 223 H Random Glucose Lactic Acid Lactic Acid F/U @ 2Hr Lactic Acid F/U @ 4Hr Calcium Magnesium Assessment and Plan (1) Urinary tract infection: Status: Acute Plan This is 72-year-old female with pertinent history of CVA with hemiparesis, PAD status post AKA, dementia, fwo-vbffwvx-xolyvumia diabetes mellitus, mood disorder who was sent to the emergency department from [facility] for evaluation of lethargy. Normocytic anemia H/ H trending down since admission but above transfusion threshold follow CBC Hypokalemia?/hypomagnesemia still low continue K, mag replacement GPC bacteremia coag neg staph Acute metabolic encephalopathy. resolved seems to be at baseline ? hx of dementia and primarily nonverbal Multifactorial due to UTI, likely aspiration pna and hypernatremia nutrition consult for tube feeds Tube feed diet continue Glucerna seen by speech, refused eval continue NPO Sepsis due to ecoli UTI and aspiration pna .? sepsis resolved s/o IVF continue IV zosyn, started 09/03 Acute hypoxemic resp failure secondary to aspiration pna. Resolved CXR showing RLL infiltrate started zosyn 09/03/22 s/p High flow oxygen, on RA now Hypernatremia due to free water deficit.?Resolved s/p D5w with resolution of hypernatremia Acute kidney injury stage II. Resolved ? Avoid nephrotoxins Acute lactic acidosis.? Due to sepsis and metformin use Non insulin-dependent diabetes mellitus with severe hyperglycemia.? HHS Initially placed on insulin drip in the ER.? now on ss and mealtime insulin ? Elevated troponin likely type 2 in the setting of increased demand CVA with hemiparesis.? Not on antiplatelet agent or high-intensity statin Mood disorder.? Resume mood stabilizers once mentation improves DVT prophylaxis:? Apolinar Attending Dr. Alicea DNR/DNI DISPO plan to return back to LTC when medically cleared continued hospital stay for IV antibiotics, replace electrolytes Time Spent With Patient Time: Total time managing care of this patient today ____ minutes. Quality Stroke Does the patient have a stroke diagnosis?: No VTE Prior VTE?: No VTE Risk Level:: Medical - moderate - high VTE Device Contraindication: Treatment Not Indicated VTE Drug Contraindication: N/A - Med Ordered
[2022-09-07 15:06] VITALS: BP 113/55; PULSE 88; RESP 18; TEMP 36.4; O2SAT 97
[2022-09-07 16:00] LABS: Glucose, Whole Blood 117 mg/dL (60-115)
[2022-09-07 19:08] VITALS: BP 125/60; PULSE 93; RESP 20; TEMP 37.1; O2SAT 96
[2022-09-07 20:09] LABS: Glucose, Whole Blood 186 mg/dL (60-115)
[2022-09-07] MEDS: Insulin Glargine,Hum.rec.anlog 100 UNIT/ML 10 ML VIAL 10 UNIT SUBCUT (21:42)
[2022-09-07] MEDS: Mirtazapine 30 MG TABLET PO (21:43)
[2022-09-07] MEDS: Divalproex Sodium Sprinkles 125 MG CAP.DR.SPR 500 MG G-TUBE (21:43)
[2022-09-08 00:30] LABS: Glucose, Whole Blood 247 mg/dL (60-115)
[2022-09-08] MEDS: Insulin Lispro 100 UNIT/ML 3 ML VIAL SUBCUT ×5 (00:37→21:08)
[2022-09-08] MEDS: Enoxaparin Sodium 30 MG/0.3 ML SYRINGE SUBCUT (00:37)
[2022-09-08] MEDS: Piperacillin Sodium/Tazobactam 2.25 GM in 0.9 % Sodium Chloride 50 ML IV ×4 (00:50→21:07)
[2022-09-08 03:18] VITALS: BP 109/48; PULSE 84; RESP 17; TEMP 36.8; O2SAT 95
[2022-09-08 04:37] LABS: Glucose, Whole Blood 189 mg/dL (60-115)
[2022-09-08] MEDS: Lactulose 20 GM/30 ML SOLUTION G-TUBE ×2 (07:57→21:09)
[2022-09-08] MEDS: Famotidine 20 MG TABLET G-TUBE (07:57)
[2022-09-08] MEDS: Sertraline HCL 100 MG TABLET G-TUBE (07:57)
[2022-09-08] MEDS: Magnesium Oxide 400 MG TABLET G-TUBE ×4 (07:57→21:09)
[2022-09-08 08:00] VITALS: BP 145/67; PULSE 88; RESP 20; TEMP 36.7; O2SAT 100
[2022-09-08 08:08] LABS: Glucose, Whole Blood 100 mg/dL (60-115)
[2022-09-08 08:46] LABS: Hematocrit 25.6 % (37.0-47.0); Hemoglobin 8.5 g/dl (12.0-16.0); Mean Corpuscular HGB Conc 33.2 g/dl (31.0-35.0); Mean Corpuscular Hemoglobin 26.4 pg (27.0-33.0); Mean Corpuscular Volume 79.5 fL (80.0-98.0); Mean Platelet Volume 12.1 fL (9.4-12.3); Platelet Count 184 X10*3/uL (160-400); Red Blood Count 3.22 X10*6/uL (4.20-5.50); Red Cell Distribution Width 15.8 % (11.0-16.0); White Blood Count 4.8 X10*3/uL (4.8-10.8)
[2022-09-08 09:15] LABS: Anion Gap 14 (12-20); Blood Urea Nitrogen 10 mg/dL (9-16); Calcium 8.7 mg/dL (8.4-10.2); Carbon Dioxide 23 mmol/L (22-29); Chloride 112 mmol/L (96-108); Creatinine Clr Calc Pharmacy 53.6; Estimated Glomerular Filt Rate > 60; Glucose Random 101 mg/dL (60-115); Potassium 2.9 mmol/L (3.3-5.1); Sodium 146 mmol/L (135-145)
[2022-09-08] MEDS: Potassium Chloride Packet 20 MEQ PACKET 40 MEQ PO (09:46)
--- NOTE | 2022-09-08 10:51 | MHC.CM.PN ---
EMR REVIEWED, PER HOSPITALIST H&H DROPPING, POTASSIUM REMAINS LOW, ANTIC PT WILL BE CLEARED FOR D/C TOMORROW 09/09, [facility]ALCARE UPDATED, CM WILL CONT TO FOLLOW D/C NEEDS.
[2022-09-08] MEDS: Divalproex Sodium Sprinkles 125 MG CAP.DR.SPR 375 MG G-TUBE (11:17)
--- NOTE | 2022-09-08 11:33 | MHC.CLN ---
RE: CONSULT PT RECEIVING GLUCERNA AT MAX GOAL RATE 60ML/HR WITH 30ML PROSOURCE Q DAY AND 240ML FREE WATER FLUSHES Q 8 HRS PROVIDES 1500 TOTAL KCALS (30KCALS/KG), 75G PROTEIN (1.5G/KG), 1588ML TOTAL WATER FROM FORMULA AND FLUSHES (34ML/KG) PT TOLERATING TF WITH LOW RESIDUALS AND APPROPRIATE TO PROMOTE WOUND HEALING NOTED INCREASING SERUM NA RECOMMEND INCREASING TO 300ML FREE WATER FLUSHES Q 8 HRS TO PROVIDE 2128ML TOTAL WATER FROM FORMULA AND FLUSHES (45ML/KG) PLEASE MONITOR SERUM NA CLOSELY AND DECREASE WATER FLUSHES WHEN STABLE CONTINUE TO MONITOR TOLERANCE, RESIDUALS AND LYTES
[2022-09-08 13:20] LABS: Glucose, Whole Blood 171 mg/dL (60-115)
--- NOTE | 2022-09-08 13:36 | MHC.SLORD ---
Speech Language Pathology Order Status: Attempted to see patient X2, with patient sleeping in the A.m., then later again actively refusing trials of po (pushing away items, agitated). Eligibility Specialist will continue to follow as appropriate.
[2022-09-08 15:09] VITALS: BP 106/55; PULSE 91; RESP 20; TEMP 37.1; O2SAT 92
[2022-09-08 15:59] LABS: Glucose, Whole Blood 185 mg/dL (60-115)
--- NOTE | 2022-09-08 16:59 | P.PNIM_ITS ---
Subjective Subjective Date of Service: 09/08/22 Interval History: seen and examined this morning follow up for UTI, aspiration pneumonia, hypernatremia minimally verbal at baseline, unable to provide any history, ROS. appears comfortable Review of Systems Review of Systems: Yes all other systems are reviewed and are negative Physical Exam Vital Signs: Vital Signs: Last Vital Signs Temp 98.8 F 09/08/22 15:09 Pulse 91 09/08/22 15:09 Resp 20 09/08/22 15:09 BP 106/55 L 09/08/22 15:09 Pulse Ox 92 09/08/22 15:09 O2 Del Method Room Air 09/08/22 15:09 O2 Flow Rate 5 09/06/22 07:31 FiO2 50 09/04/22 07:51 Oxygen Flow Rate 2 09/02/22 19:26 BMI result Body Mass Index 20.4 Const: Other: lying in bed, appears comfortable unable to assess orientation General: alert and awake Nutritional Appearance: thin Resp: Effort & Inspection: normal respiratory effort, able to speak in complete sentences, no respiratory distress and no use of accessory muscles Auscultation: clear to auscultation bilaterally Cardio: Rate: regular rate Heart sounds: S1 normal heart sound present and S2 normal heart sound present GI: Other: feeding tube present - no surrounding erythema Inspection: No distended Palpation (GI): Soft to palpation and nontender Objective Data Active Medications Acetaminophen (Acetaminophen Supp 650 Mg Supp.Rect) 650 mg [place] Q6H PRN PRN Reason: Pain, Mild (Pain Scale 1-3) Acetaminophen (Acetaminophen 325 Mg Tablet) 650 mg PO Q6H PRN PRN Reason: fever Last Admin: 09/07/22 04:07 Dose: 650 mg Documented By: DARRELL Bisacodyl (Bisacodyl 10 Mg Supp.Rect) 10 mg [place] DAILY PRN PRN Reason: Constipation Dextrose (Dextrose 50 % 25 Gm/50 Ml Syringe) 25 gm IVPUSH Q15M PRN; Protocol PRN Reason: per Hypoglycemia Standing Ord. Divalproex Sodium (Divalproex Sodium Sprinkles 125 Mg Spr) 375 mg G-TUBE DAILY@1200 [facility] Last Admin: 09/08/22 11:17 Dose: 375 mg Documented By: DANYELL Divalproex Sodium (Divalproex Sodium Sprinkles 125 Mg Cap.Dr.Spr) 500 mg G-TUBE BEDTIME [facility] Last Admin: 09/07/22 21:43 Dose: 500 mg Documented By: VIVIANA Enoxaparin Sodium (Enoxaparin Sodium 30 Mg/0.3 Ml Syringe) 30 mg SUBCUT Q24H [facility] Last Admin: 09/08/22 00:37 Dose: 30 mg Documented By: ANTOIC Famotidine (Famotidine 20 Mg Tablet) 20 mg G-TUBE DAILY [facility] Last Admin: 09/08/22 07:57 Dose: 20 mg Documented By: DANYELL Glucose (Glucose Gel 15 Gm Gel..Gram.) 15 gm PO Q15M PRN; Protocol PRN Reason: per Hypoglycemia Standing Ord. Piperacillin Sod/Tazobactam (Sod 2.25 gm/ Sodium Chloride) 50 mls @ 100 mls/hr IV Q6H [facility] Last Infusion: 09/08/22 15:06 Dose: 0 mls/hr Documented By: DANYELL Insulin Glargine (Insulin Glargine,Hum.Rec.Anlog 100 Unit/Ml 10 Ml Vial) 10 unit SUBCUT BEDTIME [facility] Last Admin: 09/07/22 21:42 Dose: 10 unit Documented By: VIVIANA Insulin Human Lispro (Insulin Lispro 100 Unit/Ml 3 Ml Vial) 0 unit SUBCUT Q4H [facility]; Protocol Last Admin: 09/08/22 13:36 Dose: 2 unit Documented By: DANYELL Insulin Human Lispro (Insulin Lispro 100 Unit/Ml 3 Ml Vial) 5 unit SUBCUT QIDACHS [facility] Last Admin: 09/08/22 08:33 Dose: Not Given Documented By: DANYELL Non-Admin Reason: Medication Discontinued Lactulose (Lactulose 20 Gm/30 Ml Solution) 20 gm G-TUBE BID [facility] Last Admin: 09/08/22 07:57 Dose: 20 gm Documented By: DANYELL Magnesium Oxide (Magnesium Oxide 400 Mg Tablet) 400 mg G-TUBE QID [facility] Last Admin: 09/08/22 13:10 Dose: 400 mg Documented By: DANYELL Melatonin (Melatonin 3 Mg Tablet) 6 mg PO BEDTIME PRN PRN Reason: Insomnia Mirtazapine (Mirtazapine 30 Mg Tablet) 30 mg PO BEDTIME [facility] Last Admin: 09/07/22 21:43 Dose: 30 mg Documented By: VIVIANA Ondansetron HCl (Ondansetron Hcl 4 Mg/2 Ml Vial) 4 mg IVPUSH Q8H PRN PRN Reason: Nausea and Vomiting Pharmacy Consult (Consult Rx Perform Med Rec) 1 each MISCELLANE ONCE PRN PRN Reason: Consult order Potassium Chloride (Potassium Chloride Packet 20 Meq Packet) 20 meq G-TUBE DAILY [facility] Last Admin: 09/07/22 08:19 Dose: 20 meq Documented By: MARA Potassium Chloride (Potassium Chloride Packet 20 Meq Packet) 40 meq G-TUBE ONCE [facility] Senna (Sennosides 8.6 Mg Tablet) 17.2 mg PO DAILY PRN PRN Reason: Constipation Sertraline HCl (Sertraline Hcl 100 Mg Tablet) 100 mg G-TUBE DAILY [facility] Last Admin: 09/08/22 07:57 Dose: 100 mg Documented By: DANYELL Sodium Chloride (0.9 % Sodium Chloride Flush 3 Ml Syringe) 3 ml IVFLUSH QSHIFT [facility] Last Admin: 09/08/22 15:38 Dose: 3 ml Documented By: DANYELL Labs 09/08/22 08:06 09/08/22 08:06 Labs: Laboratory Results - last 24 hr 09/07/22 09/08/22 09/08/22 20:03 00:26 04:33 MCV MCH MCHC RDW Plt Count MPV Absolute Nucleated RBC Nucleated RBC % (auto) Anion Gap Estim Creat Clear Calc Estimated GFR POC Glucose 186 H 247 H 189 H Random Glucose Calcium 09/08/22 09/08/22 09/08/22 08:05 08:06 08:06 MCV 79.5 L MCH 26.4 L MCHC 33.2 RDW 15.8 Plt Count 184 D MPV 12.1 Absolute Nucleated RBC 0.000 Nucleated RBC % (auto) 0.0 Anion Gap 14 Estim Creat Clear Calc 53.6 Estimated GFR > 60 POC Glucose 100 Random Glucose 101 Calcium 8.7 09/08/22 09/08/22 13:09 15:55 MCV MCH MCHC RDW Plt Count MPV Absolute Nucleated RBC Nucleated RBC % (auto) Anion Gap Estim Creat Clear Calc Estimated GFR POC Glucose 171 H 185 H Random Glucose Calcium Microbiology Microbiology Results: Microbiology 09/07/22 04:39 Blood Culture - Preliminary Blood - Venous No growth after 24 hours. 09/07/22 04:39 Blood Culture - Preliminary Blood - Venous No growth after 24 hours. 09/02/22 20:01 Blood Culture - Final Blood - Venous No growth after 5 days. Assessment and Plan (1) Urinary tract infection: Status: Acute (2) Acute metabolic encephalopathy: Status: Acute (3) Hypokalemia: Status: Acute Plan This is 72-year-old female with pertinent history of CVA with hemiparesis, PAD status post AKA, dementia, [id number] diabetes mellitus, mood disorder who was sent to the emergency department from half-way for evaluation of lethargy. Normocytic anemia H/ H trending down since admission but above transfusion threshold no evidence of acute blood loss follow CBC Hypokalemia?/hypomagnesemia still low continue K, mag replacement Hypernatremia due to free water deficit.? s/p D5w with improvement, sodium starting to trend back up. re-eval by nutrition, free water flushes increased follow BMP GPC bacteremia coag neg staph Acute metabolic encephalopathy. resolved seems to be at baseline - hx of dementia and primarily nonverbal. able to speak some but difficult to understand, family able to comunicate with her Multifactorial due to UTI, likely aspiration pna and hypernatremia Tube feed diet continue Glucerna seen by speech, continues to refused eval. will likely return to facility npo and re-eval there continue NPO Sepsis due to ecoli UTI and aspiration pna .? sepsis resolved s/o IVF continue IV zosyn, started 09/03, plan for 7 days Acute hypoxemic resp failure secondary to aspiration pna. Resolved CXR showing RLL infiltrate started zosyn 09/03/22 s/p High flow oxygen, on RA now Acute kidney injury stage II. Resolved ? Avoid nephrotoxins Acute lactic acidosis.? Due to sepsis and metformin use Non insulin-dependent diabetes mellitus with severe hyperglycemia.? HHS Initially placed on insulin drip in the ER now on ss and mealtime insulin ? Elevated troponin likely type 2 in the setting of increased demand CVA with hemiparesis.? Not on antiplatelet agent or high-intensity statin Mood disorder.? continue baseline meds DVT prophylaxis:? Lovenox Attending Dr. Alicea DNR/DNI DISPO plan to return back to LTC when medically cleared continued hospital stay for IV antibiotics, replace electrolytes Time Spent With Patient Time: Total time managing care of this patient today ____ minutes. Quality Stroke Does the patient have a stroke diagnosis?: No VTE Prior VTE?: No VTE Risk Level:: Medical - moderate - high VTE Device Contraindication: Treatment Not Indicated VTE Drug Contraindication: N/A - Med Ordered
[2022-09-08] MEDS: Potassium Chloride Packet 20 MEQ PACKET G-TUBE (17:31)
[2022-09-08 19:10] VITALS: BP 128/59; PULSE 90; RESP 20; TEMP 36.3; O2SAT 94
[2022-09-08 20:01] LABS: Glucose, Whole Blood 185 mg/dL (60-115)
[2022-09-08] MEDS: Insulin Glargine,Hum.rec.anlog 100 UNIT/ML 10 ML VIAL 10 UNIT SUBCUT (21:08)
[2022-09-08] MEDS: Mirtazapine 30 MG TABLET PO (21:09)
[2022-09-08] MEDS: Divalproex Sodium Sprinkles 125 MG CAP.DR.SPR 500 MG G-TUBE (21:09)
[2022-09-09] VITALS: BP 120/57; PULSE 89; RESP 15; TEMP 36.6; O2SAT 93
[2022-09-09 01:36] LABS: Glucose, Whole Blood 186 mg/dL (60-115)
[2022-09-09] MEDS: Insulin Lispro 100 UNIT/ML 3 ML VIAL SUBCUT (01:43)
[2022-09-09] MEDS: Enoxaparin Sodium 30 MG/0.3 ML SYRINGE SUBCUT (01:44)
[2022-09-09] MEDS: Piperacillin Sodium/Tazobactam 2.25 GM in 0.9 % Sodium Chloride 50 ML IV ×3 (02:55→12:33)
[2022-09-09 03:11] VITALS: RESP 16; TEMP 37.1
[2022-09-09 04:55] VITALS: PULSE 90; RESP 14; TEMP 36.6
[2022-09-09 05:07] LABS: Glucose, Whole Blood 118 mg/dL (60-115)
[2022-09-09 07:20] LABS: Glucose, Whole Blood 119 mg/dL (60-115)
[2022-09-09 07:40] VITALS: BP 103/51; PULSE 92; RESP 20; TEMP 36.8; O2SAT 92
[2022-09-09] MEDS: Lactulose 20 GM/30 ML SOLUTION G-TUBE (08:15)
[2022-09-09] MEDS: Magnesium Oxide 400 MG TABLET G-TUBE ×2 (08:15→12:20)
[2022-09-09] MEDS: Famotidine 20 MG TABLET G-TUBE (08:15)
[2022-09-09] MEDS: Potassium Chloride Packet 20 MEQ PACKET G-TUBE (08:15)
--- NOTE | 2022-09-09 08:30 | HO.PM.IMPN ---
Subjective Subjective Date of Service: 09/09/22 Interval History: seen and examined this morning follow up for UTI, aspiration pneumonia, hypernatremia essentially non verbal, comfortable and no new issues reported Physical Exam Vital Signs: Vital Signs: Last Vital Signs Temp 98.3 F 09/09/22 07:40 Pulse 92 09/09/22 07:40 Resp 20 09/09/22 07:40 BP 103/51 L 09/09/22 07:40 Pulse Ox 92 09/09/22 07:40 O2 Del Method Room Air 09/09/22 07:40 O2 Flow Rate 5 09/06/22 07:31 FiO2 50 09/04/22 07:51 Oxygen Flow Rate 2 09/02/22 19:26 BMI result Body Mass Index 20.4 Const: Other: lying in bed, appears comfortable unable to assess orientation General: alert and awake Nutritional Appearance: thin Resp: Effort & Inspection: normal respiratory effort, able to speak in complete sentences, no respiratory distress and no use of accessory muscles Auscultation: clear to auscultation bilaterally Cardio: Rate: regular rate Heart sounds: S1 normal heart sound present and S2 normal heart sound present GI: Other: feeding tube present - no surrounding erythema Inspection: No distended Palpation (GI): Soft to palpation and nontender Objective Data Active Medications Acetaminophen (Acetaminophen Supp 650 Mg Supp.Rect) 650 mg [place] Q6H PRN PRN Reason: Pain, Mild (Pain Scale 1-3) Acetaminophen (Acetaminophen 325 Mg Tablet) 650 mg PO Q6H PRN PRN Reason: fever Last Admin: 09/07/22 04:07 Dose: 650 mg Documented By: DARRELL Bisacodyl (Bisacodyl 10 Mg Supp.Rect) 10 mg [place] DAILY PRN PRN Reason: Constipation Dextrose (Dextrose 50 % 25 Gm/50 Ml Syringe) 25 gm IVPUSH Q15M PRN; Protocol PRN Reason: per Hypoglycemia Standing Ord. Divalproex Sodium (Divalproex Sodium Sprinkles 125 Mg ) 375 mg G-TUBE DAILY@1200 [facility] Last Admin: 09/08/22 11:17 Dose: 375 mg Documented By: DANYELL Divalproex Sodium (Divalproex Sodium Sprinkles 125 Mg ) 500 mg G-TUBE BEDTIME [facility] Last Admin: 09/08/22 21:09 Dose: 500 mg Documented By: VIVIANA Enoxaparin Sodium (Enoxaparin Sodium 30 Mg/0.3 Ml Syringe) 30 mg SUBCUT Q24H [facility] Last Admin: 09/09/22 01:44 Dose: 30 mg Documented By: VIVIANA Famotidine (Famotidine 20 Mg Tablet) 20 mg G-TUBE DAILY [facility] Last Admin: 09/09/22 08:15 Dose: 20 mg Documented By: MARA Glucose (Glucose Gel 15 Gm Gel..Gram.) 15 gm PO Q15M PRN; Protocol PRN Reason: per Hypoglycemia Standing Ord. Piperacillin Sod/Tazobactam (Sod 2.25 gm/ Sodium Chloride) 50 mls @ 100 mls/hr IV Q6H [facility] Stop: 09/10/22 14:14 Last Admin: 09/09/22 08:15 Dose: 100 mls/hr Documented By: MARA Insulin Glargine (Insulin Glargine,Hum.Rec.Anlog 100 Unit/Ml 10 Ml Vial) 10 unit SUBCUT BEDTIME [facility] Last Admin: 09/08/22 21:08 Dose: 10 unit Documented By: VIVIANA Insulin Human Lispro (Insulin Lispro 100 Unit/Ml 3 Ml Vial) 0 unit SUBCUT Q4H [facility]; Protocol Last Admin: 09/09/22 08:10 Dose: Not Given Documented By: MARA Non-Admin Reason: No Insulin Coverage Insulin Human Lispro (Insulin Lispro 100 Unit/Ml 3 Ml Vial) 5 unit SUBCUT QIDACHS [facility] Last Admin: 09/08/22 08:33 Dose: Not Given Documented By: DANYELL Non-Admin Reason: Medication Discontinued Lactulose (Lactulose 20 Gm/30 Ml Solution) 20 gm G-TUBE BID [facility] Last Admin: 09/09/22 08:15 Dose: 20 gm Documented By: MARA Magnesium Oxide (Magnesium Oxide 400 Mg Tablet) 400 mg G-TUBE QID [facility] Last Admin: 09/09/22 08:15 Dose: 400 mg Documented By: MARA Melatonin (Melatonin 3 Mg Tablet) 6 mg PO BEDTIME PRN PRN Reason: Insomnia Mirtazapine (Mirtazapine 30 Mg Tablet) 30 mg PO BEDTIME [facility] Last Admin: 09/08/22 21:09 Dose: 30 mg Documented By: VIVIANA Ondansetron HCl (Ondansetron Hcl 4 Mg/2 Ml Vial) 4 mg IVPUSH Q8H PRN PRN Reason: Nausea and Vomiting Pharmacy Consult (Consult Rx Perform Med Rec) 1 each MISCELLANE ONCE PRN PRN Reason: Consult order Potassium Chloride (Potassium Chloride Packet 20 Meq Packet) 20 meq G-TUBE DAILY [facility] Last Admin: 09/09/22 08:15 Dose: 20 meq Documented By: MARA Senna (Sennosides 8.6 Mg Tablet) 17.2 mg PO DAILY PRN PRN Reason: Constipation Sertraline HCl (Sertraline Hcl 100 Mg Tablet) 100 mg G-TUBE DAILY [facility] Last Admin: 09/08/22 07:57 Dose: 100 mg Documented By: DANYELL Sodium Chloride (0.9 % Sodium Chloride Flush 3 Ml Syringe) 3 ml IVFLUSH QSHIFT [facility] Last Admin: 09/09/22 08:16 Dose: 3 ml Documented By: MARA Labs 09/08/22 08:06 09/08/22 08:06 Labs: Laboratory Results - last 24 hr 09/08/22 09/08/22 09/08/22 08:06 08:06 13:09 MCV 79.5 L MCH 26.4 L MCHC 33.2 RDW 15.8 Plt Count 184 D MPV 12.1 Absolute Nucleated RBC 0.000 Nucleated RBC % (auto) 0.0 Anion Gap 14 Estim Creat Clear Calc 53.6 Estimated GFR > 60 POC Glucose 171 H Random Glucose 101 Calcium 8.7 09/08/22 09/08/22 09/09/22 15:55 19:57 01:30 MCV MCH MCHC RDW Plt Count MPV Absolute Nucleated RBC Nucleated RBC % (auto) Anion Gap Estim Creat Clear Calc Estimated GFR POC Glucose 185 H 185 H 186 H Random Glucose Calcium 09/09/22 09/09/22 04:58 07:14 MCV MCH MCHC RDW Plt Count MPV Absolute Nucleated RBC Nucleated RBC % (auto) Anion Gap Estim Creat Clear Calc Estimated GFR POC Glucose 118 H 119 H Random Glucose Calcium Microbiology Microbiology Results: Microbiology 09/07/22 04:39 Blood Culture - Preliminary Blood - Venous No growth after 48 hours. 09/07/22 04:39 Blood Culture - Preliminary Blood - Venous No growth after 48 hours. Assessment and Plan (1) Urinary tract infection: Status: Acute (2) Acute metabolic encephalopathy: Status: Acute (3) Hypokalemia: Status: Acute Plan This is 72-year-old female with pertinent history of CVA with hemiparesis, PAD status post AKA, dementia, [id number] diabetes mellitus, mood disorder who was sent to the emergency department from detention for evaluation of lethargy. Normocytic anemia H/ H trending down since admission but above transfusion threshold no evidence of acute blood loss follow CBC Hypokalemia?/hypomagnesemia, still low continue K, mag replacement, check labs today Hypernatremia due to free water deficit.?146 as of 09/08 s/p D5w with improvement, sodium starting to trend back up. re-eval by nutrition, free water flushes increased follow BMP GPC bacteremia coag neg staph Acute metabolic encephalopathy. resolved seems to be at baseline - hx of dementia and primarily nonverbal. able to speak some but difficult to understand, family able to comunicate with her Multifactorial due to UTI, likely aspiration pna and hypernatremia Tube feed diet continue Glucerna seen by speech, continues to refused eval. will likely return to facility npo and re-eval there continue NPO Sepsis due to ecoli UTI and aspiration pna .? sepsis resolved s/o IVF continue IV zosyn, started 09/03, plan for 7 days, last day 09/09 Acute hypoxemic resp failure secondary to aspiration pna. Resolved CXR showing RLL infiltrate started zosyn 09/03/22 s/p High flow oxygen, on RA now Acute kidney injury stage II. Resolved ? Avoid nephrotoxins Acute lactic acidosis.? Due to sepsis and metformin use Non insulin-dependent diabetes mellitus with severe hyperglycemia.? HHS Initially placed on insulin drip in the ER now on ss and mealtime insulin ? Elevated troponin likely type 2 in the setting of increased demand CVA with hemiparesis.? Not on antiplatelet agent or high-intensity statin Mood disorder.? continue baseline meds DVT prophylaxis:? Lovebertox Attending Dr. Alicea DNR/DNI DISPO plan to return back to LTC when medically cleared continued hospital stay for IV antibiotics, replace electrolytes Time Spent With Patient Time: Total time managing care of this patient today ____ minutes. Quality Stroke Does the patient have a stroke diagnosis?: No VTE Prior VTE?: No VTE Risk Level:: Medical - moderate - high VTE Device Contraindication: Treatment Not Indicated VTE Drug Contraindication: N/A - Med Ordered
[2022-09-09] MEDS: Sertraline HCL 100 MG TABLET G-TUBE (08:37)
[2022-09-09 09:35] LABS: Hematocrit 25.1 % (37.0-47.0); Hemoglobin 8.2 g/dl (12.0-16.0); Mean Corpuscular HGB Conc 32.7 g/dl (31.0-35.0); Mean Corpuscular Hemoglobin 26.9 pg (27.0-33.0); Mean Corpuscular Volume 82.3 fL (80.0-98.0); Mean Platelet Volume 12.5 fL (9.4-12.3); PLT CLUMP 1; Red Blood Count 3.05 X10*6/uL (4.20-5.50); Red Cell Distribution Width 16.4 % (11.0-16.0)
[2022-09-09 09:38] LABS: Platelet Count 210 X10*3/uL (160-400); White Blood Count 5.3 X10*3/uL (4.8-10.8)
[2022-09-09 10:00] LABS: Anion Gap 14 (12-20); Blood Urea Nitrogen 12 mg/dL (9-16); Calcium 8.6 mg/dL (8.4-10.2); Carbon Dioxide 19 mmol/L (22-29); Chloride 115 mmol/L (96-108); Creatinine Clr Calc Pharmacy 44.8; Estimated Glomerular Filt Rate > 60; Glucose Random 133 mg/dL (60-115); Magnesium 1.9 mg/dL (1.6-2.6); Potassium 3.9 mmol/L (3.3-5.1); Sodium 144 mmol/L (135-145)
[2022-09-09 11:05] LABS: Glucose, Whole Blood 129 mg/dL (60-115)
--- NOTE | 2022-09-09 12:11 | PM.DS ---
DS: Providers Provider Date of Service: 09/09/22 Date of admission: 09/03/22 00:32 Primary care physician: Dionicio Serna MD DS: Diagnosis Discharge Diagnosis (1) Urinary tract infection: Status: Acute (2) Acute metabolic encephalopathy: Status: Acute (3) Hypokalemia: Status: Acute DS: Summary Hospital Course Hospital Course: HP as per admitting provider. This is 72-year-old female with pertinent history of CVA with hemiparesis, PAD status post AKA, dementia, gys-pbzdbbe-oyigcbqse diabetes mellitus, mood disorder who was sent to the emergency department from [facility] for evaluation of lethargy.? Unable to obtain history from the patient.? History obtained from ER provider and chart review.? Patient was found altered in the ER and barely responding to painful stimulus.? She was found to be septic and urine was concerning for acute UTI.? Multiple lab abnormalities in the ER including hypernatremia, hypokalemia and hyperglycemia.? Lactic acidosis was present on admission.? Patient was initially offered to ICU for admission.? Patient's labs improved after IV crystalloid resuscitation and insulin drip and it was felt that patient no longer needed ICU as per ICU provider.? Unable to obtain review of systems 72-year-old woman treated for acute metabolic encephalopathy secondary to UTI, aspiration pneumonia, hyper glycemia and hypernatremia. Initially was thought that the patient was in DKA with blood sugars greater than 600 however ICU provider thought more HHS and this did resolve while the patient was in the ED after initiation of insulin. Patient was also noted to have an elevated troponin likely secondary to demand ischemia from infection. No ischemic changes noted on EKG. Patient was treated with IV Zosyn for E coli UTI and aspiration pneumonia. Patient initially was on non-rebreather breather mask but remain hypoxic, switched to high-flow oxygen which she did respond quite well to after 24 hours. She was weaned back down to the high-flow mask and subsequently to room air with oxygen saturations greater than 94%. in terms of the encephalopathy, the patient has a history of CVA with hemiparesis and she is nonverbal but according to the family she is awake and can mumble things. When she initially presented she was somnolent and none responsive mostly. At this time patient has her eyes open, mumbles and moves her head. She seems to be more at baseline. Blood cultures were coag-negative staph. She was also pretty hypovolemic and dehydrated. Sodium was up to 158, treated with D5W with complete normalization of sodium and now normal 144. Her potassium and magnesium also remained be during most of her hospitalization requiring IV potassium and magnesium replacement., potassium is now 3.9 and Mag 1.9 DEANGELO Likely secondary to hypovolemia and UTI, resolved with IV fluids and treatment of infection. She has completed 7 days of antibiotics for pneumonia and UTI Tube feed diet. Continue as per [facility] facility CVA with hemiparesis.?. Not on antiplatelet agent or high-intensity statin Mood disorder.?Resume mood stabilizers Time Spent with Patient Time attestation: Total time managing care of this patient today ____ minutes. Discharge coordination time: Greater than 30 minutes Quality: Safe Use of Opioids Does Pt have an Active Cancer Diagnosis on the Problem List?: No Quality: Stroke Does the patient have a stroke diagnosis?: No Physical Exam Vital Signs: Vital Signs: Last Vital Signs Temp 98.3 F 09/09/22 07:40 Pulse 92 09/09/22 07:40 Resp 20 09/09/22 07:40 BP 103/51 L 09/09/22 07:40 Pulse Ox 92 09/09/22 07:40 O2 Del Method Room Air 09/09/22 07:40 O2 Flow Rate 5 09/06/22 07:31 FiO2 50 09/04/22 07:51 Oxygen Flow Rate 2 09/02/22 19:26 BMI result Body Mass Index 20.4 DS: Data Data Completed and Pending Completed studies during hospitalization [Text1]: Procedures Drainage of Sigmoid Colon, Via Natural or Artificial Opening Endoscopic (11/29/21) Labs on day of discharge: Laboratory Results - last 24 hr 09/08/22 09/08/22 09/08/22 13:09 15:55 19:57 WBC RBC Hgb Hct MCV MCH MCHC RDW Plt Count MPV Absolute Nucleated RBC Nucleated RBC % (auto) Sodium Potassium Chloride Carbon Dioxide Anion Gap BUN Creatinine Estim Creat Clear Calc Estimated GFR POC Glucose 171 H 185 H 185 H Random Glucose Calcium Magnesium 09/09/22 09/09/22 09/09/22 01:30 04:58 07:14 WBC RBC Hgb Hct MCV MCH MCHC RDW Plt Count MPV Absolute Nucleated RBC Nucleated RBC % (auto) Sodium Potassium Chloride Carbon Dioxide Anion Gap BUN Creatinine Estim Creat Clear Calc Estimated GFR POC Glucose 186 H 118 H 119 H Random Glucose Calcium Magnesium 09/09/22 09/09/22 09/09/22 09:14 09:14 09:14 WBC 5.3 RBC 3.05 L Hgb 8.2 L Hct 25.1 L MCV 82.3 MCH 26.9 L MCHC 32.7 RDW 16.4 H Plt Count 210 MPV 12.5 H Absolute Nucleated RBC 0.000 Nucleated RBC % (auto) 0.0 Sodium Cancelled 144 Potassium Cancelled 3.9 D Chloride Cancelled 115 H Carbon Dioxide Cancelled 19 L Anion Gap Cancelled 14 BUN Cancelled 12 Creatinine Cancelled 0.79 Estim Creat Clear Calc Cancelled 44.8 Estimated GFR Cancelled > 60 POC Glucose Random Glucose Cancelled 133 H Calcium Cancelled 8.6 Magnesium Cancelled 1.9 09/09/22 10:50 WBC RBC Hgb Hct MCV MCH MCHC RDW Plt Count MPV Absolute Nucleated RBC Nucleated RBC % (auto) Sodium Potassium Chloride Carbon Dioxide Anion Gap BUN Creatinine Estim Creat Clear Calc Estimated GFR POC Glucose 129 H Random Glucose Calcium Magnesium Preliminary micro results at discharge 09/07/22 04:39 Blood Culture - Preliminary Blood - Venous No growth after 48 hours. 09/07/22 04:39 Blood Culture - Preliminary Blood - Venous No growth after 48 hours. Discharge Plan Discharge Anticipated Discharge Date/Time: 09/09/22 12:13 Patient Disposition: Xfer SNF Discharge Diagnosis: Metabolic encephalopathy, UTI and Pneumonia Referrals: [facility] [Outside] - 1 Day (RESUMPTION OF LTC) [facility] [Outside] - 1 Week Dionicio Serna MD [Primary Care Provider] - 1 Week Discharge Medications: Continued glycopyrrolate 1 mg Tablet 1 mg PO BID acetaminophen 325 mg Tablet 650 mg PO Q4H PRN (Reason: Pain) sertraline 100 mg Tablet 100 mg feeding tube DAILY mirtazapine 30 mg Tablet 30 mg PO DAILY simethicone 80 mg Tablet,Chewable 160 mg PO BID lactulose 20 gram/30 mL solution 30 ml G-tube BID benzocaine 10 % Gel 1 appl mucous membrane Q6H PRN (Reason: Toothache) Rx Instructions: apply to dental affected area bisacodyl 10 mg Suppository 10 mg OH DAILY PRN (Reason: Constipation) lidocaine HCl [Lidocaine Viscous] 2 % Solution 30 ml PO Q6H PRN (Reason: Pain) triamcinolone acetonide 0.1 % Cream 1 appl TOPICAL BID Rx Instructions: APPLY TO RIGHT UPPER ARM FOR ITCH. USE SPARINGLY, RUB IN WELL fluoride (sodium) [PreviDent] 1.1 % Gel 1 appl DENTAL BID Rx Instructions: FOR DENTAL CARIES sennosides [senna] 8.6 mg tablet 17.2 mg PO DAILY PRN (Reason: Constipation) divalproex [Depakote Sprinkles] 125 mg Capsule, Delayed Rel Sprinkle 375 mg DAILY@1200 Rx Instructions: g-tube divalproex [Depakote Sprinkles] 125 mg Capsule, Delayed Rel Sprinkle 500 mg BEDTIME Rx Instructions: g-tube potassium chloride 20 mEq/15 mL Liquid 20 meq feeding tube DAILY famotidine 20 mg Tablet 20 mg DAILY Rx Instructions: g-tube magnesium oxide 400 mg magnesium tablet 400 mg feeding tube QID insulin lispro 100 unit/mL Solution 1 sliding scale dose SUBCUT TID Protocol: Insulin Correction Scale Less than or equal to 110 ---- Give (units): 0 111 to 150 Give (units): 0 151 to 200 Give (units): 0 201 to 250 Give (units): 2 251 to 300 Give (units): 4 301 to 350 Give (units): 6 Greater than 350 Give (units): 8 Call MD if Blood Glucose > : 350 Discharge Orders: Discharge Order (Routine); Ordered 09/09/22 Ordered By: Fabio Betancourt Diet: Regular diet Activity on Discharge: As tolerated Stand Alone Forms: Patient Portal Discharge page Care Plan Goals: Full recovery from encephalopathy, UTI Health Concerns: Pneumonia, encephalopathy, hypernatremia, hypOkalemia Plan of Treatment: To return to SNF and resume usual meds Has completed antiboitics Assessment: as above
[2022-09-09] MEDS: Divalproex Sodium Sprinkles 125 MG CAP.DR.SPR 375 MG G-TUBE (12:20)
--- NOTE | 2022-09-09 12:40 | MHC.CM.PN ---
Patient has been medically cleared to return to LTC today. Patient will return to LTC @ [facility] [place] [facility] today at 3PM, via [facility]. CM spoke with Patient's Son/HCP/Felton @ [phone] and IMM was addressed.
--- NOTE | 2022-09-11 08:16 | P.CDIM_ITS ---
PROVIDER RESPONSE TEXT: To clarify, the appropriate diagnosis supported by the clinical indicators: Hypomagnesemia QUERY TEXT: PHYSICIAN'S DOCUMENTATION REQUEST Date of Query: 09/06/2022 01:01 PM EDT Patient Name: FROILAN FERNANDEZ Admit Date: 09/03/2022 Dear Jaja Sarmiento, A review of the medical record indicates additional documentation may be needed. Please review below and update the documentation accordingly. Clinical Indicators: LAB FINDINGS: magnesium 1.3 L IV magnesium sulfate Based on the above, is there a diagnosis that correlates with these lab findings: Hypomagnesemia Labs indicate a diagnosis of (please specify) Other Other (explain)Clinically unable to determine (explain)Thank you, Mona Ulloa, CCS, CDIS Use of terms such as suspected, likely, concern for, or probable (associated with a specific diagnosi s that is being evaluated, monitored, or treated as if it exists) are acceptable and can be coded in the inpatient se tting, when documented at the time of discharge. Please use your independent medical judgment in providing your response. THIS QUERY IS PART OF THE PERMANENT MEDICAL RECORD
== END 2022-09-09 15:29 | disposition skilled nursing facility (03) | DRG 871 ==
LOC: HO.ED 20:45 → HO.EDOVER 09-03 00:45 → HO.IMC 09-03 01:48
PROVIDERS: Internal Medicine; Nurse Practitioner Acute Care; Physician Assistant Medical; Admitting Provider Student in an Organized Health Care Education/Training Program; Emergency Provider Internal Medicine; PCP Family Medicine; Visit Provider Internal Medicine
DX: A41.9 Sepsis, unspecified organism (principal); E11.00 Type 2 diabetes mellitus with hyperosmolarity without nonketotic hyperglycemic-hyperosmolar coma (NKHHC); G93.41 Metabolic encephalopathy; J96.01 Acute respiratory failure with hypoxia; J69.0 Pneumonitis due to inhalation of food and vomit; N39.0 Urinary tract infection, site not specified; E87.21 Acute metabolic acidosis; E87.0 Hyperosmolality and hypernatremia; N17.9 Acute kidney failure, unspecified; I69.354 Hemiplegia and hemiparesis following cerebral infarction affecting left non-dominant side; I69.320 Aphasia following cerebral infarction; Z66 Do not resuscitate; F39 Unspecified mood [affective] disorder; E11.51 Type 2 diabetes mellitus with diabetic peripheral angiopathy without gangrene; B96.20 Unspecified Escherichia coli [E. coli] as the cause of diseases classified elsewhere; E83.42 Hypomagnesemia; Z93.1 Gastrostomy status; L89.626 Pressure-induced deep tissue damage of left heel; E87.6 Hypokalemia; Z89.611 Acquired absence of right leg above knee; Z79.4 Long term (current) use of insulin; Z79.899 Other long term (current) drug therapy
CPT/HCPCS: 36415; 70450; 71045; 80048; 80053; 80307; 81001; 81003; 82010; 82272; 82803; 82947; 83605; 83735; 83880; 84100; 84132; 84295; 84484; 85007; 85025; 85027; 87040; 87086; 87088; 87147; 87186; 87205; 87635; 93005; 99285; C1758; J0131; J0696; J1650; J2543; J3475

== ENCOUNTER → 2022-09-03 00:32 | Outpatient (BNV) | payer MEDICARE, MEDICAID, SELFPAY | PROVIDERS: Admitting Provider Student in an Organized Health Care Education/Training Program; Emergency Provider Internal Medicine; PCP Family Medicine; Visit Provider Student in an Organized Health Care Education/Training Program | DX: N39.0 Urinary tract infection, site not specified (principal); G93.41 Metabolic encephalopathy; E87.6 Hypokalemia | CPT/HCPCS: 99223; 99232; 99239; 99499 ==